=== PATIENT | male | born 1950 | race Caucasian/White ===

== ENCOUNTER → 2018-05-17 | Outpatient (CLI) | payer MEDICARE ==
[2018-05-17 09:46] LABS: Albumin 4.1 g/dL (3.5-5.0); Calcium 9.3 mg/dL (8.4-10.2); Magnesium 1.7 mg/dL (1.6-2.3); Potassium 4.4 mmol/L (3.5-5.1); Total Bilirubin 0.8 mg/dL (0.2-1.3); Total Protein 6.8 g/dL (6.3-8.2)
== END | disposition home or self-care (01) ==
LOC: LABWHC1 08:04
PROVIDERS: ATTEND Internal Medicine Clinical Cardiac Electrophysiology
DX: I48.91 Unspecified atrial fibrillation (principal); E78.5 Hyperlipidemia, unspecified; Z79.899 Other long term (current) drug therapy
CPT/HCPCS: 36415; 80053; 80061; 83735; 84443

== ENCOUNTER → 2018-08-13 | Outpatient (CLI) | payer MEDICARE, OTHER ==
--- NOTE | 2018-08-14 19:40 | ECHOF ---
Referral Reason:R01.1 Murmur MEASUREMENTS -------- HEIGHT: 190.5 cm WEIGHT: 113.4 kg BP: IVSd: 1.1 cm (0.6 - 1.1) LVIDd: 4.8 cm (3.9 - 5.3) LVPWd: 1.2 cm (0.6 - 1.1) IVSs: 1.6 cm LVIDs: 2.9 cm LVPWs: 1.7 cm RVIDd: 1.9 cm (< 3.3) LAESV Index (A-L): 24.98 ml/m Ao Diam: 3.6 cm (2.0 - 3.7) LA Diam: 4.4 cm (2.7 - 3.8) AV Cusp: 2.0 cm (1.5 - 2.6) EPSS: 0.7 cm MV E Raymon: 0.86 m/s MV DecT: 255 ms MV A Raymon: 0.23 m/s MV E/A Ratio: 3.71 RAP: 5.00 mmHg RVSP: 23.32 mmHg MV EF SLOPE: 133.47 mm/s (70 - 150) MV EXCURSION: 16.31 mm (> 18.000) FINDINGS -------- Sinus rhythm. This was a technically adequate study. The left ventricular size is normal. There is mild concentric left ventricular hypertrophy. Overa ll left ventricular systolic function is normal with, an EF between 55 - 60 %. The right ventricle is normal in size and function. Normal LA size by volume 22+/-6 ml/m2. The right atrium is normal in size. Aortic valve is trileaflet and is mildly thickened. There is no evidence of aortic regurgitation. There is no evidence of aortic stenosis. The mitral valve leaflets are mildly thickened. Mild mitral annular calcification present. There is trace to mild mitral regurgitation. Trace tricuspid regurgitation present. Right ventricular systolic pressure is normal at < 35 mmHg. There is no evidence of pulmonary hypertension. Trace/mild (physiologic) pulmonic regurgitation. The aortic root size is normal. Normal inferior vena cava with normal inspiratory collapse consistent with estimated right atrial pre ssure of 5 mmHg. There is no pericardial effusion. CONCLUSIONS -------- 1. Sinus rhythm. 2. This was a technically adequate study. 3. The left ventricular size is normal. 4. There is mild concentric left ventricular hypertrophy. 5. Overall left ventricular systolic function is normal with, an EF between 55 - 60 %. 6. Normal LA size by volume 22+/-6 ml/m2. 7. Aortic valve is trileaflet and is mildly thickened. 8. The mitral valve leaflets are mildly thickened. 9. Mild mitral annular calcification present. 10. There is trace to mild mitral regurgitation. 11. Trace tricuspid regurgitation present. 12. Right ventricular systolic pressure is normal at < 35 mmHg. 13. There is no evidence of pulmonary hypertension. 14. Trace/mild (physiologic) pulmonic regurgitation. 15. The aortic root size is normal. 16. There is no pericardial effusion. SWAGE TENDER: Mervin Argueta RDCS
== END | disposition home or self-care (01) ==
LOC: RADECHMAIN 13:58
PROVIDERS: ATTEND Family Medicine
DX: I08.0 Rheumatic disorders of both mitral and aortic valves (principal); I70.8 Atherosclerosis of other arteries
CPT/HCPCS: 93306

== ENCOUNTER → 2018-08-21 | Outpatient (CLI) | payer MEDICARE, OTHER ==
--- NOTE | 2018-08-21 19:36 | CONS ---
CONSULTATION DATE OF SERVICE: 08/21/2018 68-year-old gentleman has been evaluated in [facility] for possible obstructive sleep apnea-hypopnea syndrome. HISTORY OF PRESENT ILLNESS SLEEP-WAKE EVALUATION: SLEEP SCHEDULE: Patient usual sleep schedule from around 11:00 p.m. until 8:00 a.m. FALLING ASLEEP: Sometimes he has problem with falling asleep, but usually not more than 1 hour. He does have a TV set in bedroom. DURING SLEEP: He sleeps on the back and side position with snoring witnessed by his and multiple awakenings from sleep with nocturia. The patient wakes up from sleep 3 times. DURING THE DAY/SLEEP WAKE EVALUATION: In the morning, patient wakes up tired. [employer] Sleepiness Scale increased to 11. He takes naps at around 2 to 4 pm. He feels very refreshed after a nap, usually no remembering of dreaming during the naps. The patient takes 2 cups of coffee during the day. No history of hypnagogic hallucinations, sleep paralysis or cataplexy. PAST MEDICAL HISTORY: Positive for coronary artery disease, hypertension, diabetes mellitus, hyperlipidemia, atrial fibrillation and atrial flutter. PAST SURGICAL HISTORY: Coronary artery bypass graft 2000, cardiac ablation for atrial flutter. MEDICATIONS: 1. Isosorbide. 2. Furosemide. 3. Metformin. 4. Lisinopril. 5. Simvastatin. 6. Invokana. 7. Dofetilide. 8. Eliquis. 9. Januvia. SOCIAL HISTORY: Negative for smoking or using alcohol. FAMILY HISTORY: Heart problems, lung problems, cancer and diabetes. REVIEW OF SYSTEMS: Multiple awakenings during the sleep. Sleepiness during the day. PHYSICAL EXAM: During physical exam, gentleman without distress. BP 146/60, HR 64, RR 16, height 6 feet 0, weight 253, body mass index 34.1, temperature 97.7, oxygen saturation on room air 97%. Oropharynx: Low position of soft palate. Some restriction of nasal breathing, wide neck 18 inches in circumference. Abdomen slightly obese. Heart S1, S2 sounds regular to me during the auscultation. Extremities 1+ bilateral ankle edema. Neck: Supple, no JVD. Thyroid is not palpable. LUNGS: Clear to percussion and to auscultation. Good air exchange. No wheezing or rhonchi. HEART: S1, S2 regular. ABDOMEN: Obese. Soft and nontender. Bowel sounds are present. No organomegaly appreciated. EXTREMITIES : 1+ bilateral ankle edema. No clubbing or cyanosis. 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 Cranial nerves 2 to 7 intact. There is no fasciculation or atrophy. noted. No focal deficits observed. IMPRESSION: 1. Snoring, low position of soft palate, multiple awakenings from sleep with nocturia, excessive daytime sleepiness. [employer] Sleepiness Scale increased to 11. Wide neck, obstructive sleep apnea-hypopnea syndrome. 2. Coronary artery disease, status post heart attack and coronary artery bypass grafting in 2000. 3. Hypertension. 4. Diabetes mellitus. 5. Hyperlipidemia. 6. History of atrial flutter and atrial fibrillation status post ablation procedure in March of 2016. PLAN: 1. Polysomnography for evaluation of patient's breathing during sleep. 2. CPAP/BiPAP titration if sleep study confirms obstructive sleep apnea-hypopnea syndrome. 3. Preferable position during sleep on the side. 4. No driving if patient feels any sleepiness. 5. I will see patient for follow up visit to explain results of testing and following plan. Thank you very much for referring this patient for consultation. Sincerely, Ted Varghese MD, PhD, FAASM Diplomat of [place] [employer] [place] [employer] Developer of [facility] [place] MMODL / NEGRITO: [id number] /
== END | disposition home or self-care (01) ==
LOC: SLEEP 14:24
PROVIDERS: ATTEND Internal Medicine
DX: G47.33 Obstructive sleep apnea (adult) (pediatric) (principal); M27.8 Other specified diseases of jaws; R35.1 Nocturia; I25.10 Atherosclerotic heart disease of native coronary artery without angina pectoris; I25.2 Old myocardial infarction; I10 Essential (primary) hypertension; E11.9 Type 2 diabetes mellitus without complications; I48.91 Unspecified atrial fibrillation; I48.92 Unspecified atrial flutter; E78.5 Hyperlipidemia, unspecified; Z95.1 Presence of aortocoronary bypass graft; Z79.84 Long term (current) use of oral hypoglycemic drugs; Z79.01 Long term (current) use of anticoagulants; Z79.899 Other long term (current) drug therapy; Z98.890 Other specified postprocedural states
CPT/HCPCS: 99211

== ENCOUNTER → 2019-02-24 | Outpatient (CLI) | payer MEDICARE, OTHER ==
--- NOTE | 2019-02-26 06:57 | MR ---
EXAMINATION TYPE: MR Prostate wo/w con DATE OF EXAM: 02/24/2019 COMPARISON: None IMAGE QUALITY: Good. INDICATION: Prostate cancer staging . PSA: 4.3 ng/ml on January 23, 2019 and 5.48 on December 23, 2017 Recent Biopsy and Date: February 17, 2016 Pathology Report (If Applicable): [place] 3+3 = 6 1 core TECHNIQUE: Examination was performed using a 3T MRI without an endorectal coil. Multiparametric imaging was perf ormed with T2 mutliplanar sequences, axial diffusion weighted imaging and dynamic contrast enhanced i maging, utilizing 10 mL intravenous Gadavist gadolinium contrast. FINDINGS: There is no clinically significant cancer identified. PROSTATE VOLUME: 5.6 cm SI x 4.3 cm AP x 5.6 cm LR Vol= 70.12 cc PSA DENSITY: 8.41 ng/ml/cc Prostate gland is enlarged in size bulging on bladder base. Peripheral zone is somewhat thinned and felt within normal limits on DWI/ADC imaging. There is a bulg e suspected nodule left apex axial image 24 with increased T1 signal suggesting recent biopsy, correl ate clinically. This does not show suspicious low signal on ADC mapping. Transitional zone shows overall heterogeneity with focus of heterogeneous signal intensity that has o bscured margins in the left posterior transitional zone apex seen best coronal image 11 without suspi cious enhancement on dynamic postcontrast images. Seminal vesicles are felt within normal limits. No suspicious adjacent adenopathy is seen. Capsule is maintained. Visualized portion of the bladder show mild wall thickening and slight trabeculation sug gesting outlet obstruction. Visualized osseous structures are intact. Mild to moderate wall thickenin g in visualized portion of rectum may be product of poor distention. IMPRESSION: Enlarged prostate gland without definitive suspicious lesion. Highest Assessment Category: 3 MRI Stage: T1c N0 M0 based on review of pelvic images. False negative rates for MRI range from 5-20% depending on risk profile. Assessment Categories: 1 ? Very low (clinically significant cancer is highly unlikely to be present) 2 ? Low (clinically significant cancer is unlikely to be present) 3 ? Intermediate (the presence of clinically significant cancer is equivocal) 4 ? High (clinically significant cancer is likely to be present) 5 ? Very high (clinically significant cancer is highly likely to be present)
== END ==
LOC: RADMRIMAIN 07:20
PROVIDERS: ATTEND Urology
DX: C61 Malignant neoplasm of prostate (principal)
CPT/HCPCS: 72197; A9585

== ENCOUNTER → 2019-03-04 | Outpatient (CLI) | payer MEDICARE, OTHER ==
[2019-03-04 19:32] LABS: Anion Gap 9.4 mmol/L (4.00-12.00); Calcium 9.3 mg/dL (8.7-10.3); Carbon Dioxide 23.6 mmol/L (21.6-31.8); Potassium 4.8 mmol/L (3.5-5.5)
== END | disposition home or self-care (01) ==
LOC: LABWHC1 11:33
PROVIDERS: ATTEND Internal Medicine Clinical Cardiac Electrophysiology
DX: I48.91 Unspecified atrial fibrillation (principal); Z79.899 Other long term (current) drug therapy
CPT/HCPCS: 36415; 80048; 83735

== ENCOUNTER 2019-04-25 13:03 | Emergency (ER) | payer MEDICARE, OTHER ==
[2019-04-25] MEDS ORDERED: SODIUM CHLORIDE 0.9% 500 ML 500 ML IV STA (13:25)
[2019-04-25] MEDS ORDERED: SODIUM CHLORIDE 0.9% 1,000 ML IV STA ×2 (13:25)
--- NOTE | 2019-04-25 13:38 | ED ---
Dizziness HPI - General Chief Complaint: Shortness of Breath Stated Complaint: SOB/Dizzy Time Seen by Provider: 04/25/19 13:10 Source: patient, family, RN notes reviewed, old records reviewed Mode of arrival: ambulatory Limitations: no limitations - History of Present Illness Initial Comments: This is a 68-year-old male the ER for evaluation. Patient is a near syncopal vertigo type experience prior to arrival in the ER. 2 hours prior to arrival patient had symptoms of room spinning lightheaded dizziness and feeling up he was given a passed out he is was able to similar, sit down and symptoms resolved in about 25 minutes. Patient has history of atrial fibrillation significant heart disease with multiple stents and cardiac surgery. She denies chest pain throughout the event he does admit to diaphoresis and possible some shortness of breath but he thinks it was just some anxiety. Patient is recent travel history no sick contacts is on blood thinners with no recent trauma. Symptoms are currently resolved MD Complaint: dizziness, lightheadedness, near syncope -: hour(s) Timing: sudden onset Description: sense of movement, "room spinning", lightheadedness, nausea, near- syncope History of Same: Yes (With his history of atrial fibrillation) History of Trauma: No Severity: moderate Improves With: nothing Worsens With: nothing Associated Symptoms: denies other symptoms - Related Data Home Medications Medication Instructions Recorded Confirmed Apixaban [Eliquis] 5 mg PO BID 04/25/19 04/25/19 Aspirin EC [Ecotrin Low Dose] 81 mg PO DAILY 04/25/19 04/25/19 Atorvastatin [Lipitor] 20 mg PO HS 04/25/19 04/25/19 Cholecalciferol (Vitamin D3) 2,000 unit PO DAILY 04/25/19 04/25/19 [Vitamin D3] Cinnamon Bark [Cinnamon] 1,000 mg PO BID 04/25/19 04/25/19 Empagliflozin [Jardiance] 12.5 mg PO DAILY 04/25/19 04/25/19 Insulin Glargine [Lantus] 10 unit SQ HS 04/25/19 04/25/19 Isosorbide Mononitrate ER [Imdur] 30 mg PO DAILY 04/25/19 04/25/19 Lisinopril [Zestril] 20 mg PO DAILY 04/25/19 04/25/19 Ranitidine HCl [Zantac] 150 mg PO BID 04/25/19 04/25/19 amLODIPine [Norvasc] 10 mg PO DAILY 04/25/19 04/25/19 sitaGLIPtin PHOS/metFORMIN HCL 0.5 tab PO BID 04/25/19 04/25/19 [Janumet 50-1,000 mg Tablet] Allergies Allergy/AdvReac Type Severity Reaction Status Date / Time No Known Allergies Allergy Verified 04/25/19 14:18 Review of Systems ROS Statement: Those systems with pertinent positive or pertinent negative responses have been documented in the HPI. ROS Other: All systems not noted in ROS Statement are negative. Past Medical History Past Medical History: Atrial Fibrillation, Atrial Flutter, Diabetes Mellitus, Hyperlipidemia, Hypertension History of Any Multi-Drug Resistant Organisms: None Reported Past Surgical History: Coronary Bypass/CABG, Heart Catheterization With Stent Past Psychological History: No Psychological Hx Reported Smoking Status: Never smoker Past Alcohol Use History: None Reported Past Drug Use History: None Reported General Exam Limitations: no limitations General appearance: alert, in no apparent distress Head exam: Present: atraumatic, normocephalic, normal inspection Eye exam: Present: normal appearance, PERRL, EOMI. Absent: scleral icterus, conjunctival injection, periorbital swelling ENT exam: Present: normal exam, mucous membranes moist Neck exam: Present: normal inspection. Absent: tenderness, meningismus, lymphadenopathy Respiratory exam: Present: normal lung sounds bilaterally. Absent: respiratory distress, wheezes, rales, rhonchi, stridor Cardiovascular Exam: Present: regular rate, normal rhythm, normal heart sounds. Absent: systolic murmur, diastolic murmur, rubs, gallop, clicks GI/Abdominal exam: Present: soft, normal bowel sounds. Absent: distended, tenderness, guarding, rebound, rigid Extremities exam: Present: normal inspection, full ROM, normal capillary refill. Absent: tenderness, pedal edema, joint swelling, calf tenderness Back exam: Present: normal inspection Neurological exam: Present: alert, oriented X3, CN II-XII intact Psychiatric exam: Present: normal affect, normal mood Skin exam: Present: warm, dry, intact, normal color. Absent: rash Course Vital Signs 04/25/19 04/25/19 04/25/19 13:05 13:32 13:40 Temperature 97.8 F Pulse Rate 54 L 51 L 51 L Respiratory 18 12 16 Rate Blood Pressure 159/74 155/77 O2 Sat by Pulse 98 94 L 97 Oximetry 04/25/19 04/25/19 13:50 14:20 Temperature Pulse Rate 49 L 57 L Respiratory 17 16 Rate Blood Pressure 155/77 143/76 O2 Sat by Pulse 95 96 Oximetry - Reevaluation(s) Reevaluation #1: 04/25/19 15:01 Medical records reviewed Reevaluation #2: 04/25/19 15:01 Patient remains significantly asymptomatic throughout ER stay Reevaluation #3: 04/25/19 15:02 Spoke with patient at length regarding hospital admission for monitoring of possible arrhythmia with history of heart disease. states he would not like there, he is feeling fine with her to be discharged EKG Findings - EKG Comments: EKG Findings:: EKG shows sinus bradycardia rate of 49, VA 190, QRS 138, QTc 424 Medical Decision Making - Medical Decision Making 68 male with near syncopal versus recurrent to experience. Patient symptoms are resolving can be discharged home - Lab Data Result diagrams: 04/25/19 13:23 04/25/19 13:23 Lab Results 04/25/19 04/25/19 04/25/19 Range/Units 13:23 13:23 13:23 WBC 8.3 (3.8-10.6) k/uL RBC 4.80 (4.30-5.90) m/uL Hgb 14.0 (13.0-17.5) gm/dL Hct 41.9 (39.0-53.0) % MCV 87.2 (80.0-100.0) fL MCH 29.2 (25.0-35.0) pg MCHC 33.5 (31.0-37.0) g/dL RDW 13.3 (11.5-15.5) % Plt Count 155 (150-450) k/uL Neutrophils % 82 % Lymphocytes % 8 % Monocytes % 6 % Eosinophils % 3 % Basophils % 0 % Neutrophils # 6.7 (1.3-7.7) k/uL Lymphocytes # 0.7 L (1.0-4.8) k/uL Monocytes # 0.5 (0-1.0) k/uL Eosinophils # 0.2 (0-0.7) k/uL Basophils # 0.0 (0-0.2) k/uL PT 10.2 (9.0-12.0) sec INR 0.9 (<1.2) APTT 26.5 (22.0-30.0) sec Sodium 136 L (137-145) mmol/L Potassium 5.3 H (3.5-5.1) mmol/L Chloride 103 (98-107) mmol/L Carbon Dioxide 23 (22-30) mmol/L Anion Gap 10 mmol/L BUN 48 H (9-20) mg/dL Creatinine 1.69 H (0.66-1.25) mg/dL Est GFR (CKD-EPI)AfAm 48 (>60 ml/min/1.73 sqM) Est GFR (CKD-EPI)NonAf 41 (>60 ml/min/1.73 sqM) Glucose 255 H (74-99) mg/dL Calcium 9.3 (8.4-10.2) mg/dL Phosphorus 3.9 (2.5-4.5) mg/dL Magnesium 2.1 (1.6-2.3) mg/dL Total Bilirubin 0.6 (0.2-1.3) mg/dL AST 22 (17-59) U/L ALT 24 (21-72) U/L Alkaline Phosphatase 55 (38-126) U/L Creatine Kinase 51 L (55-170) U/L Troponin I (0.000-0.034) ng/mL NT-Pro-B Natriuret Pep pg/mL Total Protein 7.0 (6.3-8.2) g/dL Albumin 4.2 (3.5-5.0) g/dL TSH 0.956 (0.465-4.680) mIU/L Urine Color Urine Appearance (Clear) Urine pH (5.0-8.0) Ur Specific [place] (1.001-1.035) Urine Protein (Negative) Urine Glucose (UA) (Negative) Urine Ketones (Negative) Urine Blood (Negative) Urine Nitrite (Negative) Urine Bilirubin (Negative) Urine Urobilinogen (<2.0) mg/dL Ur Leukocyte Esterase (Negative) Urine WBC (0-5) /hpf 04/25/19 04/25/19 04/25/19 Range/Units 13:23 13:23 14:00 WBC (3.8-10.6) k/uL RBC (4.30-5.90) m/uL Hgb (13.0-17.5) gm/dL Hct (39.0-53.0) % MCV (80.0-100.0) fL MCH (25.0-35.0) pg MCHC (31.0-37.0) g/dL RDW (11.5-15.5) % Plt Count (150-450) k/uL Neutrophils % % Lymphocytes % % Monocytes % % Eosinophils % % Basophils % % Neutrophils # (1.3-7.7) k/uL Lymphocytes # (1.0-4.8) k/uL Monocytes # (0-1.0) k/uL Eosinophils # (0-0.7) k/uL Basophils # (0-0.2) k/uL PT (9.0-12.0) sec INR (<1.2) APTT (22.0-30.0) sec Sodium (137-145) mmol/L Potassium (3.5-5.1) mmol/L Chloride (98-107) mmol/L Carbon Dioxide (22-30) mmol/L Anion Gap mmol/L BUN (9-20) mg/dL Creatinine (0.66-1.25) mg/dL Est GFR (CKD-EPI)AfAm (>60 ml/min/1.73 sqM) Est GFR (CKD-EPI)NonAf (>60 ml/min/1.73 sqM) Glucose (74-99) mg/dL Calcium (8.4-10.2) mg/dL Phosphorus (2.5-4.5) mg/dL Magnesium (1.6-2.3) mg/dL Total Bilirubin (0.2-1.3) mg/dL AST (17-59) U/L ALT (21-72) U/L Alkaline Phosphatase (38-126) U/L Creatine Kinase (55-170) U/L Troponin I <0.012 (0.000-0.034) ng/mL NT-Pro-B Natriuret Pep 940 pg/mL Total Protein (6.3-8.2) g/dL Albumin (3.5-5.0) g/dL TSH (0.465-4.680) mIU/L Urine Color Light Yellow Urine Appearance Clear (Clear) Urine pH 5.5 (5.0-8.0) Ur Specific [place] 1.015 (1.001-1.035) Urine Protein 1+ H (Negative) Urine Glucose (UA) 4+ H (Negative) Urine Ketones Negative (Negative) Urine Blood Negative (Negative) Urine Nitrite Negative (Negative) Urine Bilirubin Negative (Negative) Urine Urobilinogen <2.0 (<2.0) mg/dL Ur Leukocyte Esterase Negative (Negative) Urine WBC <1 (0-5) /hpf - Radiology Data Radiology results: report reviewed (CT brain negative for acute disease chest x- rays negative for acute disease), image reviewed Disposition Clinical Impression: Near syncope, Dizziness, Vertigo Disposition: HOME SELF-CARE Condition: Good Instructions (If sedation given, give patient instructions): Near Syncope (ED) Is patient prescribed a controlled substance at d/c from ED?: No Referrals: Victor Manuel Cummings MD [Primary Care Provider] - 1-2 days
[2019-04-25 14:02] LABS: Basophils % (A) 0 %; Eosinophils # (A) 0.2 k/uL (0-0.7); Eosinophils % (A) 3 %; HCT 41.9 % (39.0-53.0); Lymphocytes # (A) 0.7 k/uL (1.0-4.8); Lymphocytes % (A) 8 %; MCH 29.2 pg (25.0-35.0); MCHC 33.5 g/dL (31.0-37.0); MCV 87.2 fL (80.0-100.0); Mean Platelet Volume 7.1; Monocytes # (A) 0.5 k/uL (0-1.0); Monocytes % (A) 6 %; Neutrophils # (A) 6.7 k/uL (1.3-7.7); Neutrophils % (A) 82 %; Platelet Count 155 k/uL (150-450); RDW 13.3 % (11.5-15.5); WBC 8.3 k/uL (3.8-10.6)
--- NOTE | 2019-04-25 14:07 | XR ---
EXAMINATION TYPE: XR chest 2V DATE OF EXAM: 04/25/2019 COMPARISON: NONE HISTORY: Short of breath TECHNIQUE: Frontal and lateral views of the chest are obtained. FINDINGS: Heart and mediastinum are normal. Lungs are clear. Diaphragm is normal. There are chest le ads. Bony thorax is intact. IMPRESSION: No active cardiopulmonary disease.
[2019-04-25 14:11] LABS: Albumin 4.2 g/dL (3.5-5.0); Calcium 9.3 mg/dL (8.4-10.2); Magnesium 2.1 mg/dL (1.6-2.3); Phosphorus 3.9 mg/dL (2.5-4.5); Potassium 5.3 mmol/L (3.5-5.1); Total Bilirubin 0.6 mg/dL (0.2-1.3)
[2019-04-25 14:19] LABS: Appearance,Urine Clear (Clear); Bilirubin,Urine Negative (Negative); Blood,Urine Negative (Negative); Color,Urine Light Yellow; Glucose,Urine (UA) 4+ (Negative); Ketones,Urine Negative (Negative); Leukocyte Esterase,Urine Negative (Negative); Nitrite,Urine Negative (Negative); PH, Urine 5.5 (5.0-8.0); Protein,Urine 1+ (Negative); Specific Gravity,Urine 1.015 (1.001-1.035); Urobilinogen,Urine <2.0 mg/dL (<2.0); WBC,Urine <1 /hpf (0-5)
[2019-04-25 14:20] LABS: INR 0.9 (<1.2); Partial Thromboplastin Time 26.5 sec (22.0-30.0); Prothrombin Time 10.2 sec (9.0-12.0)
--- NOTE | 2019-04-25 14:25 | CT ---
EXAMINATION TYPE: CT brain wo con DATE OF EXAM: 04/25/2019 COMPARISON: None HISTORY: Dizziness and weakness CT DLP: 1027.4 mGycm Automated exposure control for dose reduction was used. FINDINGS: There is some mild cerebral cortical atrophy. There is no mass effect nor midline shift. There is no sign of intracranial hemorrhage. Calvarium is intact. There is debris in the external auditory canals . IMPRESSION: MILD ATROPHY. NO ACUTE INTRACRANIAL ABNORMALITY.
[2019-04-25 15:14] VITALS: BP 150/78; PULSE 57; RESP 18; TEMP 98.7
== END 2019-04-25 15:13 | disposition home or self-care (01) ==
LOC: EC 13:03
DX: R42 Dizziness and giddiness (principal); R55 Syncope and collapse; I48.91 Unspecified atrial fibrillation; I48.92 Unspecified atrial flutter; E11.9 Type 2 diabetes mellitus without complications; E78.5 Hyperlipidemia, unspecified; I10 Essential (primary) hypertension; Z79.82 Long term (current) use of aspirin; Z79.01 Long term (current) use of anticoagulants; Z79.4 Long term (current) use of insulin; Z79.899 Other long term (current) drug therapy; Z95.1 Presence of aortocoronary bypass graft; Z95.2 Presence of prosthetic heart valve
CPT/HCPCS: 36415; 70450; 71046; 80053; 81001; 82550; 83735; 83880; 84100; 84443; 84484; 85025; 85610; 85730; 87086; 93005; 96360; 99285

== ENCOUNTER → 2019-05-15 | Outpatient (CLI) | payer MEDICARE, OTHER ==
--- NOTE | 2019-05-15 14:45 | US ---
EXAMINATION TYPE: US carotid duplex BILAT DATE OF EXAM: 05/15/2019 COMPARISON: NONE CLINICAL HISTORY: R55 syncope. EXAM MEASUREMENTS: RIGHT: Peak Systolic Velocity (PSV) cm/sec ----- Right CCA: 98.0 ----- Right ICA: 93.2 ----- Right ECA: 85.5 ICA/CCA ratio: 1.0 RIGHT: End Diastole cm/sec ----- Right CCA: 15.9 ----- Right ICA: 23.8 ----- Right ECA: 0.0 LEFT: Peak Systolic Velocity (PSV) cm/sec ----- Left CCA: 318.1 ----- Left ICA: 160.9 ----- Left ECA: 227.5 ICA/CCA ratio: 0.5 LEFT: End Diastole cm/sec ----- Left CCA: 34.6 ----- Left ICA: 30.8 ----- Left ECA: 18.4 VERTEBRALS (direction of flow): Right Vertebral: Antegrade Left Vertebral: Antegrade Rhythm: Normal No significant stenosis seen. Extensive plaque noted throughout all vessels. Elevated left CCA, ICA, & ECA velocities. IMPRESSION: 1. 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 Proximal stenosis is suspected given elevation of all 3 velocities. CTA neck is re commended for further evaluation. 2. Moderate amount of grayscale atheromatous plaquing within the right carotid arterial system withou t hemodynamically significant stenosis. Criteria for Assigning % of Stenosis / Diameter reduction (Estimation based on the indirect measurements of the internal carotid artery velocities (ICA PSV). 1. Normal (no stenosis)=ICA PSV < 125 cm/s: ratio < 2.0: ICA EDV<40 cm/s. 2. Less than 50% stenosis=ICA PSV < 125 cm/s: ratio < 2.0: ICA EDV<40 cm/s. 3. 50 to 69% stenosis=ICA PSV of 125 to 230 cm/s: ration 2.0 ? 4.0: ICA EDV 40-100 cm/s. 4. Greater than 70% stenosis to near occlusion= ICA PSV > 230 cm/s: ratio > 4.0: ICA EDV > 100 cm/s. 5. Near occlusion= ICA PSV velocities may be low or undetectable: variable ratio and ICA EDV. 6. Total occlusion=unable to detect flow.
== END | disposition home or self-care (01) ==
LOC: RADUSWWP 14:05
PROVIDERS: ATTEND Family Medicine
DX: I77.89 Other specified disorders of arteries and arterioles (principal); R55 Syncope and collapse
CPT/HCPCS: 93880

== ENCOUNTER → 2019-06-01 | Day surgery (SDC) | payer MEDICARE, OTHER ==
[2019-05-26 15:51] VITALS: BMI 30.2
[~2019-06-01] MED LIST: LIDOCAINE 1% INJ 10MG/ML (20 ML MDV) SQ ONE; MIDAZOLAM (PF) 2 MG/2 ML VIAL IV ONE; SODIUM CHLORIDE 0.9% 1,000 ML IV SCH
[2019-06-01 12:47] VITALS: RESP 18
[2019-06-01 12:50] LABS: Glucose,Whole Blood 111 mg/dL (75-99)
--- NOTE | 2019-06-01 15:24 | P.PCN ---
Preoperative Diagnosis: Preoperative diagnosis: Paroxysmal Atrial fibrillation, patient underwent loop monitor implant under conscious sedation/moderate sedatio n under Dr. Rivas's supervision, monitoring of the level of consciousness and physiologic parameters including but not limited to vital signs and oxygenation. Patient tolerated the procedure well without any acute complications. Start time: 1455 Stop time: 1515
--- NOTE | 2019-06-01 15:29 | P.PCN ---
Preoperative Diagnosis: Loop monitor implant Primary physicians: Dr. Cummings Caser: Dr. Rivas operators: Dr. Rivas and Vivien King PA-C Indication: Paroxysmal Atrial fibrillation, QT prolongation with dofetilide, GFR 41, and presyncopal spells with unclear etiology Patient was brought to the EP lab in a fasting state. Written informed consent was obtained prior to the procedure. The left pectoral area was prepped and draped per protocol. Intravenous antibiotic was administered preoperatively. A subcutaneous Loop monitor was implanted successfully and the wound was closed per protocol. The device was programmed to detect significant slava- arrhythmic and tachy-arrhythmic events, per protocol. Device and programming details: Programmed A. fib management and syncope evaluation
[2019-06-01 16:44] VITALS: BP 127/61; PULSE 72
== END ==
LOC: CATHEP 12:07
PROVIDERS: ATTEND Internal Medicine Clinical Cardiac Electrophysiology
DX: I48.0 Paroxysmal atrial fibrillation (principal); I45.81 Long QT syndrome; R55 Syncope and collapse; I25.10 Atherosclerotic heart disease of native coronary artery without angina pectoris; Z95.1 Presence of aortocoronary bypass graft; Z95.5 Presence of coronary angioplasty implant and graft; I10 Essential (primary) hypertension; I45.2 Bifascicular block; E78.5 Hyperlipidemia, unspecified; E78.00 Pure hypercholesterolemia, unspecified; E11.9 Type 2 diabetes mellitus without complications; G47.33 Obstructive sleep apnea (adult) (pediatric); Z99.89 Dependence on other enabling machines and devices; Z79.82 Long term (current) use of aspirin; Z79.01 Long term (current) use of anticoagulants; Z79.4 Long term (current) use of insulin; Z79.899 Other long term (current) drug therapy; Z82.49 Family history of ischemic heart disease and other diseases of the circulatory system
CPT/HCPCS: 33285; C1764; J0690; J2001; J2250

== ENCOUNTER → 2019-06-17 | Outpatient (CLI) | payer MEDICARE, OTHER ==
--- NOTE | 2019-06-17 09:23 | US ---
EXAMINATION TYPE: US kidneys/renal and bladder DATE OF EXAM: 06/17/2019 COMPARISON: NONE CLINICAL HISTORY: N18.9 CKD. CKD EXAM MEASUREMENTS: Right Kidney: 13.6 x 5.4 x 5.6 cm Left Kidney: 13.2 x 5.8 x 4.8 cm Right Kidney: No hydronephrosis or masses seen Left Kidney: Exophytic Cystic are mid to lower pole 1.2 x 1.3 x 1.2cm. Solid hypoechoic area lateral to lower pole measuring 3.2 x 2.5 x 2.4cm. Bladder: wnl Bilateral Jets seen: Yes IMPRESSION: 1. 3 cm solid mass posterior lateral left lower renal pole. Additional workup with contrast CT is rec ommended. Neoplasm is not excluded. 2. Small exophytic cyst along the lateral left kidney.
== END | disposition home or self-care (01) ==
LOC: RADUSWWP 08:00
PROVIDERS: ATTEND Internal Medicine
DX: N28.1 Cyst of kidney, acquired (principal); N28.89 Other specified disorders of kidney and ureter
CPT/HCPCS: 76770

== ENCOUNTER → 2019-07-03 | Outpatient (CLI) | payer MEDICARE, OTHER | LOC: RADCTMAIN 14:04 | PROVIDERS: ATTEND Internal Medicine Clinical Cardiac Electrophysiology | DX: I65.29 Occlusion and stenosis of unspecified carotid artery (principal) | CPT/HCPCS: 82565; 84520 ==

== ENCOUNTER 2019-08-25 05:54 | Day surgery (SDC) | payer MEDICARE, OTHER ==
[2019-08-25] MEDS ORDERED: SODIUM CHLORIDE 0.9% 1,000 ML IV SCH (05:55)
[2019-08-25] MEDS ORDERED: ceFAZolin 1,000 MG in SODIUM CHLORIDE 0.9% IRRIGATIO 250 ML IRRIGATION ONE (06:00)
[2019-08-25 06:36] LABS: Glucose,Whole Blood 109 mg/dL (75-99)
[2019-08-25 06:36] LABS: Basophils # (A) 0.1 k/uL (0-0.2); Basophils % (A) 1 %; Eosinophils # (A) 0.3 k/uL (0-0.7); Eosinophils % (A) 4 %; HCT 40.1 % (39.0-53.0); HGB 13.5 gm/dL (13.0-17.5); Lymphocytes # (A) 0.7 k/uL (1.0-4.8); Lymphocytes % (A) 10 %; MCH 29.9 pg (25.0-35.0); MCHC 33.8 g/dL (31.0-37.0); MCV 88.5 fL (80.0-100.0); Mean Platelet Volume 6.6; Monocytes # (A) 0.6 k/uL (0-1.0); Monocytes % (A) 9 %; Neutrophils # (A) 4.8 k/uL (1.3-7.7); Neutrophils % (A) 73 %; Platelet Count 148 k/uL (150-450); RBC 4.52 m/uL (4.30-5.90); RDW 13.1 % (11.5-15.5); WBC 6.6 k/uL (3.8-10.6)
[2019-08-25] MEDS: SODIUM CHLORIDE 0.9% 1,000 ML IV SCH (06:38)
[2019-08-25 06:53] LABS: Calcium 9.2 mg/dL (8.4-10.2); Potassium 4.7 mmol/L (3.5-5.1)
[2019-08-25] MEDS ORDERED: LIDOCAINE 1% INJ 10MG/ML (20 ML MDV) ONE ×2 (07:04→07:42)
[2019-08-25] MEDS ORDERED: IOPAMIDOL-370 50ML BTL INJ ONE (07:25)
[2019-08-25] MEDS ORDERED: MIDAZOLAM 2 MG/2 ML VIAL IV ONE (07:34)
[2019-08-25] MEDS: LIDOCAINE 1% INJ 10MG/ML (20 ML MDV) SQ ONE ×3 (07:37→07:48)
[2019-08-25] MEDS ORDERED: fentaNYL (PF) 50 MCG/ML 2 ML AMP ONE (07:38)
[2019-08-25] MEDS: fentaNYL (PF) 50 MCG/ML 2 ML AMP IV ONE ×2 (07:40→07:45)
--- NOTE | 2019-08-25 08:37 | P.PCN ---
Preoperative Diagnosis: Patient underwent EP procedure under conscious sedation/moderate sedation, monitoring of the level of consciousness and physiologic parameters including but not limited to vital signs and oxygenation. Patient tolerated the procedure well without any acute complications. Start time: 730 Stop time: 08
--- NOTE | 2019-08-25 08:39 | P.HPCAR ---
History of Present Illness Impression Successful dual-chamber pacemaker implantation for sick sinus syndrome/severe bradycardia with long pauses with heart rates down to the mid 20s Daytime bradycardia severe symptomatic with dizziness Severe nighttime bradycardia down to the 20s Not on any medications or chronotropic agents Coronary artery disease status post coronary artery bypass grafting History of atrial flutter, paroxysmal him a status post ablation Procedure performed Successful dual-chamber pacemaker implantation Screw-in atrial lead in the right atrial appendage stump Screw-in RV lead in the low RV septum Medtronic device Please see office note Physical Exam Vitals: Vital Signs Temp Pulse Resp BP Pulse Ox 08/25/19 06:37 97.8 F 55 L 18 141/70 96 Intake and Output 08/24/19 08/25/19 08/25/19 22:59 06:59 14:59 Intake Total 20 150 Balance 20 150 Intake: IV 20 150 Other: Weight 108.862 kg Past Medical History Past Medical History: Diabetes Mellitus, Myocardial Infarction ([place]), Sleep Apnea/CPAP/BIPAP Additional Past Medical History / Comment(s): see Dr Rivas H&P Last Myocardial Infarction Date:: 01/2001 History of Any Multi-Drug Resistant Organisms: None Reported Past Surgical History: Coronary Bypass/CABG, Heart Catheterization With Stent Additional Past Surgical History / Comment(s): cabgx3, stent x3 Past Anesthesia/Blood Transfusion Reactions: No Reported Reaction Date of Last Stent Placement:: Smoking Status: Never smoker Physical Examination Vital Signs Temp Pulse Resp BP Pulse Ox 08/25/19 06:37 97.8 F 55 L 18 141/70 96 Intake and Output 08/24/19 08/25/19 08/25/19 22:59 06:59 14:59 Intake Total 20 150 Balance 20 150 Intake: IV 20 150 Other: Weight 108.862 kg Results 08/25/19 06:20 08/25/19 06:20 CBC 08/25/19 Range/Units 06:20 WBC 6.6 (3.8-10.6) k/uL RBC 4.52 (4.30-5.90) m/uL Hgb 13.5 (13.0-17.5) gm/dL Hct 40.1 (39.0-53.0) % Plt Count 148 L (150-450) k/uL Comprehensive Metabolic Panel 08/25/19 Range/Units 06:20 Sodium 141 (137-145) mmol/L Potassium 4.7 (3.5-5.1) mmol/L Chloride 109 H (98-107) mmol/L Carbon Dioxide 23 (22-30) mmol/L BUN 53 H (9-20) mg/dL Creatinine 1.80 H (0.66-1.25) mg/dL Glucose 117 H (74-99) mg/dL Calcium 9.2 (8.4-10.2) mg/dL Current Medications Generic Name Dose Route Start Last Admin Trade Name Freq PRN Reason Stop Dose Admin Sodium Chloride 1,000 mls @ 50 mls/hr 08/25/19 05:55 08/25/19 06:38 Saline 0.9% IV 120 mls .Q20H DAREN Administration Sodium Chloride 1,000 mls @ 50 mls/hr 08/25/19 05:55 Saline 0.9% IV .Q20H DAREN Intake and Output 08/24/19 08/25/19 08/25/19 22:59 06:59 14:59 Intake Total 20 150 Balance 20 150 Intake: IV 20 150 Other: Weight 108.862 kg 08/25/19 06:20 08/25/19 06:20
[2019-08-25] MEDS ORDERED: ACETAMINOPHEN TAB 325 MG TAB PO PRN (08:42)
--- NOTE | 2019-08-25 08:45 | P.PRLE ---
RE: Salvatore Marks Dear Dr. Emiliano Chase underwent successful dual-chamber pacemaker implantation for severe Sick Sinus Syndrome that is determined loop monitoring did he had severe daytime bradycardia associated with dizziness He will continue his current medications without any changes Thank you for entrusting me with the care of the patient Warm regards Sincerely Chris Rivas
[2019-08-25] MEDS ORDERED: SITAGLIPTIN PHOS PO SCH (09:00)
[2019-08-25] MEDS ORDERED: METFORMIN HCL PO SCH (09:00)
[2019-08-25] MEDS ORDERED: [UNRECOGNIZED DRUG - OTHER] PO SCH (09:00)
[2019-08-25] MEDS ORDERED: ACETAMINOPHEN IV (For NPO) 1,000 MG in EMPTY BAG 1 BAG IVPB ONE (10:30)
[2019-08-25] MEDS: amLODIPine 10 MG TAB PO SCH (11:20)
[2019-08-25] MEDS: ISOSORBIDE MONONITRATE ER 30 MG TAB.ER.24H PO SCH (11:20)
[2019-08-25] MEDS: LISINOPRIL 20 MG TAB PO SCH (11:20)
[2019-08-25 11:56] LABS: Glucose,Whole Blood 148 mg/dL (75-99)
[2019-08-25] MEDS: HYDROcodone/APAP 5-325MG 1 EACH TAB PO PRN ×2 (12:06→17:37)
--- NOTE | 2019-08-25 14:20 | PCN ---
PROCEDURE NOTE Salvatore Marks is a 69-year-old male patient who has atrial flutter and evidence of sick sinus syndrome with significant pauses. Previously, he only at nighttime severe bradycardia down to the 20s, but now he started experiencing daytime heart rates in the 30s with pauses associated with dizziness and lightheadedness. He was awake during these episodes yesterday and in we detected a 7 loop monitor. He is not on any medications that would decrease his heart rate. He underwent a dual-chamber pacemaker today. Patient was brought to the EP lab in a fasting state. Written informed consent was obtained prior to the procedure. The left shoulder area was prepped and draped as per protocol. 1% lidocaine was used for local anesthesia. A 4 cm incision was made parallel to the deltopectoral groove, about 1.5 cm medial to it. The incision was carried down to the level of the pectoralis muscle. A subfascial pocket was made, hemostasis was assured. At two separate points under fluoroscopy and a lateral access at the level of the second rib was made. Two venous sheaths were placed,. via these right atrial and right ventricular leads were placed. The right atrial lead was a screw-in lead model #5076, 52 cm length and serial number [id number]. P waves 2.2 mV, pacing impedance 748 ohms, pacing threshold 0.9 V at 0.5 milliseconds 10 V test negative. The RV lead was positioned in the low RV septum. R-waves 17.4 pacing impedance 1-88 ohms, pacing threshold 0.6 V at 0.5 milliseconds. 10 V test negative. Both leads were secured to the underlying pectoralis fascia using 2 nonabsorbable sutures. Pocket was irrigated with antibiotic solution. Leads were connected to the generator (Medtronic dual-chamber device 0 MRI, model number [id number], serial [id number]. The leads and generator were then placed in subfascial pocket. The wound was closed in 3 layers and dressed per protocol. The device was then programmed to DDD mode at 50 bpm with MVP turned on. With atrial pacing, AV node Wenckebach block in a mildly sedated state was 120 beats per minute. MMODL / IJN: [id number] /
[2019-08-25 16:42] LABS: Glucose,Whole Blood 154 mg/dL (75-99)
[2019-08-25 20:29] LABS: Glucose,Whole Blood 178 mg/dL (75-99)
[2019-08-25] MEDS: APIXABAN 5 MG TAB PO SCH (20:38)
[2019-08-25 20:50] VITALS: RESP 18
[2019-08-25] MEDS ORDERED: ATORVASTATIN 20 MG TAB PO SCH (21:00)
[2019-08-26] MEDS: SODIUM CHLORIDE 0.9% 1,000 ML IV SCH (00:08)
[2019-08-26] MEDS: HYDROcodone/APAP 5-325MG 1 EACH TAB PO PRN ×3 (00:09→11:33)
[2019-08-26 06:47] LABS: Glucose,Whole Blood 147 mg/dL (75-99)
[2019-08-26] MEDS ORDERED: glipiZIDE 10 MG TAB PO SCH (07:30)
[2019-08-26 07:33] VITALS: BP 156/65; PULSE 54; TEMP 97.7
--- NOTE | 2019-08-26 07:57 | P.DS ---
Providers Attending physician: Chris Rivas Primary [facility]: Patient is doing well. No chest discomfort. The basic site is sore no dizziness lightheadedness or palpitations Blood pressure 150 was 72 mmHg pulse rate in the 50s afebrile 97.7F Breath sounds are clear no rhonchi no crackles Heart sounds S1 and S2 are normal no murmurs or gallops no rub Extremity is warm no edema Impression Symptomatic sick sinus syndrome with daytime pauses No incriminating drugs or triggering factors Status post dual-chamber pacemaker implantation yesterday Suggest Continue all home medications Discharge home if chest x-ray is within normal limits, antibiotic courses complete and pacemaker interrogation is within normal limits Follow-up with device clinic within one week Plan - Discharge Summary Discharge Rx Participant: No New Discharge Prescriptions: No Action amLODIPine [Norvasc] 10 mg PO DAILY Ranitidine HCl [Zantac] 150 mg PO BID Lisinopril [Zestril] 20 mg PO DAILY Isosorbide Mononitrate ER [Imdur] 30 mg PO DAILY Empagliflozin [Jardiance] 12.5 mg PO DAILY Cholecalciferol (Vitamin D3) [Vitamin D3] 2,000 unit PO DAILY Aspirin EC [Ecotrin Low Dose] 81 mg PO DAILY Apixaban [Eliquis] 5 mg PO BID sitaGLIPtin PHOS/metFORMIN HCL [Janumet 50-1,000 mg Tablet] 0.5 tab PO BID Cinnamon Bark [Cinnamon] 1,000 mg PO BID Atorvastatin [Lipitor] 20 mg PO HS glipiZIDE [Glucotrol] 10 mg PO DAILY Discharge Medication List Apixaban [Eliquis] 5 mg PO BID 04/25/19 [History] Aspirin EC [Ecotrin Low Dose] 81 mg PO DAILY 04/25/19 [History] Atorvastatin [Lipitor] 20 mg PO HS 04/25/19 [History] Cholecalciferol (Vitamin D3) [Vitamin D3] 2,000 unit PO DAILY 04/25/19 [History] Cinnamon Bark [Cinnamon] 1,000 mg PO BID 04/25/19 [History] Empagliflozin [Jardiance] 12.5 mg PO DAILY 04/25/19 [History] Isosorbide Mononitrate ER [Imdur] 30 mg PO DAILY 04/25/19 [History] Lisinopril [Zestril] 20 mg PO DAILY 04/25/19 [History] Ranitidine HCl [Zantac] 150 mg PO BID 04/25/19 [History] amLODIPine [Norvasc] 10 mg PO DAILY 04/25/19 [History] sitaGLIPtin PHOS/metFORMIN HCL [Janumet 50-1,000 mg Tablet] 0.5 tab PO BID 04/25/19 [History] glipiZIDE [Glucotrol] 10 mg PO DAILY 08/25/19 [History] Follow up Appointment(s)/Referral(s): Des Olivares MD [STAFF PHYSICIAN] - 1 Week Discharge Disposition: HOME SELF-CARE
[2019-08-26] MEDS ORDERED: ASPIRIN 81 MG PO SCH (09:00)
[2019-08-26] MEDS ORDERED: EMPAGLIFLOZIN 12.5 MG PO SCH (09:00)
[2019-08-26] MEDS ORDERED: LINAGLIPTIN 5 MG TABLET PO SCH (09:00)
--- NOTE | 2019-08-26 09:03 | XR ---
EXAMINATION TYPE: XR chest 2V DATE OF EXAM: 08/26/2019 COMPARISON: Prior chest 04/25/2019 HISTORY: Weakness, shortness of breath, syncope TECHNIQUE: Frontal and lateral views of the chest are obtained. FINDINGS: Patient is post median sternotomy. Generator is present in left pectoral region, there are leads in the right atrium and ventricle. There is a loop recorder over the ventricle region. There is no focal air space opacity, pleural effusion, or pneumothorax seen. The cardiac silhouette size is stable. The osseous structures are intact. Mesenteric vascular calcifications noted. The aorta is d ense. IMPRESSION: No acute cardiopulmonary process.
[2019-08-26] MEDS: LISINOPRIL 20 MG TAB PO SCH (09:25)
[2019-08-26] MEDS: ISOSORBIDE MONONITRATE ER 30 MG TAB.ER.24H PO SCH (09:25)
[2019-08-26] MEDS: amLODIPine 10 MG TAB PO SCH (09:26)
[2019-08-26] MEDS: APIXABAN 5 MG TAB PO SCH (09:26)
[2019-08-26] MEDS ORDERED: metFORMIN 500 MG TAB PO SCH (10:00)
[2019-08-27] MEDS ORDERED: metFORMIN 500 MG TAB PO SCH (07:30)
== END 2019-08-26 11:50 | disposition home or self-care (01) ==
LOC: CATHEP 05:54 → 1SOBS 09:57 → CATHEP 08-26 11:50
PROVIDERS: ATTEND Internal Medicine Clinical Cardiac Electrophysiology
DX: I49.5 Sick sinus syndrome (principal); I48.92 Unspecified atrial flutter; E11.9 Type 2 diabetes mellitus without complications; G47.30 Sleep apnea, unspecified; Z99.89 Dependence on other enabling machines and devices; I25.2 Old myocardial infarction; Z95.1 Presence of aortocoronary bypass graft; Z95.5 Presence of coronary angioplasty implant and graft
CPT/HCPCS: 33208; 80048; 85025; 71046; C1769 ×3; C1892; C1898; C1785; J2250; J0690 ×2; J2001; J3010; Q9967

== ENCOUNTER 2020-11-21 11:48 | Inpatient (IN) | payer MEDICARE ==
[2020-11-21] MEDS ORDERED: SODIUM CHLORIDE 0.9% 1,000 ML IV STA (12:34)
[2020-11-21 13:06] LABS: Basophils # (A) 0.1 k/uL (0-0.2); Basophils % (A) 1 %; Eosinophils # (A) 0.1 k/uL (0-0.7); Eosinophils % (A) 1 %; HCT 38.7 % (39.0-53.0); HGB 13.2 gm/dL (13.0-17.5); Lymphocytes # (A) 0.6 k/uL (1.0-4.8); Lymphocytes % (A) 8 %; MCH 31.1 pg (25.0-35.0); MCHC 34.2 g/dL (31.0-37.0); MCV 90.9 fL (80.0-100.0); Mean Platelet Volume 7.6; Monocytes # (A) 0.8 k/uL (0-1.0); Monocytes % (A) 9 %; Neutrophils # (A) 6.4 k/uL (1.3-7.7); Neutrophils % (A) 79 %; Platelet Count 128 k/uL (150-450); RBC 4.26 m/uL (4.30-5.90); RDW 13.6 % (11.5-15.5); WBC 8.1 k/uL (3.8-10.6)
[2020-11-21 13:16] LABS: Albumin 3.9 g/dL (3.5-5.0); Calcium 8.9 mg/dL (8.4-10.2); Potassium 5.1 mmol/L (3.5-5.1); Total Bilirubin 0.8 mg/dL (0.2-1.3); Total Protein 6.8 g/dL (6.3-8.2)
[2020-11-21 13:28] LABS: Appearance,Urine Cloudy (Clear); Bacteria,Urine Occasional /hpf; Bilirubin,Urine Negative (Negative); Blood,Urine Large (Negative); Color,Urine Yellow; Glucose,Urine (UA) 4+ (Negative); Ketones,Urine Negative (Negative); Leukocyte Esterase,Urine Trace (Negative); Mucus,Urine Rare /hpf; Nitrite,Urine Negative (Negative); PH, Urine 5.5 (5.0-8.0); Protein,Urine 1+ (Negative); RBC,Urine >182 /hpf (0-5); Specific Gravity,Urine 1.017 (1.001-1.035); Urobilinogen,Urine <2.0 mg/dL (<2.0); WBC,Urine 12 /hpf (0-5)
[2020-11-21] MEDS ORDERED: SODIUM CHLORIDE 0.9% 1,000 ML IV SCH (13:30)
--- NOTE | 2020-11-21 13:36 | ED ---
General Adult HPI - General Source: patient, family, RN notes reviewed Mode of arrival: ambulatory Limitations: no limitations <Edgar Christina - Last Filed: 11/21/20 14:08> <Erick Sharpe - Last Filed: 11/21/20 14:51> - General Chief complaint: Urogenital Stated complaint: Sent by PCP need IV antibotics Time Seen by Provider: 11/21/20 12:18 - History of Present Illness Initial comments: This is a 70-year-old male presents emergency Department chief complaint of chills, weakness. Patient states that he had prostate biopsy on Saturday by Dr. Garza and states that he started having chills on Saturday states that he's felt worse she did follow-up on Saturday and received IV antibiotics from [facility]. Patient states that he also received his Covid vaccine on Saturday. Patient states that he just feels miserable states he aches all over. Patient states is also a slight cough which was productive of brown sputum. Patient states his urine is very dark. Patient states that he he saw his urologist in office today who sent him in for IV antibiotics. (Edgar Christina) - Related Data Home Medications Medication Instructions Recorded Confirmed Apixaban [Eliquis] 5 mg PO BID 04/25/19 11/21/20 Aspirin EC [Ecotrin Low Dose] 81 mg PO DAILY 04/25/19 11/21/20 Cinnamon Bark [Cinnamon] 1,000 mg PO BID 04/25/19 11/21/20 Empagliflozin [Jardiance] 25 mg PO DAILY 04/25/19 11/21/20 Isosorbide Mononitrate ER [Imdur] 30 mg PO DAILY 04/25/19 11/21/20 amLODIPine [Norvasc] 10 mg PO DAILY 04/25/19 11/21/20 lisinopriL [Zestril] 20 mg PO DAILY 04/25/19 11/21/20 sitaGLIPtin PHOS/metFORMIN HCL 0.5 tab PO BID 04/25/19 11/21/20 [Janumet 50-1,000 mg Tablet] Atorvastatin Calcium [Lipitor] 80 mg PO HS 11/21/20 11/21/20 Cephalexin [Keflex] 500 mg PO Q8HR 11/21/20 11/21/20 Cholecalciferol [Vitamin D3 (25 25 mcg PO BID 11/21/20 11/21/20 Mcg = 1000 Iu)] glipiZIDE XL [Glucotrol Xl] 10 mg PO DAILY 11/21/20 11/21/20 Allergies Allergy/AdvReac Type Severity Reaction Status Date / Time No Known Allergies Allergy Verified 11/21/20 14:01 Review of Systems ROS Other: All systems not noted in ROS Statement are negative. <Edgar Christina - Last Filed: 11/21/20 14:08> ROS Other: All systems not noted in ROS Statement are negative. <Erick Sharpe - Last Filed: 11/21/20 14:51> ROS Statement: Those systems with pertinent positive or pertinent negative responses have been documented in the HPI. 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 cardiac ablation 04/06, Prostate of biopsy 10/2020, Colonoscop 09/2020 Past Anesthesia/Blood Transfusion Reactions: No Reported Reaction Date of Last Stent Placement:: Type of Cardiac Device: Biventricular Pacemaker Device Placement Date:: 08/25/19 Past Psychological History: No Psychological Hx Reported Smoking Status: Never smoker Past Alcohol Use History: None Reported Past Drug Use History: None Reported - Past Family History Father Family Medical History: Cancer, Diabetes Mellitus Additional Family Medical History / Comment(s): pancreatic cancer, pacemaker Mother Family Medical History: Cancer Additional Family Medical History / Comment(s): breast cancer with mastectomy Sister(s) Family Medical History: Diabetes Mellitus <Edgar Christina - Last Filed: 11/21/20 14:08> General Exam Limitations: no limitations General appearance: alert, in no apparent distress Head exam: Present: atraumatic, normocephalic, normal inspection Eye exam: Present: normal appearance, PERRL, EOMI. Absent: scleral icterus, conjunctival injection, periorbital swelling ENT exam: Present: normal exam, normal oropharynx, mucous membranes moist Neck exam: Present: normal inspection, full ROM. Absent: tenderness, meningismus, lymphadenopathy Respiratory exam: Present: normal lung sounds bilaterally. Absent: respiratory distress, wheezes, rales, rhonchi, stridor Cardiovascular Exam: Present: regular rate, normal rhythm, normal heart sounds. Absent: systolic murmur, diastolic murmur, rubs, gallop, clicks GI/Abdominal exam: Present: soft, tenderness (Minimal), normal bowel sounds. Absent: distended, guarding, rebound, rigid Back exam: Absent: CVA tenderness (R), CVA tenderness (L) Neurological exam: Present: alert, oriented X3 Skin exam: Present: warm, dry, intact, normal color. Absent: rash <Edgar Christina - Last Filed: 11/21/20 14:08> Course Vital Signs 11/21/20 12:10 Temperature 98.9 F Pulse Rate 82 Respiratory 20 Rate Blood Pressure 141/65 O2 Sat by Pulse 94 L Oximetry Medical Decision Making - Lab Data Result diagrams: 11/21/20 12:51 11/21/20 12:51 <Edgar Christina - Last Filed: 11/21/20 14:08> - Lab Data Result diagrams: 11/21/20 12:51 11/21/20 12:51 <Erick Sharpe - Last Filed: 11/21/20 14:51> - Medical Decision Making 70-year-old male presented for chills, possible infection. Patient's found to have acute pancreatitis CT was obtained secondary to pancreatitis, CT shows evidence of gallstones, concern for acute cholecystitis. Patient does have abdominal tenderness. Patient will be started on IV antibiotics case was discussed with surgeon, PCP and case discussed with urology. (Edgar Christina) Patient reevaluated and reexamined by myself, Dr. Sharpe. I agree with the f indings. This includes diagnostic interpretation and treatment plan. Patient and family updated on results and plan. Case discussed with Dr. Grewal, covering for Dr. Sanchez, who admits for Dr. Cummings and she will admit. Consults will place with surgery and gastroenterology. (Erick Sharpe) - Lab Data Lab Results 11/21/20 11/21/20 11/21/20 Range/Units 12:51 12:51 12:51 WBC 8.1 (3.8-10.6) k/uL RBC 4.26 L (4.30-5.90) m/uL Hgb 13.2 (13.0-17.5) gm/dL Hct 38.7 L (39.0-53.0) % MCV 90.9 (80.0-100.0) fL MCH 31.1 (25.0-35.0) pg MCHC 34.2 (31.0-37.0) g/dL RDW 13.6 (11.5-15.5) % Plt Count 128 L (150-450) k/uL MPV 7.6 Neutrophils % 79 % Lymphocytes % 8 % Monocytes % 9 % Eosinophils % 1 % Basophils % 1 % Neutrophils # 6.4 (1.3-7.7) k/uL Lymphocytes # 0.6 L (1.0-4.8) k/uL Monocytes # 0.8 (0-1.0) k/uL Eosinophils # 0.1 (0-0.7) k/uL Basophils # 0.1 (0-0.2) k/uL Sodium 137 (137-145) mmol/L Potassium 5.1 (3.5-5.1) mmol/L Chloride 103 (98-107) mmol/L Carbon Dioxide 21 L (22-30) mmol/L Anion Gap 13 mmol/L BUN 63 H (9-20) mg/dL Creatinine 2.45 H (0.66-1.25) mg/dL Est GFR (CKD-EPI)AfAm 30 (>60 ml/min/1.73 sqM) Est GFR (CKD-EPI)NonAf 26 (>60 ml/min/1.73 sqM) Glucose 169 H (74-99) mg/dL Plasma Lactic Acid Mauricio (0.7-2.0) mmol/L Calcium 8.9 (8.4-10.2) mg/dL Total Bilirubin 0.8 (0.2-1.3) mg/dL AST 40 (17-59) U/L ALT 39 (4-49) U/L Alkaline Phosphatase 64 (38-126) U/L Total Protein 6.8 (6.3-8.2) g/dL Albumin 3.9 (3.5-5.0) g/dL Amylase 205 H (30-110) U/L Lipase 1095 H (23-300) U/L Urine Color Yellow Urine Appearance Cloudy (Clear) Urine pH 5.5 (5.0-8.0) Ur Specific [place] 1.017 (1.001-1.035) Urine Protein 1+ H (Negative) Urine Glucose (UA) 4+ H (Negative) Urine Ketones Negative (Negative) Urine Blood Large H (Negative) Urine Nitrite Negative (Negative) Urine Bilirubin Negative (Negative) Urine Urobilinogen <2.0 (<2.0) mg/dL Ur Leukocyte Esterase Trace H (Negative) Urine RBC >182 H (0-5) /hpf Urine WBC 12 H (0-5) /hpf Urine Bacteria Occasional H (None) /hpf Urine Mucus Rare H (None) /hpf Coronavirus (PCR) (Not Detectd) 11/21/20 11/21/20 Range/Units 12:51 12:51 WBC (3.8-10.6) k/uL RBC (4.30-5.90) m/uL Hgb (13.0-17.5) gm/dL Hct (39.0-53.0) % MCV (80.0-100.0) fL MCH (25.0-35.0) pg MCHC (31.0-37.0) g/dL RDW (11.5-15.5) % Plt Count (150-450) k/uL MPV Neutrophils % % Lymphocytes % % Monocytes % % Eosinophils % % Basophils % % Neutrophils # (1.3-7.7) k/uL Lymphocytes # (1.0-4.8) k/uL Monocytes # (0-1.0) k/uL Eosinophils # (0-0.7) k/uL Basophils # (0-0.2) k/uL Sodium (137-145) mmol/L Potassium (3.5-5.1) mmol/L Chloride (98-107) mmol/L Carbon Dioxide (22-30) mmol/L Anion Gap mmol/L BUN (9-20) mg/dL Creatinine (0.66-1.25) mg/dL Est GFR (CKD-EPI)AfAm (>60 ml/min/1.73 sqM) Est GFR (CKD-EPI)NonAf (>60 ml/min/1.73 sqM) Glucose (74-99) mg/dL Plasma Lactic Acid Mauricio 1.6 (0.7-2.0) mmol/L Calcium (8.4-10.2) mg/dL Total Bilirubin (0.2-1.3) mg/dL AST (17-59) U/L ALT (4-49) U/L Alkaline Phosphatase (38-126) U/L Total Protein (6.3-8.2) g/dL Albumin (3.5-5.0) g/dL Amylase (30-110) U/L Lipase (23-300) U/L Urine Color Urine Appearance (Clear) Urine pH (5.0-8.0) Ur Specific [place] (1.001-1.035) Urine Protein (Negative) Urine Glucose (UA) (Negative) Urine Ketones (Negative) Urine Blood (Negative) Urine Nitrite (Negative) Urine Bilirubin (Negative) Urine Urobilinogen (<2.0) mg/dL Ur Leukocyte Esterase (Negative) Urine RBC (0-5) /hpf Urine WBC (0-5) /hpf Urine Bacteria (None) /hpf Urine Mucus (None) /hpf Coronavirus (PCR) Not Detected (Not Detectd) Disposition <Edgar Christina - Last Filed: 11/21/20 14:08> <Erick Sharpe - Last Filed: 11/21/20 14:51> Clinical Impression: Cholecystitis, acute with cholelithiasis, Acute pancreatitis, Acute kidney injury, Hematuria Disposition: ADMITTED IP TO THIS HOSP Condition: Fair Referrals: Victor Manuel Cummings MD [Primary Care Provider] - 1-2 days
--- NOTE | 2020-11-21 13:56 | XR ---
EXAMINATION TYPE: XR chest 2V DATE OF EXAM: 11/21/2020 COMPARISON: Chest x-ray 08/26/2019 HISTORY: Cough, chills TECHNIQUE: Frontal and lateral views of the chest are obtained. FINDINGS: Patient is post median sternotomy. Generator is present in left pectoral region, leads in r ight atrium and ventricle. There is a loop recorder over the left heart. No evident pneumothorax or p leural effusion. There is prominence of central vascularity and interstitium. Aorta is dense. IMPRESSION: Correlate for pulmonary venous hypertension and interstitial edema.
--- NOTE | 2020-11-21 14:05 | CT ---
EXAMINATION TYPE: CT abdomen pelvis wo con DATE OF EXAM: 11/21/2020 HISTORY: generalized weakness, abnormal labs CT DLP: 1338.9 mGycm. Automated Exposure Control for Dose Reduction was Utilized. TECHNIQUE: CT scan of the abdomen and pelvis is performed without oral or IV contrast. COMPARISON: Renal ultrasound June 17, 2019 FINDINGS: Within the limitations of a non-contrast study, the following observations are made. LUNG BASES: Tiny bilateral pleural effusions and associated compressive atelectasis. Mild bibasilar l inear scarring and/or atelectasis LIVER/GB: Elongated linear gallstone or likely adjacent small stones sagittal image 57. Gallbladder i s contracted with mild to moderate ill-defined fluid and fat stranding. No suspicious extrahepatic or intrahepatic biliary dilatation. PANCREAS: No significant abnormality is seen. SPLEEN: No significant abnormality is seen. ADRENALS: Low dense 1.9 cm right adrenal mass axial image 35. Suspect benign lipid rich adenoma KIDNEYS: Some cortical thinning in both kidneys. Exophytic 1.9 cm low dense lesion laterally left kid marquez mid to lower pole level consistent with simple thin-walled cyst axial image 71. Just inferior to this there is more hyperdense 3.3 x 2.7 cm isodense lesion corresponding to the nonsimple cyst possib le solid mass on June 17, 2019 ultrasound. Bladder has mild distention and wall thickening. Circuma ortic left renal vein which is normal variant. BOWEL: Wandering cecum into the right upper quadrant. Normal-appearing appendix seen from cecum near inferior margin of liver coronal image 47 for reference. GENITAL ORGANS: Prostate gland is enlarged consistent with BPH. LYMPH NODES: No greater than 1cm abdominal or pelvic lymph nodes are appreciated. OSSEOUS STRUCTURES: Moderate to severe disc space narrowing with vacuum disc phenomenon lumbosacral j unction. Slight grade 1 anterolisthesis L4 on L5. Multilevel spurring in the visualized thoracic spin e moderate. Moderate Axial joint space loss in both hips. Facet arthropathy lower lumbar levels. OTHER: Moderate to severe atherosclerotic change of aorta extends into branch vessels. Prominent tort uous splenic arterial calcification noted. IMPRESSION: Possible acute cholecystitis. Contracted gallbladder with small gallstones towards the ga llbladder neck and mild to moderate surrounding fluid and fat stranding. Correlate clinically. Advise surgical consultation. Case discussed with ordering ER physician team assistant via telephone at time of dictation.
[2020-11-21] MEDS ORDERED: PIPERACILLIN-TAZOBACTAM 3.375 GM in SODIUM CHLORIDE 0.9% 100 ML IVPB STA (14:08)
[2020-11-21] MEDS ORDERED: NALOXONE 0.4 MG/ML 1 ML VIAL IV PRN (14:10)
[2020-11-21] MEDS ORDERED: ONDANSETRON 4 MG/2 ML VIAL IVP PRN (14:10)
[2020-11-21] MEDS ORDERED: ACETAMINOPHEN IV (For NPO) 1,000 MG in EMPTY BAG 1 BAG IVPB STA (14:12)
--- NOTE | 2020-11-21 15:33 | XR ---
EXAMINATION TYPE: XR chest 1V portable DATE OF EXAM: 11/21/2020 CLINICAL HISTORY: Worsening shortness of breath. TECHNIQUE: Single AP portable upright view of the chest is obtained. COMPARISON: Chest x-ray from earlier today and older studies FINDINGS: Overlying sternal wires redemonstrated. Overlying loop recorder again seen. Persistent mil d cardiomegaly with dual lead pacemaker. Worsening central alveolar and interstitial opacities. No ne w pleural effusion or pneumothorax. Osseous structures remain intact. IMPRESSION: Suspect worsening CHF exacerbation as there is increasing mild to moderate central alveol ar and interstitial edema on background mild cardiomegaly.
[2020-11-21 17:16] LABS: Glucose,Whole Blood 128 mg/dL (75-99)
[2020-11-21] MEDS ORDERED: HYDROmorphone 0.5 MG/0.5 ML SYRINGE IVP PRN (17:17)
--- NOTE | 2020-11-21 17:23 | P.HPIM ---
History of Present Illness H&P Date: 11/21/20 Chief Complaint: abdominal pain Patient is a 70-year-old male with a history of diabetes mellitus type 2 non- insulin requiring, coronary artery disease status post 4 vessel bypass surgery, prior atrial fibrillation/flutter status post ablation and permanent pacemaker, and hypertension who presented to the emergency department at the direction of Dr. Garza do to concerns of UTI with sepsis. Patient had initially undergone prostate biopsy on 11/15 and had difficulty with postoperative urination, dysuria, and hematuria. In the ER he underwent extensive evaluation. On a rrival his vital signs were within normal limits, after 1 L of fluid his room air pulse ox dropped to 82%. Laboratory analysis demonstrates thrombocytopenia with a platelet of 128, lymphocytes 0.6, BUN 63, creatinine 2.54 consistent with acute kidney injury on his chronic kidney disease with baseline creatinine 1.7, lipase 1095 consistent with pancreatitis. Urinalysis shows gross hematuria without significant white blood cells. Initial chest x-ray showed pulmonary venous hypertension with some interstitial edema. Repeat chest x-ray after IV fluids shows worsening congestive heart failure. CT abdomen and pelvis demonstrated showed a long linear gallstone with fat stranding near the gallb ladder. Also noted was some bladder distention and thickening. The ER he was diagnosed with acute cholecystitis was started on Zosyn. He was admitted for further monitoring. Patient seen and examined at bedside. He is currently feeling winded and slightly short of breath, no cough. He does report that he was also short of breath this morning. He continues to have abdominal pain in his right upper and left upper quadrant. He is overall feeling tired and fatigued. Prostate biopsy last Saturday, Saturday + constipation and difficulty urinating, pain with urination and hematuria. Saturday was seen by Dr. Garza and was prescribed Keflex, also had COVID Vaccine. Saturday Pain with urinating and blood in the urine worsened. Saturday everything was worsening. Seen today at Dr. Garza at 9 am sent in for IV antibiotics initially thought UTI. ROS: + Fatigue + muscle aches and pain, + Chills, + abd pain on both sides nothing that makes it better or worsen, decrease appetite, constipation now resolved. No N/V. No chest pain Review of Systems Pertinent positives and negatives as discussed in HPI, a complete review of systems was performed and all other systems are negative. Past Medical History Past Medical History: Atrial Fibrillation, Atrial Flutter, Coronary Artery Disease (CAD), Chest Pain / Angina, Diabetes Mellitus, Hyperlipidemia, Hypertension, Myocardial Infarction ([place]), Renal Disease, Sleep Apnea/CPAP/BIPAP Additional Past Medical History / Comment(s): NIDDM type II, neuropathy bilateral feet, SSS/slava with pacer, chronic kidney disease stage III, PEDRO with Cpap, Hx low risk prostate ca 5 years ago. Last Myocardial Infarction Date:: 01/2001 History of Any Multi-Drug Resistant Organisms: None Reported Past Surgical History: Cardiac Ablation, Coronary Bypass/CABG, Heart Catheterization With Stent, Pacemaker Additional Past Surgical History / Comment(s): 11/15/20 prostate biopsy, 2000 CABG 4 vessel, PCI/stent , 2016 cardiac ablation, Cardioversion, 08/25/19 dual chamber pacer, 2019 loop recorder, colonoscopy 2019. Past Anesthesia/Blood Transfusion Reactions: No Reported Reaction Date of Last Stent Placement:: Type of Cardiac Device: Biventricular Pacemaker Device Placement Date:: 08/25/19 Past Psychological History: No Psychological Hx Reported Additional Psychological History / Comment(s): Pt resides with his spouse. He is independent. Smoking Status: Never smoker Past Alcohol Use History: None Reported Past Drug Use History: None Reported - Past Family History Father Family Medical History: Cancer, Diabetes Mellitus Additional Family Medical History / Comment(s): pancreatic cancer, pacemaker Mother Family Medical History: Cancer Additional Family Medical History / Comment(s): breast cancer with mastectomy Sister(s) Family Medical History: Diabetes Mellitus Medications and Allergies Home Medications Medication Instructions Recorded Confirmed Type Apixaban [Eliquis] 5 mg PO BID 04/25/19 11/21/20 History Aspirin EC [Ecotrin Low Dose] 81 mg PO DAILY 04/25/19 11/21/20 History Cinnamon Bark [Cinnamon] 1,000 mg PO BID 04/25/19 11/21/20 History Empagliflozin [Jardiance] 25 mg PO DAILY 04/25/19 11/21/20 History Isosorbide Mononitrate ER [Imdur] 30 mg PO DAILY 04/25/19 11/21/20 History amLODIPine [Norvasc] 10 mg PO DAILY 04/25/19 11/21/20 History lisinopriL [Zestril] 20 mg PO DAILY 04/25/19 11/21/20 History sitaGLIPtin PHOS/metFORMIN HCL 0.5 tab PO BID 04/25/19 11/21/20 History [Janumet 50-1,000 mg Tablet] Atorvastatin Calcium [Lipitor] 80 mg PO HS 11/21/20 11/21/20 History Cephalexin [Keflex] 500 mg PO Q8HR 11/21/20 11/21/20 History Cholecalciferol [Vitamin D3 (25 25 mcg PO BID 11/21/20 11/21/20 History Mcg = 1000 Iu)] glipiZIDE XL [Glucotrol Xl] 10 mg PO DAILY 11/21/20 11/21/20 History Allergies Allergy/AdvReac Type Severity Reaction Status Date / Time No Known Allergies Allergy Verified 11/21/20 14:01 Physical Exam Osteopathic Statement: *. No significant issues noted on an osteopathic structural exam other than those noted in the History and Physical/Consult. Vitals: Vital Signs Temp Pulse Resp BP Pulse Ox 11/21/20 16:06 98 F 64 22 127/73 94 L 11/21/20 15:13 68 22 95 11/21/20 15:10 67 26 H 149/68 82 L 11/21/20 12:10 98.9 F 82 20 141/65 94 L Intake and Output 11/21/20 11/21/20 11/21/20 06:59 14:59 22:59 Other: Voiding Method Toilet Weight 104.326 kg 104.326 kg General: + ill appearing, mild distress, appears at stated age Derm: warm, dry Head: atraumatic, normocephalic, symmetric Eyes: EOMI, no lid lag, anicteric sclera, pupils equal round reactive to light ENT: Nose and ears atraumatic, no thrush, no pharyngeal erythema Neck: No thyromegaly, no cervical lymphadenopathy, trachea midline, supple Mouth: no lip lesion, mucus membranes moist Cardiovascular: S1S2 reg, no murmur, positive posterior tibial pulse bilateral, trace edema, capillary refill less than 2 seconds Lungs: ronchi b/l, no wheeze, no accessory muscle use, No convesational dyspnea, was dyspnic when walking from bathroom to bed. Abdominal: soft, + tender to palpation R and L UQ, no guarding, no appreciable organomegaly, normal bowel sounds Ext: no gross muscle atrophy, muscle strength muscle strength 5 out of 5 in all 4 extremities, no contractures Neuro: CN II-XI grossly intact, light touch intact all 4 extremities, finger to nose within normal limits, Psych: Alert, oriented, appropriate affect Results CBC & Chem 7: 11/21/20 12:51 11/21/20 12:51 Labs: Abnormal Lab Results - Last 24 Hours (Table) 11/21/20 11/21/20 11/21/20 Range/Units 12:51 12:51 12:51 RBC 4.26 L (4.30-5.90) m/uL Hct 38.7 L (39.0-53.0) % Plt Count 128 L (150-450) k/uL Lymphocytes # 0.6 L (1.0-4.8) k/uL Carbon Dioxide 21 L (22-30) mmol/L BUN 63 H (9-20) mg/dL Creatinine 2.45 H (0.66-1.25) mg/dL Glucose 169 H (74-99) mg/dL Amylase 205 H (30-110) U/L Lipase 1095 H (23-300) U/L Urine Protein 1+ H (Negative) Urine Glucose (UA) 4+ H (Negative) Urine Blood Large H (Negative) Ur Leukocyte Esterase Trace H (Negative) Urine RBC >182 H (0-5) /hpf Urine WBC 12 H (0-5) /hpf Urine Bacteria Occasional H (None) /hpf Urine Mucus Rare H (None) /hpf Chest x-ray: report reviewed, image reviewed (Increased interstitial infiltrates ) Thrombosis Risk Factor Assmnt - DVT/VTE Prophylaxis DVT/VTE Prophylaxis: Pharmacologic Prophylaxis ordered - Choose All That Apply Any of the Below Risk Factors Present?: Yes Each Factor Represents 1 point: Obesity (BMI >25) Other Risk Factors: Yes Each Risk Factor Represents 2 Points: Age 61-74 years Other congenital or acquired thrombophilia - If yes, enter type in comment: No Thrombosis Risk Factor Assessment Total Risk Factor Score: 3 Thrombosis Risk Factor Assessment Level: Moderate Risk Assessment and Plan Assessment: Acute kidney injury on chronic kidney disease stage III with baseline creatinine 1.7 -Undetermined etiology may be secondary to prerenal causes from dehydration versus congestive heart failure -Hold metformin, lisinopril -Hold IV fluids secondary to worsening chest x-ray and BNP -Repeat creatinine in a.m. -Bladder scan regarding post void residual of greater than 350 in Cerner Levy catheter -If no improvement in creatinine in a.m. consult nephrology Possible acute cholecystitis -Continue with Zosyn -Surgery consultation -Repeat liver function studies in a.m. Pancreatitis -factors are pain and lipase greater than 1000, no significant ablation of the pancreas on computed tomography scan -Ice chips -Pain control -GI recommendations Hematuria -Consult urology -Likely related to recent prostate biopsy -Urinalysis inconsistent with urinary tract infection however patient is already on Zosyn Diabetes mellitus type 2 with neuropathy -Hold oral medications -Sliding-scale insulin -Check hemoglobin A1c History of atrial fibrillation/atrial flutter -Status post cardiac ablation, cardioversion, and ultimately permanent pacemaker for sick sinus syndrome -Eliquis on hold until seen by surgery Fluid overload -Concerns for congestive heart failure versus acute coronary syndrome -Check EKG, telemetry, stat troponin -Stop IV fluids -Check echocardiogram Chronic: Dyslipidemia Hypertension Obstructive sleep apnea with CPAP Use The patient is admitted with an anticipated greater than 2 midnight stay for evaluation of JADE and acute cholecystitis. Surrogate decision-maker: CODE STATUS:full DVT prophylaxis: SCDs Discussed with: Patient, nursing, ed phsyician Anticipated discharge date: 3-[address]: home A total of 70 minutes was spent on the care of this complex patient more than 50 % of the time was spent in counseling and care coordination.
[2020-11-21] MEDS ORDERED: FUROSEMIDE 10 MG/ML 4 ML VIAL IV STA (18:02)
[2020-11-21] MEDS: INSULIN ASPART (NovoLOG) 100 UNIT/ML VIAL SQ SCH ×2 (18:04→22:17)
[2020-11-21] MEDS: ATORVASTATIN 80 MG TAB PO SCH (19:42)
[2020-11-21] MEDS: ACETAMINOPHEN TAB 325 MG TAB PO PRN (19:42)
[2020-11-21 22:14] LABS: Glucose,Whole Blood 105 mg/dL (75-99)
[2020-11-21] MEDS: PIPERACILLIN-TAZOBACTAM 3.375 GM in SODIUM CHLORIDE 0.9% 100 ML IVPB SCH (22:35)
[2020-11-22] MEDS: HYDROcodone/APAP 5-325MG 1 EACH TAB PO PRN (01:31)
[2020-11-22] MEDS: PIPERACILLIN-TAZOBACTAM 3.375 GM in SODIUM CHLORIDE 0.9% 100 ML IVPB SCH ×3 (05:56→22:08)
[2020-11-22 07:09] LABS: Glucose,Whole Blood 56 mg/dL (75-99)
[2020-11-22 07:23] LABS: Glucose,Whole Blood 60 mg/dL (75-99)
[2020-11-22 07:41] LABS: Glucose,Whole Blood 86 mg/dL (75-99)
[2020-11-22] MEDS ORDERED: amLODIPine 10 MG TAB PO SCH (09:00)
[2020-11-22] MEDS ORDERED: FUROSEMIDE 10 MG/ML 4 ML VIAL IV SCH (09:15)
[2020-11-22 09:21] LABS: HCT 35.1 % (39.6-50.0); HGB 11.2 g/dL (13.0-17.0); MCH 30.1 pg (27.0-32.0); MCHC 31.9 g/dL (32.0-37.0); MCV 94.4 fL (80.0-97.0); Mean Platelet Volume 10.4 fL (9.5-12.2); Platelet Count 133 X 10*3/uL (140-440); RBC 3.72 X 10*6/uL (4.40-5.60); RDW 13.3 % (11.5-14.5); WBC 6.25 X 10*3/uL (4.50-10.00)
[2020-11-22] MEDS: ISOSORBIDE MONONITRATE ER 30 MG TAB.ER.24H PO SCH (09:29)
[2020-11-22] MEDS: INSULIN ASPART (NovoLOG) 100 UNIT/ML VIAL SQ SCH ×4 (09:32→22:19)
--- NOTE | 2020-11-22 09:43 | P.CRDCN ---
History of Present Illness Consult date: 11/22/20 History of present illness: CHIEF COMPLAINT: Congestive heart failure HISTORY OF PRESENT ILLNESS: This is a 70-year-old male with a past medical history significant for coronary artery disease with previous CABG, atrial flutt er/fibrillation with previous ablation, sick sinus syndrome with dual-chamber pacemaker insertion, hypertension, and hyperlipidemia. Patient follows in the office with Dr. Rivas. We have been asked to see the patient in consultation for CHF. Patient examined at the bedside this morning. Patient recently underwent prostate biopsy with Dr. Garza on 11/15/2020. Patient has been experiencing hematuria post procedure. Patient also reports having abdominal pain and shortness of breath. He denied any chest pain or pressure. He reports having chills and body aches at home. Patient was found to have evidence of pancreatitis, possible cholecystitis, acute kidney injury, and congestive heart failure in the ER. Patient was placed on antibiotics and admitted to the hospital. Patient was given once dose of IV lasix yesterday. He currently denies shortness of breath. He denies chest pain or pressure. DIAGNOSTICS: EKG reveals atrial fibrillation with controlled ventricular rate Chest xray correlate for pulmonary venous hypertension and interstitial edema Laboratory data: WBC 6.25. Hemoglobin 11.2. Platelet count 133. Sodium 137. Potassium 5.1. BUN 63. Creatinine 2.45. Lactic acid 1.6. Troponin negative 1. BNP 8700. Bilirubin 0.8. AST 40. ALT 39. Amylase 205. Lipase 1095. Current home cardiac medications include atorvastatin 80 mg daily, lisinopril 20 mg daily, Imdur 30 mg daily, amlodipine 10 mg daily, aspirin 81 mg daily, and Eliquis 5 mg twice a day REVIEW OF SYSTEMS: At the time of my exam: CONSTITUTIONAL: Denies fever or chills. HEENT: Denies blurred vision, vision changes, or eye pain. Denies hemoptysis CARDIOVASCULAR: Denies chest pain, orthopnea, PND or palpitations RESPIRATORY: No shortness of breath. GASTROINTESTINAL: Denies abdominal pain. Denies nausea or vomiting. HEMATOLOGIC: Denies bleeding disorders. GENITOURINARY: Denies any blood in urine. SKIN: Denies pruitis. Denies rash. PHYSICAL EXAM: VITAL SIGNS: Reviewed. GENERAL: Well-developed in no acute distress. HEENT: Head is normocephalic. Pupils are equal, round. Sclerae anicteric. Mucous membranes of the mouth are moist. Neck supple. No JVD or thyromegaly LUNGS: Respirations even and unlabored. Lungs diminished with a few fine rales to bilateral bases. HEART: Irregular rate and rhythm. S1 and S2 heard. ABDOMEN: Soft. Nondistended. Nontender. EXTREMITIES: Normal range of motion. No clubbing or cyanosis. Peripheral p ulses intact. No lower extremity edema NEUROLOGIC: Awake and alert. Oriented x 3. ASSESSMENT: Pancreatitis Possible acute cholecystitis Hematuria, status post recent prostate biopsy 11/15/2020 History of atrial fibrillation/flutter with previous ablation, on long-term anticoagulation with Eliquis History of sick sinus syndrome, status post permanent pacemaker insertion Acute diastolic congestive heart failure, BNP 8700, EF 55-60% in 2018 History of coronary artery disease with previous CABG Acute on chronic kidney disease Hypertension hyperlipidemia Obstructive sleep apnea with CPAP use Diabetes mellitus, type II PLAN: Resume home cardiac medications Continue to hold Eliquis secondary to hematuria and pending general surgery consult Discontinue Norvasc Begin hydralazine 25 mg 3 times a day Obtain 2-D echo to assess cardiac structure and function Begin IV Lasix 40 mg every 12 hours Obtain nephrology consult Daily weights Accurate I&O Monitor kidney function Interrogate pacemaker ([employer]) Further recommendations pending patient course Nurse practitioner note has been reviewed by physician. Signing provider agrees with the documented findings, assessment, and plan of care. Past Medical History Past Medical History: Atrial Fibrillation, Atrial Flutter, Coronary Artery Disease (CAD), Chest Pain / Angina, Diabetes Mellitus, Hyperlipidemia, Hypertension, Myocardial Infarction ([place]), Renal Disease, Sleep Apnea/CPAP/BIPAP Additional Past Medical History / Comment(s): NIDDM type II, neuropathy bilateral feet, SSS/slava with pacer, chronic kidney disease stage III, PEDRO with Cpap, Hx low risk prostate ca 5 years ago. Last Myocardial Infarction Date:: 01/2001 History of Any Multi-Drug Resistant Organisms: None Reported Past Surgical History: Cardiac Ablation, Coronary Bypass/CABG, Heart Catheterization With Stent, Pacemaker Additional Past Surgical History / Comment(s): 11/15/20 prostate biopsy, 2000 CABG 4 vessel, PCI/stent , 2016 cardiac ablation, Cardioversion, 08/25/19 dual chamber pacer, 2019 loop recorder, colonoscopy 2019. Past Anesthesia/Blood Transfusion Reactions: No Reported Reaction Date of Last Stent Placement:: Type of Cardiac Device: Biventricular Pacemaker Device Placement Date:: 08/25/19 Past Psychological History: No Psychological Hx Reported Additional Psychological History / Comment(s): Pt resides with his spouse. He is independent. Smoking Status: Never smoker Past Alcohol Use History: None Reported Past Drug Use History: None Reported - Past Family History Father Family Medical History: Cancer, Diabetes Mellitus Additional Family Medical History / Comment(s): pancreatic cancer, pacemaker Mother Family Medical History: Cancer Additional Family Medical History / Comment(s): breast cancer with mastectomy Sister(s) Family Medical History: Diabetes Mellitus Medications and Allergies Home Medications Medication Instructions Recorded Confirmed Type Apixaban [Eliquis] 5 mg PO BID 04/25/19 11/21/20 History Aspirin EC [Ecotrin Low Dose] 81 mg PO DAILY 04/25/19 11/21/20 History Cinnamon Bark [Cinnamon] 1,000 mg PO BID 04/25/19 11/21/20 History Empagliflozin [Jardiance] 25 mg PO DAILY 04/25/19 11/21/20 History Isosorbide Mononitrate ER [Imdur] 30 mg PO DAILY 04/25/19 11/21/20 History amLODIPine [Norvasc] 10 mg PO DAILY 04/25/19 11/21/20 History lisinopriL [Zestril] 20 mg PO DAILY 04/25/19 11/21/20 History sitaGLIPtin PHOS/metFORMIN HCL 0.5 tab PO BID 04/25/19 11/21/20 History [Janumet 50-1,000 mg Tablet] Atorvastatin Calcium [Lipitor] 80 mg PO HS 11/21/20 11/21/20 History Cephalexin [Keflex] 500 mg PO Q8HR 11/21/20 11/21/20 History Cholecalciferol [Vitamin D3 (25 25 mcg PO BID 11/21/20 11/21/20 History Mcg = 1000 Iu)] glipiZIDE XL [Glucotrol Xl] 10 mg PO DAILY 11/21/20 11/21/20 History Allergies Allergy/AdvReac Type Severity Reaction Status Date / Time No Known Allergies Allergy Verified 11/21/20 14:01 Physical Exam Vitals: Vital Signs Temp Pulse Pulse Resp BP BP Pulse Ox 02/02/21 08:10 97.9 F 62 18 140/77 95 11/22/20 06:08 94 L 11/22/20 05:13 16 98 11/22/20 04:20 98.4 F 57 L 18 119/66 92 L 11/21/20 22:43 98.2 F 72 18 145/76 95 11/21/20 20:00 18 11/21/20 18:40 97.9 F 100 24 123/64 94 L 11/21/20 17:09 97.8 F 69 18 130/78 96 11/21/20 16:57 93 L 11/21/20 16:06 98 F 64 22 127/73 94 L 11/21/20 15:13 68 22 95 11/21/20 15:10 67 26 H 149/68 82 L 11/21/20 12:10 98.9 F 82 20 141/65 94 L Intake and Output 11/21/20 11/22/20 11/22/20 22:59 06:59 14:59 Intake Total 100 Output Total 70 800 Balance -70 -700 Intake: Intake, IV Titration 100 Amount Piperacillin-Tazobactam 3 100 .375 gm In Sodium Chloride 0.9% 100 ml @ 25 mls/hr IVPB Q8H [facility] Rx#: [id number] Output: Urine 800 Post Void Residual 70 Other: Voiding Method Toilet Toilet Urinal Urinal # Voids 1 Weight 104.326 kg Results 11/22/20 05:01 11/21/20 12:51 Cardiac Enzymes 11/21/20 11/21/20 Range/Units 12:51 17:15 AST 40 (17-59) U/L Troponin I 0.020 (0.000-0.034) ng/mL CBC 11/21/20 11/22/20 Range/Units 12:51 05:01 WBC 8.1 6.25 (3.8-10.6) k/uL RBC 4.26 L 3.72 L (4.30-5.90) m/uL Hgb 13.2 11.2 L (13.0-17.5) gm/dL Hct 38.7 L 35.1 L (39.0-53.0) % Plt Count 128 L 133 L (150-450) k/uL Comprehensive Metabolic Panel 11/21/20 Range/Units 12:51 Sodium 137 (137-145) mmol/L Potassium 5.1 (3.5-5.1) mmol/L Chloride 103 (98-107) mmol/L Carbon Dioxide 21 L (22-30) mmol/L BUN 63 H (9-20) mg/dL Creatinine 2.45 H (0.66-1.25) mg/dL Glucose 169 H (74-99) mg/dL Calcium 8.9 (8.4-10.2) mg/dL AST 40 (17-59) U/L ALT 39 (4-49) U/L Alkaline Phosphatase 64 (38-126) U/L Total Protein 6.8 (6.3-8.2) g/dL Albumin 3.9 (3.5-5.0) g/dL Current Medications Generic Name Dose Route Start Last Admin Trade Name Freq PRN Reason Stop Dose Admin Acetaminophen 650 mg 11/21/20 17:17 11/21/20 19:42 Acetaminophen Tab 325 Mg Tab PO 650 mg Q6HR PRN Administration Mild Pain or Fever > 100.5 Hydrocodone Bitart/Acetaminophen 1 each 11/21/20 17:17 11/22/20 01:31 Hydrocodone/Apap 5-325mg 1 Each Tab PO 1 each Q4HR PRN Administration Moderate Pain Atorvastatin Calcium 80 mg 11/21/20 21:00 11/21/20 19:42 Atorvastatin 80 Mg Tab PO 80 mg HS DAREN Administration Furosemide 40 mg 11/22/20 09:15 Furosemide 10 Mg/Ml 4 Ml Vial IV Q12HR DAREN Hydralazine HCl 25 mg 11/22/20 16:00 Hydralazine Hcl 25 Mg Tab PO TID DAREN Hydromorphone HCl 0.5 mg 11/21/20 17:17 Hydromorphone 0.5 Mg/0.5 Ml Syringe IVP Q3HR PRN Severe Pain Piperacillin Sod/Tazobactam 100 mls @ 25 mls/hr 11/21/20 22:00 11/22/20 05:56 Sod 3.375 gm/ Sodium Chloride IVPB 25 mls/hr Q8H DAREN Administration Insulin Aspart 0 unit 11/21/20 17:30 11/21/20 22:17 Insulin Aspart (Novolog) 100 Unit/Ml Vial SQ Not Given ACHS [facility] Protocol Isosorbide Mononitrate 30 mg 11/22/20 09:00 Isosorbide Mononitrate Er 30 Mg Tab.Er.24h PO DAILY [facility] Naloxone HCl 0.2 mg 11/21/20 14:10 Naloxone 0.4 Mg/Ml 1 Ml Vial IV Q2M PRN Opioid Reversal Ondansetron HCl 4 mg 11/21/20 14:10 Ondansetron 4 Mg/2 Ml Vial IVP Q8HR PRN Nausea And Vomiting Intake and Output 11/21/20 11/22/20 11/22/20 22:59 06:59 14:59 Intake Total 100 Output Total 70 800 Balance -70 -700 Intake: Intake, IV Titration 100 Amount Piperacillin-Tazobactam 3 100 .375 gm In Sodium Chloride 0.9% 100 ml @ 25 mls/hr IVPB Q8H [facility] Rx#: [id number] Output: Urine 800 Post Void Residual 70 Other: Voiding Method Toilet Toilet Urinal Urinal # Voids 1 Weight 104.326 kg 11/22/20 05:01 11/21/20 12:51
[2020-11-22 09:48] LABS: African American GFR (CKD) 32.4 (60.0-200.0); Albumin 3.8 g/dL (3.80-4.90); Albumin/Globulin Ratio 2.24 (1.60-3.17); Anion Gap 12.1 mmol/L (4.00-12.00); BUN/Creat Ratio 26.09 Ratio (12.00-20.00); Calcium 8.2 mg/dL (8.7-10.3); Carbon Dioxide 18.9 mmol/L (21.6-31.8); Globulin 1.7 g/dL (1.6-3.3); Magnesium 1.8 mg/dL (1.5-2.4); Non-African American GFR(CKD) 27.9 (60.0-200.0); Potassium 4.5 mmol/L (3.5-5.5); Total Bilirubin 0.9 mg/dL (0.2-1.2); Total Protein 5.5 g/dL (6.2-8.2)
[2020-11-22 10:11] LABS: Hemoglobin A1C 7.8 % (4.0-6.0)
[2020-11-22 10:42] LABS: Amylase 76 U/L (23-121); Lipase 41 U/L (14-60)
--- NOTE | 2020-11-22 11:00 | ECHOF ---
Referral Reason:chf MEASUREMENTS -------- HEIGHT: 188.0 cm WEIGHT: 104.3 kg BP: 119/66 RVIDd: 2.9 cm (< 3.3) IVSd: 1.2 cm (0.6 - 1.1) LVIDd: 4.9 cm (3.9 - 5.3) LVPWd: 1.3 cm (0.6 - 1.1) IVSs: 1.3 cm LVIDs: 4.0 cm LVPWs: 1.6 cm LA Diam: 4.6 cm (2.7 - 3.8) LAESV Index (A-L): 35.11 ml/m Ao Diam: 3.5 cm (2.0 - 3.7) AV Cusp: 2.2 cm (1.5 - 2.6) MV EXCURSION: 20.468 mm (> 18.000) MV EF SLOPE: 118 mm/s (70 - 150) EPSS: 0.3 cm RAP: 15.00 mmHg RVSP: 49.48 mmHg FINDINGS -------- Atrial fibrillation. This was a technically difficult study with suboptimal apical views. The left ventricular size is normal. There is mild concentric left ventricular hypertrophy. Overa ll left ventricular systolic function is normal with, an EF between 55 - 60 %. Septal wall motion i s delayed, and consistent with ventricular pacing. Apical inferior LV wall motion is hypokinetic. Apical septum LV wall motion is hypokinetic. The right ventricle is normal in size. LA is moderately dilated 34-39 ml/m2 The right atrium is normal in size. 5.0mg of Lumason was utilized for enhancement of images Interatrial and interventricular septum intact. Aortic valve is trileaflet and is mildly thickened. The mitral valve leaflets are mildly thickened. Mild mitral regurgitation is present. Mild tricuspid regurgitation present. There is moderate pulmonary hypertension. The right ventric ular systolic pressure, as measured by Doppler, is 49.48mmHg. The pulmonic valve was not well visualized. The aortic root size is normal. The inferior vena cava is dilated with poor inspiratory collapse which is consistent with estimated r ight atrial pressure of 15 mmHg. There is no pericardial effusion. CONCLUSIONS -------- 1. The left ventricular size is normal. 2. There is mild concentric left ventricular hypertrophy. 3. Overall left ventricular systolic function is normal with, an EF between 55 - 60 %. 4. Septal wall motion is delayed, and consistent with ventricular pacing. 5. Apical inferior LV wall motion is hypokinetic. 6. Apical septum LV wall motion is hypokinetic. 7. LA is moderately dilated 34-39 ml/m2 8. 5.0mg of Lumason was utilized for enhancement of images 9. Aortic valve is trileaflet and is mildly thickened. 10. The mitral valve leaflets are mildly thickened. 11. Mild mitral regurgitation is present. 12. Mild tricuspid regurgitation present. 13. There is moderate pulmonary hypertension. 14. The right ventricular systolic pressure, as measured by Doppler, is 49.48mmHg. 15. The inferior vena cava is dilated with poor inspiratory collapse which is consistent with estimat ed right atrial pressure of 15 mmHg. 16. There is no pericardial effusion. WIRE SAW OPERATOR: RAMIRO Moreno
--- NOTE | 2020-11-22 11:40 | P.NPCON ---
History of Present Illness - Reason for Consult acute renal failure, chronic renal failure - History of Present Illness Reason for consultation: Acute kidney injury on chronic kidney disease History of present illness: Patient is a 70-year-old male seated in consultation for acute kidney injury and chronic kidney disease. Patient has chronic kidney disease stage IIIB with baseline creatinine near 1.8 as of August 2019. 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 Patient was also seen in the office around that time but no follow-up since. Creatinine this admission was 2.45 and is 2.3 today. Patient states he had a prostate biopsy done last week and subsequently developed chills. There was concern for infection and he did start Keflex on Saturday and took it over the weekend. However due to no improvement in his symptoms he was advised to come to the hospital. He does not have a Levy catheter. Chest x-ray was suggestive of pulmonary venous hypertension as well as interstitial edema. He underwent CAT scan of the abdomen and pelvis which revealed possibly acute cholecystitis. Gallstones were noted. He also underwent echocardiogram which revealed preserved ejection fraction with moderate pulmonary hypertension. He has been receiving IV diuretics. Good urine output. No edema in his lower extremity is. Denies use of nonsteroidals. He has long-standing history of diabetes. Denies family history of renal disease. Abdomen is soft but is tender to touch. He is currently nothing by mouth. Hemodynamically stable. Vital signs are stable. General: The patient appeared well nourished and normally developed. HEENT: Head exam is unremarkable. Neck is without jugular venous distension. LUNGS: Breath sounds decreased. HEART: Rate and Rhythm are regular. ABDOMEN: Soft, nontender. EXTREMITITES: No edema. Past Medical History Past Medical History: Atrial Fibrillation, Atrial Flutter, Coronary Artery Disease (CAD), Chest Pain / Angina, Diabetes Mellitus, Hyperlipidemia, Hypertension, Myocardial Infarction ([place]), Renal Disease, Sleep Apnea/CPAP/BIPAP Additional Past Medical History / Comment(s): NIDDM type II, neuropathy bilateral feet, SSS/slava with pacer, chronic kidney disease stage III, PEDRO with Cpap, Hx low risk prostate ca 5 years ago. Last Myocardial Infarction Date:: 01/2001 History of Any Multi-Drug Resistant Organisms: None Reported Past Surgical History: Cardiac Ablation, Coronary Bypass/CABG, Heart Catheterization With Stent, Pacemaker Additional Past Surgical History / Comment(s): 11/15/20 prostate biopsy, 2000 CABG 4 vessel, PCI/stent , 2016 cardiac ablation, Cardioversion, dual chamber pacer, 2019 loop recorder, colonoscopy 2019. Past Anesthesia/Blood Transfusion Reactions: No Reported Reaction Date of Last Stent Placement:: Type of Cardiac Device: Biventricular Pacemaker Device Placement Date:: 08/25/19 Past Psychological History: No Psychological Hx Reported Additional Psychological History / Comment(s): Pt resides with his spouse. He is independent. Smoking Status: Never smoker Past Alcohol Use History: None Reported Past Drug Use History: None Reported - Past Family History Father Family Medical History: Cancer, Diabetes Mellitus Additional Family Medical History / Comment(s): pancreatic cancer, pacemaker Mother Family Medical History: Cancer Additional Family Medical History / Comment(s): breast cancer with mastectomy Sister(s) Family Medical History: Diabetes Mellitus Medications and Allergies Home Medications Medication Instructions Recorded Confirmed Type Apixaban [Eliquis] 5 mg PO BID 04/25/19 11/21/20 History Aspirin EC [Ecotrin Low Dose] 81 mg PO DAILY 04/25/19 11/21/20 History Cinnamon Bark [Cinnamon] 1,000 mg PO BID 04/25/19 11/21/20 History Empagliflozin [Jardiance] 25 mg PO DAILY 04/25/19 11/21/20 History Isosorbide Mononitrate ER [Imdur] 30 mg PO DAILY 04/25/19 11/21/20 History amLODIPine [Norvasc] 10 mg PO DAILY 04/25/19 11/21/20 History lisinopriL [Zestril] 20 mg PO DAILY 04/25/19 11/21/20 History sitaGLIPtin PHOS/metFORMIN HCL 0.5 tab PO BID 04/25/19 11/21/20 History [Janumet 50-1,000 mg Tablet] Atorvastatin Calcium [Lipitor] 80 mg PO HS 11/21/20 11/21/20 History Cephalexin [Keflex] 500 mg PO Q8HR 11/21/20 11/21/20 History Cholecalciferol [Vitamin D3 (25 25 mcg PO BID 11/21/20 11/21/20 History Mcg = 1000 Iu)] glipiZIDE XL [Glucotrol Xl] 10 mg PO DAILY 11/21/20 11/21/20 History Allergies Allergy/AdvReac Type Severity Reaction Status Date / Time No Known Allergies Allergy Verified 11/21/20 14:01 Physical Exam Vitals: Vital Signs Temp Pulse Pulse Resp BP BP Pulse Ox 11/22/20 08:10 97.9 F 62 18 140/77 95 11/22/20 06:08 94 L 11/22/20 05:13 16 98 11/22/20 04:20 98.4 F 57 L 18 119/66 92 L 11/21/20 22:43 98.2 F 72 18 145/76 95 11/21/20 20:00 18 11/21/20 18:40 97.9 F 100 24 123/64 94 L 11/21/20 17:09 97.8 F 69 18 130/78 96 11/21/20 16:57 93 L 11/21/20 16:06 98 F 64 22 127/73 94 L 11/21/20 15:13 68 22 95 11/21/20 15:10 67 26 H 149/68 82 L 11/21/20 12:10 98.9 F 82 20 141/65 94 L Intake and Output 11/21/20 11/22/20 11/22/20 22:59 06:59 14:59 Intake Total 100 Output Total 70 800 Balance -70 -700 Intake: Intake, IV Titration 100 Amount Piperacillin-Tazobactam 3 100 .375 gm In Sodium Chloride 0.9% 100 ml @ 25 mls/hr IVPB Q8H [facility] Rx#: [id number] Output: Urine 800 Post Void Residual 70 Other: Voiding Method Toilet Toilet Urinal Urinal # Voids 1 Weight 104.326 kg Results - Lab Results Most recent lab results Calcium 8.2 mg/dL (8.7-10.3) L 11/22/20 05:01 Magnesium 1.8 mg/dL (1.5-2.4) 11/22/20 05:01 11/22/20 05:01 11/22/20 05:01 Assessment and Plan Plan: Assessment: 1. Acute kidney injury mostly prerenal secondary to cardiorenal syndrome. C reatinine was 2.45 on admission is 2.3 today. 2. Acute on chronic diastolic CHF with moderate pulmonary hypertension. 3. Volume overload. 4. Metabolic acidosis secondary to acute kidney injury. 5. Diabetes mellitus. 6. Chronic kidney disease stage IIIB secondary to diabetic kidney disease with baseline creatinine near 1.8. 7. Hypertension with chronic kidney disease. Stable. 8. Gallstones. Potential cholecystectomy this admission. 9. Status post prostate biopsy last week. Plan: Maintain Lasix 40 mg IV daily. Follow-up chest x-ray. Add oral sodium bicarbonate. Follow-up cultures. Avoid nephrotoxins. Continue to monitor renal function and urine output. If GFR remains less than 30, avoid metformin as well as SGLT2 inhibitors. Thank you for the consultation. I will continue to follow the patient during his hospital stay.
[2020-11-22 11:44] LABS: Glucose,Whole Blood 75 mg/dL (75-99)
[2020-11-22] MEDS: FUROSEMIDE 10 MG/ML 4 ML VIAL IV SCH (11:45)
[2020-11-22] MEDS: SODIUM BICARBONATE TAB 650 MG TAB PO SCH ×3 (11:48→22:11)
--- NOTE | 2020-11-22 13:25 | P.PN ---
Subjective Progress Note Date: 11/22/20 (delayed charting seen at 1045) Principal diagnosis: abdominal pain Patient is a 70-year-old male with a history of diabetes mellitus type 2 non- insulin requiring, coronary artery disease status post 4 vessel bypass surgery, prior atrial fibrillation/flutter status post ablation and permanent pacemaker, and hypertension who presented to the emergency department at the direction of Dr. Greg nicole to concerns of UTI with sepsis. Patient had initially undergone prostate biopsy on 11/15 and had difficulty with postoperative urination, dysuria, and hematuria. In the ER he underwent extensive evaluation. On arrival his vital signs were within normal limits, after 1 L of fluid his room air pulse ox dropped to 82%. Laboratory analysis demonstrates thrombocytopenia with a platelet of 128, lymphocytes 0.6, BUN 63, creatinine 2.54 consistent with acute kidney injury on his chronic kidney disease with baseline creatinine 1.7, lipase 1095 consistent with pancreatitis. Urinalysis shows gross hematuria without significant white blood cells. Initial chest x-ray showed pulmonary venous hypertension with some interstitial edema. Repeat chest x-ray after IV fluids shows worsening congestive heart failure. CT abdomen and pelvis demonstrated showed a long linear gallstone with fat stranding near the gallbladder. Also noted was some bladder distention and thickening. The ER he was diagnosed with acute cholecystitis was started on Zosyn. He was admitted for further work up. He became more hypoxic and he was given 1 dose of IV Lasix. He was seen by gastroenterology who did not feel there is an indication for ERCP at this point in time. Echocardiogram was ordered which showed an ejection fraction of 55-60% with some diastolic dysfunction. He was seen by cardiology and his Lasix was continued. Currently awaiting surgery evaluation. Despite his oral medications being held. Episode of hypoglycemia morning of 11/22 which resolved with intake of juice. Patient seen and examined at bedside. He continues to have upper abdominal pain, no nausea, no vomiting, no diarrhea. No chest pain. Shortness of breath is greatly improved from yesterday. General: non toxic, no distress, appears at stated age Derm: warm, dry Head: atraumatic, normocephalic, symmetric Eyes: EOMI, no lid lag, anicteric sclera Mouth: no lip lesion, mucus membranes moist Cardiovascular: S1S2 regular, no murmur, positive posterior tibial pulse bilateral, + JVD Lungs: Coarse breath sounds bilateral , no accessory muscle use Abdominal: soft, nontender to palpation, no guarding, no appreciable organomegaly Ext: no gross muscle atrophy, trace edema, no contractures Neuro: CN II-XI grossly intact, no focal neuro deficits Psych: Alert, oriented, appropriate affect Acute kidney injury on chronic kidney disease stage III with baseline creatinine 1.7 -Hold metformin, lisinopril -Lasix - nephro recs -Repeat creatinine in a.m. -Strict I amd P Possible acute cholecystitis -Continue with Zosyn -Await Surgery recs -Repeat liver function studies in a.m. -Pain control Pancreatitis -factors are pain and lipase greater than 1000, no significant ablation of the pancreas on computed tomography scan -Ice chips -Pain control -GI recommendations appreciated -No IV fluids secondary to fluid overload Hematuria -Await urology recs -Likely related to recent prostate biopsy -Urinalysis inconsistent with urinary tract infection however patient is already on Zosyn Diabetes mellitus type 2 with neuropathy, episode of hyoglycemia in AM -Hold oral medications -Sliding-scale insulin -hemoglobin A1c 7.8 History of atrial fibrillation/atrial flutter -Status post cardiac ablation, cardioversion, and ultimately permanent pacemaker for sick sinus syndrome -Eliquis on hold until seen by surgery Acute exacerbation of diastolic congestive heart failure with ejection fraction 50-55% -EKG unchanged initial troponin negative -Continue with Lasix -Cardiology recommendations appreciated -Strict I's and O's -Daily weights -LEWIS inhibitor on hold secondary to a cat, not chronically on beta nick -Norvasc transitioned to hydralazine Chronic: Dyslipidemia Hypertension Obstructive sleep apnea with CPAP Use CODE STATUS:full DVT prophylaxis: SCDs Discussed with: Patient, nursing, GI [employer] Anticipated discharge date: 3-[address]: home A total of 35 minutes was spent on the care of this complex patient more than 50% of the time was spent in counseling and care coordination. Objective - Vital Signs Vital signs: Vital Signs Temp 97.4 F L 11/22/20 12:45 Pulse 71 11/22/20 12:45 Resp 18 11/22/20 12:45 BP 128/46 11/22/20 12:45 Pulse Ox 95 11/22/20 12:45 Intake & Output 11/21/20 11/22/20 11/22/20 18:59 06:59 18:59 Intake Total 100 Output Total 870 Balance -770 Weight 104.326 kg 109.4 kg Intake: Intake, IV Titration 100 Amount Piperacillin-Tazobactam 3 100 .375 gm In Sodium Chloride 0.9% 100 ml @ 25 mls/hr IVPB Q8H [facility] Rx#: [id number] Output: Urine 800 Post Void Residual 70 Other: Voiding Method Toilet Toilet Toilet Urinal Urinal # Voids 1 - Labs CBC & Chem 7: 11/22/20 05:01 11/22/20 05:01 Labs: Abnormal Lab Results - Last 24 Hours (Table) 11/21/20 11/21/20 11/21/20 Range/Units 12:51 17:13 21:54 RBC (4.40-5.60) X 10*6/uL Hgb (13.0-17.0) g/dL Hct (39.6-50.0) % MCHC (32.0-37.0) g/dL Plt Count (140-440) X 10*3/uL Carbon Dioxide (21.6-31.8) mmol/L Anion Gap (4.00-12.00) mmol/L BUN (9.0-27.0) mg/dL Creatinine (0.6-1.5) mg/dL Est GFR (CKD-EPI)AfAm (60.0-200.0) Est GFR (CKD-EPI)NonAf (60.0-200.0) BUN/Creatinine Ratio (12.00-20.00) Ratio Glucose (70-110) mg/dL POC Glucose (mg/dL) 128 H 105 H (75-99) mg/dL Hemoglobin A1c (4.0-6.0) % Calcium (8.7-10.3) mg/dL Total Protein (6.2-8.2) g/dL Urine Protein 1+ H (Negative) Urine Glucose (UA) 4+ H (Negative) Urine Blood Large H (Negative) Ur Leukocyte Esterase Trace H (Negative) Urine RBC >182 H (0-5) /hpf Urine WBC 12 H (0-5) /hpf Urine Bacteria Occasional H (None) /hpf Urine Mucus Rare H (None) /hpf 11/22/20 11/22/20 11/22/20 Range/Units 05:01 05:01 05:01 RBC 3.72 L (4.40-5.60) X 10*6/uL Hgb 11.2 L (13.0-17.0) g/dL Hct 35.1 L (39.6-50.0) % MCHC 31.9 L (32.0-37.0) g/dL Plt Count 133 L (140-440) X 10*3/uL Carbon Dioxide 18.9 L (21.6-31.8) mmol/L Anion Gap 12.10 H (4.00-12.00) mmol/L BUN 60.0 H (9.0-27.0) mg/dL Creatinine 2.3 H (0.6-1.5) mg/dL Est GFR (CKD-EPI)AfAm 32.4 L (60.0-200.0) Est GFR (CKD-EPI)NonAf 27.9 L (60.0-200.0) BUN/Creatinine Ratio 26.09 H (12.00-20.00) Ratio Glucose 60 L (70-110) mg/dL POC Glucose (mg/dL) (75-99) mg/dL Hemoglobin A1c 7.8 H (4.0-6.0) % Calcium 8.2 L (8.7-10.3) mg/dL Total Protein 5.5 L (6.2-8.2) g/dL Urine Protein (Negative) Urine Glucose (UA) (Negative) Urine Blood (Negative) Ur Leukocyte Esterase (Negative) Urine RBC (0-5) /hpf Urine WBC (0-5) /hpf Urine Bacteria (None) /hpf Urine Mucus (None) /hpf 11/22/20 11/22/20 Range/Units 07:04 07:21 RBC (4.40-5.60) X 10*6/uL Hgb (13.0-17.0) g/dL Hct (39.6-50.0) % MCHC (32.0-37.0) g/dL Plt Count (140-440) X 10*3/uL Carbon Dioxide (21.6-31.8) mmol/L Anion Gap (4.00-12.00) mmol/L BUN (9.0-27.0) mg/dL Creatinine (0.6-1.5) mg/dL Est GFR (CKD-EPI)AfAm (60.0-200.0) Est GFR (CKD-EPI)NonAf (60.0-200.0) BUN/Creatinine Ratio (12.00-20.00) Ratio Glucose (70-110) mg/dL POC Glucose (mg/dL) 56 L 60 L (75-99) mg/dL Hemoglobin A1c (4.0-6.0) % Calcium (8.7-10.3) mg/dL Total Protein (6.2-8.2) g/dL Urine Protein (Negative) Urine Glucose (UA) (Negative) Urine Blood (Negative) Ur Leukocyte Esterase (Negative) Urine RBC (0-5) /hpf Urine WBC (0-5) /hpf Urine Bacteria (None) /hpf Urine Mucus (None) /hpf Microbiology - Last 24 Hours (Table) 11/21/20 12:51 Urine Culture - Preliminary Urine,Voided
--- NOTE | 2020-11-22 14:16 | XR ---
EXAMINATION TYPE: XR chest 1V portable DATE OF EXAM: 11/22/2020 COMPARISON: Chest x-ray 11/21/2020 HISTORY: Congestive heart failure TECHNIQUE: Single frontal view of the chest is obtained. FINDINGS: There is improved aeration, improvement in interstitium and airspace disease as compared t o prior exam. No other significant interval change IMPRESSION: Improvement in patient's volume status, aeration
--- NOTE | 2020-11-22 14:45 | P.GSCN ---
History of Present Illness Consult date: 11/22/20 History of present illness: CHIEF COMPLAINT: Abdominal pain HISTORY OF PRESENT ILLNESS: This is a 70-year-old male with a history of diabetes mellitus, coronary artery disease with four-vessel coronary bypass graft, atrial fibrillation/atrial flutter status post ablation, history of permanent pacemaker and hypertension. Patient presented to the emergency room as distracted by his urologist for concerns for UTI with sepsis. Patient had undergone a prostate biopsy on 126 and had been having urinary symptoms with dysuria and hematuria. Patient also had chest x-ray with evidence of congestive heart failure. He has been started on IV Lasix. Cardiology is following. Patient had computed tomography scan of the abdomen and pelvis showing possible acute cholecystitis. Contracted gallbladder with small gallstones towards the gallbladder neck and mild to moderate surrounding fluid and fat stranding. Patient was found to have gallstone pancreatitis elevated lipase at 1095. LFTs were normal. Patient is complaining of right upper quadrant abdominal pain and epigastric pain that has been present for about 5 days. He also has been having chills and sweats. He denies any nausea vomiting or change in bowel movements. PAST MEDICAL HISTORY: See list. PAST SURGICAL HISTORY: See list. MEDICATIONS: See list. ALLERGIES: See list. SOCIAL HISTORY: No illicit drug use. REVIEW OF SYSTEMS: CONSTITUTIONAL: Denies fever or chills. HEENT: Denies blurred vision, vision changes, or eye pain. Denies hemoptysis CARDIOVASCULAR: Denies chest pain or pressure. RESPIRATORY: No shortness of breath. GASTROINTESTINAL: See HPI for pertinent findings HEMATOLOGIC: Denies bleeding disorders. GENITOURINARY: Denies any blood in urine or increased urinary frequency. SKIN: Denies pruitis. Denies rash. PHYSICAL EXAM: VITAL SIGNS: Reviewed GENERAL: Well-developed in no acute distress. HEENT: No sclera icterus. Extraocular movements grossly intact. Moist buccal mucosa. Head is atraumatic, normocephalic. No nasal drainage. ABDOMEN: Soft. Nondistended patient has right upper quadrant tenderness and epigastric tenderness with palpation NEUROLOGIC: Alert and oriented. Cranial nerves II through XII grossly intact. LABORATORY DATA: WBC 6.5 hemoglobin 11.2 creatinine 2.3 LFTs normal A1c 7.8 lipase 1095 down to 41 IMAGING: computed tomography scan of the abdomen and pelvis showing possible acute cholecystitis. Contracted gallbladder with small gallstones towards the gallbladder neck and mild to moderate surrounding fluid and fat stranding. ASSESSMENT: 1. Acute gallstone pancreatitis 2. Acute cholecystitis 3. Acute diastolic CHF exacerbation followed by cardiology 4. Acute kidney injury PLAN: -Patient is scheduled for laparoscopic cholecystectomy with Dr. Jovel tomorrow 11/23/20 pending cardiac and medical clearance -Keep patient nothing by mouth after midnight -Continue antibiotics -Continue pain medication as needed -Keep Eliquis on hold Thank you for this consultation Physician Top Icer note has been reviewed by physician. Signing provider agrees with the documented findings, assessment, and plan of care. Past Medical History Past Medical History: Atrial Fibrillation, Atrial Flutter, Coronary Artery Disease (CAD), Chest Pain / Angina, Diabetes Mellitus, Hyperlipidemia, Hyp ertension, Myocardial Infarction ([place]), Renal Disease, Sleep Apnea/CPAP/BIPAP Additional Past Medical History / Comment(s): NIDDM type II, neuropathy bilateral feet, SSS/slava with pacer, chronic kidney disease stage III, PEDRO with Cpap, Hx low risk prostate ca 5 years ago. Last Myocardial Infarction Date:: 01/2001 History of Any Multi-Drug Resistant Organisms: None Reported Past Surgical History: Cardiac Ablation, Coronary Bypass/CABG, Heart Catheterization With Stent, Pacemaker Additional Past Surgical History / Comment(s): 11/15/20 prostate biopsy, 2000 CABG 4 vessel, PCI/stent , 2016 cardiac ablation, Cardioversion, 08/25/19 dual chamber pacer, 2019 loop recorder, colonoscopy 2019. Past Anesthesia/Blood Transfusion Reactions: No Reported Reaction Date of Last Stent Placement:: Type of Cardiac Device: Biventricular Pacemaker Device Placement Date:: 08/25/19 Past Psychological History: No Psychological Hx Reported Additional Psychological History / Comment(s): Pt resides with his spouse. He is independent. Smoking Status: Never smoker Past Alcohol Use History: None Reported Past Drug Use History: None Reported - Past Family History Father Family Medical History: Cancer, Diabetes Mellitus Additional Family Medical History / Comment(s): pancreatic cancer, pacemaker Mother Family Medical History: Cancer Additional Family Medical History / Comment(s): breast cancer with mastectomy Sister(s) Family Medical History: Diabetes Mellitus Medications and Allergies Home Medications Medication Instructions Recorded Confirmed Type Apixaban [Eliquis] 5 mg PO BID 04/25/19 11/21/20 History Aspirin EC [Ecotrin Low Dose] 81 mg PO DAILY 04/25/19 11/21/20 History Cinnamon Bark [Cinnamon] 1,000 mg PO BID 04/25/19 11/21/20 History Empagliflozin [Jardiance] 25 mg PO DAILY 04/25/19 11/21/20 History Isosorbide Mononitrate ER [Imdur] 30 mg PO DAILY 04/25/19 11/21/20 History amLODIPine [Norvasc] 10 mg PO DAILY 04/25/19 11/21/20 History lisinopriL [Zestril] 20 mg PO DAILY 04/25/19 11/21/20 History sitaGLIPtin PHOS/metFORMIN HCL 0.5 tab PO BID 04/25/19 11/21/20 History [Janumet 50-1,000 mg Tablet] Atorvastatin Calcium [Lipitor] 80 mg PO HS 11/21/20 11/21/20 History Cephalexin [Keflex] 500 mg PO Q8HR 11/21/20 11/21/20 History Cholecalciferol [Vitamin D3 (25 25 mcg PO BID 11/21/20 11/21/20 History Mcg = 1000 Iu)] glipiZIDE XL [Glucotrol Xl] 10 mg PO DAILY 11/21/20 11/21/20 History Allergies Allergy/AdvReac Type Severity Reaction Status Date / Time No Known Allergies Allergy Verified 11/21/20 14:01 Surgical - Exam Vital Signs Temp Pulse Resp BP Pulse Ox 98.9 F 82 20 141/65 94 L 11/21/20 12:10 11/21/20 12:10 11/21/20 12:10 11/21/20 12:10 11/21/20 12:10 Results - Labs 11/22/20 05:01 11/22/20 05:01 Abnormal Lab Results - Last 24 Hours (Table) 11/21/20 11/21/20 11/22/20 Range/Units 17:13 21:54 05:01 RBC (4.40-5.60) X 10*6/uL Hgb (13.0-17.0) g/dL Hct (39.6-50.0) % MCHC (32.0-37.0) g/dL Plt Count (140-440) X 10*3/uL Carbon Dioxide (21.6-31.8) mmol/L Anion Gap (4.00-12.00) mmol/L BUN (9.0-27.0) mg/dL Creatinine (0.6-1.5) mg/dL Est GFR (CKD-EPI)AfAm (60.0-200.0) Est GFR (CKD-EPI)NonAf (60.0-200.0) BUN/Creatinine Ratio (12.00-20.00) Ratio Glucose (70-110) mg/dL POC Glucose (mg/dL) 128 H 105 H (75-99) mg/dL Hemoglobin A1c 7.8 H (4.0-6.0) % Calcium (8.7-10.3) mg/dL Total Protein (6.2-8.2) g/dL 11/22/20 11/22/20 11/22/20 Range/Units 05:01 05:01 07:04 RBC 3.72 L (4.40-5.60) X 10*6/uL Hgb 11.2 L (13.0-17.0) g/dL Hct 35.1 L (39.6-50.0) % MCHC 31.9 L (32.0-37.0) g/dL Plt Count 133 L (140-440) X 10*3/uL Carbon Dioxide 18.9 L (21.6-31.8) mmol/L Anion Gap 12.10 H (4.00-12.00) mmol/L BUN 60.0 H (9.0-27.0) mg/dL Creatinine 2.3 H (0.6-1.5) mg/dL Est GFR (CKD-EPI)AfAm 32.4 L (60.0-200.0) Est GFR (CKD-EPI)NonAf 27.9 L (60.0-200.0) BUN/Creatinine Ratio 26.09 H (12.00-20.00) Ratio Glucose 60 L (70-110) mg/dL POC Glucose (mg/dL) 56 L (75-99) mg/dL Hemoglobin A1c (4.0-6.0) % Calcium 8.2 L (8.7-10.3) mg/dL Total Protein 5.5 L (6.2-8.2) g/dL 11/22/20 Range/Units 07:21 RBC (4.40-5.60) X 10*6/uL Hgb (13.0-17.0) g/dL Hct (39.6-50.0) % MCHC (32.0-37.0) g/dL Plt Count (140-440) X 10*3/uL Carbon Dioxide (21.6-31.8) mmol/L Anion Gap (4.00-12.00) mmol/L BUN (9.0-27.0) mg/dL Creatinine (0.6-1.5) mg/dL Est GFR (CKD-EPI)AfAm (60.0-200.0) Est GFR (CKD-EPI)NonAf (60.0-200.0) BUN/Creatinine Ratio (12.00-20.00) Ratio Glucose (70-110) mg/dL POC Glucose (mg/dL) 60 L (75-99) mg/dL Hemoglobin A1c (4.0-6.0) % Calcium (8.7-10.3) mg/dL Total Protein (6.2-8.2) g/dL Microbiology - Last 24 Hours (Table) 11/21/20 12:51 Urine Culture - Preliminary Urine,Voided Diabetes panel 11/22/20 11/22/20 Range/Units 05:01 05:01 Sodium 137 (135-145) mmol/L Potassium 4.5 (3.5-5.5) mmol/L Chloride 106 (96-109) mmol/L Carbon Dioxide 18.9 L (21.6-31.8) mmol/L BUN 60.0 H (9.0-27.0) mg/dL Creatinine 2.3 H (0.6-1.5) mg/dL Glucose 60 L (70-110) mg/dL Hemoglobin A1c 7.8 H (4.0-6.0) % Calcium 8.2 L (8.7-10.3) mg/dL AST 30 (14-35) U/L ALT 30 (10-49) U/L Alkaline Phosphatase 50 (41-126) U/L Total Protein 5.5 L (6.2-8.2) g/dL Albumin 3.80 (3.80-4.90) g/dL Calcium panel 11/22/20 Range/Units 05:01 Calcium 8.2 L (8.7-10.3) mg/dL Albumin 3.80 (3.80-4.90) g/dL Pituitary panel 11/22/20 Range/Units 05:01 Sodium 137 (135-145) mmol/L Potassium 4.5 (3.5-5.5) mmol/L Chloride 106 (96-109) mmol/L Carbon Dioxide 18.9 L (21.6-31.8) mmol/L BUN 60.0 H (9.0-27.0) mg/dL Creatinine 2.3 H (0.6-1.5) mg/dL Glucose 60 L (70-110) mg/dL Calcium 8.2 L (8.7-10.3) mg/dL Adrenal panel 11/22/20 Range/Units 05:01 Sodium 137 (135-145) mmol/L Potassium 4.5 (3.5-5.5) mmol/L Chloride 106 (96-109) mmol/L Carbon Dioxide 18.9 L (21.6-31.8) mmol/L BUN 60.0 H (9.0-27.0) mg/dL Creatinine 2.3 H (0.6-1.5) mg/dL Glucose 60 L (70-110) mg/dL Calcium 8.2 L (8.7-10.3) mg/dL Total Bilirubin 0.9 (0.2-1.2) mg/dL AST 30 (14-35) U/L ALT 30 (10-49) U/L Alkaline Phosphatase 50 (41-126) U/L Total Protein 5.5 L (6.2-8.2) g/dL Albumin 3.80 (3.80-4.90) g/dL
[2020-11-22] MEDS: hydrALAZINE HCL 25 MG TAB PO SCH ×2 (16:36→22:12)
[2020-11-22 17:16] LABS: Glucose,Whole Blood 62 mg/dL (75-99)
[2020-11-22] MEDS ORDERED: LIDOCAINE 1% (10MG/ML) FOR IV START INTRADERMA PRN (17:33)
[2020-11-22 17:41] LABS: Glucose,Whole Blood 99 mg/dL (75-99)
[2020-11-22] MEDS: LACTATED RINGERS 1,000 ML IV SCH (17:54)
--- NOTE | 2020-11-22 18:10 | P.GSCN ---
History of Present Illness Consult date: 11/22/20 Reason for Consult: Gross Hematuria/UTI post TRUS biopsy History of present illness: Mr Marks is a 70 yo male with hx of todd 6 (3+3) prostate Cancer, he underwent a prostate biopsy on 11/15. post biopsy he is been complaining of dysuria, difficulty voiding, chills and fatigue. He was started on Keflex, indicated that he noticed improvement of his chills and dysuria but no improvement for fatigue. He was subsequently sent to the ED, He underwent a CT abd/pelvis which was concerning for acute cholecystitis. UA negative for UTI. He indicated his gross hematuria has resolved, indicates that his dysuria has improved. Denies any fever/chills or any issues with urination. Review of Systems - Constitutional Reports fatigue, Denies fever - EENT Ears, nose, mouth and throat: Denies dysphagia - Cardiovascular Denies chest pain, Denies shortness of breath - Respiratory Denies cough, Denies 7 - Gastrointestinal Denies abdominal pain - Genitourinary Reports dysuria, Denies flank pain, Denies urinary retention - Integumentary Denies rash, Denies unusual bruising - Neurological Denies headaches, Denies syncope Past Medical History Past Medical History: Atrial Fibrillation, Atrial Flutter, Coronary Artery Disease (CAD), Chest Pain / Angina, Diabetes Mellitus, Hyperlipidemia, Hypertension, Myocardial Infarction (OK), Renal Disease, Sleep Apnea/CPAP/BIPAP Additional Past Medical History / Comment(s): NIDDM type II, neuropathy bilateral feet, SSS/slava with pacer, chronic kidney disease stage III, PEDRO with Cpap, Hx low risk prostate ca 5 years ago. Last Myocardial Infarction Date:: 01/2001 History of Any Multi-Drug Resistant Organisms: None Reported Past Surgical History: Cardiac Ablation, Coronary Bypass/CABG, Heart Catheterization With Stent, Pacemaker Additional Past Surgical History / Comment(s): 11/15/20 prostate biopsy, 2000 CABG 4 vessel, PCI/stent , 2016 cardiac ablation, Cardioversion, 08/25 dual chamber pacer, 2019 loop recorder, colonoscopy 2019. Past Anesthesia/Blood Transfusion Reactions: No Reported Reaction Date of Last Stent Placement:: Type of Cardiac Device: Biventricular Pacemaker Device Placement Date:: 08/25/19 Past Psychological History: No Psychological Hx Reported Additional Psychological History / Comment(s): Pt resides with his spouse. He is independent. Smoking Status: Never smoker Past Alcohol Use History: None Reported Past Drug Use History: None Reported - Past Family History Father Family Medical History: Cancer, Diabetes Mellitus Additional Family Medical History / Comment(s): pancreatic cancer, pacemaker Mother Family Medical History: Cancer Additional Family Medical History / Comment(s): breast cancer with mastectomy Sister(s) Family Medical History: Diabetes Mellitus Medications and Allergies Home Medications Medication Instructions Recorded Confirmed Type Apixaban [Eliquis] 5 mg PO BID 04/25/19 11/21/20 History Aspirin EC [Ecotrin Low Dose] 81 mg PO DAILY 04/25/19 11/21/20 History Cinnamon Bark [Cinnamon] 1,000 mg PO BID 04/25/19 11/21/20 History Empagliflozin [Jardiance] 25 mg PO DAILY 04/25/19 11/21/20 History Isosorbide Mononitrate ER [Imdur] 30 mg PO DAILY 04/25/19 11/21/20 History amLODIPine [Norvasc] 10 mg PO DAILY 04/25/19 11/21/20 History lisinopriL [Zestril] 20 mg PO DAILY 04/25/19 11/21/20 History sitaGLIPtin PHOS/metFORMIN HCL 0.5 tab PO BID 04/25/19 11/21/20 History [Janumet 50-1,000 mg Tablet] Atorvastatin Calcium [Lipitor] 80 mg PO HS 11/21/20 11/21/20 History Cephalexin [Keflex] 500 mg PO Q8HR 11/21/20 11/21/20 History Cholecalciferol [Vitamin D3 (25 25 mcg PO BID 11/21/20 11/21/20 History Mcg = 1000 Iu)] glipiZIDE XL [Glucotrol Xl] 10 mg PO DAILY 11/21/20 11/21/20 History Allergies Allergy/AdvReac Type Severity Reaction Status Date / Time No Known Allergies Allergy Verified 11/21/20 14:01 Surgical - Exam Vital Signs Temp Pulse Resp BP Pulse Ox 98.9 F 82 20 141/65 94 L 11/21/20 12:10 11/21/20 12:10 11/21/20 12:10 11/21/20 12:10 11/21/20 12:10 - General well developed, well nourished, no distress, no pain - Eyes PERRL, normal ocular movement - ENT normal nares, normal mucosa - Respiratory normal expansion, normal respiratory effort - Neurologic normal coordination, normal sensation - Musculoskeletal normal gait, normal posture - Psychiatric oriented to time, oriented to person, oriented to place, speech is normal Results - Labs 11/22/20 05:01 11/22/20 05:01 Abnormal Lab Results - Last 24 Hours (Table) 11/21/20 11/22/20 11/22/20 Range/Units 21:54 05:01 05:01 RBC (4.40-5.60) X 10*6/uL Hgb (13.0-17.0) g/dL Hct (39.6-50.0) % MCHC (32.0-37.0) g/dL Plt Count (140-440) X 10*3/uL Carbon Dioxide 18.9 L (21.6-31.8) mmol/L Anion Gap 12.10 H (4.00-12.00) mmol/L BUN 60.0 H (9.0-27.0) mg/dL Creatinine 2.3 H (0.6-1.5) mg/dL Est GFR (CKD-EPI)AfAm 32.4 L (60.0-200.0) Est GFR (CKD-EPI)NonAf 27.9 L (60.0-200.0) BUN/Creatinine Ratio 26.09 H (12.00-20.00) Ratio Glucose 60 L (70-110) mg/dL POC Glucose (mg/dL) 105 H (75-99) mg/dL Hemoglobin A1c 7.8 H (4.0-6.0) % Calcium 8.2 L (8.7-10.3) mg/dL Total Protein 5.5 L (6.2-8.2) g/dL 11/22/20 11/22/20 11/22/20 Range/Units 05:01 07:04 07:21 RBC 3.72 L (4.40-5.60) X 10*6/uL Hgb 11.2 L (13.0-17.0) g/dL Hct 35.1 L (39.6-50.0) % MCHC 31.9 L (32.0-37.0) g/dL Plt Count 133 L (140-440) X 10*3/uL Carbon Dioxide (21.6-31.8) mmol/L Anion Gap (4.00-12.00) mmol/L BUN (9.0-27.0) mg/dL Creatinine (0.6-1.5) mg/dL Est GFR (CKD-EPI)AfAm (60.0-200.0) Est GFR (CKD-EPI)NonAf (60.0-200.0) BUN/Creatinine Ratio (12.00-20.00) Ratio Glucose (70-110) mg/dL POC Glucose (mg/dL) 56 L 60 L (75-99) mg/dL Hemoglobin A1c (4.0-6.0) % Calcium (8.7-10.3) mg/dL Total Protein (6.2-8.2) g/dL 11/22/20 Range/Units 17:08 RBC (4.40-5.60) X 10*6/uL Hgb (13.0-17.0) g/dL Hct (39.6-50.0) % MCHC (32.0-37.0) g/dL Plt Count (140-440) X 10*3/uL Carbon Dioxide (21.6-31.8) mmol/L Anion Gap (4.00-12.00) mmol/L BUN (9.0-27.0) mg/dL Creatinine (0.6-1.5) mg/dL Est GFR (CKD-EPI)AfAm (60.0-200.0) Est GFR (CKD-EPI)NonAf (60.0-200.0) BUN/Creatinine Ratio (12.00-20.00) Ratio Glucose (70-110) mg/dL POC Glucose (mg/dL) 62 L (75-99) mg/dL Hemoglobin A1c (4.0-6.0) % Calcium (8.7-10.3) mg/dL Total Protein (6.2-8.2) g/dL Microbiology - Last 24 Hours (Table) 11/21/20 12:51 Blood Culture - Preliminary Blood No Growth after 24 hours 11/21/20 12:51 Urine Culture - Preliminary Urine,Voided Diabetes panel 11/22/20 11/22/20 Range/Units 05:01 05:01 Sodium 137 (135-145) mmol/L Potassium 4.5 (3.5-5.5) mmol/L Chloride 106 (96-109) mmol/L Carbon Dioxide 18.9 L (21.6-31.8) mmol/L BUN 60.0 H (9.0-27.0) mg/dL Creatinine 2.3 H (0.6-1.5) mg/dL Glucose 60 L (70-110) mg/dL Hemoglobin A1c 7.8 H (4.0-6.0) % Calcium 8.2 L (8.7-10.3) mg/dL AST 30 (14-35) U/L ALT 30 (10-49) U/L Alkaline Phosphatase 50 (41-126) U/L Total Protein 5.5 L (6.2-8.2) g/dL Albumin 3.80 (3.80-4.90) g/dL Calcium panel 11/22/20 Range/Units 05:01 Calcium 8.2 L (8.7-10.3) mg/dL Albumin 3.80 (3.80-4.90) g/dL Pituitary panel 11/22/20 Range/Units 05:01 Sodium 137 (135-145) mmol/L Potassium 4.5 (3.5-5.5) mmol/L Chloride 106 (96-109) mmol/L Carbon Dioxide 18.9 L (21.6-31.8) mmol/L BUN 60.0 H (9.0-27.0) mg/dL Creatinine 2.3 H (0.6-1.5) mg/dL Glucose 60 L (70-110) mg/dL Calcium 8.2 L (8.7-10.3) mg/dL Adrenal panel 11/22/20 Range/Units 05:01 Sodium 137 (135-145) mmol/L Potassium 4.5 (3.5-5.5) mmol/L Chloride 106 (96-109) mmol/L Carbon Dioxide 18.9 L (21.6-31.8) mmol/L BUN 60.0 H (9.0-27.0) mg/dL Creatinine 2.3 H (0.6-1.5) mg/dL Glucose 60 L (70-110) mg/dL Calcium 8.2 L (8.7-10.3) mg/dL Total Bilirubin 0.9 (0.2-1.2) mg/dL AST 30 (14-35) U/L ALT 30 (10-49) U/L Alkaline Phosphatase 50 (41-126) U/L Total Protein 5.5 L (6.2-8.2) g/dL Albumin 3.80 (3.80-4.90) g/dL Assessment and Plan Assessment: 70 yo male S/P prostate biopsy, patient developed fatigue, dysuria and weakness post biopsy. UA negative for UTI, but he is on abx since 11/18. CT on presentation showed evidence of cholecystitis. WBC WNL, has been afebrile since admission. His PVR was WNL on 11/21 in urology clinic Plan: -Given his dysuria, bladder symptoms and recent prostate biopsy continue antibi otics. He was on PO antibotics at time the UA was obtained. Can continue on IV abx as an inpatient and can be transitioned to back to Keflex at time of discharge. Patient was already started on keflex and he can complete his remaining antibiotics at time of discharge.
[2020-11-22 20:21] LABS: Glucose,Whole Blood 77 mg/dL (75-99)
[2020-11-22] MEDS: ATORVASTATIN 80 MG TAB PO SCH (22:13)
--- NOTE | 2020-11-22 22:56 | CONS ---
CONSULTATION DATE OF DICTATION: 11/22/2020 REASON FOR CONSULTATION: Acute pancreatitis. HISTORY OF PRESENT ILLNESS: The patient is a 70-year-old pleasant white male with a history of diabetes mellitus, hypertension and coronary artery disease who was admitted to the hospital because of lower abdominal pain associated with dysuria and hematuria. The patient apparently underwent a prostate biopsy a week ago and since then he has been having some discomfort in the lower abdominal area. He was advised by his PCP to go to the emergency room, and in the ER he was noted to have elevated lipase consistent with acute pancreatitis. He subsequently did have a CT of the abdomen and pelvis done that showed gallstones as well as fat stranding near the gallbladder consistent with acute cholecystitis. The patient was started on broad-spectrum antibiotics. The patient is doing somewhat better. He still has some epigastric pain, but most of this pain is in the lower abdominal area. He denies any nausea, vomiting. No fever, chills or night sweats. PAST MEDICAL HISTORY: Atrial fibrillation, coronary artery disease, congestive heart failure, diabetes mellitus, hypertension, hyperlipidemia, sleep apnea, peripheral neuropathy. PAST SURGICAL HISTORY: CABG, cardiac ablation, pacemaker implantation, prostate biopsy one week ago, colonoscopy in 2019. MEDICATIONS: Medications at home include Eliquis, aspirin, Jardiance, Norvasc, Imdur, Zestril, metformin, Lipitor, Keflex, vitamin D3 and Glucotrol. ALLERGIES: NONE. SOCIAL HISTORY: No smoking. No alcohol use. FAMILY HISTORY: Father has diabetes mellitus and pancreatic cancer. Mother had breast cancer. Sister has diabetes mellitus. REVIEW OF SYSTEMS: CARDIOPULMONARY: He denies any chest pain or shortness of breath. GENITOURINARY: No dysuria but has some hematuria. NEUROLOGIC: Unremarkable. PSYCHIATRY: Unremarkable. ENT/VISION: Unremarkable. CONSTITUTIONAL: No recent weight loss. No fever, chills, night sweats. GI: As mentioned above. ENDOCRINE: History of hypothyroidism. PHYSICAL EXAMINATION: He appears comfortable. No apparent distress. VITAL SIGNS: Stable. HEENT examination unremarkable. Conjunctivae pink. Sclerae anicteric. Oral cavity no lesions. NECK: No JVD or lymph node enlargement. CHEST: Clear to auscultation. HEART: Regular rate and rhythm. ABDOMEN: Tender in the epigastric area, right upper quadrant area as well as in the suprapubic area. EXTREMITIES: No pedal edema. SKIN: No rashes. NEUROLOGIC: Alert and oriented x3. No focal deficits. LABS/IMAGING: WBC 8.1, hemoglobin 13.2, platelets are 128, BUN 63, creatinine 2.5. AST, ALT, T- bilirubin and alkaline phosphatase are normal. Lipase was 1093 and today it is 41. Amylase was 205 yesterday and 76 today. Urinalysis: Leukocyte esterase was trace. Coronavirus PCR negative. CT of the abdomen and pelvis done yesterday did show evidence of gallstones, normal- appearing pancreas, no biliary ductal dilation. There was an elongated linear gallstone and adjacent small stones but no evidence of intra- or extrahepatic biliary ductal dilation. Possible acute cholecystitis. IMPRESSION: 1. Epigastric pain, acute pancreatitis, probably gallstone-related. CT abdomen showed evidence of acute cholecystitis. Patient on broad-spectrum antibiotics, gradually improving. Lipase has normalized. Most likely we are dealing with acute gallstone pancreatitis. 2. Acute kidney injury superimposed on chronic kidney disease. 3. Status post prostate biopsy a week ago but clinically no evidence of UTI. 4. History of diabetes mellitus and hypertension. 5. History of congestive heart failure and moderate pulmonary hypertension. RECOMMENDATIONS: 1. Agree with gallbladder surgery tomorrow. 2. Since his serum transaminases are within normal limits, no indication for ERCP at the present time. 3. Continue with broad-spectrum antibiotics. 4. Monitor labs closely. 5. Will follow with you. Thank you for this consultation. MMODL / IJN: [id number] /
[2020-11-23] MEDS ORDERED: DEXTROSE 50% SYRINGE 50 ML IVP STA (02:54)
[2020-11-23 03:11] LABS: Glucose,Whole Blood 58 mg/dL (75-99)
[2020-11-23 03:17] LABS: Glucose,Whole Blood 101 mg/dL (75-99)
[2020-11-23] MEDS ORDERED: DEXTROSE 5% IN WATER 1,000 ML IV SCH (03:30)
[2020-11-23] MEDS: PIPERACILLIN-TAZOBACTAM 3.375 GM in SODIUM CHLORIDE 0.9% 100 ML IVPB SCH ×3 (05:53→21:22)
[2020-11-23 06:39] LABS: ALT 37 U/L (4-49); AST 39 U/L (17-59); African American GFR (CKD) 30 (>60 ml/min/1.73 sqM); Albumin 3.1 g/dL (3.5-5.0); Albumin/Globulin Ratio 1.2; Alkaline Phosphatase 45 U/L (38-126); Anion Gap 10 mmol/L; Blood Urea Nitrogen 52 mg/dL (9-20); Calcium 8.4 mg/dL (8.4-10.2); Carbon Dioxide 21 mmol/L (22-30); Chloride 105 mmol/L (98-107); Globulin 2.6 g/dL; Glucose 82 mg/dL (74-99); Non-African American GFR(CKD) 26 (>60 ml/min/1.73 sqM); Potassium 4.4 mmol/L (3.5-5.1); Sodium 136 mmol/L (137-145); Total Bilirubin 1.3 mg/dL (0.2-1.3); Total Protein 5.7 g/dL (6.3-8.2)
[2020-11-23 06:40] LABS: Basophils % (A) 1 %; Eosinophils # (A) 0.2 k/uL (0-0.7); Eosinophils % (A) 3 %; HGB 11.3 gm/dL (13.0-17.5); Lymphocytes # (A) 0.7 k/uL (1.0-4.8); Lymphocytes % (A) 11 %; MCH 30.3 pg (25.0-35.0); MCHC 33.4 g/dL (31.0-37.0); MCV 90.8 fL (80.0-100.0); Mean Platelet Volume 7.5; Monocytes # (A) 0.5 k/uL (0-1.0); Monocytes % (A) 8 %; Neutrophils # (A) 4.9 k/uL (1.3-7.7); Neutrophils % (A) 75 %; Platelet Count 151 k/uL (150-450); RBC 3.74 m/uL (4.30-5.90); WBC 6.4 k/uL (3.8-10.6)
[2020-11-23 07:04] LABS: Glucose,Whole Blood 92 mg/dL (75-99)
[2020-11-23] MEDS: ISOSORBIDE MONONITRATE ER 30 MG TAB.ER.24H PO SCH (08:21)
[2020-11-23] MEDS: hydrALAZINE HCL 25 MG TAB PO SCH ×3 (08:21→21:22)
[2020-11-23] MEDS: FUROSEMIDE 10 MG/ML 4 ML VIAL IV SCH (09:21)
[2020-11-23] MEDS: INSULIN ASPART (NovoLOG) 100 UNIT/ML VIAL SQ SCH ×4 (09:21→21:52)
--- NOTE | 2020-11-23 09:30 | P.PN ---
Subjective Patient is seen in follow-up for acute kidney injury on chronic kidney disease. Patient has chronic kidney disease stage IIIB with baseline creatinine near 1.8 as of August 2019 secondary to diabetic kidney disease. Renal function fairly stable. Scheduled for cholecystectomy today. Blood pressure stable. Good urine output. Vital signs are stable. General: The patient appeared well nourished and normally developed. HEENT: Head exam is unremarkable. Neck is without jugular venous distension. LUNGS: Breath sounds decreased. HEART: Rate and Rhythm are regular. ABDOMEN: Soft. Generalized tenderness. EXTREMITITES: No clubbing, cyanosis, or edema. Objective - Vital Signs Vital signs: Vital Signs Temp 97.9 F 11/23/20 07:45 Pulse 68 11/23/20 07:45 Resp 18 11/23/20 07:45 BP 135/72 11/23/20 07:45 Pulse Ox 93 L 11/23/20 07:45 Intake & Output 11/22/20 11/23/20 11/23/20 18:59 06:59 18:59 Output Total 400 390 Balance -400 -390 Weight 109.4 kg Output: Urine 400 390 Other: Voiding Method Toilet Toilet Urinal Urinal # Voids 3 1 - Labs CBC & Chem 7: 11/23/20 05:37 11/23/20 05:37 Labs: Abnormal Lab Results - Last 24 Hours (Table) 11/22/20 11/22/20 11/22/20 Range/Units 05:01 05:01 17:08 RBC (4.30-5.90) m/uL Hgb (13.0-17.5) gm/dL Hct (39.0-53.0) % Lymphocytes # (1.0-4.8) k/uL Sodium (137-145) mmol/L Carbon Dioxide 18.9 L (21.6-31.8) mmol/L Anion Gap 12.10 H (4.00-12.00) mmol/L BUN 60.0 H (9.0-27.0) mg/dL Creatinine 2.3 H (0.6-1.5) mg/dL Est GFR (CKD-EPI)AfAm 32.4 L (60.0-200.0) Est GFR (CKD-EPI)NonAf 27.9 L (60.0-200.0) BUN/Creatinine Ratio 26.09 H (12.00-20.00) Ratio Glucose 60 L (70-110) mg/dL POC Glucose (mg/dL) 62 L (75-99) mg/dL Hemoglobin A1c 7.8 H (4.0-6.0) % Calcium 8.2 L (8.7-10.3) mg/dL Total Protein 5.5 L (6.2-8.2) g/dL Albumin (3.5-5.0) g/dL 11/23/20 11/23/20 11/23/20 Range/Units 02:51 03:14 05:37 RBC 3.74 L (4.30-5.90) m/uL Hgb 11.3 L (13.0-17.5) gm/dL Hct 34.0 L (39.0-53.0) % Lymphocytes # 0.7 L (1.0-4.8) k/uL Sodium (137-145) mmol/L Carbon Dioxide (21.6-31.8) mmol/L Anion Gap (4.00-12.00) mmol/L BUN (9.0-27.0) mg/dL Creatinine (0.6-1.5) mg/dL Est GFR (CKD-EPI)AfAm (60.0-200.0) Est GFR (CKD-EPI)NonAf (60.0-200.0) BUN/Creatinine Ratio (12.00-20.00) Ratio Glucose (70-110) mg/dL POC Glucose (mg/dL) 58 L 101 H (75-99) mg/dL Hemoglobin A1c (4.0-6.0) % Calcium (8.7-10.3) mg/dL Total Protein (6.2-8.2) g/dL Albumin (3.5-5.0) g/dL 11/23/20 Range/Units 05:37 RBC (4.30-5.90) m/uL Hgb (13.0-17.5) gm/dL Hct (39.0-53.0) % Lymphocytes # (1.0-4.8) k/uL Sodium 136 L (137-145) mmol/L Carbon Dioxide 21 L (21.6-31.8) mmol/L Anion Gap (4.00-12.00) mmol/L BUN 52 H (9.0-27.0) mg/dL Creatinine 2.43 H (0.6-1.5) mg/dL Est GFR (CKD-EPI)AfAm (60.0-200.0) Est GFR (CKD-EPI)NonAf (60.0-200.0) BUN/Creatinine Ratio (12.00-20.00) Ratio Glucose (70-110) mg/dL POC Glucose (mg/dL) (75-99) mg/dL Hemoglobin A1c (4.0-6.0) % Calcium (8.7-10.3) mg/dL Total Protein 5.7 L (6.2-8.2) g/dL Albumin 3.1 L (3.5-5.0) g/dL Microbiology - Last 24 Hours (Table) 11/21/20 12:51 Urine Culture - Final Urine,Voided 11/21/20 12:51 Blood Culture - Preliminary Blood No Growth after 24 hours Assessment and Plan Plan: Assessment: 1. Acute kidney injury mostly prerenal secondary to cardiorenal syndrome. Renal function stable. Creatinine 2.43 today. 2. Acute on chronic diastolic CHF with moderate pulmonary hypertension. 3. Volume overload. Improved with diuresis. 4. Metabolic acidosis secondary to acute kidney injury. Maintained on oral bicarb. Better. 5. Diabetes mellitus. Maintained on D5 due to low blood sugars overnight. 6. Chronic kidney disease stage IIIB secondary to diabetic kidney disease with baseline creatinine near 1.8. 7. Hypertension with chronic kidney disease. Stable. 8. Gallstones. Scheduled for cholecystectomy today. 9. Status post prostate biopsy last week. Plan: I will change Lasix to 40 mg orally once daily. Avoid nephrotoxins. Continue to monitor renal function and urine output. If GFR remains less than 30, avoid metformin as well as SGLT2 inhibitors. Further workup of proteinuria outpatient. Will also need ACEi resumed in near future.
[2020-11-23 11:17] LABS: Glucose,Whole Blood 100 mg/dL (75-99)
[2020-11-23] MEDS: FUROSEMIDE 40 MG TAB PO SCH (12:04)
[2020-11-23] MEDS: SODIUM BICARBONATE TAB 650 MG TAB PO SCH ×3 (12:04→21:22)
--- NOTE | 2020-11-23 12:19 | P.PN ---
Subjective Progress Note Date: 11/23/20 CHIEF COMPLAINT: Congestive heart failure HISTORY OF PRESENT ILLNESS: 11/22/2020 This is a 70-year-old male with a past medical history significant for coronary artery disease with previous CABG, atrial flutter/fibrillation with previous ablation, sick sinus syndrome with dual-chamber pacemaker insertion, hypertension, and hyperlipidemia. Patient follows in the office with Dr. Rivas. We have been asked to see the patient in consultation for CHF. Patient examined at the bedside this morning. Patient recently underwent prostate biopsy with Dr. Garza on 11/15/2020. Patient has been experiencing hematuria post procedure. Patient also reports having abdominal pain and shortness of breath. He denied any chest pain or pressure. He reports having chills and body aches at home. Patient was found to have evidence of pancreatitis, possible cholecystitis, acute kidney injury, and congestive heart failure in the ER. Patient was placed on antibiotics and admitted to the hospital. Patient was given once dose of IV lasix yesterday. He currently denies shortness of breath. He denies chest pain or pressure. 11/23/2020 Patient examined this morning. He is sitting up in the chair. He denies chest pain or pressure. Reports shortness of breath has improved. Creatinine today 2.43. He has been transitioned to oral lasix per nephrology. Echocardiogram revealed ejection fraction 55-60%, mild mitral regurgitation, mild tricuspid regurgitation, and moderate pulmonary hypertension PHYSICAL EXAM: VITAL SIGNS: Reviewed. GENERAL: Well-developed in no acute distress. HEENT: Head is normocephalic. Pupils are equal, round. Sclerae anicteric. Mucous membranes of the mouth are moist. Neck supple. No JVD or thyromegaly LUNGS: Respirations even and unlabored. Lungs diminished. HEART: Irregular rate and rhythm. S1 and S2 heard. EXTREMITIES: Normal range of motion. No clubbing or cyanosis. Peripheral pulses intact. No lower extremity edema ASSESSMENT: Pancreatitis Possible acute cholecystitis Hematuria, status post recent prostate biopsy 11/15/2020 History of atrial fibrillation/flutter with previous ablation, on long-term anticoagulation with Eliquis History of sick sinus syndrome, status post permanent pacemaker insertion Acute diastolic congestive heart failure, BNP 8700, EF 55-60% History of coronary artery disease with previous CABG Acute on chronic kidney disease Hypertension hyperlipidemia Obstructive sleep apnea with CPAP use Diabetes mellitus, type II PLAN: Pacemaker interrogation reviewed Nephrology following. Lasix transitioned to oral today Daily weights Accurate I&O Monitor kidney function Hold Eliquis for surgery today. Resume postoperatively when okay with general surgery Patient scheduled for lap jason today with Dr. Jovel Patient has no absolute contraindications to undergo surgery from a cardiac perspective Further recommendations pending patient course Nurse practitioner note has been reviewed by physician. Signing provider agrees with the documented findings, assessment, and plan of care. Objective - Vital Signs Vital signs: Vital Signs Temp 97.9 F 11/23/20 07:45 Pulse 68 11/23/20 09:33 Resp 18 11/23/20 09:33 BP 135/72 11/23/20 07:45 Pulse Ox 93 L 11/23/20 07:45 Intake & Output 11/22/20 11/23/20 11/23/20 18:59 06:59 18:59 Output Total 400 390 Balance -400 -390 Weight 109.4 kg Output: Urine 400 390 Other: Voiding Method Toilet Toilet Toilet Urinal Urinal Urinal # Voids 3 1 - Labs CBC & Chem 7: 11/23/20 05:37 11/23/20 05:37 Labs: Abnormal Lab Results - Last 24 Hours (Table) 11/22/20 11/23/20 11/23/20 Range/Units 17:08 02:51 03:14 RBC (4.30-5.90) m/uL Hgb (13.0-17.5) gm/dL Hct (39.0-53.0) % Lymphocytes # (1.0-4.8) k/uL Sodium (137-145) mmol/L Carbon Dioxide (22-30) mmol/L BUN (9-20) mg/dL Creatinine (0.66-1.25) mg/dL POC Glucose (mg/dL) 62 L 58 L 101 H (75-99) mg/dL Total Protein (6.3-8.2) g/dL Albumin (3.5-5.0) g/dL 11/23/20 11/23/20 11/23/20 Range/Units 05:37 05:37 11:15 RBC 3.74 L (4.30-5.90) m/uL Hgb 11.3 L (13.0-17.5) gm/dL Hct 34.0 L (39.0-53.0) % Lymphocytes # 0.7 L (1.0-4.8) k/uL Sodium 136 L (137-145) mmol/L Carbon Dioxide 21 L (22-30) mmol/L BUN 52 H (9-20) mg/dL Creatinine 2.43 H (0.66-1.25) mg/dL POC Glucose (mg/dL) 100 H (75-99) mg/dL Total Protein 5.7 L (6.3-8.2) g/dL Albumin 3.1 L (3.5-5.0) g/dL Microbiology - Last 24 Hours (Table) 11/21/20 12:51 Urine Culture - Final Urine,Voided 11/21/20 12:51 Blood Culture - Preliminary Blood No Growth after 24 hours
[2020-11-23] MEDS: LACTATED RINGERS 1,000 ML IV SCH ×3 (13:34→13:47)
[2020-11-23] MEDS ORDERED: fentaNYL (PF) 50 MCG/ML 2 ML AMP ONE (13:42)
[2020-11-23] MEDS ORDERED: GLYCOPYRROLATE 0.2 MG/ML 2 ML VIAL ONE (13:42)
[2020-11-23] MEDS ORDERED: MIDAZOLAM 2 MG/2 ML VIAL ONE (13:42)
[2020-11-23] MEDS ORDERED: SUCCINYLCHOLINE CHLORIDE VIAL 200 MG/10 ML VIAL IV ONE (13:42)
[2020-11-23] MEDS ORDERED: PROPOFOL 10 MG/ML 20 ML VIAL IV ONE (13:42)
[2020-11-23] MEDS ORDERED: NEOSTIGMINE 1 MG/ML 10 ML VIAL ONE (13:42)
[2020-11-23] MEDS ORDERED: ROCURONIUM 10 MG/ML (10 ML VIAL) IV ONE (13:42)
[2020-11-23] MEDS ORDERED: LIDOCAINE 1% INJ 10MG/ML (20 ML MDV) ONE (13:42)
[2020-11-23] MEDS ORDERED: HEPARIN SODIUM,PORCINE 5,000 UNIT/ML 1 ML VIAL ONE (13:43)
[2020-11-23] MEDS ORDERED: BUPIVACAINE (PF) 0.25% 30 ML VIAL SQ ONE (14:12)
--- NOTE | 2020-11-23 14:46 | P.OP ---
Date of Procedure: 11/23/20 Preoperative Diagnosis: Acute cholecystitis Postoperative Diagnosis: Acute cholecystitis Procedure(s) Performed: Laparoscopic cholecystectomy Anesthesia: ANILA Surgeon: Fabio Jovel Estimated Blood Loss (ml): 50 Pathology: other (r gallbladder) Condition: stable Disposition: PACU Description of Procedure: The patient was placed on the operating table. The patient received a general endotracheal tube anesthesia. The patients abdomen was prepped and draped in the usual sterile fashion. Through an infraumbilical stab incision, the fascia of the anterior abdominal wall was grasped with a pair of Kochers and then the Veress needle was placed in the peritoneal cavity. Position of the Veress needle was confirmed with positive drop test. The abdomen was then insufflated. After adequate insufflation, the 10 mm trocar was placed in the peritoneal cavity. Following this the laparoscope was placed in the peritoneal cavity. The patient was placed in the head-up, right side up position and then a 5 mm trocar was placed in the right lateral and right subcostal position under direct visualization. A 8 mm trocar was placed in the epigastric position. The gallbladder was grasped in the fundus and infundibulum. Traction on the gallbladder was placed in the lateral and the cephalad positions. The triangle of Calot was visualized.. The cystic duct was bluntly dissected until the union of the cystic duct and common bile duct was seen. A critical view of safety was achieved. The cystic duct was then divided and sealed with the Harmonic scissors. A PDS Endoloop was then placed throughout the cystic duct stump. The cystic artery divided and sealed with the Harmonic scissors. The gallbladder was then removed from the liver bed using Harmonic scissors. The gallbladder was then extracted through the epigastric port site. Operative field was checked for any bleeding spots and Harmonic scissors was used to coagulate the liver bed. The abdomen was irrigated. The trocars were removed. The skin was closed using interrupted 3-0 Vicryl suture. Dermabond dressing were applied. The patient tolerated the procedure well.
[2020-11-23] MEDS ORDERED: LACTATED RINGERS 1,000 ML IV ONE (14:49)
[2020-11-23] MEDS ORDERED: HYDROmorphone 0.5 MG/0.5 ML SYRINGE IVP ONE ×3 (15:05→15:45)
--- NOTE | 2020-11-23 15:21 | P.PN ---
Subjective Progress Note Date: 11/23/20 Principal diagnosis: Acute pancreatitis, cholelithiasis This patient is a pleasant 70-year-old white male with a 2 diabetes hypertension and significant coronary artery disease that was admitted to the hospital because of lower abdominal pain associated with dysuria and hematuria for which she was advised to come to the emergency department for further evaluation. He subsequently had a CT of the abdomen and pelvis that showed gallstones as well as a fat stranding near the gallbladder consistent with acute cholecystitis. The patient was started on broad-spectrum antibiotics. He is scheduled today for a cholecystectomy. He is seen and examined up in his room. He denies any nausea or vomiting, states his abdominal pain has improved some. He has had no fevers or chills through the night. Objective - Vital Signs Vital signs: Vital Signs Temp 97.9 F 11/23/20 07:45 Pulse 68 11/23/20 09:33 Resp 18 11/23/20 09:33 BP 135/72 11/23/20 07:45 Pulse Ox 93 L 11/23/20 07:45 Intake & Output 11/22/20 11/23/20 11/23/20 18:59 06:59 18:59 Output Total 400 390 Balance -400 -390 Weight 109.4 kg Output: Urine 400 390 Other: Voiding Method Toilet Toilet Toilet Urinal Urinal Urinal # Voids 3 1 - Exam General appearance: The patient is alert, oriented, in no acute distress. HET: Head is normocephalic and atraumatic. Conjunctiva pink. Sclera anicteric. Neck: Supple without lymphadenopathy. Abdomen: Soft, right upper quadrant tenderness, nondistended with bowel sounds. No guarding or rigidity. Extremities: Normal skin color and turgor. No pedal edema Neurological: No focal deficits. Alert and oriented 3. - Labs CBC & Chem 7: 11/23/20 05:37 11/23/20 05:37 Labs: Abnormal Lab Results - Last 24 Hours (Table) 11/22/20 11/23/20 11/23/20 Range/Units 17:08 02:51 03:14 RBC (4.30-5.90) m/uL Hgb (13.0-17.5) gm/dL Hct (39.0-53.0) % Lymphocytes # (1.0-4.8) k/uL Sodium (137-145) mmol/L Carbon Dioxide (22-30) mmol/L BUN (9-20) mg/dL Creatinine (0.66-1.25) mg/dL POC Glucose (mg/dL) 62 L 58 L 101 H (75-99) mg/dL Total Protein (6.3-8.2) g/dL Albumin (3.5-5.0) g/dL 11/23/20 11/23/20 Range/Units 05:37 05:37 RBC 3.74 L (4.30-5.90) m/uL Hgb 11.3 L (13.0-17.5) gm/dL Hct 34.0 L (39.0-53.0) % Lymphocytes # 0.7 L (1.0-4.8) k/uL Sodium 136 L (137-145) mmol/L Carbon Dioxide 21 L (22-30) mmol/L BUN 52 H (9-20) mg/dL Creatinine 2.43 H (0.66-1.25) mg/dL POC Glucose (mg/dL) (75-99) mg/dL Total Protein 5.7 L (6.3-8.2) g/dL Albumin 3.1 L (3.5-5.0) g/dL Microbiology - Last 24 Hours (Table) 11/21/20 12:51 Urine Culture - Final Urine,Voided 11/21/20 12:51 Blood Culture - Preliminary Blood No Growth after 24 hours Assessment and Plan (1) Acute pancreatitis Narrative/Plan: This is a 70-year-old male who came in with epigastric pain, acute pancreatitis, probably gallstone related. CT abdomen showed evidence of acute cholecystitis. Patient on broad-spectrum antibiotics, gradually improving. Lipase has normalized. Most likely dealing with acute gallstone pancreatitis. Liver enzymes are normal. Current Visit: Yes Status: Acute Code(s): K85.90 - ACUTE PANCREATITIS WIT HOUT NECROSIS OR INFECTION, UNSP SNOMED Code(s): 726312035 (2) Cholecystitis, acute with cholelithiasis Current Visit: Yes Status: Acute Code(s): K80.00 - CALCULUS OF GALLBLADDER W ACUTE CHOLECYST W/O OBSTRUCTION SNOMED Code(s): 46339377 (3) Hematuria Narrative/Plan: Status post prostate biopsy, follows with urology Current Visit: Yes Status: Acute Code(s): R31.9 - HEMATURIA, UNSPECIFIED SNOMED Code(s): 85742916 Plan: 1. Supportive care 2. Agree with gallbladder surgery scheduled today 3. Continue broad spectrum antibiotics 4. Repeat LFTs in the morning 5. We will continue to follow Dr. Ita Balderas I agree with the dictator's note, documented as a scribe by Vijaya Jones.
[2020-11-23] MEDS ORDERED: ONDANSETRON 4 MG/2 ML VIAL IVP ONE (15:45)
[2020-11-23 15:58] LABS: Glucose,Whole Blood 175 mg/dL (75-99)
[2020-11-23 17:12] LABS: Glucose,Whole Blood 180 mg/dL (75-99)
[2020-11-23 20:00] LABS: Glucose,Whole Blood 152 mg/dL (75-99)
[2020-11-23] MEDS: ATORVASTATIN 80 MG TAB PO SCH (21:22)
--- NOTE | 2020-11-23 22:54 | P.PN ---
Progress Note - Text Progress Note Date: 11/23/20 Presenting complaint: Abdominal pain Hospital course: Patient is a 70-year-old male with a history of diabetes mellitus type 2 non- insulin requiring, coronary artery disease status post 4 vessel bypass surgery, prior atrial fibrillation/flutter status post ablation and permanent pacemaker, and hypertension who presented to the emergency department at the direction of Dr. Garza due to concerns of UTI with sepsis. Patient had initially undergone prostate biopsy on 11/15 and had difficulty with postoperative urination, dysuria, and hematuria. In the ER he underwent extensive evaluation. On arrival his vital signs were within normal limits, pulse ox dropped to 82%. Laboratory analysis demonstrates thrombocytopenia with a platelet of 128, lymphocytes 0.6, BUN 63, creatinine 2.54 consistent with acute kidney injury on his chronic kidney disease with baseline creatinine 1.7, lipase 1095 consistent with pancreatitis. Urinalysis shows gross hematuria without significant white blood cells. Initial chest x-ray showed pulmonary venous hypertension with some interstitial edema. Repeat chest x-ray after IV fluids shows worsening congestive heart failure. CT abdomen and pelvis demonstrated showed a long linear gallstone with fat stranding near the gallbladder. Also noted was some bladder distention and thickening. The ER he was diagnosed with acute cholecystitis was started on Zosyn. He was admitted for further work up. He became more hypoxic and he was given 1 dose of IV Lasix. He was seen by gastroenterology who did not feel there is an indication for ERCP at this point in time. Echocardiogram was ordered which showed an ejection fraction of 55-60% with some diastolic dysfunction. He was seen by cardiology and his Lasix was continued. Currently awaiting surgery evaluation. Despite his oral medications being held. Today-so the patient this morning. Some upper quadrant pain. no nausea vomiting. Late in the day patient underwent laparoscopic cholecystectomy. Review of systems: Was done for constitutional, cardiovascular, GI, pulmonary. relevant finding as above Active Medications Acetaminophen (Acetaminophen Tab 325 Mg Tab) 650 mg PO Q6HR PRN PRN Reason: Mild Pain or Fever > 100.5 Last Admin: 11/21/20 19:42 Dose: 650 mg Documented by: Hydrocodone Bitart/Acetaminophen (Hydrocodone/Apap 5-325mg 1 Each Tab) 1 each PO Q4HR PRN PRN Reason: Moderate Pain Last Admin: 11/22/20 01:31 Dose: 1 each Documented by: Atorvastatin Calcium (Atorvastatin 80 Mg Tab) 80 mg PO HS [facility] Last Admin: 11/23/20 21:22 Dose: 80 mg Documented by: Enoxaparin Sodium (Enoxaparin 40 Mg/0.4 Ml Syringe) 40 mg SQ DAILY [facility] Furosemide (Furosemide 40 Mg Tab) 40 mg PO DAILY [facility] Last Admin: 11/23/20 12:04 Dose: Not Given Documented by: Hydralazine HCl (Hydralazine Hcl 25 Mg Tab) 25 mg PO TID [facility] Last Admin: 11/23/20 21:22 Dose: 25 mg Documented by: Hydromorphone HCl (Hydromorphone 0.5 Mg/0.5 Ml Syringe) 0.5 mg IVP Q3HR PRN PRN Reason: Severe Pain Piperacillin Sod/Tazobactam (Sod 3.375 gm/ Sodium Chloride) 100 mls @ 25 mls/hr IVPB Q8H [facility] Last Admin: 11/23/20 21:22 Dose: 25 mls/hr Documented by: Insulin Aspart (Insulin Aspart (Novolog) 100 Unit/Ml Vial) 0 unit SQ ACHS [facility]; Protocol Last Admin: 11/23/20 21:52 Dose: Not Given Documented by: Isosorbide Mononitrate (Isosorbide Mononitrate Er 30 Mg Tab.Er.24h) 30 mg PO DAILY [facility] Last Admin: 11/23/20 08:21 Dose: 30 mg Documented by: Lidocaine HCl (Lidocaine 1% (10mg/Ml) For Iv Start) 0.1 ml INTRADERMA PER PROTOCOL PRN PRN Reason: IV Start Naloxone HCl (Naloxone 0.4 Mg/Ml 1 Ml Vial) 0.2 mg IV Q2M PRN PRN Reason: Opioid Reversal Ondansetron HCl (Ondansetron 4 Mg/2 Ml Vial) 4 mg IVP Q8HR PRN PRN Reason: Nausea And Vomiting Sodium Bicarbonate (Sodium Bicarbonate Tab 650 Mg Tab) 650 mg PO TID [facility] Last Admin: 11/23/20 21:22 Dose: 650 mg Documented by: On examination: VITAL SIGNS: 98.4, 66, 20, 153 was 74, 94% on 2 L GENERAL APPEARANCE: Laying in bed, not in distress. HEENT: Normal external appearance of nose and ear. Oral cavity normal EYES: Pupils equal. Conjunctiva normal. NECK: JVD not raised. Mass not palpable. RESPIRATORY: Respiratory effort normal. Lungs clear to auscultation. CARDIOVASCULAR: First and second sounds normal. No edema. ABDOMEN: Soft. Liver and spleen not palpable. Mild right upper quadrant tenderness. No mass palpable. PSYCHIATRY: Alert and oriented x3. Mood and affect normal. Investigations: White count 6.4 hemoglobin 11.3 potassium 4.4 bun 52 creatinine 2.53 Coronavirus [PCR]-not detected 2-D echocardiogram-EF 55-60%. Atrial fibrillation. Akinetic raymundo. Moderate pulmonary hypertension Computed tomography scan of the abdomen-contracted gallbladder with small gallstones was a gallbladder neck. With some surrounding fluid and fat stranding. Assessment: -Acute cholecystitis followed by laparoscopic cholecystectomy today -Persistent atrial flutter fibrillation -Coronary artery disease with previous bypass and stents -Diabetes mellitus type 2 uncontrolled with hypoglycemia -Essential hypertension -Hyperlipidemia -Obstructive sleep apnea -Peripheral neuropathy -Sick sinus syndrome bradycardia with a pacemaker -Chronic kidney disease stage III -Obstructive sleep apnea uses CPAP -Normocytic anemia secondary to chronic kidney disease Plan: Patient is on IV Zosyn. Oral hypoglycemics have been held. Patient sliding scale insulin. Hypoglycemia protocol to be followed. Follow with cardiology.
[2020-11-24] MEDS: HYDROcodone/APAP 5-325MG 1 EACH TAB PO PRN (00:14)
[2020-11-24 02:20] LABS: Glucose,Whole Blood 266 mg/dL (75-99)
[2020-11-24] MEDS: PIPERACILLIN-TAZOBACTAM 3.375 GM in SODIUM CHLORIDE 0.9% 100 ML IVPB SCH ×3 (05:18→22:00)
[2020-11-24] MEDS: ACETAMINOPHEN TAB 325 MG TAB PO PRN ×2 (05:57→20:10)
[2020-11-24 07:02] LABS: Glucose,Whole Blood 258 mg/dL (75-99)
[2020-11-24] MEDS: INSULIN ASPART (NovoLOG) 100 UNIT/ML VIAL SQ SCH ×4 (08:32→21:18)
[2020-11-24] MEDS: SODIUM BICARBONATE TAB 650 MG TAB PO SCH ×3 (08:35→21:17)
[2020-11-24] MEDS: FUROSEMIDE 40 MG TAB PO SCH (08:36)
[2020-11-24] MEDS: ISOSORBIDE MONONITRATE ER 30 MG TAB.ER.24H PO SCH (08:39)
[2020-11-24] MEDS: hydrALAZINE HCL 25 MG TAB PO SCH ×3 (08:39→21:16)
[2020-11-24] MEDS ORDERED: ENOXAPARIN 40 MG/0.4 ML SYRINGE SQ SCH (09:00)
--- NOTE | 2020-11-24 09:55 | P.PN ---
Subjective Patient is seen in follow-up for acute kidney injury on chronic kidney disease. Patient has chronic kidney disease stage IIIB with baseline creatinine near 1.8 as of August 2019 secondary to diabetic kidney disease. Renal function fairly stable. underwent cholecystectomy yesterday. Complains of mild soreness in the abdomen. Vital signs are stable. General: The patient appeared well nourished and normally developed. HEENT: Head exam is unremarkable. Neck is without jugular venous distension. LUNGS: Breath sounds decreased. HEART: Rate and Rhythm are regular. ABDOMEN: Soft. Generalized tenderness. EXTREMITITES: No edema. Objective - Vital Signs Vital signs: Vital Signs Temp 97.2 F L 11/24/20 05:00 Pulse 68 11/24/20 09:38 Resp 16 11/24/20 09:38 BP 137/72 11/24/20 05:00 Pulse Ox 92 L 11/24/20 07:38 Intake & Output 11/23/20 11/24/20 11/24/20 18:59 06:59 18:59 Intake Total 950 Output Total 790 300 Balance 160 -300 Weight 115.5 kg Intake: IV 950 Output: Urine 690 300 Estimated Blood Loss 100 Other: Voiding Method Toilet Toilet Urinal Urinal # Voids 1 - Labs CBC & Chem 7: 11/23/20 05:37 11/23/20 05:37 Labs: Abnormal Lab Results - Last 24 Hours (Table) 11/23/20 11/23/20 11/23/20 Range/Units 11:15 15:55 17:10 POC Glucose (mg/dL) 100 H 175 H 180 H (75-99) mg/dL 11/23/20 11/24/20 11/24/20 Range/Units 19:59 02:19 06:59 POC Glucose (mg/dL) 152 H 266 H 258 H (75-99) mg/dL Microbiology - Last 24 Hours (Table) 11/21/20 12:51 Blood Culture - Preliminary Blood No Growth after 48 hours Assessment and Plan Plan: Assessment: 1. Acute kidney injury mostly prerenal secondary to cardiorenal syndrome. Renal function stable. Creatinine 2.43 as of yesterday. 2. Acute on chronic diastolic CHF with moderate pulmonary hypertension. 3. Volume overload. Improved with diuresis. 4. Metabolic acidosis secondary to acute kidney injury. Maintained on oral bicarb. Better. 5. Diabetes mellitus. Maintained on D5 due to low blood sugars overnight. 6. Chronic kidney disease stage IIIB secondary to diabetic kidney disease with baseline creatinine near 1.8. 7. Hypertension with chronic kidney disease. Stable. 8. Gallstones status post cholecystectomy on November 23. 9. Status post prostate biopsy last week. Plan: maintain oral Lasix. Avoid nephrotoxins. Continue to monitor renal function and urine output. If GFR remains less than 30, avoid metformin as well as SGLT2 inhibitors. Further workup of proteinuria outpatient. Will also need ACEi resumed in near future. morning labs pending.
[2020-11-24 11:03] LABS: Glucose,Whole Blood 266 mg/dL (75-99)
--- NOTE | 2020-11-24 11:28 | P.PN ---
Subjective Progress Note Date: 11/24/20 Principal diagnosis: Acute pancreatitis, cholelithiasis This patient is a pleasant 70-year-old white male with a 2 diabetes hypertension and significant coronary artery disease that was admitted to the hospital because of lower abdominal pain associated with dysuria and hematuria for which she was advised to come to the emergency department for further evaluation. He subsequently had a CT of the abdomen and pelvis that showed gallstones as well as a fat stranding near the gallbladder consistent with acute cholecystitis. The patient was started on broad-spectrum antibiotics. He is postop day 1 status post cholecystectomy. He is seen and examined up in his room. He denies any nausea or vomiting, states his abdominal pain has improved some. He has had no fevers or chills through the night. Labs are pending. Objective - Vital Signs Vital signs: Vital Signs Temp 97.2 F L 11/24/20 05:00 Pulse 68 11/24/20 09:38 Resp 16 11/24/20 09:38 BP 137/72 11/24/20 05:00 Pulse Ox 92 L 11/24/20 07:38 Intake & Output 11/23/20 11/24/20 11/24/20 18:59 06:59 18:59 Intake Total 950 Output Total 790 300 Balance 160 -300 Weight 115.5 kg Intake: IV 950 Output: Urine 690 300 Estimated Blood Loss 100 Other: Voiding Method Toilet Toilet Urinal Urinal # Voids 1 - Exam General appearance: The patient is alert, oriented, in no acute distress. HET: Head is normocephalic and atraumatic. Conjunctiva pink. Sclera anicteric. Neck: Supple without lymphadenopathy. Abdomen: Soft, surgical tenderness, surgical incisions clean dry and intact, nondistended with bowel sounds. No guarding or rigidity. Extremities: Normal skin color and turgor. No pedal edema Neurological: No focal deficits. Alert and oriented 3. - Labs CBC & Chem 7: 11/23/20 05:37 11/23/20 05:37 Labs: Abnormal Lab Results - Last 24 Hours (Table) 11/23/20 11/23/20 11/23/20 Range/Units 15:55 17:10 19:59 POC Glucose (mg/dL) 175 H 180 H 152 H (75-99) mg/dL 11/24/20 11/24/20 11/24/20 Range/Units 02:19 06:59 11:01 POC Glucose (mg/dL) 266 H 258 H 266 H (75-99) mg/dL Microbiology - Last 24 Hours (Table) 11/21/20 12:51 Blood Culture - Preliminary Blood No Growth after 48 hours Assessment and Plan (1) Acute pancreatitis Narrative/Plan: This is a 70-year-old male who came in with epigastric pain, acute pancreatitis, probably gallstone related. CT abdomen showed evidence of acute cholecystitis. Patient on broad-spectrum antibiotics, gradually improving. Lipase has normalized. Most likely dealing with acute gallstone pancreatitis. Liver enzymes are normal. Current Visit: Yes Status: Acute Code(s): K85.90 - ACUTE PANCREATITIS WITHOUT NECROSIS OR INFECTION, UNSP SNOMED Code(s): 581473782 (2) Cholecystitis, acute with cholelithiasis Narrative/Plan: Patient is status postop day 1 for cholecystitis, doing well. Current Visit: Yes Status: Acute Code(s): K80.00 - CALCULUS OF GALLBLADDER W ACUTE CHOLECYST W/O OBSTRUCTION SNOMED Code(s): 47085300 (3) Hematuria Narrative/Plan: Status post prostate biopsy, follows with urology Current Visit: Yes Status: Acute Code(s): R31.9 - HEMATURIA, UNSPECIFIED SNOMED Code(s): 77468598 Plan: 1. Supportive care 2. Patient is status postop day 1 for cholecystectomy 3. Diet per surgical services recommendations 4. Await LFTs, and if no elevation may be discharged home from a gastroenterology standpoint Dr. Ita Balderas I agree with the dictator's note, documented as a scribe by Vijaya Jones.
[2020-11-24 12:03] LABS: African American GFR (CKD) 30.7 (60.0-200.0); BUN/Creat Ratio 21.67 Ratio (12.00-20.00); Calcium 8.6 mg/dL (8.7-10.3); Carbon Dioxide 23.1 mmol/L (21.6-31.8); Chloride 102 mmol/L (96-109); Glucose 261 mg/dL (70-110); Magnesium 1.8 mg/dL (1.5-2.4); Non-African American GFR(CKD) 26.5 (60.0-200.0); Potassium 4.6 mmol/L (3.5-5.5); Sodium 135 mmol/L (135-145)
--- NOTE | 2020-11-24 12:49 | P.PN ---
Subjective Progress Note Date: 11/24/20 CHIEF COMPLAINT: Acute cholecystitis HISTORY OF PRESENT ILLNESS: Patient is status post laparoscopic cholecystectomy. He reports that his pain is controlled. He is tolerating regular diet. Denies any nausea or vomiting. He is up and ambulating. Afebrile. Creatinine 2.4 PHYSICAL EXAM: VITAL SIGNS: Reviewed. GENERAL: Well-developed in no acute distress. HEENT: No sclera icterus. Extraocular movements grossly intact. Moist buccal mucosa. Head is atraumatic, normocephalic. ABDOMEN: Soft. Nondistended. Incision sites clean dry and intact NEUROLOGIC: Alert and oriented. Cranial nerves II through XII grossly intact. ASSESSMENT: 1. Acute cholecystitis status post laparoscopic cholecystectomy 2. Acute gallstone pancreatitis PLAN: -Patient is stable from surgical standpoint for discharge -Continue regular diet -Patient can be restarted on Eliquis Physician Government Minister note has been reviewed by physician. Signing provider agrees with the documented findings, assessment, and plan of care. Objective - Vital Signs Vital signs: Vital Signs Temp 97.2 F L 11/24/20 05:00 Pulse 68 11/24/20 09:38 Resp 16 11/24/20 09:38 BP 137/72 11/24/20 05:00 Pulse Ox 92 L 11/24/20 07:38 Intake & Output 11/23/20 11/24/20 11/24/20 18:59 06:59 18:59 Intake Total 950 Output Total 790 300 Balance 160 -300 Weight 115.5 kg Intake: IV 950 Output: Urine 690 300 Estimated Blood Loss 100 Other: Voiding Method Toilet Toilet Urinal Urinal Urinal # Voids 1 - Labs CBC & Chem 7: 11/23/20 05:37 11/24/20 07:30 Labs: Abnormal Lab Results - Last 24 Hours (Table) 11/23/20 11/23/20 11/23/20 Range/Units 15:55 17:10 19:59 BUN (9.0-27.0) mg/dL Creatinine (0.6-1.5) mg/dL Est GFR (CKD-EPI)AfAm (60.0-200.0) Est GFR (CKD-EPI)NonAf (60.0-200.0) BUN/Creatinine Ratio (12.00-20.00) Ratio Glucose (70-110) mg/dL POC Glucose (mg/dL) 175 H 180 H 152 H (75-99) mg/dL Calcium (8.7-10.3) mg/dL 11/24/20 11/24/20 11/24/20 Range/Units 02:19 06:59 07:30 BUN 52.0 H (9.0-27.0) mg/dL Creatinine 2.4 H (0.6-1.5) mg/dL Est GFR (CKD-EPI)AfAm 30.7 L (60.0-200.0) Est GFR (CKD-EPI)NonAf 26.5 L (60.0-200.0) BUN/Creatinine Ratio 21.67 H (12.00-20.00) Ratio Glucose 261 H (70-110) mg/dL POC Glucose (mg/dL) 266 H 258 H (75-99) mg/dL Calcium 8.6 L (8.7-10.3) mg/dL 11/24/20 Range/Units 11:01 BUN (9.0-27.0) mg/dL Creatinine (0.6-1.5) mg/dL Est GFR (CKD-EPI)AfAm (60.0-200.0) Est GFR (CKD-EPI)NonAf (60.0-200.0) BUN/Creatinine Ratio (12.00-20.00) Ratio Glucose (70-110) mg/dL POC Glucose (mg/dL) 266 H (75-99) mg/dL Calcium (8.7-10.3) mg/dL Microbiology - Last 24 Hours (Table) 11/21/20 12:51 Blood Culture - Preliminary Blood No Growth after 48 hours
--- NOTE | 2020-11-24 13:07 | P.PN ---
Subjective Progress Note Date: 11/24/20 CHIEF COMPLAINT: Congestive heart failure HISTORY OF PRESENT ILLNESS: 11/22/2020 This is a 70-year-old male with a past medical history significant for coronary artery disease with previous CABG, atrial flutter/fibrillation with previous ablation, sick sinus syndrome with dual-chamber pacemaker insertion, hypertension, and hyperlipidemia. Patient follows in the office with Dr. Rivas. We have been asked to see the patient in consultation for CHF. Patient examined at the bedside this morning. Patient recently underwent prostate biopsy with Dr. Garza on 11/15/2020. Patient has been experiencing hematuria post procedure. Patient also reports having abdominal pain and shortness of breath. He denied any chest pain or pressure. He reports having chills and body aches at home. Patient was found to have evidence of pancreatitis, possible cholecystitis, acute kidney injury, and congestive heart failure in the ER. Patient was placed on antibiotics and admitted to the hospital. Patient was given once dose of IV lasix yesterday. He currently denies shortness of breath. He denies chest pain or pressure. 11/23/2020 Patient examined this morning. He is sitting up in the chair. He denies chest pain or pressure. Reports shortness of breath has improved. Creatinine today 2.43. He has been transitioned to oral lasix per nephrology. Echocardiogram revealed ejection fraction 55-60%, mild mitral regurgitation, mild tricuspid regurgitation, and moderate pulmonary hypertension 11/24/2020 Patient is status post laparoscopic cholecystectomy. Postop day #1. Patient denies chest pain or pressure. Denies shortness of breath. Reports mild surgical abdominal discomfort. Creatinine 2.4 today. Patient remains on oral Lasix. Vital signs stable. PHYSICAL EXAM: VITAL SIGNS: Reviewed. GENERAL: Well-developed in no acute distress. HEENT: Head is normocephalic. Pupils are equal, round. Sclerae anicteric. Mucous membranes of the mouth are moist. Neck supple. No JVD or thyromegaly LUNGS: Respirations even and unlabored. Lungs diminished. HEART: Irregular rate and rhythm. S1 and S2 heard. EXTREMITIES: Normal range of motion. No clubbing or cyanosis. Peripheral pulses intact. No lower extremity edema ASSESSMENT: Pancreatitis Acute cholecystitis, status post laparoscopic cholecystectomy Hematuria, status post recent prostate biopsy 11/15/2020 History of atrial fibrillation/flutter with previous ablation, on long-term anticoagulation with Edilberto History of sick sinus syndrome, status post permanent pacemaker insertion Acute diastolic congestive heart failure, BNP 8700, EF 55-60% History of coronary artery disease with previous CABG Acute on chronic kidney disease Hypertension hyperlipidemia Obstructive sleep apnea with CPAP use Diabetes mellitus, type II PLAN: Continue current cardiac medications Resume Ana Mqucharlotte Patient is stable for discharge home today from a cardiac perspective Nurse practitioner note has been reviewed by physician. Signing provider agrees with the documented findings, assessment, and plan of care. Objective - Vital Signs Vital signs: Vital Signs Temp 97.2 F L 11/24/20 05:00 Pulse 68 11/24/20 09:38 Resp 16 11/24/20 09:38 BP 137/72 11/24/20 05:00 Pulse Ox 89 L 11/24/20 12:50 Intake & Output 11/23/20 11/24/20 11/24/20 18:59 06:59 18:59 Intake Total 950 Output Total 790 300 Balance 160 -300 Weight 115.5 kg Intake: IV 950 Output: Urine 690 300 Estimated Blood Loss 100 Other: Voiding Method Toilet Toilet Urinal Urinal Urinal # Voids 1 - Labs CBC & Chem 7: 11/23/20 05:37 11/24/20 07:30 Labs: Abnormal Lab Results - Last 24 Hours (Table) 11/23/20 11/23/20 11/23/20 Range/Units 15:55 17:10 19:59 BUN (9.0-27.0) mg/dL Creatinine (0.6-1.5) mg/dL Est GFR (CKD-EPI)AfAm (60.0-200.0) Est GFR (CKD-EPI)NonAf (60.0-200.0) BUN/Creatinine Ratio (12.00-20.00) Ratio Glucose (70-110) mg/dL POC Glucose (mg/dL) 175 H 180 H 152 H (75-99) mg/dL Calcium (8.7-10.3) mg/dL 11/24/20 11/24/20 11/24/20 Range/Units 02:19 06:59 07:30 BUN 52.0 H (9.0-27.0) mg/dL Creatinine 2.4 H (0.6-1.5) mg/dL Est GFR (CKD-EPI)AfAm 30.7 L (60.0-200.0) Est GFR (CKD-EPI)NonAf 26.5 L (60.0-200.0) BUN/Creatinine Ratio 21.67 H (12.00-20.00) Ratio Glucose 261 H (70-110) mg/dL POC Glucose (mg/dL) 266 H 258 H (75-99) mg/dL Calcium 8.6 L (8.7-10.3) mg/dL 11/24/20 Range/Units 11:01 BUN (9.0-27.0) mg/dL Creatinine (0.6-1.5) mg/dL Est GFR (CKD-EPI)AfAm (60.0-200.0) Est GFR (CKD-EPI)NonAf (60.0-200.0) BUN/Creatinine Ratio (12.00-20.00) Ratio Glucose (70-110) mg/dL POC Glucose (mg/dL) 266 H (75-99) mg/dL Calcium (8.7-10.3) mg/dL Microbiology - Last 24 Hours (Table) 11/21/20 12:51 Blood Culture - Preliminary Blood No Growth after 48 hours
[2020-11-24] MEDS: APIXABAN 5 MG TAB PO SCH ×2 (13:20→21:23)
--- NOTE | 2020-11-24 15:57 | P.PN ---
Subjective Progress Note Date: 12/01/20 Principal diagnosis: Dysuria Indicates that his dysuria has resolved this morning, had no issues with voiding. Denies any gross hematuria Objective - Vital Signs Vital signs: Vital Signs Temp 97.5 F L 11/24/20 13:53 Pulse 79 11/24/20 13:53 Resp 16 11/24/20 13:53 BP 167/71 11/24/20 13:53 Pulse Ox 95 11/24/20 13:53 Intake & Output 11/23/20 11/24/20 11/24/20 18:59 06:59 18:59 Intake Total 950 600 Output Total 790 300 Balance 160 -300 600 Weight 115.5 kg Intake: IV 950 Oral 600 Output: Urine 690 300 Estimated Blood Loss 100 Other: Voiding Method Toilet Toilet Urinal Urinal Urinal # Voids 1 - Labs CBC & Chem 7: 11/23/20 05:37 11/24/20 07:30 Labs: Abnormal Lab Results - Last 24 Hours (Table) 11/23/20 11/23/20 11/23/20 Range/Units 15:55 17:10 19:59 BUN (9.0-27.0) mg/dL Creatinine (0.6-1.5) mg/dL Est GFR (CKD-EPI)AfAm (60.0-200.0) Est GFR (CKD-EPI)NonAf (60.0-200.0) BUN/Creatinine Ratio (12.00-20.00) Ratio Glucose (70-110) mg/dL POC Glucose (mg/dL) 175 H 180 H 152 H (75-99) mg/dL Calcium (8.7-10.3) mg/dL 11/24/20 11/24/20 11/24/20 Range/Units 02:19 06:59 07:30 BUN 52.0 H (9.0-27.0) mg/dL Creatinine 2.4 H (0.6-1.5) mg/dL Est GFR (CKD-EPI)AfAm 30.7 L (60.0-200.0) Est GFR (CKD-EPI)NonAf 26.5 L (60.0-200.0) BUN/Creatinine Ratio 21.67 H (12.00-20.00) Ratio Glucose 261 H (70-110) mg/dL POC Glucose (mg/dL) 266 H 258 H (75-99) mg/dL Calcium 8.6 L (8.7-10.3) mg/dL 11/24/20 Range/Units 11:01 BUN (9.0-27.0) mg/dL Creatinine (0.6-1.5) mg/dL Est GFR (CKD-EPI)AfAm (60.0-200.0) Est GFR (CKD-EPI)NonAf (60.0-200.0) BUN/Creatinine Ratio (12.00-20.00) Ratio Glucose (70-110) mg/dL POC Glucose (mg/dL) 266 H (75-99) mg/dL Calcium (8.7-10.3) mg/dL Microbiology - Last 24 Hours (Table) 11/21/20 12:51 Blood Culture - Preliminary Blood No Growth after 72 hours Assessment and Plan Assessment: 70 yo male S/P prostate biopsy, patient developed fatigue, dysuria and weakness post biopsy. UA negative for UTI, but he is on abx since 11/18. CT on presentation showed evidence of cholecystitis. WBC WNL, has been afebrile since admission. His PVR was WNL on 11/21 in urology clinic Plan: -Okay for discharge from urology standpoint, advised to continue his prescribed keflex s as an outpatient
[2020-11-24 17:16] LABS: Glucose,Whole Blood 277 mg/dL (75-99)
[2020-11-24 19:12] LABS: Albumin 3.6 g/dL (3.80-4.90); Albumin/Globulin Ratio 2.12 (1.60-3.17); Bilirubin, Conjugated 0.4 mg/dL (0.20-0.40); Bilirubin,Unconjugated 0.4 mg/dL; Globulin 1.7 g/dL (1.6-3.3); Total Bilirubin 0.8 mg/dL (0.2-1.2); Total Protein 5.3 g/dL (6.2-8.2)
[2020-11-24 20:41] LABS: Glucose,Whole Blood 268 mg/dL (75-99)
[2020-11-24] MEDS ORDERED: SODIUM CHLORIDE 0.65% NASAL SPRAY 44 ML BTL NASAL PRN (20:44)
--- NOTE | 2020-11-24 21:04 | P.PN ---
Progress Note - Text Progress Note Date: 11/24/20 Presenting complaint: Abdominal pain Hospital course: Patient is a 70-year-old male with a history of diabetes mellitus type 2 non- insulin requiring, coronary artery disease status post 4 vessel bypass surgery, prior atrial fibrillation/flutter status post ablation and permanent pacemaker, and hypertension who presented to the emergency department at the direction of Dr. Garza due to concerns of UTI with sepsis. Patient had initially undergone prostate biopsy on 11/15 and had difficulty with postoperative urination, dysuria, and hematuria. In the ER he underwent extensive evaluation. On arrival his vital signs were within normal limits, pulse ox dropped to 82%. Laboratory analysis demonstrates thrombocytopenia with a platelet of 128, lymphocytes 0.6, BUN 63, creatinine 2.54 consistent with acute kidney injury on his chronic kidney disease with baseline creatinine 1.7, lipase 1095 consistent with pancreatitis. Urinalysis shows gross hematuria without significant white blood cells. Initial chest x-ray showed pulmonary venous hypertension with some interstitial edema. Repeat chest x-ray after IV fluids shows worsening congestive heart failure. CT abdomen and pelvis demonstrated showed a long linear gallstone with fat stranding near the gallbladder. Also noted was some bladder distention and thickening. The ER he was diagnosed with acute cholecystitis was started on Zosyn. He was admitted for further work up. He became more hypoxic and he was given 1 dose of IV Lasix. He was seen by gastroenterology who did not feel there is an indication for ERCP at this point in time. Echocardiogram was ordered which showed an ejection fraction of 55-60% with some diastolic dysfunction. He was seen by cardiology and his Lasix was continued. November 23: Patient underwent laparoscopic cholecystectomy. Today-some abdominal pain. Did tolerate her breakfast. No nausea vomiting. Has been out of bed. Positive flatus Review of systems: Was done for constitutional, cardiovascular, GI, pulmonary. relevant finding as above Active Medications Acetaminophen (Acetaminophen Tab 325 Mg Tab) 650 mg PO Q6HR PRN PRN Reason: Mild Pain or Fever > 100.5 Last Admin: 11/24/20 20:10 Dose: 650 mg Documented by: Hydrocodone Bitart/Acetaminophen (Hydrocodone/Apap 5-325mg 1 Each Tab) 1 each PO Q4HR PRN PRN Reason: Moderate Pain Last Admin: 11/24/20 00:14 Dose: 1 each Documented by: Apixaban (Apixaban 5 Mg Tab) 5 mg PO BID [facility] Last Admin: 11/24/20 13:20 Dose: 5 mg Documented by: Atorvastatin Calcium (Atorvastatin 80 Mg Tab) 80 mg PO HS [facility] Last Admin: 11/23/20 21:22 Dose: 80 mg Documented by: Furosemide (Furosemide 40 Mg Tab) 40 mg PO DAILY [facility] Last Admin: 11/24/20 08:36 Dose: 40 mg Documented by: Hydralazine HCl (Hydralazine Hcl 25 Mg Tab) 25 mg PO TID [facility] Last Admin: 11/24/20 16:49 Dose: 25 mg Documented by: Hydromorphone HCl (Hydromorphone 0.5 Mg/0.5 Ml Syringe) 0.5 mg IVP Q3HR PRN PRN Reason: Severe Pain Piperacillin Sod/Tazobactam (Sod 3.375 gm/ Sodium Chloride) 100 mls @ 25 mls/hr IVPB Q8H [facility] Last Admin: 11/24/20 15:31 Dose: Not Given Documented by: Insulin Aspart (Insulin Aspart (Novolog) 100 Unit/Ml Vial) 0 unit SQ ACHS [facility]; Protocol Last Admin: 11/24/20 17:44 Dose: 4 unit Documented by: Isosorbide Mononitrate (Isosorbide Mononitrate Er 30 Mg Tab.Er.24h) 30 mg PO DAILY [facility] Last Admin: 11/24/20 08:39 Dose: 30 mg Documented by: Lidocaine HCl (Lidocaine 1% (10mg/Ml) For Iv Start) 0.1 ml INTRADERMA PER PROTOCOL PRN PRN Reason: IV Start Naloxone HCl (Naloxone 0.4 Mg/Ml 1 Ml Vial) 0.2 mg IV Q2M PRN PRN Reason: Opioid Reversal Ondansetron HCl (Ondansetron 4 Mg/2 Ml Vial) 4 mg IVP Q8HR PRN PRN Reason: Nausea And Vomiting Sodium Bicarbonate (Sodium Bicarbonate Tab 650 Mg Tab) 650 mg PO TID [facility] Last Admin: 11/24/20 16:49 Dose: 650 mg Documented by: Sodium Chloride (Sodium Chloride 0.65% Nasal [place] 44 Ml Btl) 2 spray NASAL QID PRN PRN Reason: Dry Nasal Passages On examination: VITAL SIGNS: 37.6, 67, 16, 130/67, 95% on 2 L GENERAL APPEARANCE: Reclining in bed, awake, comfortable HEENT: Normal external appearance of nose and ear. Oral cavity normal EYES: Pupils equal. Conjunctiva normal. NECK: JVD not raised. Mass not palpable. RESPIRATORY: Respiratory effort normal. Lungs clear to auscultation. CARDIOVASCULAR: First and second sounds normal. No edema. ABDOMEN: Soft. Liver and spleen not palpable. Mild right upper quadrant tenderness. No mass palpable. PSYCHIATRY: Alert and oriented x3. Mood and affect normal. Investigations: November 24: Potassium 4.6 creatinine 2.4 AST 79 ALT 71 White count 6.4 hemoglobin 11.3 potassium 4.4 bun 52 creatinine 2.53 Coronavirus [PCR]-not detected 2-D echocardiogram-EF 55-60%. Atrial fibrillation. Akinetic raymundo. Moderate pulmonary hypertension Computed tomography scan of the abdomen-contracted gallbladder with small gallstones was a gallbladder neck. With some surrounding fluid and fat stranding. Assessment: -Acute cholecystitis followed by laparoscopic cholecystectomy-November 23 -Persistent atrial flutter fibrillation -Coronary artery disease with previous bypass and stents -Diabetes mellitus type 2 uncontrolled with hypoglycemia -Essential hypertension -Hyperlipidemia -Obstructive sleep apnea -Peripheral neuropathy -Sick sinus syndrome bradycardia with a pacemaker -Chronic kidney disease stage III -Obstructive sleep apnea uses CPAP -Normocytic anemia secondary to chronic kidney disease Plan: Continue IV Zosyn. Resume oral hypoglycemics. Patient pulse ox is running low with activity. We will recheck after incentive spirometry. Tomorrow.
[2020-11-24] MEDS: ATORVASTATIN 80 MG TAB PO SCH (21:17)
[2020-11-25] MEDS: DOCUSATE 100 MG CAP PO SCH ×2 (00:18→08:44)
[2020-11-25 01:46] LABS: Glucose,Whole Blood 160 mg/dL (75-99)
[2020-11-25] MEDS: PIPERACILLIN-TAZOBACTAM 3.375 GM in SODIUM CHLORIDE 0.9% 100 ML IVPB SCH (06:17)
[2020-11-25 07:44] LABS: Glucose,Whole Blood 165 mg/dL (75-99)
[2020-11-25] MEDS: hydrALAZINE HCL 25 MG TAB PO SCH (08:43)
[2020-11-25] MEDS: SODIUM BICARBONATE TAB 650 MG TAB PO SCH (08:43)
[2020-11-25] MEDS: ISOSORBIDE MONONITRATE ER 30 MG TAB.ER.24H PO SCH (08:44)
[2020-11-25] MEDS: INSULIN ASPART (NovoLOG) 100 UNIT/ML VIAL SQ SCH ×2 (08:45→12:27)
[2020-11-25] MEDS: APIXABAN 5 MG TAB PO SCH (08:45)
[2020-11-25] MEDS: FUROSEMIDE 40 MG TAB PO SCH (08:45)
[2020-11-25] MEDS ORDERED: LINAGLIPTIN 5 MG TABLET PO SCH (09:00)
[2020-11-25] MEDS ORDERED: NON FORMULARY DRUG (Empagliflozin [Jardiance] 25 MG Tablet) PO SCH (09:00)
[2020-11-25] MEDS ORDERED: metFORMIN 500 MG TAB PO SCH (09:00)
[2020-11-25] MEDS ORDERED: LACTULOSE 20 GM/30 ML CUP PO PRN (09:35)
--- NOTE | 2020-11-25 10:36 | P.PN ---
Subjective Progress Note Date: 11/25/20 CHIEF COMPLAINT: Acute cholecystitis HISTORY OF PRESENT ILLNESS: Patient is status post laparoscopic cholecystectomy. He reports that his pain is controlled. He is tolerating regular diet. Denies any nausea or vomiting. He is passing gas. He is up and ambulating. Afebrile. Labs pending PHYSICAL EXAM: VITAL SIGNS: Reviewed. GENERAL: Well-developed in no acute distress. HEENT: No sclera icterus. Extraocular movements grossly intact. Moist buccal mucosa. Head is atraumatic, normocephalic. ABDOMEN: Soft. Nondistended. Incision sites clean dry and intact NEUROLOGIC: Alert and oriented. Cranial nerves II through XII grossly intact. ASSESSMENT: 1. Acute cholecystitis status post laparoscopic cholecystectomy 2. Acute gallstone pancreatitis PLAN: -Patient is stable from surgical standpoint for discharge -Continue regular diet Physician Paint Technician note has been reviewed by physician. Signing provider agrees with the documented findings, assessment, and plan of care. Objective - Vital Signs Vital signs: Vital Signs Temp 98.6 F 11/25/20 04:49 Pulse 80 11/25/20 09:53 Resp 20 11/25/20 04:49 BP 160/78 11/25/20 04:49 Pulse Ox 92 L 11/25/20 09:53 Intake & Output 11/24/20 11/25/20 11/25/20 18:59 06:59 18:59 Intake Total 600 Output Total 550 Balance 600 -550 Weight 114 kg Intake: Oral 600 Output: Urine 550 Other: Voiding Method Urinal Urinal Toilet # Voids 0 1 # Bowel Movements 1 - Labs CBC & Chem 7: 11/23/20 05:37 11/24/20 07:30 Labs: Abnormal Lab Results - Last 24 Hours (Table) 11/24/20 11/24/20 11/24/20 Range/Units 07:30 07:30 11:01 BUN 52.0 H (9.0-27.0) mg/dL Creatinine 2.4 H (0.6-1.5) mg/dL Est GFR (CKD-EPI)AfAm 30.7 L (60.0-200.0) Est GFR (CKD-EPI)NonAf 26.5 L (60.0-200.0) BUN/Creatinine Ratio 21.67 H (12.00-20.00) Ratio Glucose 261 H (70-110) mg/dL POC Glucose (mg/dL) 266 H (75-99) mg/dL Calcium 8.6 L (8.7-10.3) mg/dL AST 79 H (14-35) U/L ALT 71 H (10-49) U/L Total Protein 5.3 L (6.2-8.2) g/dL Albumin 3.60 L (3.80-4.90) g/dL 11/24/20 11/24/20 11/25/20 Range/Units 17:15 20:39 01:44 BUN (9.0-27.0) mg/dL Creatinine (0.6-1.5) mg/dL Est GFR (CKD-EPI)AfAm (60.0-200.0) Est GFR (CKD-EPI)NonAf (60.0-200.0) BUN/Creatinine Ratio (12.00-20.00) Ratio Glucose (70-110) mg/dL POC Glucose (mg/dL) 277 H 268 H 160 H (75-99) mg/dL Calcium (8.7-10.3) mg/dL AST (14-35) U/L ALT (10-49) U/L Total Protein (6.2-8.2) g/dL Albumin (3.80-4.90) g/dL 11/25/20 Range/Units 07:32 BUN (9.0-27.0) mg/dL Creatinine (0.6-1.5) mg/dL Est GFR (CKD-EPI)AfAm (60.0-200.0) Est GFR (CKD-EPI)NonAf (60.0-200.0) BUN/Creatinine Ratio (12.00-20.00) Ratio Glucose (70-110) mg/dL POC Glucose (mg/dL) 165 H (75-99) mg/dL Calcium (8.7-10.3) mg/dL AST (14-35) U/L ALT (10-49) U/L Total Protein (6.2-8.2) g/dL Albumin (3.80-4.90) g/dL Microbiology - Last 24 Hours (Table) 11/21/20 12:51 Blood Culture - Preliminary Blood No Growth after 72 hours
[2020-11-25 10:46] LABS: African American GFR (CKD) 29.3 (60.0-200.0); Anion Gap 14.4 mmol/L (4.00-12.00); Calcium 8.8 mg/dL (8.7-10.3); Carbon Dioxide 21.6 mmol/L (21.6-31.8); Magnesium 1.9 mg/dL (1.5-2.4); Non-African American GFR(CKD) 25.3 (60.0-200.0); Potassium 4.6 mmol/L (3.5-5.5)
--- NOTE | 2020-11-25 11:46 | P.PN ---
Subjective Patient is seen in follow-up for acute kidney injury on chronic kidney disease. Patient has chronic kidney disease stage IIIB with baseline creatinine near 1.8 as of August 2019 secondary to diabetic kidney disease. Renal function stable. Underwent cholecystectomy on November 23. Tolerating oral intake. Good urine output. Vital signs are stable. General: The patient appeared well nourished and normally developed. HEENT: Head exam is unremarkable. Neck is without jugular venous distension. LUNGS: Breath sounds decreased. HEART: Rate and Rhythm are regular. ABDOMEN: Soft. Mild generalized tenderness. EXTREMITITES: No edema. Objective - Vital Signs Vital signs: Vital Signs Temp 98.6 F 11/25/20 04:49 Pulse 80 11/25/20 09:53 Resp 20 11/25/20 04:49 BP 160/78 11/25/20 04:49 Pulse Ox 92 L 11/25/20 09:53 Intake & Output 11/24/20 11/25/20 11/25/20 18:59 06:59 18:59 Intake Total 600 Output Total 550 Balance 600 -550 Weight 114 kg Intake: Oral 600 Output: Urine 550 Other: Voiding Method Urinal Urinal Toilet # Voids 0 1 # Bowel Movements 1 - Labs CBC & Chem 7: 11/23/20 05:37 11/25/20 07:42 Labs: Abnormal Lab Results - Last 24 Hours (Table) 11/24/20 11/24/20 11/24/20 Range/Units 07:30 07:30 17:15 Anion Gap (4.00-12.00) mmol/L BUN 52.0 H (9.0-27.0) mg/dL Creatinine 2.4 H (0.6-1.5) mg/dL Est GFR (CKD-EPI)AfAm 30.7 L (60.0-200.0) Est GFR (CKD-EPI)NonAf 26.5 L (60.0-200.0) BUN/Creatinine Ratio 21.67 H (12.00-20.00) Ratio Glucose 261 H (70-110) mg/dL POC Glucose (mg/dL) 277 H (75-99) mg/dL Calcium 8.6 L (8.7-10.3) mg/dL AST 79 H (14-35) U/L ALT 71 H (10-49) U/L Total Protein 5.3 L (6.2-8.2) g/dL Albumin 3.60 L (3.80-4.90) g/dL 11/24/20 11/25/20 11/25/20 Range/Units 20:39 01:44 07:32 Anion Gap (4.00-12.00) mmol/L BUN (9.0-27.0) mg/dL Creatinine (0.6-1.5) mg/dL Est GFR (CKD-EPI)AfAm (60.0-200.0) Est GFR (CKD-EPI)NonAf (60.0-200.0) BUN/Creatinine Ratio (12.00-20.00) Ratio Glucose (70-110) mg/dL POC Glucose (mg/dL) 268 H 160 H 165 H (75-99) mg/dL Calcium (8.7-10.3) mg/dL AST (14-35) U/L ALT (10-49) U/L Total Protein (6.2-8.2) g/dL Albumin (3.80-4.90) g/dL 11/25/20 Range/Units 07:42 Anion Gap 14.40 H (4.00-12.00) mmol/L BUN 50.0 H (9.0-27.0) mg/dL Creatinine 2.5 H (0.6-1.5) mg/dL Est GFR (CKD-EPI)AfAm 29.3 L (60.0-200.0) Est GFR (CKD-EPI)NonAf 25.3 L (60.0-200.0) BUN/Creatinine Ratio (12.00-20.00) Ratio Glucose 166 H (70-110) mg/dL POC Glucose (mg/dL) (75-99) mg/dL Calcium (8.7-10.3) mg/dL AST (14-35) U/L ALT (10-49) U/L Total Protein (6.2-8.2) g/dL Albumin (3.80-4.90) g/dL Microbiology - Last 24 Hours (Table) 11/21/20 12:51 Blood Culture - Preliminary Blood No Growth after 72 hours Assessment and Plan Plan: Assessment: 1. Acute kidney injury mostly prerenal secondary to cardiorenal syndrome. Renal function stable. Creatinine 2.5. 2. Acute on chronic diastolic CHF with moderate pulmonary hypertension. 3. Volume overload. Improved with diuresis. 4. Metabolic acidosis secondary to acute kidney injury. Maintained on oral bicarb. 5. Diabetes mellitus. Maintained on D5 due to low blood sugars overnight. 6. Chronic kidney disease stage IIIB secondary to diabetic kidney disease with baseline creatinine near 1.8. 7. Hypertension with chronic kidney disease. Stable. 8. Gallstones status post cholecystectomy on November 23. 9. Status post prostate biopsy last week. Plan: Maintain oral Lasix. Avoid nephrotoxins. Continue to monitor renal function and urine output. With GFR remains less than 30, avoid metformin as well as SGLT2 inhibitors. Further workup of proteinuria outpatient. Will also need ACEi resumed in near future. Follow up outpatient in 7-10 days.
--- NOTE | 2020-11-25 11:52 | P.PN ---
Subjective Progress Note Date: 11/25/20 CHIEF COMPLAINT: Congestive heart failure HISTORY OF PRESENT ILLNESS: 11/22/2020 This is a 70-year-old male with a past medical history significant for coronary artery disease with previous CABG, atrial flutter/fibrillation with previous ablation, sick sinus syndrome with dual-chamber pacemaker insertion, hypertension, and hyperlipidemia. Patient follows in the office with Dr. Rivas. We have been asked to see the patient in consultation for CHF. Patient examined at the bedside this morning. Patient recently underwent prostate biopsy with Dr. Garza on 11/15/2020. Patient has been experiencing hematuria post procedure. Patient also reports having abdominal pain and shortness of breath. He denied any chest pain or pressure. He reports having chills and body aches at home. Patient was found to have evidence of pancreatitis, possible cholecystitis, acute kidney injury, and congestive heart failure in the ER. Patient was placed on antibiotics and admitted to the hospital. Patient was given once dose of IV lasix yesterday. He currently denies shortness of breath. He denies chest pain or pressure. 11/23/2020 Patient examined this morning. He is sitting up in the chair. He denies chest pain or pressure. Reports shortness of breath has improved. Creatinine today 2.43. He has been transitioned to oral lasix per nephrology. Echocardiogram revealed ejection fraction 55-60%, mild mitral regurgitation, mild tricuspid regurgitation, and moderate pulmonary hypertension 11/24/2020 Patient is status post laparoscopic cholecystectomy. Postop day #1. Patient denies chest pain or pressure. Denies shortness of breath. Reports mild surgical abdominal discomfort. Creatinine 2.4 today. Patient remains on oral Lasix. Vital signs stable. 11/25/2020 Patient is status post laparoscopic cholecystectomy. Postop day #2. Patient was cleared for discharge yesterday from a cardiac standpoint. Apparently his discharge was held secondary to hypoxia while patient was ambulating. She currently denies any shortness of breath. He denies chest pain or pressure. Vital signs are stable. PHYSICAL EXAM: VITAL SIGNS: Reviewed. GENERAL: Well-developed in no acute distress. HEENT: Head is normocephalic. Pupils are equal, round. Sclerae anicteric. Mucous membranes of the mouth are moist. Neck supple. No JVD or thyromegaly LUNGS: Respirations even and unlabored. Lungs diminished. HEART: Irregular rate and rhythm. S1 and S2 heard. EXTREMITIES: Normal range of motion. No clubbing or cyanosis. Peripheral pulses intact. No lower extremity edema ASSESSMENT: Pancreatitis Acute cholecystitis, status post laparoscopic cholecystectomy Hematuria, status post recent prostate biopsy 11/15/2020 History of atrial fibrillation/flutter with previous ablation, on long-term anticoagulation with Eliquis History of sick sinus syndrome, status post permanent pacemaker insertion Acute diastolic congestive heart failure, BNP 8700, EF 55-60% History of coronary artery disease with previous CABG Acute on chronic kidney disease Hypertension hyperlipidemia Obstructive sleep apnea with CPAP use Diabetes mellitus, type II PLAN: Continue current cardiac medications Patient is stable for discharge home today from a cardiac perspective We will sign off. Please reconsult if needed. Nurse practitioner note has been reviewed by physician. Signing provider agrees with the documented findings, assessment, and plan of care. Objective - Vital Signs Vital signs: Vital Signs Temp 98.6 F 11/25/20 04:49 Pulse 80 11/25/20 09:53 Resp 20 11/25/20 04:49 BP 160/78 11/25/20 04:49 Pulse Ox 92 L 11/25/20 09:53 Intake & Output 11/24/20 11/25/20 11/25/20 18:59 06:59 18:59 Intake Total 600 Output Total 550 Balance 600 -550 Weight 114 kg Intake: Oral 600 Output: Urine 550 Other: Voiding Method Urinal Urinal Toilet # Voids 0 1 # Bowel Movements 1 - Labs CBC & Chem 7: 11/23/20 05:37 11/25/20 07:42 Labs: Abnormal Lab Results - Last 24 Hours (Table) 11/24/20 11/24/20 11/24/20 Range/Units 07:30 07:30 17:15 Anion Gap (4.00-12.00) mmol/L BUN 52.0 H (9.0-27.0) mg/dL Creatinine 2.4 H (0.6-1.5) mg/dL Est GFR (CKD-EPI)AfAm 30.7 L (60.0-200.0) Est GFR (CKD-EPI)NonAf 26.5 L (60.0-200.0) BUN/Creatinine Ratio 21.67 H (12.00-20.00) Ratio Glucose 261 H (70-110) mg/dL POC Glucose (mg/dL) 277 H (75-99) mg/dL Calcium 8.6 L (8.7-10.3) mg/dL AST 79 H (14-35) U/L ALT 71 H (10-49) U/L Total Protein 5.3 L (6.2-8.2) g/dL Albumin 3.60 L (3.80-4.90) g/dL 11/24/20 11/25/20 11/25/20 Range/Units 20:39 01:44 07:32 Anion Gap (4.00-12.00) mmol/L BUN (9.0-27.0) mg/dL Creatinine (0.6-1.5) mg/dL Est GFR (CKD-EPI)AfAm (60.0-200.0) Est GFR (CKD-EPI)NonAf (60.0-200.0) BUN/Creatinine Ratio (12.00-20.00) Ratio Glucose (70-110) mg/dL POC Glucose (mg/dL) 268 H 160 H 165 H (75-99) mg/dL Calcium (8.7-10.3) mg/dL AST (14-35) U/L ALT (10-49) U/L Total Protein (6.2-8.2) g/dL Albumin (3.80-4.90) g/dL 11/25/20 Range/Units 07:42 Anion Gap 14.40 H (4.00-12.00) mmol/L BUN 50.0 H (9.0-27.0) mg/dL Creatinine 2.5 H (0.6-1.5) mg/dL Est GFR (CKD-EPI)AfAm 29.3 L (60.0-200.0) Est GFR (CKD-EPI)NonAf 25.3 L (60.0-200.0) BUN/Creatinine Ratio (12.00-20.00) Ratio Glucose 166 H (70-110) mg/dL POC Glucose (mg/dL) (75-99) mg/dL Calcium (8.7-10.3) mg/dL AST (14-35) U/L ALT (10-49) U/L Total Protein (6.2-8.2) g/dL Albumin (3.80-4.90) g/dL Microbiology - Last 24 Hours (Table) 11/21/20 12:51 Blood Culture - Preliminary Blood No Growth after 72 hours
[2020-11-25 12:12] LABS: Glucose,Whole Blood 247 mg/dL (75-99)
[2020-11-25 13:14] VITALS: BP 131/69; PULSE 84; RESP 14; TEMP 98.2
--- NOTE | 2020-11-25 13:23 | P.PN ---
Subjective Principal diagnosis: Dysuria Indicates that his dysuria has resolved this morning, having urinary frequency, but voiding to completion. Denies any gross hematuria Objective - Vital Signs Vital signs: Vital Signs Temp 98.2 F 11/25/20 13:13 Pulse 84 11/25/20 13:13 Resp 14 11/25/20 13:13 BP 131/69 11/25/20 13:13 Pulse Ox 96 11/25/20 13:13 Intake & Output 11/24/20 11/25/20 11/25/20 18:59 06:59 18:59 Intake Total 600 Output Total 550 Balance 600 -550 Weight 114 kg Intake: Oral 600 Output: Urine 550 Other: Voiding Method Urinal Urinal Toilet # Voids 0 1 # Bowel Movements 1 - Constitutional General appearance: Present: no acute distress - EENT Eyes: Present: EOMI. Absent: ptosis - Psychiatric Psychiatric: Present: A&O x's 3, appropriate affect - Labs CBC & Chem 7: 11/23/20 05:37 11/25/20 07:42 Labs: Abnormal Lab Results - Last 24 Hours (Table) 11/24/20 11/24/20 11/24/20 Range/Units 07:30 17:15 20:39 Anion Gap (4.00-12.00) mmol/L BUN (9.0-27.0) mg/dL Creatinine (0.6-1.5) mg/dL Est GFR (CKD-EPI)AfAm (60.0-200.0) Est GFR (CKD-EPI)NonAf (60.0-200.0) Glucose (70-110) mg/dL POC Glucose (mg/dL) 277 H 268 H (75-99) mg/dL AST 79 H (14-35) U/L ALT 71 H (10-49) U/L Total Protein 5.3 L (6.2-8.2) g/dL Albumin 3.60 L (3.80-4.90) g/dL 11/25/20 11/25/20 11/25/20 Range/Units 01:44 07:32 07:42 Anion Gap 14.40 H (4.00-12.00) mmol/L BUN 50.0 H (9.0-27.0) mg/dL Creatinine 2.5 H (0.6-1.5) mg/dL Est GFR (CKD-EPI)AfAm 29.3 L (60.0-200.0) Est GFR (CKD-EPI)NonAf 25.3 L (60.0-200.0) Glucose 166 H (70-110) mg/dL POC Glucose (mg/dL) 160 H 165 H (75-99) mg/dL AST (14-35) U/L ALT (10-49) U/L Total Protein (6.2-8.2) g/dL Albumin (3.80-4.90) g/dL 11/25/20 Range/Units 12:01 Anion Gap (4.00-12.00) mmol/L BUN (9.0-27.0) mg/dL Creatinine (0.6-1.5) mg/dL Est GFR (CKD-EPI)AfAm (60.0-200.0) Est GFR (CKD-EPI)NonAf (60.0-200.0) Glucose (70-110) mg/dL POC Glucose (mg/dL) 247 H (75-99) mg/dL AST (14-35) U/L ALT (10-49) U/L Total Protein (6.2-8.2) g/dL Albumin (3.80-4.90) g/dL Microbiology - Last 24 Hours (Table) 11/21/20 12:51 Blood Culture - Preliminary Blood No Growth after 72 hours Assessment and Plan Assessment: 70 yo male S/P prostate biopsy, patient developed fatigue, dysuria and weakness post biopsy. UA negative for UTI, but he is on abx since 11/18. CT on presentation showed evidence of cholecystitis. WBC WNL, has been afebrile since admission. His PVR was WNL on 11/21 in urology clinic Plan: -Okay for discharge from urology standpoint, advised to continue his prescribed keflex as an outpatient -We'll continue Flomax as an outpatient given his urinary symptoms -Follow up in 1 month in urology clinic
--- NOTE | 2020-11-25 23:28 | P.DS ---
Providers Date of admission: 11/21/20 14:52 Expected date of discharge: 11/25/20 Attending physician: Mike Sanchez Consults: 11/21/20 14:11 Consult Physician Urgent Consulting Provider: Fabio Jovel Consult Reason/Comments: Cholecystitis, cholelithiasis Do you want consulting provider notified?: Yes Consult Physician Urgent Consulting Provider: Uri Garza Consult Reason/Comments: Hematuria, status post prostate biopsy Do you want consulting provider notified?: Yes 11/22/20 09:05 Consult Physician Routine Consulting Provider: Ivett Quintana Consult Reason/Comments: acute on chronic kidney disease Do you want consulting provider notified?: Yes Primary care physician: Victor Manuel Vergaracaesar [facility] Course: Presenting complaint: Abdominal pain Hospital course: Patient is a 70-year-old male with a history of diabetes mellitus type 2 non- insulin requiring, coronary artery disease status post 4 vessel bypass surgery, prior atrial fibrillation/flutter status post ablation and permanent pacemaker, and hypertension who presented to the emergency department at the direction of Dr. Garza due to concerns of UTI with sepsis. Patient had initially undergone prostate biopsy on 11/15 and had difficulty with postoperative urination, dysuria, and hematuria. In the ER he underwent extensive evaluation. On arrival his vital signs were within normal limits, pulse ox dropped to 82%. Laboratory analysis demonstrates thrombocytopenia with a platelet of 128, lymphocytes 0.6, BUN 63, creatinine 2.54 consistent with acute kidney injury on his chronic kidney disease with baseline creatinine 1.7, lipase 1095 consistent with pancreatitis. Urinalysis shows gross hematuria without significant white blood cells. Initial chest x-ray showed pulmonary venous hypertension with some interstitial edema. Repeat chest x-ray after IV fluids shows worsening congestive heart failure. CT abdomen and pelvis demonstrated showed a long linear gallstone with fat stranding near the gallbladder. Also noted was some bladder distention and thickening. The ER he was diagnosed with acute cholecystitis was started on Zosyn. He was admitted for further work up. He became more hypoxic and he was given 1 dose of IV Lasix. He was seen by gastroenterology who did not feel there is an indication for ERCP at this point in time. Echocardiogram was ordered which showed an ejection fraction of 55-60% with some diastolic dysfunction. He was seen by cardiology and his Lasix was continued. November 23: Patient underwent laparoscopic cholecystectomy. Today-doing well. Passing flatus. Tolerating a diet. Up and about. Postop orders per general surgery. Consultation: Dr. garza from urology Dr. Jovel general surgery [facility] Dr. Ita Balderas-GI On examination: VITAL SIGNS: 98.2, 84, 14, 131/69, 96% room air GENERAL APPEARANCE: Sitting up, comfortable HEENT: Normal external appearance of nose and ear. Oral cavity normal EYES: Pupils equal. Conjunctiva normal. NECK: JVD not raised. Mass not palpable. RESPIRATORY: Respiratory effort normal. Lungs clear to auscultation. CARDIOVASCULAR: First and second sounds normal. No edema. ABDOMEN: Soft. Liver and spleen not palpable. Mild right upper quadrant tenderness. No mass palpable. PSYCHIATRY: Alert and oriented x3. Mood and affect normal. Investigations: November 25: Potassium 4.6 creatinine 2.5 November 24: Potassium 4.6 creatinine 2.4 AST 79 ALT 71 White count 6.4 hemoglobin 11.3 potassium 4.4 bun 52 creatinine 2.53 Coronavirus [PCR]-not detected 2-D echocardiogram-EF 55-60%. Atrial fibrillation. Akinetic raymundo. Moderate pulmonary hypertension Computed tomography scan of the abdomen-contracted gallbladder with small gallstones was a gallbladder neck. With some surrounding fluid and fat st randing. Assessment: -Acute cholecystitis followed by laparoscopic cholecystectomy-November 23 -Persistent atrial flutter fibrillation -Coronary artery disease with previous bypass and stents -Diabetes mellitus type 2 uncontrolled with hypoglycemia -Essential hypertension -Hyperlipidemia -Obstructive sleep apnea -Peripheral neuropathy -Sick sinus syndrome bradycardia with a pacemaker -Chronic kidney disease stage III -Obstructive sleep apnea uses CPAP -Normocytic anemia secondary to chronic kidney disease Disposition: Home Plan - Discharge Summary Discharge Rx Participant: No New Discharge Prescriptions: New hydrALAZINE HCL [Apresoline] 25 mg PO TID #90 tab Furosemide [Lasix] 40 mg PO DAILY #30 tab Sodium Bicarbonate Tab 650 mg PO DAILY #30 tab Tamsulosin [Flomax] 0.4 mg PO DAILY #30 cap Continue Isosorbide Mononitrate ER [Imdur] 30 mg PO DAILY Empagliflozin [Jardiance] 25 mg PO DAILY Aspirin EC [Ecotrin Low Dose] 81 mg PO DAILY Apixaban [Eliquis] 5 mg PO BID sitaGLIPtin PHOS/metFORMIN HCL [Janumet 50-1,000 mg Tablet] 0.5 tab PO BID Atorvastatin Calcium [Lipitor] 80 mg PO HS Cholecalciferol [Vitamin D3 (25 Mcg = 1000 Iu)] 25 mcg PO BID glipiZIDE XL [Glucotrol XL] 10 mg PO DAILY Discontinued amLODIPine [Norvasc] 10 mg PO DAILY lisinopriL [Zestril] 20 mg PO DAILY Cephalexin [Keflex] 500 mg PO Q8HR No Action Cinnamon Bark [Cinnamon] 1,000 mg PO BID Discharge Medication List Apixaban [Eliquis] 5 mg PO BID 04/25/19 [History] Aspirin EC [Ecotrin Low Dose] 81 mg PO DAILY 04/25/19 [History] Cinnamon Bark [Cinnamon] 1,000 mg PO BID 04/25/19 [History] Empagliflozin [Jardiance] 25 mg PO DAILY 04/25/19 [History] Isosorbide Mononitrate ER [Imdur] 30 mg PO DAILY 04/25/19 [History] sitaGLIPtin PHOS/metFORMIN HCL [Janumet 50-1,000 mg Tablet] 0.5 tab PO BID 04/25/19 [History] Atorvastatin Calcium [Lipitor] 80 mg PO HS 11/21/20 [History] Cholecalciferol [Vitamin D3 (25 Mcg = 1000 Iu)] 25 mcg PO BID 11/21/20 [History] glipiZIDE XL [Glucotrol XL] 10 mg PO DAILY 11/21/20 [History] Furosemide [Lasix] 40 mg PO DAILY #30 tab 11/24/20 [Rx] Sodium Bicarbonate Tab 650 mg PO DAILY #30 tab 11/24/20 [Rx] hydrALAZINE HCL [Apresoline] 25 mg PO TID #90 tab 11/24/20 [Rx] Tamsulosin [Flomax] 0.4 mg PO DAILY #30 cap 11/25/20 [Rx] Follow up Appointment(s)/Referral(s): Cardiology, [Other] - 1 Week Uri Garza MD [STAFF PHYSICIAN] - 12/21/20 9:40 am Victor Manuel Cummings MD [Primary Care Provider] - 11/29/20 11:00 am Cesar Drew DO [STAFF PHYSICIAN] - 12/14/20 10:40 am (this will be a phone appt with the doctor.no need for patient to come in.) Fabio Jovel MD [STAFF PHYSICIAN] - 12/06/20 1:45 pm Patient Instructions/Handouts: *Surgery [facility] - ([facility]) Laparoscopic Cholecystectomy, Furosemide (By mouth), Hydralazine (By mouth), Tamsulosin (By mouth), Sodium Bicarbonate (By mouth), Pancreatitis (DC), Hematuria (GEN) Activity/Diet/Wound Care/Special Instructions: Soft bland diet CBC, CMP-5 days Discharge Disposition: HOME SELF-CARE
== END 2020-11-25 14:25 | disposition home or self-care (01) | DRG 417 ==
LOC: EC 11:48 → 5NMEDONC 14:52
PROVIDERS: ADMIT Hospitalist; ATTEND Hospitalist
PROC: 0FT44ZZ Resection of Gallbladder, Percutaneous Endoscopic Approach (ICD-10-PCS; principal; 2020-11-23 13:35)
DX: K80.00 Calculus of gallbladder with acute cholecystitis without obstruction (principal); K85.10 Biliary acute pancreatitis without necrosis or infection; I50.33 Acute on chronic diastolic (congestive) heart failure; N17.9 Acute kidney failure, unspecified; I13.0 Hypertensive heart and chronic kidney disease with heart failure and stage 1 through stage 4 chronic kidney disease, or unspecified chronic kidney disease; E87.2 Acidosis; I48.92 Unspecified atrial flutter; I48.19 Other persistent atrial fibrillation; Z20.822 Contact with and (suspected) exposure to COVID-19; D69.6 Thrombocytopenia, unspecified; I49.5 Sick sinus syndrome; I27.22 Pulmonary hypertension due to left heart disease; E11.649 Type 2 diabetes mellitus with hypoglycemia without coma; D63.1 Anemia in chronic kidney disease; E11.42 Type 2 diabetes mellitus with diabetic polyneuropathy; E11.22 Type 2 diabetes mellitus with diabetic chronic kidney disease; N18.32 Chronic kidney disease, stage 3b; E78.5 Hyperlipidemia, unspecified; I25.10 Atherosclerotic heart disease of native coronary artery without angina pectoris; R31.0 Gross hematuria; K59.00 Constipation, unspecified; G47.33 Obstructive sleep apnea (adult) (pediatric); E86.0 Dehydration; R09.02 Hypoxemia; R30.0 Dysuria; R30.9 Painful micturition, unspecified; I25.2 Old myocardial infarction; Z68.32 Body mass index [BMI] 32.0-32.9, adult; Z79.01 Long term (current) use of anticoagulants; Z79.82 Long term (current) use of aspirin; Z79.84 Long term (current) use of oral hypoglycemic drugs; Z79.899 Other long term (current) drug therapy; Z95.1 Presence of aortocoronary bypass graft; Z95.5 Presence of coronary angioplasty implant and graft; Z85.46 Personal history of malignant neoplasm of prostate; Z98.890 Other specified postprocedural states; Z95.0 Presence of cardiac pacemaker; Z83.3 Family history of diabetes mellitus; Z80.0 Family history of malignant neoplasm of digestive organs; Z80.3 Family history of malignant neoplasm of breast
CPT/HCPCS: 36415; 71045; 71046; 74176; 80048; 80053; 80076; 81001; 82150; 83036; 83605; 83690; 83735; 83880; 84484; 85025; 85027; 87040; 87086; 87635; 88304; 93005; 93306; 94760; 96361; 96365; 96368; 99285

== ENCOUNTER 2021-03-06 09:51 | Day surgery (SDC) | payer MEDICARE ==
[2021-03-01 15:30] VITALS: BMI 30.2
[~2021-03-06 09:51] MED LIST changes: +LACTATED RINGERS 1,000 ML IV SCH; -LIDOCAINE 1% INJ 10MG/ML (20 ML MDV) SQ ONE; -MIDAZOLAM (PF) 2 MG/2 ML VIAL IV ONE
[2021-03-06] MEDS ORDERED: SODIUM CHLORIDE 0.9% 1,000 ML IV ONE ×2 (10:00→19:13)
[2021-03-06 10:32] LABS: Glucose,Whole Blood 131 mg/dL (75-99)
[2021-03-06 10:47] LABS: Basophils % (A) 1 %; Eosinophils # (A) 0.3 k/uL (0-0.7); Eosinophils % (A) 5 %; HCT 41.9 % (39.0-53.0); HGB 13.8 gm/dL (13.0-17.5); Lymphocytes # (A) 0.6 k/uL (1.0-4.8); Lymphocytes % (A) 9 %; MCH 29.3 pg (25.0-35.0); MCV 88.9 fL (80.0-100.0); Mean Platelet Volume 7.4; Monocytes # (A) 0.4 k/uL (0-1.0); Monocytes % (A) 7 %; Neutrophils # (A) 4.8 k/uL (1.3-7.7); Neutrophils % (A) 78 %; Platelet Count 145 k/uL (150-450); RBC 4.71 m/uL (4.30-5.90); RDW 14.7 % (11.5-15.5); WBC 6.1 k/uL (3.8-10.6)
[2021-03-06 11:07] LABS: Calcium 9.7 mg/dL (8.4-10.2); Potassium 4.3 mmol/L (3.5-5.1)
[2021-03-06] MEDS: APIXABAN 5 MG TAB PO SCH ×2 (11:59→20:18)
[2021-03-06] MEDS ORDERED: HEPARIN SOD,PORK IN 0.45% NACL 25,000 UNIT in 0.45% NACL 1 250ML.BAG IV SCH (12:15)
[2021-03-06] MEDS ORDERED: HEPARIN SOD,PORK IN 0.45% NACL 25,000 UNIT in 0.45% NACL 1 250ML.BAG IV ONE (12:36)
[2021-03-06] MEDS ORDERED: LIDOCAINE 1% INJ 10MG/ML (20 ML MDV) ONE ×2 (13:09→14:21)
[2021-03-06] MEDS ORDERED: ROCURONIUM 10 MG/ML (5 ML VIAL) IV ONE (13:09)
[2021-03-06] MEDS ORDERED: PROPOFOL 10 MG/ML 20 ML VIAL IV ONE (13:09)
[2021-03-06] MEDS ORDERED: fentaNYL (PF) 50 MCG/ML 2 ML AMP ONE (13:09)
[2021-03-06] MEDS ORDERED: ISOPROTERENOL 250 MCG/1.25 ML SYR IV ONE (13:09)
[2021-03-06] MEDS ORDERED: FUROSEMIDE 10 MG/ML 2 ML VIAL ONE (13:09)
[2021-03-06] MEDS ORDERED: MIDAZOLAM 2 MG/2 ML VIAL ONE (13:09)
[2021-03-06] MEDS ORDERED: NEOSTIGMINE 1 MG/ML 10 ML VIAL ONE (13:09)
[2021-03-06] MEDS ORDERED: SUCCINYLCHOLINE CHLORIDE 100 MG/5 ML SYR IV ONE (13:09)
[2021-03-06] MEDS ORDERED: HEPARIN SODIUM,PORCINE 10,000 UNIT/ML 1 ML VIAL ONE (13:09)
[2021-03-06] MEDS ORDERED: PHENYLEPHRINE-0.9% NACL SYG 1,000 MCG/10 ML SYRINGE ONE (13:09)
[2021-03-06] MEDS ORDERED: GLYCOPYRROLATE 0.2 MG/ML 2 ML VIAL ONE (13:09)
[2021-03-06] MEDS ORDERED: PROTAMINE SULFATE 10 MG/ML 5 ML VIAL IV ONE (13:09)
[2021-03-06] MEDS ORDERED: LIDOCAINE 1% INJ 10MG/ML (20 ML MDV) SQ ONE ×2 (14:01→14:27)
[2021-03-06] MEDS ORDERED: HEPARIN SODIUM (1,000 UNIT/ML) 1,000 UNIT in SODIUM CHLORIDE 0.9% 1,000 ML IRRIGATION ONE (14:25)
[2021-03-06] MEDS ORDERED: IOPAMIDOL-250 50ML BTL INTRAARTER ONE ×2 (16:43)
[2021-03-06] MEDS ORDERED: HYDROcodone/APAP 5-325MG 1 EACH TAB PO PRN (17:49)
[2021-03-06] MEDS ORDERED: ACETAMINOPHEN TAB 325 MG TAB PO PRN (17:49)
--- NOTE | 2021-03-06 18:09 | P.EPPROC ---
- EP Procedure Note Electrophysiology Procedure Note: PROCEDURE A. fib ablation DIAGNOSIS Atrial fibrillation, symptomatic, refractory to therapy Mild ischemic cardio myopathy ejection fraction 40-45% Chronic kidney disease, BUN 46, creatinine 1.87, creatinine clearance 43 CAD status post coronary stenting RESULT No left atrial appendage mass seen on intracardiac echo Successful A. fib ablation/pulmonary vein isolation of all veins using cryo- ablation Linear ablation left atrial septum, a long complex fractionated electrograms Complete entrance block in all 4 veins confirmed No evidence for phrenic nerve injury 10 mL IV dye used Esophageal deflection YES Electrical cardioversion with a synchronized shock across the chest YES PROCEDURE DETAILS Patient was brought to the EP lab in a fasting state. Written informed consent was obtained prior to the procedure. Procedure performed under general anesthesia Dual-chamber pacemaker was interrogated. Lead impedances documented the beginning the case Rate responsiveness turned off At the end of the case lead impedances were interrogated and are found to be stable Pacemaker was reprogrammed with rate responsiveness turned on After initial muscle relaxant use, muscle relaxants were not given thereafter in order to assess phrenic nerve during procedure. Patient prepped and draped as per protocol Full cryo-set up with standard preparation of the cryoablation tools done. Femoral Venous access obtained on the right and left groins Venous and arterial Sheaths placed. Diagnostic catheters for the high right atrium, phrenic nerve stimulation and pacing, His bundle, RV and coronary sinus placed Intracardiac echo catheter placed. Long sheath placed in the right atrium Left and right transseptal catheterization performed under intracardiac echo guidance. Intravenous heparin with aCT above 300 Later, catheter positioning and balloon positioning in the left atrium, under intracardiac echo guidance Diagnostic EP study with Drug infusion with Isuprel Coronary sinus pacing and recording Baseline measurements Sinus cycle length 1113 ms, KS interval 243, QRS 140 right bundle-branch block, QT 478 Atrial pacing performed from the high right atrium and the coronary sinus Burst stimulation from the RA sinus and burst stimulation from the left atrial roof area and floor of the left atrium Cycle length 500 down to 300 ms on and off Isuprel Transseptal catheterization performed RA pressure 13/1/7 LA pressure 29/12/21 Transseptal catheterization performed with standard sheath. The cryoablation sheath was then placed with an over the wire exchange without any acute complications. All 4 pulmonary veins were isolated in the following sequence: Left superior followed by left inferior followed by right superior followed by right inferior The cryo-ablation balloon was placed at the os of each vein A total of 10 mL IV dye V. tach case Goal during cryoablation was to achieve complete occlusion of the pulmonary vein, achieve -30 degrees C at 30 seconds and achieve -40 degrees C at 60 seconds and a time to effect of less than 60-90 seconds, . If not the balloon was repositioned to obtain this result After completion of Cryoblation with durations from 180-240 seconds, entrance block was confirmed with the Attain circular catheter in a roving fashion around the antrum of the pulmonary veins Phrenic nerve pacing was performed from the SVC, right innominate vein area and diaphragm voltage was monitored. Diaphragmatic contractions were also monitored manually for strength of contraction. Parameter goals for each cryo freeze Complete occlusion of the appropriate vein -30 degrees C by 30 seconds -40 degrees C by 60 seconds Minimum between minus 40-55 degrees C Thaw time greater than 10 seconds Balloon visualized by intracardiac echo The esophagus was intubated. Esophageal Temperature monitoring with a CIRCA catheter formed. Esophageal deflection for hypothermia of the esophagus below 30 degrees C Left superior pulmonary vein Complete isolation, entrance block Left inferior pulmonary vein Complete isolation, entrance block Right superior pulmonary vein, during phrenic nerve pacing Complete isolation, entrance block Right inferior pulmonary vein, during phrenic nerve pacing Complete isolation, entrance block At the end of the procedure the Achieve catheter was once again used to check for entrance block Phrenic nerve stimulation was performed to confirm diaphragmatic stimulation the end of the procedure Cine fluoroscopy was performed at the very end of the procedure to confirm movement of both diaphragms with inspiration and expiration. RF ablation cath was placed in the left atrium 3-D electro-anatomic mapping was performed Complete isolation of the pulmonary veins was confirmed Exit block was confirmed with have for pacing Mapping of the left atrial roof and the left atrial septum was performed Fractionated electrograms were noted along the left atrial septum behind the transseptal puncture site Linear RF ablation was performed in the septal This Line was then connected to the superior and inferior pulmonary veins The septum was then confirmed as completely isolated with both entrance and exit block At the end of the procedure the patient was extubated Heparin was reversed Venous sheaths were removed and hemostasis assured PROCEDURES PERFORMED Diagnostic EP study CS pacing and recording Left and right transseptal catheterization 3D mapping Intracardiac echocardiography Pulmonary vein isolation with transseptal and comprehensive EPS, [id number] Linear ablation, left atrium, +[id number] Drug Infusion +[id number]
--- NOTE | 2021-03-06 18:13 | P.EPPROC ---
- EP Procedure Note Electrophysiology Procedure Note: Left upper extremity venogram was performed 1 mL IV dye injected in the left arm Patent left axillary vein Occluded left subclavian vein, short segmental occlusion just beyond the subclavian axillary junction Cinefluoroscopy of the leads was performed and atrial lead was in the right atrial appendage RV lead was in the RV apex Loss of healed was noted in the RV lead
--- NOTE | 2021-03-06 18:21 | P.PRLE ---
RE: Salvatore Marks Dear Victor Manuel Chase underwent an A. fib ablation with pulmonary vein isolation and linear ablation in the septum of the left atrium Following that first pacing was performed from multiple sites in the left atrium and the coronary sinus both on and off Isuprel No atrial fibrillation was inducible Hopefully this results in a significant reduction in his A. fib burden He had recently started him on losartan 50 mrem by mouth daily in addition to his current medications and his creatinine has improved to 1.87 with a creatinine clearance of 43 He will continue anticoagulation and all other prior medications Intracardiac echocardiography revealed mild reduction in LV systolic function with septal hypokinesis consistent with his history of CAD and stenting the LAD I would recommend carvedilol instead of amlodipine Thank you for entrusting me with the care of the patient Warm regards Sincerely Chris Rivas
[2021-03-06] MEDS ORDERED: ACETAMINOPHEN IV (For NPO) 1,000 MG in EMPTY BAG 1 BAG IVPB ONE (18:30)
--- NOTE | 2021-03-06 18:33 | P.HPCAR ---
History of Present Illness This is Dr. Rivas dictating an H/P on this patient The patient was interviewed and examined IMPRESSION / ASSESSMENT: Paroxysmal atrial fibrillation, recurrent, symptomatic coronary artery disease status post coronary stenting Recent increase in A. fib burden with frequent recurrences Ischemic cardio myopathy ejection fraction 45% with septal and inferior hypokinesis Atherosclerosis of the aorta Chronic kidney disease creatinine 1.87, creatinine clearance 43 normal sodium Type 2 diabetes Mild congestive heart failure PLAN: A. fib ablation Minimize IV dye on account of chronic kidney disease Angiotensin receptor blockers to continue. Patient was recently started on losartan 50 mrem by mouth daily Start carvedilol 3.125 mg twice daily and maximize Blood pressure control Continue statins, LDL goal less than 50 mg/dL Continue ELIQUIS Albumin ELIQUIS dose today prior to starting and started on IV heparin prior to the procedure HPI Patient has been complaining of tiredness and fatigue and shortness of breath intermittently His ejection fraction was about 45% with inferior and septal hypokinesis intermittently also complains of chest discomfort His pacemaker shows paroxysmal atrial fibrillation There has been a recent increase in his A. fib burden with more than 137 episodes of atrial fibrillation lasting up to 4 days since 12/25/2020 ROS: No fever chills or rigors, no cough, phlegm or expectoration, no nausea, vomiting or diarrhea, no hematuria, dysuria, no musculoskeletal complaints, no strokes or seizures, no skin lesions. EXAMINATION: Afebrile 97.5F, pulse rate in the 70s normal respirations Blood pressure 148/70 mmHg Pulse ox 95% Mild hepatojugular reflux Mild lower extremity edema Breath sounds are clear no rhonchi no crackles Normal heart sounds normal S1 normal S2 Pacemaker site is healed well REVIEW OF LABS, ECG & MEDICAL DATA White count 6.1, hemoglobin 13.8, platelet count 145,000 Sodium 142, potassium 4.3, BUN 46, creatinine 1.87 Creatinine clearance 43 Coronavirus not detected Physical Exam Vitals: Vital Signs Temp Pulse Resp BP Pulse Ox 03/06/21 10:49 97.5 F L 78 16 148/78 95 Intake and Output 03/06/21 03/06/21 03/06/21 06:59 14:59 22:59 Intake Total 1006 Output Total 200 Balance 1006 -200 Intake: IV 1006 Output: Urine 200 Other: Weight 101.1 kg Past Medical History Past Medical History: Diabetes Mellitus, Hyperlipidemia, Myocardial Infarction (SC), Renal Disease, Sleep Apnea/CPAP/BIPAP Additional Past Medical History / Comment(s): see Dr Rivas H&P, neuropathy bilateral feet, chronic kidney disease stage III, hx "minor prostate ca"- dr moon , recent UTI, Last Myocardial Infarction Date:: 01/2001 History of Any Multi-Drug Resistant Organisms: None Reported Past Surgical History: Cardiac Ablation, Coronary Bypass/CABG, Heart Catheterization With Stent, Pacemaker Additional Past Surgical History / Comment(s): 11/15/20 prostate biopsy, 2000 CABG 4 vessel, 3 cardiac stents, Cardioversion, loop recorder, colonoscopy . Past Anesthesia/Blood Transfusion Reactions: No Reported Reaction Date of Last Stent Placement:: 2006 Type of Cardiac Device: Biventricular Pacemaker Device Placement Date:: 08/25/19 Smoking Status: Never smoker - Past Family History Father Family Medical History: Cancer Additional Family Medical History / Comment(s): pancreatic cancer Mother Family Medical History: Cancer Additional Family Medical History / Comment(s): breast cancer Sister(s) Family Medical History: Diabetes Mellitus Physical Examination Vital Signs Temp Pulse Resp BP Pulse Ox 03/06/21 10:49 97.5 F L 78 16 148/78 95 Intake and Output 03/06/21 03/06/21 03/06/21 06:59 14:59 22:59 Intake Total 1006 Output Total 200 Balance 1006 -200 Intake: IV 1006 Output: Urine 200 Other: Weight 101.1 kg Results 03/06/21 10:25 03/06/21 10:25 CBC 03/06/21 Range/Units 10:25 WBC 6.1 (3.8-10.6) k/uL RBC 4.71 (4.30-5.90) m/uL Hgb 13.8 (13.0-17.5) gm/dL Hct 41.9 (39.0-53.0) % Plt Count 145 L (150-450) k/uL Comprehensive Metabolic Panel 03/06/21 Range/Units 10:25 Sodium 142 (137-145) mmol/L Potassium 4.3 (3.5-5.1) mmol/L Chloride 107 (98-107) mmol/L Carbon Dioxide 23 (22-30) mmol/L BUN 46 H (9-20) mg/dL Creatinine 1.87 H (0.66-1.25) mg/dL Glucose 138 H (74-99) mg/dL Calcium 9.7 (8.4-10.2) mg/dL Current Medications Generic Name Dose Route Start Last Admin Trade Name Freq PRN Reason Stop Dose Admin Acetaminophen 650 mg 03/06/21 17:49 Acetaminophen Tab 325 Mg Tab PO 04/05/21 17:50 Q6HR PRN Mild Pain Hydrocodone Bitart/Acetaminophen 1 each 03/06/21 17:49 Hydrocodone/Apap 5-325mg 1 Each Tab PO 04/05/21 17:50 Q4HR PRN Moderate Pain Apixaban 5 mg 03/06/21 12:00 03/06/21 11:59 Apixaban 5 Mg Tab PO 04/05/21 12:01 5 mg BID DAREN Administration Aspirin 81 mg 03/07/21 09:00 Aspirin 81 Mg PO 04/06/21 09:01 DAILY COUNTS INCLUDE 234 BEDS AT THE [facility] Atorvastatin Calcium 80 mg 03/06/21 21:00 Atorvastatin 80 Mg Tab PO 04/05/21 21:01 [facility] Carvedilol 3.125 mg 03/06/21 18:30 Carvedilol 3.125 Mg Tab PO BID-W/MEALS COUNTS INCLUDE 234 BEDS AT THE [facility] Furosemide 20 mg 03/07/21 09:00 Furosemide 20 Mg Tab PO 04/06/21 09:01 DAILY COUNTS INCLUDE 234 BEDS AT THE [facility] Glipizide 5 mg 03/07/21 07:30 Glipizide 5 Mg Tab PO AC-BID COUNTS INCLUDE 234 BEDS AT THE [facility] Acetaminophen 1,000 mg/ IV 100 mls @ 400 mls/hr 03/06/21 18:30 Solution IVPB 03/06/21 18:44 ONCE ONE Isosorbide Mononitrate 30 mg 03/07/21 09:00 Isosorbide Mononitrate Er 30 Mg Tab.Er.24h PO 04/06/21 09:01 DAILY COUNTS INCLUDE 234 BEDS AT THE [facility] Linagliptin 5 mg 03/07/21 09:00 Linagliptin 5 Mg Tablet PO DAILY COUNTS INCLUDE 234 BEDS AT THE [facility] Losartan Potassium 50 mg 03/07/21 09:00 Losartan 50 Mg Tab PO 04/06/21 09:01 DAILY COUNTS INCLUDE 234 BEDS AT THE [facility] Metformin HCl 500 mg 03/08/21 17:30 Metformin 500 Mg Tab PO AC-BID COUNTS INCLUDE 234 BEDS AT THE [facility] Empagliflozin [ 12.5 mg 03/07/21 09:00 Jardiance] 25 Mg PO 04/06/21 09:01 Tablet DAILY COUNTS INCLUDE 234 BEDS AT THE [facility] Pioglitazone HCl 15 mg 03/07/21 09:00 Pioglitazone 15 Mg Tab PO 04/06/21 09:01 DAILY DAREN Sodium Chloride 12 ml 03/06/21 21:00 Sodium Chloride 0.9% Flush 10 Ml Syringe IV 04/05/21 21:01 Q12HR DAREN Intake and Output 03/06/21 03/06/21 03/06/21 06:59 14:59 22:59 Intake Total 1006 Output Total 200 Balance 1006 -200 Intake: IV 1006 Output: Urine 200 Other: Weight 101.1 kg Patient Weight 03/07/21 06:59 Weight 101.1 kg 03/06/21 10:25 03/06/21 10:25
[2021-03-06] MEDS ORDERED: HYDROmorphone 0.5 MG/0.5 ML SYRINGE IVP ONE (18:34)
[2021-03-06 20:17] LABS: Glucose,Whole Blood 151 mg/dL (75-99)
[2021-03-06] MEDS: carvediloL 3.125 MG TAB PO SCH (20:18)
[2021-03-06] MEDS ORDERED: APIXABAN 5 MG TAB PO SCH (21:00)
[2021-03-06] MEDS ORDERED: ATORVASTATIN 80 MG TAB PO SCH (21:00)
[2021-03-07 07:17] LABS: Glucose,Whole Blood 201 mg/dL (75-99)
[2021-03-07] MEDS ORDERED: glipiZIDE 5 MG TAB PO SCH (07:30)
[2021-03-07 08:24] VITALS: RESP 18
[2021-03-07] MEDS: APIXABAN 5 MG TAB PO SCH (08:46)
[2021-03-07] MEDS: carvediloL 3.125 MG TAB PO SCH (08:46)
[2021-03-07] MEDS ORDERED: ASPIRIN 81 MG PO SCH (09:00)
[2021-03-07] MEDS ORDERED: PIOGLITAZONE 15 MG TAB PO SCH (09:00)
[2021-03-07] MEDS ORDERED: FUROSEMIDE 20 MG TAB PO SCH (09:00)
[2021-03-07] MEDS ORDERED: LOSARTAN 50 MG TAB PO SCH (09:00)
[2021-03-07] MEDS ORDERED: LINAGLIPTIN 5 MG TABLET PO SCH (09:00)
[2021-03-07] MEDS ORDERED: ISOSORBIDE MONONITRATE ER 30 MG TAB.ER.24H PO SCH (09:00)
[2021-03-07 11:23] LABS: Glucose,Whole Blood 208 mg/dL (75-99)
[2021-03-07 13:38] LABS: African American GFR (CKD) 38.3 (60.0-200.0); Anion Gap 14.2 mmol/L (4.00-12.00); BUN/Creat Ratio 25.5 Ratio (12.00-20.00); Calcium 8.9 mg/dL (8.7-10.3); Carbon Dioxide 20.8 mmol/L (21.6-31.8); Non-African American GFR(CKD) 33.1 (60.0-200.0); Potassium 4.1 mmol/L (3.5-5.5)
[2021-03-07 15:29] VITALS: BP 117/65; PULSE 68; TEMP 97.9
--- NOTE | 2021-03-07 15:47 | CONS ---
CONSULTATION REASON FOR CONSULT: Renal failure. HISTORY OF PRESENT ILLNESS: The patient is a 70-year-old male with history of chronic kidney disease NKF stage 3, who follows with us as outpatient, etiology nephrosclerosis. Baseline creatinine about 1.8-2 mg/dL. The patient was admitted to the hospital with atrial fibrillation with RVR and is status post cardiac ablation by Dr. Rivas. He is doing fairly well. PAST MEDICAL HISTORY: Significant for CKD, atrial fibrillation, coronary artery disease, type 2 diabetes, hyperlipidemia, hypertension, history of MA, obstructive sleep apnea, neuropathy, history of prostate cancer. PAST SURGICAL HISTORY: Previous cardiac ablation, coronary artery bypass surgery, coronary stent placement, prostate biopsy, colonoscopy, cardioversion previously, pacemaker placement. SOCIAL HISTORY: Negative for smoking, drug abuse or alcohol abuse. MEDICATIONS: Medications at home prior to admission included Eliquis, aspirin, Lipitor, Jardiance, cinnamon, Glucotrol, Actos, Lasix, Cozaar, Coreg, Janumet. REVIEW OF SYSTEMS: As per HPI. Other systems negative. PHYSICAL EXAMINATION: The patient is comfortable, awake, not in any acute distress. Alert and oriented x3. Blood pressure 130/74, heart rate 74 per minute. He is afebrile. EXAMINATION OF THE HEART: S1, S2. EXAMINATION OF THE LUNGS: Bilateral breath sounds are heard. ABDOMEN: Soft, nontender, obese. Examination of lower extremities shows no significant edema. M48 M60 [employer] exam grossly intact. LABS: Labs show sodium 142, potassium 4.3, chloride 107, BUN 46, creatinine 1.8, hemoglobin 13.8 g/dL. ASSESSMENT: 1. Chronic kidney disease NKF stage 3. Renal function at baseline. In fact, slightly better than previous creatinine of around 2. Expect improvement in renal function with correction of atrial fibrillation as well. 2. Atrial fibrillation, status post cardiac ablation. 3. Dyslipidemia. 4. Impaired left ventricular function, maintained on low-dose loop diuretics. 5. Type 2 diabetes. PLAN: Continue with the angiotensin receptor blockers. Continue with Glucophage. Follow up as outpatient in about 1-2 months. We will check labs in 1-2 weeks post discharge and patient is advised to call for an earlier appointment if he is not feeling well or his labs are worsened. Thank you for this consultation. MMODL / IJN: [id number] /
--- NOTE | 2021-03-07 17:15 | P.DS ---
Providers Attending physician: Chris Rivas Primary care physician: Victor Manuel [facility] Course: Patient is doing well. He had an episode of vague discomfort in the chest in the left pectoral area this is brief without any recurrence and is very comfortable today No dizziness lightheadedness no palpitations His groins of healed well Minimal tenderness but no hematoma no swelling Afebrile 97.9F, pulse rate in the 60s and 70s Blood pressure 117/65 mmHg Breath sounds are clear no rhonchi no crackles Heart sounds S1 and S2 are normal Extremities warm no edema No swelling in the groins no hematoma Impression A. 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 Continue losartan Continue anticoagulation Continue statins I'll see him again in about 2 weeks Plan - Discharge Summary Discharge Rx Participant: Yes New Discharge Prescriptions: New Carvedilol [Coreg] 3.125 mg PO BID #180 tablet Continue Isosorbide Mononitrate ER [Imdur] 30 mg PO DAILY Empagliflozin [Jardiance] 12.5 mg PO DAILY Aspirin EC [Ecotrin Low Dose] 81 mg PO DAILY Apixaban [Eliquis] 5 mg PO BID sitaGLIPtin PHOS/metFORMIN HCL [Janumet 50-1,000 mg Tablet] 0.5 tab PO BID Cinnamon Bark [Cinnamon] 1,000 mg PO BID Atorvastatin Calcium [Lipitor] 80 mg PO HS Cholecalciferol [Vitamin D3 (25 Mcg = 1000 Iu)] 25 mcg PO BID glipiZIDE XL [Glucotrol XL] 10 mg PO DAILY Pioglitazone [Actos] 15 mg PO DAILY Losartan [Cozaar] 50 mg PO DAILY Furosemide [Lasix] 20 mg PO DAILY Discharge Medication List Apixaban [Eliquis] 5 mg PO BID 04/25/19 [History] Aspirin EC [Ecotrin Low Dose] 81 mg PO DAILY 04/25/19 [History] Cinnamon Bark [Cinnamon] 1,000 mg PO BID 04/25/19 [History] Empagliflozin [Jardiance] 12.5 mg PO DAILY 04/25/19 [History] Isosorbide Mononitrate ER [Imdur] 30 mg PO DAILY 04/25/19 [History] sitaGLIPtin PHOS/metFORMIN HCL [Janumet 50-1,000 mg Tablet] 0.5 tab PO BID 04/25/19 [History] Atorvastatin Calcium [Lipitor] 80 mg PO HS 11/21/20 [History] Cholecalciferol [Vitamin D3 (25 Mcg = 1000 Iu)] 25 mcg PO BID 11/21/20 [History] glipiZIDE XL [Glucotrol XL] 10 mg PO DAILY 11/21/20 [History] Furosemide [Lasix] 20 mg PO DAILY 03/01/21 [History] Pioglitazone [Actos] 15 mg PO DAILY 03/01/21 [History] Carvedilol [Coreg] 3.125 mg PO BID #180 tablet 03/06/21 [Rx] Losartan [Cozaar] 50 mg PO DAILY 03/06/21 [History] Follow up Appointment(s)/Referral(s): Chris Rivas MD [STAFF PHYSICIAN] - 2 Weeks ([facility] from [facility] will call you to schedule your appointment.) Patient Instructions/Handouts: Cardiac Ablation (DC) Activity/Diet/Wound Care/Special Instructions: Post EP study - Ablation instructions 1. Keep access sites dry for 2 days. 2. No heavy lifting or straining for 2 days. 3. Avoid bending the hips repeatedly for 2 days. 4. You may go up and down stairs slowly Call if the following is noted 1. Bleeding, increasing swelling or pain at the access sites. 2. Increasing chest discomfort, especially upon taking a deep breath. 3. Increasing shortness of breath, at rest or with exertion. 4. Undue cough / phlegm 5. Difficulty or pain while swallowing. 6. Pain or change in color in the extremities. 7. Fever, chills, rigors. 8. Increasing headache or neurologic symptoms. 9. Dizziness, fainting, palpitations Discharge Disposition: HOME SELF-CARE
[2021-03-08] MEDS ORDERED: metFORMIN 500 MG TAB PO SCH (17:30)
== END 2021-03-07 16:30 | disposition home or self-care (01) ==
LOC: CATHEP 09:51 → 6NMEDSUR 17:54 → CATHEP 03-07 16:30
PROVIDERS: ATTEND Internal Medicine Clinical Cardiac Electrophysiology
DX: I48.0 Paroxysmal atrial fibrillation (principal); Z95.5 Presence of coronary angioplasty implant and graft; I25.5 Ischemic cardiomyopathy; I25.10 Atherosclerotic heart disease of native coronary artery without angina pectoris; I70.0 Atherosclerosis of aorta; I13.0 Hypertensive heart and chronic kidney disease with heart failure and stage 1 through stage 4 chronic kidney disease, or unspecified chronic kidney disease; E11.22 Type 2 diabetes mellitus with diabetic chronic kidney disease; N18.30 Chronic kidney disease, stage 3 unspecified; I50.9 Heart failure, unspecified; Z20.822 Contact with and (suspected) exposure to COVID-19; E11.40 Type 2 diabetes mellitus with diabetic neuropathy, unspecified; I49.5 Sick sinus syndrome; E78.5 Hyperlipidemia, unspecified; I25.2 Old myocardial infarction; G47.33 Obstructive sleep apnea (adult) (pediatric); Z85.46 Personal history of malignant neoplasm of prostate; Z95.0 Presence of cardiac pacemaker; Z98.890 Other specified postprocedural states; Z83.3 Family history of diabetes mellitus; Z80.3 Family history of malignant neoplasm of breast; Z95.1 Presence of aortocoronary bypass graft; Z82.49 Family history of ischemic heart disease and other diseases of the circulatory system; Z79.84 Long term (current) use of oral hypoglycemic drugs; Z79.01 Long term (current) use of anticoagulants; Z79.82 Long term (current) use of aspirin; Z79.899 Other long term (current) drug therapy
CPT/HCPCS: 93623; 93662; 93613; 93656; 93657; 80048 ×2; 85025; 87635; C1759; C1769 ×4; C1894 ×2; C1730 ×2; C1893; C1733; C1766; C1732; J2250; J2720; J1644 ×3; J1940; J2710; J0690; J2001; J3010; J2370; J0330; J2704; J1170; Q9966

== ENCOUNTER → 2021-03-15 | Day surgery (SDC) | payer MEDICARE ==
--- NOTE | 2021-03-15 11:24 | US ---
EXAMINATION TYPE: US lower ext pseudo artery RT DATE OF EXAM: 03/15/2021 COMPARISON: NONE CLINICAL HISTORY: Hematoma. Rt groin pain had heart cath done 03/10/21 EXAM PERFORMED: Grayscale and color Doppler duplex imaging performed of the groin, post cardiac jamie ter to assess for pseudoaneurysm. SIDE PERFORMED: Color and Waveform Doppler performed to assess for the presence of pseudoaneurysm; Is there ultrasound evidence of a pseudoaneurysm: No Is there evidence of AV shunting: No Is there a fluid collection present: No No hematoma visualized IMPRESSION: No evidence of pseudoaneurysm in the right groin. No evidence of hematoma in the right groin.
== END ==
LOC: RADUSWWP 10:06
PROVIDERS: ATTEND Internal Medicine Clinical Cardiac Electrophysiology
DX: I97.630 Postprocedural hematoma of a circulatory system organ or structure following a cardiac catheterization (principal)
CPT/HCPCS: 93975

== ENCOUNTER 2021-03-18 01:52 | Emergency (ER) | payer MEDICARE ==
[2021-03-18 02:03] VITALS: TEMP 98.1
[2021-03-18] MEDS ORDERED: MORPHINE SULFATE 4 MG/ML SYRINGE IV STA (02:15)
--- NOTE | 2021-03-18 02:20 | ED ---
General Adult HPI - General Chief complaint: Extremity Injury, Lower Stated complaint: Abdominal pain Time Seen by Provider: 03/18/21 02:05 Source: patient, EMS, RN notes reviewed Mode of arrival: EMS Limitations: physical limitation - History of Present Illness Initial comments: Patient is a 70-year-old male that presents to emergency problem with right groin and hip pain. He notes that he recently had a cardiac ablation done is been having some minor issues with his postprocedure healing. He notes that he is followed up with his doctor and was informed that if the pain increases or comes back to come emergency room evaluated. When he saw his doctor last on Saturday they did ultrasound and noted that was just soft tissue swelling with no leaking or any issues. Patient states that he has significant amount of bruising in his right upper inner thigh with pain that radiates up to his groin. He notes that he isn't sure why he is much pain. He was in moderate discomfort and pain while laying in bed during the exam interview. Patient denied any weakness numbness tingling in his right lower extremity. He denied any chest pain shortness of breath headache nausea vomiting diarrhea constipation fever fatigue chills. - Related Data Home Medications Medication Instructions Recorded Confirmed Apixaban [Eliquis] 5 mg PO BID 04/25/19 03/06/21 Aspirin EC [Ecotrin Low Dose] 81 mg PO DAILY 04/25/19 03/06/21 Cinnamon Bark [Cinnamon] 1,000 mg PO BID 04/25/19 03/06/21 Empagliflozin [Jardiance] 12.5 mg PO DAILY 04/25/19 03/06/21 Isosorbide Mononitrate ER [Imdur] 30 mg PO DAILY 04/25/19 03/06/21 sitaGLIPtin PHOS/metFORMIN HCL 0.5 tab PO BID 04/25/19 03/06/21 [Janumet 50-1,000 mg Tablet] Atorvastatin Calcium [Lipitor] 80 mg PO HS 11/21/20 03/06/21 Cholecalciferol [Vitamin D3 (25 25 mcg PO BID 11/21/20 03/06/21 Mcg = 1000 Iu)] glipiZIDE XL [Glucotrol XL] 10 mg PO DAILY 11/21/20 03/06/21 Furosemide [Lasix] 20 mg PO DAILY 03/01/21 03/06/21 Pioglitazone [Actos] 15 mg PO DAILY 03/01/21 03/06/21 Losartan [Cozaar] 50 mg PO DAILY 03/06/21 03/06/21 Previous Rx's Medication Instructions Recorded Carvedilol [Coreg] 3.125 mg PO BID #180 tablet 03/06/21 Allergies Allergy/AdvReac Type Severity Reaction Status Date / Time No Known Allergies Allergy Verified 03/18/21 02:04 Review of Systems ROS Statement: Those systems with pertinent positive or pertinent negative responses have been documented in the HPI. ROS Other: All systems not noted in ROS Statement are negative. Past Medical History Past Medical History: Diabetes Mellitus, Hyperlipidemia, Myocardial Infarction ([place]), Renal Disease, Sleep Apnea/CPAP/BIPAP Additional Past Medical History / Comment(s): see Dr Rivas H&P, neuropathy bilateral feet, chronic kidney disease stage III, hx "minor prostate ca"- dr bryce marcelo , recent UTI, Last Myocardial Infarction Date:: 01/2001 History of Any Multi-Drug Resistant Organisms: None Reported Past Surgical History: Cardiac Ablation, Coronary Bypass/CABG, Heart Catheterization With Stent, Pacemaker Additional Past Surgical History / Comment(s): 11/15/20 prostate biopsy, 2000 CABG 4 vessel, 3 cardiac stents, Cardioversion, loop recorder, colonoscopy . Past Anesthesia/Blood Transfusion Reactions: No Reported Reaction Date of Last Stent Placement:: 2006 Type of Cardiac Device: Biventricular Pacemaker Device Placement Date:: 08/25/19 Past Psychological History: No Psychological Hx Reported Smoking Status: Never smoker Past Alcohol Use History: None Reported Past Drug Use History: None Reported - Past Family History Father Family Medical History: Cancer Additional Family Medical History / Comment(s): pancreatic cancer Mother Family Medical History: Cancer Additional Family Medical History / Comment(s): breast cancer Sister(s) Family Medical History: Diabetes Mellitus General Exam Limitations: physical limitation General appearance: alert, in no apparent distress Head exam: Present: atraumatic, normocephalic, normal inspection Eye exam: Present: normal appearance, PERRL, EOMI. Absent: scleral icterus, conjunctival injection, periorbital swelling Neck exam: Present: normal inspection Respiratory exam: Present: normal lung sounds bilaterally. Absent: respiratory distress, wheezes, rales, rhonchi, stridor Cardiovascular Exam: Present: regular rate, normal rhythm, normal heart sounds. Absent: systolic murmur, diastolic murmur, rubs, gallop, clicks GI/Abdominal exam: Present: soft, normal bowel sounds. Absent: distended, tenderness, guarding, rebound, rigid Extremities exam: Present: normal inspection, full ROM, normal capillary refill. Absent: tenderness, pedal edema, joint swelling, calf tenderness Right Upper Leg exam: Present: full ROM, tenderness (Medial aspect.), ecchymosis (Along the upper medial aspect with some in the groin fold.). Absent: swelling, abrasion, laceration, deformity, crepitus, dislocation Neurological exam: Present: alert, oriented X3, CN II-XII intact Psychiatric exam: Present: normal affect, normal mood Skin exam: Present: warm, dry, intact, normal color. Absent: rash Course Vital Signs 03/18/21 01:54 Temperature 98.1 F Pulse Rate 51 L Respiratory 18 Rate Blood Pressure 175/87 O2 Sat by Pulse 97 Oximetry Medical Decision Making - Medical Decision Making 70-year-old male complaining of right hip and upper thigh pain following a cardiac ablation procedure. Significant amount of ecchymosis noted on the right upper thigh and minimally in the groin fold. Labs, right hip x-ray, 4 mg of morphine ordered. Labs unremarkable from previous studies. X-ray negative for any acute process. Case discussed with Dr. Parker, patient discharge home follow up primary care and surgeon. - Lab Data Result diagrams: 03/18/21 02:25 03/18/21 02:25 Lab Results 03/18/21 03/18/21 03/18/21 Range/Units 02:25 02:25 02:25 WBC 12.6 H (3.8-10.6) k/uL RBC 3.64 L (4.30-5.90) m/uL Hgb 10.7 L D (13.0-17.5) gm/dL Hct 32.2 L (39.0-53.0) % MCV 88.4 (80.0-100.0) fL MCH 29.5 (25.0-35.0) pg MCHC 33.4 (31.0-37.0) g/dL RDW 14.7 (11.5-15.5) % Plt Count 190 (150-450) k/uL MPV 7.6 Neutrophils % 89 % Lymphocytes % 4 % Monocytes % 4 % Eosinophils % 2 % Basophils % 0 % Neutrophils # 11.1 H (1.3-7.7) k/uL Lymphocytes # 0.5 L (1.0-4.8) k/uL Monocytes # 0.6 (0-1.0) k/uL Eosinophils # 0.2 (0-0.7) k/uL Basophils # 0.0 (0-0.2) k/uL PT 10.9 (9.0-12.0) sec INR 1.0 (<1.2) APTT 26.0 (22.0-30.0) sec Sodium 135 L (137-145) mmol/L Potassium 5.5 H (3.5-5.1) mmol/L Chloride 101 (98-107) mmol/L Carbon Dioxide 22 (22-30) mmol/L Anion Gap 12 mmol/L BUN 35 H (9-20) mg/dL Creatinine 1.85 H (0.66-1.25) mg/dL Est GFR (CKD-EPI)AfAm 42 (>60 ml/min/1.73 sqM) Est GFR (CKD-EPI)NonAf 36 (>60 ml/min/1.73 sqM) Glucose 222 H (74-99) mg/dL Calcium 9.3 (8.4-10.2) mg/dL Total Bilirubin 0.9 (0.2-1.3) mg/dL AST 28 (17-59) U/L ALT 13 (4-49) U/L Alkaline Phosphatase 73 (38-126) U/L Total Protein 6.4 (6.3-8.2) g/dL Albumin 3.9 (3.5-5.0) g/dL Disposition Clinical Impression: Postoperative pain, Right hip pain Disposition: HOME SELF-CARE Condition: Stable Instructions (If sedation given, give patient instructions): Arthralgia (ED), Hip Pain (ED) Additional Instructions: Please return to the Emergency Department if symptoms worsen or any other concerns. Follow-up with primary care in the next 3-5 days area Take Tylenol as prescribed to Rest ice compress elevate. Is patient prescribed a controlled substance at d/c from ED?: No Referrals: None,Stated [Primary Care Provider] - 1-2 days Time of Disposition: 03:20
[2021-03-18 02:38] LABS: Basophils % (A) 0 %; Eosinophils # (A) 0.2 k/uL (0-0.7); Eosinophils % (A) 2 %; HCT 32.2 % (39.0-53.0); Lymphocytes # (A) 0.5 k/uL (1.0-4.8); Lymphocytes % (A) 4 %; MCH 29.5 pg (25.0-35.0); MCHC 33.4 g/dL (31.0-37.0); MCV 88.4 fL (80.0-100.0); Mean Platelet Volume 7.6; Monocytes # (A) 0.6 k/uL (0-1.0); Monocytes % (A) 4 %; Neutrophils # (A) 11.1 k/uL (1.3-7.7); Neutrophils % (A) 89 %; Platelet Count 190 k/uL (150-450); RBC 3.64 m/uL (4.30-5.90); RDW 14.7 % (11.5-15.5); WBC 12.6 k/uL (3.8-10.6)
[2021-03-18 02:41] LABS: HGB 10.7 gm/dL (13.0-17.5)
[2021-03-18 02:50] LABS: Albumin 3.9 g/dL (3.5-5.0); Calcium 9.3 mg/dL (8.4-10.2); Prothrombin Time 10.9 sec (9.0-12.0); Total Bilirubin 0.9 mg/dL (0.2-1.3); Total Protein 6.4 g/dL (6.3-8.2)
[2021-03-18 02:59] LABS: Potassium 5.5 mmol/L (3.5-5.1)
[2021-03-18] MEDS ORDERED: ACET/COD 300 MG/30 MG STARTER PACK 6 TAB BTL PO STA (03:19)
[2021-03-18 03:39] VITALS: BP 145/72; PULSE 78; RESP 16
--- NOTE | 2021-03-18 03:42 | XR ---
EXAM: XR Right Hip With Pelvis When Performed, 2 or 3 Views CLINICAL HISTORY: ITS.REASON XR Reason: Hip pain TECHNIQUE: Two or three views of the right hip with pelvis when performed. COMPARISON: No relevant prior studies available. FINDINGS: Bones/joints: No acute fracture. No dislocation. Mild osteoarthrosis. Soft tissues: Unremarkable. IMPRESSION: No acute osseous abnormalities.
== END 2021-03-18 03:39 | disposition home or self-care (01) ==
LOC: EC 01:52
DX: G89.18 Other acute postprocedural pain (principal); M25.551 Pain in right hip; S70.11XA Contusion of right thigh, initial encounter; R10.31 Right lower quadrant pain; X58.XXXA Exposure to other specified factors, initial encounter
CPT/HCPCS: 36415; 80053; 85025; 85610; 85730; 73502; 99284; 96374; J2270

== ENCOUNTER → 2021-05-19 | Outpatient (CLI) | payer MEDICARE ==
[2021-05-19 23:05] LABS: Basophils # (A) 0.04 X 10*3/uL (0.00-0.10); Basophils % (A) 0.5 %; Eosinophils # (A) 0.14 X 10*3/uL (0.04-0.35); Eosinophils % (A) 1.9 %; HCT 40.7 % (39.6-50.0); HGB 12.5 g/dL (13.0-17.0); Lymphocytes # (A) 0.69 X 10*3/uL (0.90-5.00); Lymphocytes % (A) 9.5 %; MCH 29.6 pg (27.0-32.0); MCHC 30.7 g/dL (32.0-37.0); MCV 96.4 fL (80.0-97.0); Mean Platelet Volume 10.5 fL (9.5-12.2); Monocytes # (A) 0.66 X 10*3/uL (0.20-1.00); Neutrophils # (A) 5.75 X 10*3/uL (1.80-7.70); Neutrophils % (A) 78.8 %; Platelet Count 152 X 10*3/uL (140-440); RBC 4.22 X 10*6/uL (4.40-5.60); RDW 17.2 % (11.5-14.5)
[2021-05-20 00:52] LABS: INR 1.15 (0.90-1.11); Partial Thromboplastin Time 30.3 sec (23.5-31.0); Prothrombin Time 12.4 sec (9.9-11.9)
[2021-05-20 04:34] LABS: African American GFR (CKD) 38.3 (60.0-200.0); Anion Gap 13.7 mmol/L (4.00-12.00); Carbon Dioxide 25.3 mmol/L (21.6-31.8); Non-African American GFR(CKD) 33.1 (60.0-200.0); Potassium 4.5 mmol/L (3.5-5.5)
== END | disposition home or self-care (01) ==
LOC: LABWHC1 15:21
PROVIDERS: ATTEND Internal Medicine
DX: R80.9 Proteinuria, unspecified (principal)
CPT/HCPCS: 36415; 80051; 82565; 84520; 85025; 85610; 85730; 86769

== ENCOUNTER 2021-05-22 08:04 | Day surgery (SDC) | payer MEDICARE ==
[2021-05-22] MEDS ORDERED: DESMOPRESSIN ACETATE 4 MCG/ML VIAL (MDV) IV ONE (08:30)
[2021-05-22 08:41] VITALS: TEMP 97.5
[2021-05-22] MEDS ORDERED: ALPRAZolam 0.25 MG TAB PO PRN (08:44)
[2021-05-22] MEDS ORDERED: HYDROmorphone 0.5 MG/0.5 ML SYRINGE IVP STA (10:17)
--- NOTE | 2021-05-22 11:05 | CT ---
EXAMINATION TYPE: CT biopsy renal RT DATE OF EXAM: 05/22/2021 COMPARISON: NONE HISTORY: Proteinuria CT DLP: 1678 mGycm The procedure was explained to the patient. The risks, complications, benefits, and alternatives wer e discussed and any questions were answered. Informed consent was obtained. Patient was placed pron e on the CT table and prepped and draped in the usual sterile fashion. Utilizing CT guidance, an 18 gauge core biopsy needle access into the right renal cortex was achieved and three 18 gauge core samples were obtained. The patient was stable throughout the procedure and remained stable upon discharge. IMPRESSION: 1. Successful 18 gauge core biopsy of the kidney function. 2. Note is made of a solid-appearing mass within the left kidney correlate clinically for malignancy.
[2021-05-22 15:55] VITALS: RESP 16
[2021-05-22 16:13] VITALS: BP 130/68; PULSE 58
== END 2021-05-22 15:05 | disposition home or self-care (01) ==
LOC: RADPROMAIN 08:04
PROVIDERS: ATTEND Internal Medicine
DX: R80.9 Proteinuria, unspecified (principal); N28.9 Disorder of kidney and ureter, unspecified
CPT/HCPCS: 86900; 86901; 82947; 86850; 36415; 50200; 77012; J2597; J1170

== ENCOUNTER 2021-06-06 11:23 | Inpatient (IN) | payer MEDICARE ==
--- NOTE | 2021-06-06 13:14 | ED ---
General Adult HPI - General Chief complaint: Shortness of Breath Stated complaint: sent for poss PE Time Seen by Provider: 06/06/21 12:55 Source: patient Mode of arrival: wheelchair Limitations: no limitations - History of Present Illness Initial comments: Dictation was produced using [employer] dictation software. please excuse any grammatical, word or spelling errors. Chief Complaint: 70-year-old male sent in from primary care physician's office for abnormal blood work History of Present Illness: Is a 70-year-old male. He had blood work performed approximately one week ago. Patient was told to come to the emergency department for elevated d-dimer. Patient has A. fib and takes anticoagulation medications. He's been feeling short of breath since an ablation that was performed by senior project manager since February. Patient had blood work that was drawn one week ago. He just found out today that his labs were concerning was told to c ome to the ER. Patient supposedly had an elevated d-dimer of 1.9. Brain Natruretic peptide of 777. Denies any cough. No chest pain. No history of DVT or PE. Patient denies any history of congestive heart failure. The ROS documented in this emergency department record has been reviewed and con firmed by me. Those systems with pertinent positive or negative responses have been documented in the HPI. All other systems are other negative and/or noncontributory. PHYSICAL EXAM: General Impression: Alert and oriented x3, not in acute distress HEENT: Normocephalic atraumatic, extra-ocular movements intact, pupils equal and reactive to light bilaterally, mucous membranes moist. Cardiovascular: Heart regular rate and rhythm Chest: Able to complete full sentences, no retractions, no tachypnea, lungs clear to auscultation bilaterally Abdomen: abdomen soft, non-tender, non-distended, no organomegaly Musculoskeletal: Pulses present and equal in all extremities, no peripheral edema Motor: no focal deficits noted Neurological: CN II-XII grossly intact, no focal motor or sensory deficits noted Skin: Intact with no visualized rashes Psych: Normal affect and mood ED course: 70-year-old male presents to the emergency department after suction from primary care physician come to the evaluated the emergency department for shortness of breath. He supposedly had one week old labs that had a d-dimer of 1.9 and a BNP of 777. Patient is well-appearing at bedside. Vital signs upon arrival are within acceptable limits. Chart review was performed. There is no access patient's blood work that was drawn within the last 2 weeks. EKG interpretation: Ventricular rate 86, a flutter, QRS 170, QTc 507. No [place] prolongation, no ST or T-wave changes noted. EKG compared to 11/21/2020 showing no changes. Overall, this EKG is unremarkable Laboratory evaluation is reobtained here in our facility. CBC within acceptable limits. D-dimer is 1.98. Metabolic panel shows creatinine of 2.3 with a BUN of 61. Patient has history of kidney disease. Troponin negative. Brain natruret ic peptide is 14,600. 4 panel viral PCR is negative for influenza, RSV and coronavirus. Pending nuclear medicine scan and chest x-ray. Patient reevaluated at bedside just before nuclear medicine scan. He wasn't showing any severe signs of respiratory distress. Nuclear medicine scan shows low pr obability for pulmonary embolus. Given patient's clinical presentation is concern of new-onset heart failure. Patient will be admitted. With cardiology on consultation. Case discussed with Rogers from [facility] group is willing to accept patient's care. Patient be admitted with consultation to cardiology. - Related Data Home Medications Medication Instructions Recorded Confirmed Apixaban [Eliquis] 5 mg PO BID 04/25/19 06/06/21 Cinnamon Bark [Cinnamon] 1,000 mg PO BID 04/25/19 06/06/21 Atorvastatin Calcium [Lipitor] 80 mg PO HS 11/21/20 06/06/21 Cholecalciferol [Vitamin D3 (25 50 mcg PO DAILY 11/21/20 06/06/21 Mcg = 1000 Iu)] glipiZIDE XL [Glucotrol XL] 10 mg PO DAILY 11/21/20 06/06/21 Pioglitazone [Actos] 15 mg PO DAILY 03/01/21 06/06/21 Amiodarone HCl [Pacerone] 400 mg PO DAILY 05/15/21 06/06/21 Omeprazole [PriLOSEC] 40 mg PO DAILY 05/15/21 06/06/21 calcitrioL [Calcitriol] 0.25 mcg PO LOONEY 05/15/21 06/06/21 Cetirizine HCl [Zyrtec] 10 mg PO DAILY 06/06/21 06/06/21 Montelukast Sodium [Singulair] 10 mg PO HS 06/06/21 06/06/21 Tamsulosin [Flomax] 0.4 mg PO DAILY 06/06/21 06/06/21 metFORMIN HCL [Glucophage] 1,000 mg PO BID 06/06/21 06/06/21 sitaGLIPtin [Januvia] 50 mg PO DAILY 06/06/21 06/06/21 Previous Rx's Medication Instructions Recorded Furosemide [Lasix] 80 mg PO BID@0900,1600 30 Days #60 06/09/21 tab Losartan [Cozaar] 25 mg PO DAILY 30 Days #30 tab 06/09/21 Allergies Allergy/AdvReac Type Severity Reaction Status Date / Time No Known Allergies Allergy Verified 06/06/21 16:38 Review of Systems ROS Statement: Those systems with pertinent positive or pertinent negative responses have been documented in the HPI. ROS Other: All systems not noted in ROS Statement are negative. Past Medical History Past Medical History: Atrial Fibrillation, Diabetes Mellitus, Hyperlipidemia, Hypertension, Myocardial Infarction (PR), Renal Disease, Sleep Apnea/CPAP/BIPAP Additional Past Medical History / Comment(s): neuropathy bilateral feet, chronic kidney disease stage III, hx "minor prostate ca"- dr monitoring , recent UTI , home CPAP , tachycardia Last Myocardial Infarction Date:: 01/2001 History of Any Multi-Drug Resistant Organisms: None Reported Past Surgical History: Ablation, Cardiac Ablation, Coronary Bypass/CABG, Heart Catheterization With Stent, Pacemaker Additional Past Surgical History / Comment(s): 11/15/20 prostate biopsy, 2000 CABG 4 vessel, 3 cardiac stents, Cardioversion, loop recorder, colonoscopy . Past Anesthesia/Blood Transfusion Reactions: No Reported Reaction Date of Last Stent Placement:: 2006 Type of Cardiac Device: Biventricular Pacemaker Device Placement Date:: 08/25/19 Past Psychological History: No Psychological Hx Reported Smoking Status: Never smoker Past Alcohol Use History: None Reported Past Drug Use History: None Reported - Past Family History Father Family Medical History: Cancer Additional Family Medical History / Comment(s): pancreatic cancer Mother Family Medical History: Cancer Additional Family Medical History / Comment(s): breast cancer Sister(s) Family Medical History: Diabetes Mellitus General Exam Limitations: no limitations Course Vital Signs 06/06/21 06/06/21 06/07/21 11:35 18:55 06:54 Temperature 98.6 F Pulse Rate 66 58 L Pulse Rate [ Right] Respiratory 24 18 18 Rate Blood Pressure 129/79 138/71 Blood Pressure [Right Arm] O2 Sat by Pulse 97 98 96 Oximetry 06/07/21 07:00 Temperature 97.4 F L Pulse Rate Pulse Rate [ 56 L Right] Respiratory 18 Rate Blood Pressure Blood Pressure 119/72 [Right Arm] O2 Sat by Pulse 96 Oximetry Medical Decision Making - Lab Data Result diagrams: 06/07/21 03:34 06/09/21 06:21 Lab Results 06/06/21 06/06/21 06/06/21 Range/Units 13:15 13:15 13:15 WBC 5.5 (3.8-10.6) k/uL RBC 3.86 L (4.30-5.90) m/uL Hgb 12.0 L (13.0-17.5) gm/dL Hct 36.4 L (39.0-53.0) % MCV 94.3 (80.0-100.0) fL MCH 31.2 (25.0-35.0) pg MCHC 33.1 (31.0-37.0) g/dL RDW 16.6 H (11.5-15.5) % Plt Count 130 L (150-450) k/uL MPV 8.3 Immature Gran % (Auto) % Absolute Nucleated RBC (0.00-0.00) X 10*3/uL Neutrophils % 83 % Lymphocytes % 7 % Monocytes % 6 % Eosinophils % 1 % Basophils % 1 % Immature Gran # (0.00-0.04) X 10*3/uL Neutrophils # 4.5 (1.3-7.7) k/uL Lymphocytes # 0.4 L (1.0-4.8) k/uL Monocytes # 0.3 (0-1.0) k/uL Eosinophils # 0.1 (0-0.7) k/uL Basophils # 0.0 (0-0.2) k/uL NRBC/100 WBC Diff (0.0-0.0) /100 WBCS Anisocytosis Slight D-Dimer 1.98 H (<0.60) mg/L FEU Sodium 136 L (137-145) mmol/L Potassium 4.5 (3.5-5.1) mmol/L Chloride 103 (98-107) mmol/L Carbon Dioxide 21 L (22-30) mmol/L Anion Gap 12 mmol/L BUN 61 H (9-20) mg/dL Creatinine 2.30 H (0.66-1.25) mg/dL Est GFR (CKD-EPI)AfAm 32 (>60 ml/min/1.73 sqM) Est GFR (CKD-EPI)NonAf 28 (>60 ml/min/1.73 sqM) BUN/Creatinine Ratio (12.00-20.00) Ratio Glucose 248 H (74-99) mg/dL POC Glucose (mg/dL) (75-99) mg/dL POC Glu Medical Records Coder ID Estimated Ave Glu mg/dL Hemoglobin A1c (4.0-6.0) % Calcium 9.1 (8.4-10.2) mg/dL Magnesium (1.5-2.4) mg/dL Total Bilirubin (0.2-1.2) mg/dL AST (14-35) U/L ALT (10-49) U/L Alkaline Phosphatase (41-126) U/L Troponin I (0.000-0.034) ng/mL NT-Pro-B Natriuret Pep pg/mL Total Protein (6.2-8.2) g/dL Albumin (3.80-4.90) g/dL Globulin (1.6-3.3) g/dL Albumin/Globulin Ratio (1.60-3.17) g/dL Triglycerides (0.0-149.0) mg/dL Cholesterol (0-200) mg/dL LDL Cholesterol, Calc (0.0-131.0) mg/dL VLDL Cholesterol, Calc (5.00-40.00) mg/dL HDL Cholesterol (40.0-60.0) mg/dL Cholesterol/HDL Ratio TSH (0.350-5.500) uIU/mL Urine Color Urine Appearance (Clear) Urine pH (5.0-8.0) Ur Specific Dil[place] (1.001-1.035) Urine Protein (Negative) Urine Glucose (UA) (Negative) Urine Ketones (Negative) Urine Blood (Negative) Urine Nitrite (Negative) Urine Bilirubin (Negative) Urine Urobilinogen (<2.0) mg/dL Ur Leukocyte Esterase (Negative) Influenza Type A (PCR) (Not Detectd) Influenza Type B (PCR) (Not Detectd) RSV (PCR) (Not Detectd) SARS-CoV-2 (PCR) (Not Detectd) Blood Type Blood Type Recheck Bld Type Recheck Status Antibody Screen Spec Expiration Date 06/06/21 06/06/21 06/06/21 Range/Units 13:15 13:15 13:15 WBC (3.8-10.6) k/uL RBC (4.30-5.90) m/uL Hgb (13.0-17.5) gm/dL Hct (39.0-53.0) % MCV (80.0-100.0) fL MCH (25.0-35.0) pg MCHC (31.0-37.0) g/dL RDW (11.5-15.5) % Plt Count (150-450) k/uL MPV Immature Gran % (Auto) % Absolute Nucleated RBC (0.00-0.00) X 10*3/uL Neutrophils % % Lymphocytes % % Monocytes % % Eosinophils % % Basophils % % Immature Gran # (0.00-0.04) X 10*3/uL Neutrophils # (1.3-7.7) k/uL Lymphocytes # (1.0-4.8) k/uL Monocytes # (0-1.0) k/uL Eosinophils # (0-0.7) k/uL Basophils # (0-0.2) k/uL NRBC/100 WBC Diff (0.0-0.0) /100 WBCS Anisocytosis D-Dimer (<0.60) mg/L FEU Sodium (137-145) mmol/L Potassium (3.5-5.1) mmol/L Chloride (98-107) mmol/L Carbon Dioxide (22-30) mmol/L Anion Gap mmol/L BUN (9-20) mg/dL Creatinine (0.66-1.25) mg/dL Est GFR (CKD-EPI)AfAm (>60 ml/min/1.73 sqM) Est GFR (CKD-EPI)NonAf (>60 ml/min/1.73 sqM) BUN/Creatinine Ratio (12.00-20.00) Ratio Glucose (74-99) mg/dL POC Glucose (mg/dL) (75-99) mg/dL POC Glu Medical Records Coder ID Estimated Ave Glu mg/dL Hemoglobin A1c (4.0-6.0) % Calcium (8.4-10.2) mg/dL Magnesium (1.5-2.4) mg/dL Total Bilirubin (0.2-1.2) mg/dL AST (14-35) U/L ALT (10-49) U/L Alkaline Phosphatase (41-126) U/L Troponin I (0.000-0.034) ng/mL NT-Pro-B Natriuret Pep 65522 pg/mL Total Protein (6.2-8.2) g/dL Albumin (3.80-4.90) g/dL Globulin (1.6-3.3) g/dL Albumin/Globulin Ratio (1.60-3.17) g/dL Triglycerides (0.0-149.0) mg/dL Cholesterol (0-200) mg/dL LDL Cholesterol, Calc (0.0-131.0) mg/dL VLDL Cholesterol, Calc (5.00-40.00) mg/dL HDL Cholesterol (40.0-60.0) mg/dL Cholesterol/HDL Ratio TSH (0.350-5.500) uIU/mL Urine Color Urine Appearance (Clear) Urine pH (5.0-8.0) Ur Specific Dil[place] (1.001-1.035) Urine Protein (Negative) Urine Glucose (UA) (Negative) Urine Ketones (Negative) Urine Blood (Negative) Urine Nitrite (Negative) Urine Bilirubin (Negative) Urine Urobilinogen (<2.0) mg/dL Ur Leukocyte Esterase (Negative) Influenza Type A (PCR) Not Detected (Not Detectd) Influenza Type B (PCR) Not Detected (Not Detectd) RSV (PCR) Not Detected (Not Detectd) SARS-CoV-2 (PCR) Not Detected (Not Detectd) Blood Type A Negative Blood Type Recheck A Neg Bld Type Recheck Status No Antibody Screen NEGATIVE Spec Expiration Date 06/09/2021231406/06/21 06/06/21 06/06/21 Range/Units 13:15 18:18 18:18 WBC (3.8-10.6) k/uL RBC (4.30-5.90) m/uL Hgb (13.0-17.5) gm/dL Hct (39.0-53.0) % MCV (80.0-100.0) fL MCH (25.0-35.0) pg MCHC (31.0-37.0) g/dL RDW (11.5-15.5) % Plt Count (150-450) k/uL MPV Immature Gran % (Auto) % Absolute Nucleated RBC (0.00-0.00) X 10*3/uL Neutrophils % % Lymphocytes % % Monocytes % % Eosinophils % % Basophils % % Immature Gran # (0.00-0.04) X 10*3/uL Neutrophils # (1.3-7.7) k/uL Lymphocytes # (1.0-4.8) k/uL Monocytes # (0-1.0) k/uL Eosinophils # (0-0.7) k/uL Basophils # (0-0.2) k/uL NRBC/100 WBC Diff (0.0-0.0) /100 WBCS Anisocytosis D-Dimer (<0.60) mg/L FEU Sodium (137-145) mmol/L Potassium (3.5-5.1) mmol/L Chloride (98-107) mmol/L Carbon Dioxide (22-30) mmol/L Anion Gap mmol/L BUN (9-20) mg/dL Creatinine (0.66-1.25) mg/dL Est GFR (CKD-EPI)AfAm (>60 ml/min/1.73 sqM) Est GFR (CKD-EPI)NonAf (>60 ml/min/1.73 sqM) BUN/Creatinine Ratio (12.00-20.00) Ratio Glucose (74-99) mg/dL POC Glucose (mg/dL) (75-99) mg/dL POC Glu Medical Records Coder ID Estimated Ave Glu mg/dL 192 Hemoglobin A1c 8.3 H (4.0-6.0) % Calcium (8.4-10.2) mg/dL Magnesium (1.5-2.4) mg/dL Total Bilirubin (0.2-1.2) mg/dL AST (14-35) U/L ALT (10-49) U/L Alkaline Phosphatase (41-126) U/L Troponin I <0.012 <0.012 (0.000-0.034) ng/mL NT-Pro-B Natriuret Pep pg/mL Total Protein (6.2-8.2) g/dL Albumin (3.80-4.90) g/dL Globulin (1.6-3.3) g/dL Albumin/Globulin Ratio (1.60-3.17) g/dL Triglycerides (0.0-149.0) mg/dL Cholesterol (0-200) mg/dL LDL Cholesterol, Calc (0.0-131.0) mg/dL VLDL Cholesterol, Calc (5.00-40.00) mg/dL HDL Cholesterol (40.0-60.0) mg/dL Cholesterol/HDL Ratio TSH (0.350-5.500) uIU/mL Urine Color Urine Appearance (Clear) Urine pH (5.0-8.0) Ur Specific Dil[place] (1.001-1.035) Urine Protein (Negative) Urine Glucose (UA) (Negative) Urine Ketones (Negative) Urine Blood (Negative) Urine Nitrite (Negative) Urine Bilirubin (Negative) Urine Urobilinogen (<2.0) mg/dL Ur Leukocyte Esterase (Negative) Influenza Type A (PCR) (Not Detectd) Influenza Type B (PCR) (Not Detectd) RSV (PCR) (Not Detectd) SARS-CoV-2 (PCR) (Not Detectd) Blood Type Blood Type Recheck Bld Type Recheck Status Antibody Screen Spec Expiration Date 06/06/21 06/06/21 06/06/21 Range/Units 18:25 18:55 20:54 WBC (3.8-10.6) k/uL RBC (4.30-5.90) m/uL Hgb (13.0-17.5) gm/dL Hct (39.0-53.0) % MCV (80.0-100.0) fL MCH (25.0-35.0) pg MCHC (31.0-37.0) g/dL RDW (11.5-15.5) % Plt Count (150-450) k/uL MPV Immature Gran % (Auto) % Absolute Nucleated RBC (0.00-0.00) X 10*3/uL Neutrophils % % Lymphocytes % % Monocytes % % Eosinophils % % Basophils % % Immature Gran # (0.00-0.04) X 10*3/uL Neutrophils # (1.3-7.7) k/uL Lymphocytes # (1.0-4.8) k/uL Monocytes # (0-1.0) k/uL Eosinophils # (0-0.7) k/uL Basophils # (0-0.2) k/uL NRBC/100 WBC Diff (0.0-0.0) /100 WBCS Anisocytosis D-Dimer (<0.60) mg/L FEU Sodium (137-145) mmol/L Potassium (3.5-5.1) mmol/L Chloride (98-107) mmol/L Carbon Dioxide (22-30) mmol/L Anion Gap mmol/L BUN (9-20) mg/dL Creatinine (0.66-1.25) mg/dL Est GFR (CKD-EPI)AfAm (>60 ml/min/1.73 sqM) Est GFR (CKD-EPI)NonAf (>60 ml/min/1.73 sqM) BUN/Creatinine Ratio (12.00-20.00) Ratio Glucose (74-99) mg/dL POC Glucose (mg/dL) 212 H (75-99) mg/dL POC Glu Medical Records Coder ID Lorenzo Hart Estimated Ave Glu mg/dL Hemoglobin A1c (4.0-6.0) % Calcium (8.4-10.2) mg/dL Magnesium (1.5-2.4) mg/dL Total Bilirubin (0.2-1.2) mg/dL AST (14-35) U/L ALT (10-49) U/L Alkaline Phosphatase (41-126) U/L Troponin I <0.012 (0.000-0.034) ng/mL NT-Pro-B Natriuret Pep pg/mL Total Protein (6.2-8.2) g/dL Albumin (3.80-4.90) g/dL Globulin (1.6-3.3) g/dL Albumin/Globulin Ratio (1.60-3.17) g/dL Triglycerides (0.0-149.0) mg/dL Cholesterol (0-200) mg/dL LDL Cholesterol, Calc (0.0-131.0) mg/dL VLDL Cholesterol, Calc (5.00-40.00) mg/dL HDL Cholesterol (40.0-60.0) mg/dL Cholesterol/HDL Ratio TSH (0.350-5.500) uIU/mL Urine Color Light Yellow Urine Appearance Clear (Clear) Urine pH 5.0 (5.0-8.0) Ur Specific Dil[place] 1.006 (1.001-1.035) Urine Protein Trace H (Negative) Urine Glucose (UA) 3+ H (Negative) Urine Ketones Negative (Negative) Urine Blood Negative (Negative) Urine Nitrite Negative (Negative) Urine Bilirubin Negative (Negative) Urine Urobilinogen <2.0 (<2.0) mg/dL Ur Leukocyte Esterase Negative (Negative) Influenza Type A (PCR) (Not Detectd) Influenza Type B (PCR) (Not Detectd) RSV (PCR) (Not Detectd) SARS-CoV-2 (PCR) (Not Detectd) Blood Type Blood Type Recheck Bld Type Recheck Status Antibody Screen Spec Expiration Date 06/06/21 06/07/21 06/07/21 Range/Units 22:20 03:34 03:34 WBC 4.76 (3.8-10.6) k/uL RBC 3.38 L (4.30-5.90) m/uL Hgb 10.2 L (13.0-17.5) gm/dL Hct 32.7 L (39.0-53.0) % MCV 96.7 (80.0-100.0) fL MCH 30.2 (25.0-35.0) pg MCHC 31.2 L (31.0-37.0) g/dL RDW 16.2 H (11.5-15.5) % Plt Count 120 L (150-450) k/uL MPV 11.0 Immature Gran % (Auto) 0.2 % Absolute Nucleated RBC 0 (0.00-0.00) X 10*3/uL Neutrophils % 72.3 % Lymphocytes % 12.0 % Monocytes % 12.8 % Eosinophils % 2.1 % Basophils % 0.6 % Immature Gran # 0.01 (0.00-0.04) X 10*3/uL Neutrophils # 3.44 (1.3-7.7) k/uL Lymphocytes # 0.57 L (1.0-4.8) k/uL Monocytes # 0.61 (0-1.0) k/uL Eosinophils # 0.10 (0-0.7) k/uL Basophils # 0.03 (0-0.2) k/uL NRBC/100 WBC Diff 0 (0.0-0.0) /100 WBCS Anisocytosis D-Dimer (<0.60) mg/L FEU Sodium 137 (137-145) mmol/L Potassium 4.1 (3.5-5.1) mmol/L Chloride 103 (98-107) mmol/L Carbon Dioxide 26.7 (22-30) mmol/L Anion Gap 7.30 mmol/L BUN 62.0 H (9-20) mg/dL Creatinine 2.4 H (0.66-1.25) mg/dL Est GFR (CKD-EPI)AfAm 30.7 L (>60 ml/min/1.73 sqM) Est GFR (CKD-EPI)NonAf 26.5 L (>60 ml/min/1.73 sqM) BUN/Creatinine Ratio 25.83 H (12.00-20.00) Ratio Glucose 159 H (74-99) mg/dL POC Glucose (mg/dL) 255 H (75-99) mg/dL POC Glu Medical Records Coder ID Leann Valadez Estimated Ave Glu mg/dL Hemoglobin A1c (4.0-6.0) % Calcium 8.4 L (8.4-10.2) mg/dL Magnesium 1.8 (1.5-2.4) mg/dL Total Bilirubin 0.7 (0.2-1.2) mg/dL AST 16 (14-35) U/L ALT 22 (10-49) U/L Alkaline Phosphatase 100 (41-126) U/L Troponin I (0.000-0.034) ng/mL NT-Pro-B Natriuret Pep pg/mL Total Protein 5.7 L (6.2-8.2) g/dL Albumin 3.70 L (3.80-4.90) g/dL Globulin 2.0 (1.6-3.3) g/dL Albumin/Globulin Ratio 1.85 (1.60-3.17) g/dL Triglycerides 71.0 (0.0-149.0) mg/dL Cholesterol 87 (0-200) mg/dL LDL Cholesterol, Calc 38.8 (0.0-131.0) mg/dL VLDL Cholesterol, Calc 14.20 (5.00-40.00) mg/dL HDL Cholesterol 34.0 L (40.0-60.0) mg/dL Cholesterol/HDL Ratio 2.56 TSH (0.350-5.500) uIU/mL Urine Color Urine Appearance (Clear) Urine pH (5.0-8.0) Ur Specific Dil[place] (1.001-1.035) Urine Protein (Negative) Urine Glucose (UA) (Negative) Urine Ketones (Negative) Urine Blood (Negative) Urine Nitrite (Negative) Urine Bilirubin (Negative) Urine Urobilinogen (<2.0) mg/dL Ur Leukocyte Esterase (Negative) Influenza Type A (PCR) (Not Detectd) Influenza Type B (PCR) (Not Detectd) RSV (PCR) (Not Detectd) SARS-CoV-2 (PCR) (Not Detectd) Blood Type Blood Type Recheck Bld Type Recheck Status Antibody Screen Spec Expiration Date 06/07/21 06/07/21 06/07/21 Range/Units 03:34 07:31 11:29 WBC (3.8-10.6) k/uL RBC (4.30-5.90) m/uL Hgb (13.0-17.5) gm/dL Hct (39.0-53.0) % MCV (80.0-100.0) fL MCH (25.0-35.0) pg MCHC (31.0-37.0) g/dL RDW (11.5-15.5) % Plt Count (150-450) k/uL MPV Immature Gran % (Auto) % Absolute Nucleated RBC (0.00-0.00) X 10*3/uL Neutrophils % % Lymphocytes % % Monocytes % % Eosinophils % % Basophils % % Immature Gran # (0.00-0.04) X 10*3/uL Neutrophils # (1.3-7.7) k/uL Lymphocytes # (1.0-4.8) k/uL Monocytes # (0-1.0) k/uL Eosinophils # (0-0.7) k/uL Basophils # (0-0.2) k/uL NRBC/100 WBC Diff (0.0-0.0) /100 WBCS Anisocytosis D-Dimer (<0.60) mg/L FEU Sodium (137-145) mmol/L Potassium (3.5-5.1) mmol/L Chloride (98-107) mmol/L Carbon Dioxide (22-30) mmol/L Anion Gap mmol/L BUN (9-20) mg/dL Creatinine (0.66-1.25) mg/dL Est GFR (CKD-EPI)AfAm (>60 ml/min/1.73 sqM) Est GFR (CKD-EPI)NonAf (>60 ml/min/1.73 sqM) BUN/Creatinine Ratio (12.00-20.00) Ratio Glucose (74-99) mg/dL POC Glucose (mg/dL) 240 H 317 H (75-99) mg/dL POC Glu Medical Records Coder ID Licona, Charlene Licona, Charlene Estimated Ave Glu mg/dL Hemoglobin A1c (4.0-6.0) % Calcium (8.4-10.2) mg/dL Magnesium (1.5-2.4) mg/dL Total Bilirubin (0.2-1.2) mg/dL AST (14-35) U/L ALT (10-49) U/L Alkaline Phosphatase (41-126) U/L Troponin I (0.000-0.034) ng/mL NT-Pro-B Natriuret Pep pg/mL Total Protein (6.2-8.2) g/dL Albumin (3.80-4.90) g/dL Globulin (1.6-3.3) g/dL Albumin/Globulin Ratio (1.60-3.17) g/dL Triglycerides (0.0-149.0) mg/dL Cholesterol (0-200) mg/dL LDL Cholesterol, Calc (0.0-131.0) mg/dL VLDL Cholesterol, Calc (5.00-40.00) mg/dL HDL Cholesterol (40.0-60.0) mg/dL Cholesterol/HDL Ratio TSH 1.880 (0.350-5.500) uIU/mL Urine Color Urine Appearance (Clear) Urine pH (5.0-8.0) Ur Specific [place] (1.001-1.035) Urine Protein (Negative) Urine Glucose (UA) (Negative) Urine Ketones (Negative) Urine Blood (Negative) Urine Nitrite (Negative) Urine Bilirubin (Negative) Urine Urobilinogen (<2.0) mg/dL Ur Leukocyte Esterase (Negative) Influenza Type A (PCR) (Not Detectd) Influenza Type B (PCR) (Not Detectd) RSV (PCR) (Not Detectd) SARS-CoV-2 (PCR) (Not Detectd) Blood Type Blood Type Recheck Bld Type Recheck Status Antibody Screen Spec Expiration Date Disposition Clinical Impression: Heart failure Disposition: ADMITTED IP TO THIS HOSP Condition: Fair
[2021-06-06 13:47] LABS: Calcium 9.1 mg/dL (8.4-10.2); Potassium 4.5 mmol/L (3.5-5.1)
[2021-06-06 13:48] LABS: Anisocytosis Slight; Basophils % (A) 1 %; Eosinophils # (A) 0.1 k/uL (0-0.7); Eosinophils % (A) 1 %; HCT 36.4 % (39.0-53.0); Lymphocytes # (A) 0.4 k/uL (1.0-4.8); Lymphocytes % (A) 7 %; MCH 31.2 pg (25.0-35.0); MCHC 33.1 g/dL (31.0-37.0); MCV 94.3 fL (80.0-100.0); Mean Platelet Volume 8.3; Monocytes # (A) 0.3 k/uL (0-1.0); Monocytes % (A) 6 %; Neutrophils # (A) 4.5 k/uL (1.3-7.7); Neutrophils % (A) 83 %; Platelet Count 130 k/uL (150-450); RBC 3.86 m/uL (4.30-5.90); RDW 16.6 % (11.5-15.5); WBC 5.5 k/uL (3.8-10.6)
[2021-06-06] MEDS: FUROSEMIDE 10 MG/ML 4 ML VIAL IV SCH ×2 (16:31→16:32)
[2021-06-06] MEDS: SODIUM CHLORIDE 0.9% 1,000 ML IV SCH (16:36)
--- NOTE | 2021-06-06 16:55 | NM ---
EXAMINATION TYPE: NM pul vent and perfuse DATE OF EXAM: 06/06/2021 COMPARISON: Radiograph same day HISTORY: 70-year-old male elevated d-dimer, shortness of breath TECHNIQUE: Utilizing inhalation of 39.8 mCi Tc 99m DTPA aerosol and intravenous injection of 5.2 mCi of Tc 99m MAA, ventilation and perfusion images are acquired post injection in multiple projections. FINDINGS: Normal radiotracer distribution is noted in the lungs. There is no evidence of mismatched defects. IMPRESSION: Very low probability for pulmonary embolus.
--- NOTE | 2021-06-06 16:56 | XR ---
EXAMINATION TYPE: XR chest 2V DATE OF EXAM: 06/06/2021 COMPARISON: November 22, 2020 HISTORY: Short of breath TECHNIQUE: FINDINGS: Heart is borderline enlarged. There is minimal pulmonary congestion. There is mild blunting of the costophrenic angles. There is left axillary pacemaker. There are sternal wires. IMPRESSION: Mild heart failure with pleural effusions. Failure increased compared to old exam.
[2021-06-06] MEDS ORDERED: NALOXONE 0.4 MG/ML 1 ML VIAL IV PRN (17:03)
[2021-06-06] MEDS ORDERED: HYDROcodone/APAP 5-325MG 1 EACH TAB PO PRN (17:03)
[2021-06-06] MEDS ORDERED: PROCHLORPERAZINE 5 MG TAB PO PRN (17:03)
--- NOTE | 2021-06-06 17:21 | P.HPIM ---
<Lance Stock - Last Filed: 06/06/21 16:26> History of Present Illness H&P Date: 06/06/21 History of Presenting Illness: Patient is a pleasant 70-year-old male with a past medical history of CAD with previous MS and stent placement, CABG (quadruple bypass in 2000), hypertension, hyperlipidemia, atrial fibrillation on anticoagulation with Eliquis and status post biventricular pacemaker placement in 2019 as well as recent ablation on 03/05/21, congestive heart failure unknown type, [id number] diabetes mellitus type 2, stage IV CKD, prostate cancer currently watching, and obstructive sleep apnea CPAP dependent nightly. Patient presented to the emergency department as directed by his PCP for reports of having an elevated d- dimer. Patient reports that 2-1/2 weeks ago he was taken off of his Eliquis for 3 days for a kidney biopsy in which he had completed on 05/22/21. Patient states since this time he has been having decreased exercise tolerance, significant f atigue, shortness of breath, and productive cough. Patient states that he was seen by his primary care doctor, Dr. Salgado for these complaints and had some blood work drawn last week. Patient states that he received a phone call today informing him that his d-dimer was elevated and he needed to go to the emergency department to rule out a pulmonary embolism. 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 Riavs) and notified them of the abnormal results as well. 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 Patient states he has also been having a productive cough which is sometimes clear and sometimes a yellowish brown in color. He denies having any recent fevers, headaches, dizziness, lightheadedness, chest pain or palpitations, abdominal pain, nausea, changes in appetite, vomiting, or ex periencing any numbness/swelling/weakness/tingling in his extremities. In the emergency department patient had additional blood work drawn in d-dimer resulted at 1.98 and patient was sent for VQ scan. CBC revealed mild normocytic normochromic anemia with hemoglobin of 12.0 and thrombocytopenia with platelet count of 130,000. BMP consistent with stage IV CKD with BUN of 61, creatinine 2.30, and GFR of 28. Hyperglycemia was present with glucose of 248. Troponin was normal findings at less than 0.012. ProBNP was elevated to 14,600. Respiratory panel consisting of Influenza A/B PCR, RSV, and Covid PCR negative. EKG revealing atrial flutter with a 4-1 AV conduction and T-wave inversion in aVL which has changed from previous EKG completed on 03/07/21 in which patient was in sinus rhythm with a first-degree AV block with NE interval of 238 and a right bundle branch block. Chest x-ray showing mild heart failure with pleural effusions and borderline cardiac enlargement. VQ scan reporting very low possibility for pulmonary emboli. Patient admitted under our services for CHF exacerbation with consultation to cardiology. Review of systems: Pertinent positives and negatives as discussed in HPI, a complete review of systems was performed and all other systems are negative. Physical exam: Vital signs reviewed and stable. General: Nontoxic, no distress and appears stated age. Derm: Skin warm and dry, normal coloration for ethnicity. Head: Atraumatic, normocephalic and symmetric. Eyes: EOMs intact, no lid lag, and anicteric sclera Mouth: no lip lesions, mucus membranes moist Cardiovascular: Distant heart sounds with regular rate and rhythm. No murmur, gallop, or rub noted. Positive posterior tibial pulses bilaterally, and cap refill < 2 seconds. 1+ pitting bilateral lower extremity edema. Lungs: Respirations even, regular, and unlabored on room air. Lungs CTA bilaterally, no rhonchi, no rales, no wheezing, and no accessory muscle usage. Abdominal: soft, nontender to palpation, no guarding, no appreciable organomegaly Ext: ROM intact. No gross muscle atrophy, no contractures Neuro: Speech clear, face symmetrical and CN II-XII grossly intact with no noted focal neuro deficits Psych: Alert and oriented to person, place, time, and situation. Appropriate and pleasant affect. Assessment and Plan of Care: Acute exacerbation of chronic heart failure of unknown type -Chest x-ray showing mild heart failure with pleural effusions and borderline cardiac enlargement. -Cardiology consult -Echocardiogram -Telemetry monitoring -Trend troponins -ProBNP 14,600 -Daily weights -Close monitoring of I's and O's -Cardiac diet -Lasix 40 mg IVP every 12 hours -Continue daily Eliquis, Aspirin, atorvastatin, amiodarone, losartan and metoprolol -Lipid profile and Hgb A1c with a.m. labs. -Continued close monitoring of electrolytes while diuresing. Shortness of breath and fatigue -Likely secondary to acute exacerbation of chronic heart failure with proBNP of 14,600 and x-ray conclusive for mild CHF. -We will obtain echocardiogram. -Respiratory panel consisting of Influenza A/B PCR, RSV, and Covid PCR negative. -Chest x-ray showing mild heart failure with pleural effusions and borderline cardiac enlargement. -VQ scan reporting very low possibility for pulmonary emboli. -Treatment with Lasix IVP every 12 hours, please see treatment plan for acute exacerbation of chronic heart failure of unknown type CKD stage IV -BMP consistent with stage IV CKD with BUN 61, creatinine 2.30, and GFR of 28. -We will monitor renal function closely through diuresis with repeat a.m. labs. Nyc-oloanuv-bsxaprbjo diabetes mellitus type 2 -Hold oral glycemic medication in place patient on glycemic protocol with NovoLog sliding scale. Obstructive sleep apnea CPAP dependent nightly -Continue use of CPAP nightly. -Continue Singulair nightly. -Provide oxygen supplementation as needed to maintain SpO2 equal to or greater than 90%. -Encourage use of incentive spirometry 10-15 times hourly while awake. Hypertension Monitor vital signs and Continue daily medication regimen with losartan and metoprolol. Hyperlipidemia -Continue daily medication regimen with atorvastatin 80 mg nightly. -Lipid profile to be drawn with a.m. labs. Atrial fibrillation on anticoagulation with Eliquis and status post biventricular pacemaker placement in 2019 as well as recent ablation on 03/05/21 -Continue anticoagulation with Eliquis. History of CAD with previous MS and stent placement, CABG (quadruple bypass in 2000), pacemaker in 2019 -Continue daily Eliquis, Aspirin, atorvastatin, amiodarone, losartan and metoprolol. -Cardiology following for acute exacerbation of CHF. The patient is admitted with an anticipated greater than 2 midnight stay for evaluation of acute exacerbation of chronic heart failure of unknown type. CODE STATUS: Full code DVT prophylaxis: Eliquis Discussed with: Patient, patient's , and RN Anticipated discharge date: clinical course to determine Anticipated discharge place: home A total of 45 minutes was spent on the care of this complex patient more than 50% of the time was spent in counseling and care coordination. Past Medical History Past Medical History: Atrial Fibrillation, Diabetes Mellitus, Hyperlipidemia, Hypertension, Myocardial Infarction (MS), Renal Disease, Sleep Apnea/CPAP/BIPAP Additional Past Medical History / Comment(s): neuropathy bilateral feet, chronic kidney disease stage III, hx "minor prostate ca"- dr monitoring , recent UTI , home CPAP , tachycardia Last Myocardial Infarction Date:: 01/2001 History of Any Multi-Drug Resistant Organisms: None Reported Past Surgical History: Ablation, Cardiac Ablation, Coronary Bypass/CABG, Heart Catheterization With Stent, Pacemaker Additional Past Surgical History / Comment(s): 11/15/20 prostate biopsy, 2000 CABG 4 vessel, 3 cardiac stents, Cardioversion, loop recorder, colonoscopy . Past Anesthesia/Blood Transfusion Reactions: No Reported Reaction Date of Last Stent Placement:: 2006 Type of Cardiac Device: Biventricular Pacemaker Device Placement Date:: 08/25/19 Past Psychological History: No Psychological Hx Reported Smoking Status: Never smoker Past Alcohol Use History: None Reported Past Drug Use History: None Reported - Past Family History Father Family Medical History: Cancer Additional Family Medical History / Comment(s): pancreatic cancer Mother Family Medical History: Cancer Additional Family Medical History / Comment(s): breast cancer Sister(s) Family Medical History: Diabetes Mellitus Medications and Allergies Home Medications Medication Instructions Recorded Confirmed Type Apixaban [Eliquis] 5 mg PO BID 04/25/19 06/06/21 History Aspirin EC [Ecotrin Low Dose] 81 mg PO DAILY 04/25/19 06/06/21 History Cinnamon Bark [Cinnamon] 1,000 mg PO BID 04/25/19 06/06/21 History Atorvastatin Calcium [Lipitor] 80 mg PO HS 11/21/20 06/06/21 History Cholecalciferol [Vitamin D3 (25 50 mcg PO DAILY 11/21/20 06/06/21 History Mcg = 1000 Iu)] glipiZIDE XL [Glucotrol XL] 10 mg PO DAILY 11/21/20 06/06/21 History Furosemide [Lasix] 20 mg PO DAILY 03/01/21 06/06/21 History Pioglitazone [Actos] 15 mg PO DAILY 03/01/21 06/06/21 History Losartan [Cozaar] 50 mg PO DAILY 03/06/21 06/06/21 History Amiodarone HCl [Pacerone] 400 mg PO DAILY 05/15/21 06/06/21 History Metoprolol Succinate [Toprol XL] 50 mg PO DAILY 05/15/21 06/06/21 History Omeprazole [PriLOSEC] 40 mg PO DAILY 05/15/21 06/06/21 History calcitrioL [Calcitriol] 0.25 mcg PO LOONEY 05/15/21 06/06/21 History Cetirizine HCl [Zyrtec] 10 mg PO DAILY 06/06/21 06/06/21 History Montelukast Sodium [Singulair] 10 mg PO HS 06/06/21 06/06/21 History Tamsulosin [Flomax] 0.4 mg PO DAILY 06/06/21 06/06/21 History metFORMIN HCL [Glucophage] 1,000 mg PO BID 06/06/21 06/06/21 History sitaGLIPtin [Januvia] 50 mg PO DAILY 06/06/21 06/06/21 History Allergies Allergy/AdvReac Type Severity Reaction Status Date / Time No Known Allergies Allergy Verified 06/06/21 16:38 Physical Exam Vitals: Vital Signs Temp Pulse Resp BP Pulse Ox 06/06/21 11:35 98.6 F 66 24 129/79 97 Intake and Output 06/06/21 06/06/21 06/06/21 06:59 14:59 22:59 Other: Weight 99.79 kg Results CBC & Chem 7: 06/06/21 13:15 06/06/21 13:15 Labs: Abnormal Lab Results - Last 24 Hours (Table) 06/06/21 06/06/21 06/06/21 Range/Units 13:15 13:15 13:15 RBC 3.86 L (4.30-5.90) m/uL Hgb 12.0 L (13.0-17.5) gm/dL Hct 36.4 L (39.0-53.0) % RDW 16.6 H (11.5-15.5) % Plt Count 130 L (150-450) k/uL Lymphocytes # 0.4 L (1.0-4.8) k/uL D-Dimer 1.98 H (<0.60) mg/L FEU Sodium 136 L (137-145) mmol/L Carbon Dioxide 21 L (22-30) mmol/L BUN 61 H (9-20) mg/dL Creatinine 2.30 H (0.66-1.25) mg/dL Glucose 248 H (74-99) mg/dL <UriCelia Jeaneth - Last Filed: 06/06/21 19:48> History of Present Illness Patient seen and examined independently. Patient was also seen by Lance Stock NP and case was discussed. I am in agreement with subjective, physical exam, assessment and plan as written above and amended below. Still having some congestion and cough. The anxious about his workup in the hospital here we took his VQ scan was negative and additional troponins were negative. Continue with diuresis, await cardiology consultation and echocardiogram. General: non toxic, no distress, appears at stated age Derm: warm, dry Head: atraumatic, normocephalic, symmetric Eyes: EOMI, no lid lag, anicteric sclera Mouth: no lip lesion, mucus membranes moist Cardiovascular: S1S2 reg, no murmur, positive posterior tibial pulse bilateral, Lungs: Coarse breath sounds bilateral, no rhonchi, no rales , no accessory muscle use Abdominal: soft, nontender to palpation, no guarding, no appreciable organome john Ext: no gross muscle atrophy, trace edema, no contractures Neuro: CN II-XI grossly intact, no focal neuro deficits Psych: Alert, oriented, appropriate affect Physical Exam Osteopathic Statement: *. No significant issues noted on an osteopathic structural exam other than those noted in the History and Physical/Consult. Vitals: Vital Signs Temp Pulse Resp BP Pulse Ox 06/06/21 18:55 58 L 18 138/71 98 06/06/21 11:35 98.6 F 66 24 129/79 97 Intake and Output 06/06/21 06/06/21 06/06/21 06:59 14:59 22:59 Other: Weight 99.79 kg Results CBC & Chem 7: 06/06/21 13:15 06/06/21 13:15 Labs: Abnormal Lab Results - Last 24 Hours (Table) 06/06/21 06/06/21 06/06/21 Range/Units 13:15 13:15 13:15 RBC 3.86 L (4.30-5.90) m/uL Hgb 12.0 L (13.0-17.5) gm/dL Hct 36.4 L (39.0-53.0) % RDW 16.6 H (11.5-15.5) % Plt Count 130 L (150-450) k/uL Lymphocytes # 0.4 L (1.0-4.8) k/uL D-Dimer 1.98 H (<0.60) mg/L FEU Sodium 136 L (137-145) mmol/L Carbon Dioxide 21 L (22-30) mmol/L BUN 61 H (9-20) mg/dL Creatinine 2.30 H (0.66-1.25) mg/dL Glucose 248 H (74-99) mg/dL POC Glucose (mg/dL) (75-99) mg/dL Urine Protein (Negative) Urine Glucose (UA) (Negative) 06/06/21 06/06/21 Range/Units 18:25 18:55 RBC (4.30-5.90) m/uL Hgb (13.0-17.5) gm/dL Hct (39.0-53.0) % RDW (11.5-15.5) % Plt Count (150-450) k/uL Lymphocytes # (1.0-4.8) k/uL D-Dimer (<0.60) mg/L FEU Sodium (137-145) mmol/L Carbon Dioxide (22-30) mmol/L BUN (9-20) mg/dL Creatinine (0.66-1.25) mg/dL Glucose (74-99) mg/dL POC Glucose (mg/dL) 212 H (75-99) mg/dL Urine Protein Trace H (Negative) Urine Glucose (UA) 3+ H (Negative)
[2021-06-06 18:26] LABS: Glucose,Whole Blood 212 mg/dL (75-99)
[2021-06-06] MEDS: ACETAMINOPHEN TAB 325 MG TAB PO PRN (19:01)
[2021-06-06 19:24] LABS: Appearance,Urine Clear (Clear); Bilirubin,Urine Negative (Negative); Blood,Urine Negative (Negative); Color,Urine Light Yellow; Glucose,Urine (UA) 3+ (Negative); Ketones,Urine Negative (Negative); Leukocyte Esterase,Urine Negative (Negative); Nitrite,Urine Negative (Negative); Protein,Urine Trace (Negative); Specific Gravity,Urine 1.006 (1.001-1.035); Urobilinogen,Urine <2.0 mg/dL (<2.0)
[2021-06-06] MEDS: APIXABAN 5 MG TAB PO SCH (20:06)
[2021-06-06] MEDS: ATORVASTATIN 80 MG TAB PO SCH (20:06)
[2021-06-06] MEDS: MONTELUKAST 10 MG TAB PO SCH (20:06)
[2021-06-06] MEDS: INSULIN ASPART (NovoLOG) 100 UNIT/ML VIAL SQ SCH ×2 (20:07→22:23)
[2021-06-06 22:21] LABS: Glucose,Whole Blood 255 mg/dL (75-99)
[2021-06-07] MEDS: MELATONIN 3 MG TABLET PO PRN (02:34)
[2021-06-07] MEDS ORDERED: FUROSEMIDE 10 MG/ML 4 ML VIAL IV STA ×2 (02:39→09:34)
[2021-06-07 06:11] LABS: Hemoglobin A1C 8.3 % (4.0-6.0)
[2021-06-07 07:39] LABS: Glucose,Whole Blood 240 mg/dL (75-99)
[2021-06-07] MEDS: INSULIN ASPART (NovoLOG) 100 UNIT/ML VIAL SQ SCH ×6 (07:54→21:34)
[2021-06-07] MEDS: APIXABAN 5 MG TAB PO SCH ×2 (07:55→21:33)
[2021-06-07] MEDS: PANTOPRAZOLE 40 MG TABLET PO SCH (07:55)
[2021-06-07] MEDS: CHOLECALCIFEROL 25 MCG (1000 IU) TABLET PO SCH (07:55)
[2021-06-07] MEDS: METOPROLOL SUCCINATE (ER) 50 MG TAB.ER.24H PO SCH (07:56)
[2021-06-07] MEDS: ASPIRIN 81 MG PO SCH (07:56)
[2021-06-07] MEDS: LORATADINE 10 MG TAB PO SCH (07:56)
[2021-06-07] MEDS: TAMSULOSIN 0.4 MG CAP.ER.24H PO SCH (07:56)
[2021-06-07 08:49] LABS: Basophils # (A) 0.03 X 10*3/uL (0.00-0.10); Basophils % (A) 0.6 %; Eosinophils % (A) 2.1 %; HCT 32.7 % (39.6-50.0); HGB 10.2 g/dL (13.0-17.0); Lymphocytes # (A) 0.57 X 10*3/uL (0.90-5.00); MCH 30.2 pg (27.0-32.0); MCHC 31.2 g/dL (32.0-37.0); MCV 96.7 fL (80.0-97.0); Monocytes # (A) 0.61 X 10*3/uL (0.20-1.00); Monocytes % (A) 12.8 %; Neutrophils # (A) 3.44 X 10*3/uL (1.80-7.70); Neutrophils % (A) 72.3 %; Platelet Count 120 X 10*3/uL (140-440); RBC 3.38 X 10*6/uL (4.40-5.60); RDW 16.2 % (11.5-14.5); WBC 4.76 X 10*3/uL (4.50-10.00)
[2021-06-07] MEDS ORDERED: LOSARTAN 50 MG TAB PO SCH (09:00)
[2021-06-07 09:57] LABS: African American GFR (CKD) 30.7 (60.0-200.0); Albumin 3.7 g/dL (3.80-4.90); Albumin/Globulin Ratio 1.85 (1.60-3.17); Anion Gap 7.3 mmol/L (4.00-12.00); BUN/Creat Ratio 25.83 Ratio (12.00-20.00); Calcium 8.4 mg/dL (8.7-10.3); Carbon Dioxide 26.7 mmol/L (21.6-31.8); Chol/HDL Ratio 2.56; LDL Cholesterol,Calculated 38.8 mg/dL (0.0-131.0); Magnesium 1.8 mg/dL (1.5-2.4); Non-African American GFR(CKD) 26.5 (60.0-200.0); Potassium 4.1 mmol/L (3.5-5.5); Total Bilirubin 0.7 mg/dL (0.2-1.2); Total Protein 5.7 g/dL (6.2-8.2); VLDL Calculation 14.2 mg/dL (5.00-40.00)
--- NOTE | 2021-06-07 10:29 | P.CRDCN ---
History of Present Illness History of present illness: This is a 70-year-old male with a past medical history significant for coronary artery disease with previous CABG x 3 in 2000, previous stent placement, persistent atrial fibrillation, atrial flutter (on Eliquis), with previous ablation, most recent ablation on 03/06/21, sick sinus syndrome with dual-chamber pacemaker insertion 2018, hypertension, and hyperlipidemia, diabetes mellitus type 2, chronic kidney disease, obstructive sleep apnea with CPAP use. Patient follows in the office with Dr. Rivas. We have been asked to see the patient in consultation for CHF. Patient presented to the emergency department as directed by his PCP for reports of having an elevated d-dimer, and to rule out a pulmonary embolism. Patient states since April he has been having decreased exercise tolerance, significant fatigue, shortness of breath, and productive cough. Patient underwent a cardiac ablation in February 2021, unfortunately had a lot of bruising and bleeding with hematoma in the right groin with increased pain, states he had difficulty walking. He recovered from this. In April 2021 he felt short of breath and fatigued followed up with Dr. Rivas, an EKG was performed and his device was interrogated which revealed rapid atrial tachycardia. Patient was started on amiodarone 400mg daily. He states that since the medication adjustment he was feeling much better. However, patient reports that 2 weeks aqo he was taken off of his Eliquis for 3 days for a kidney biopsy in which he had completed on 05/22/21. 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 He also endorses increased abdominal bloating. DIAGNOSTICS: EKG reveals underlying atrial flutter, V-paced rhythm Chest xray mild heart failure with pleural effusions. Heart enlargement increased from old exam VQ scan low probability for PE Most recent echocardiogram in the office 12/12/20- EF 40-45%, moderately dilated left atrium, mild to moderate mitral regurgitation Most recent stress testLexiscan Cardiolite 02/2021 revealed left ventricular with moderate to severe LV dysfunction with an EF of 34%. There is a typical septal motion secondary to prior bypass surgery. Large size severe intensity fixed perfusion defect involving the inferior wall secondary to prior myocardial infarction. No reversible perfusion defects noted. Laboratory data: WBC 4.7, hemoglobin 10.2, platelets 120, sodium 137, potassium 4.1, BUN 62, sodium 2.4, proBNP 14,600, d-dimer 1.9, magnesium 1.8, troponin negative 3 Telemetry reviewed patient with underlying atrial fib/flutter, V paced rhythm heart rate in the 50s Current home cardiac medications include losartan 50 mg daily, Toprol succinate 50 mg daily, amiodarone 400 mg daily, Eliquis 5 mg twice a day, aspirin 81 mg daily, atorvastatin 80 mg nightly, Lasix 20 mg daily, REVIEW OF SYSTEMS: At the time of my exam: CONSTITUTIONAL: Denies fever or chills. HEENT: Denies blurred vision, vision changes, or eye pain. Denies hemoptysis CARDIOVASCULAR: Denies chest pain, orthopnea, PND or palpitations RESPIRATORY: No shortness of breath. GASTROINTESTINAL: Denies abdominal pain. Denies nausea or vomiting. HEMATOLOGIC: Denies bleeding disorders. GENITOURINARY: Denies any blood in urine. SKIN: Denies pruitis. Denies rash. PHYSICAL EXAM: VITAL SIGNS: Blood pressure 143/76, heart rate 56, afebrile, maintaining oxygen saturation 96% on room air. GENERAL: Well-developed in no acute distress. HEENT: Head is normocephalic. Pupils are equal, round. Sclerae anicteric. Mucous membranes of the mouth are moist. Neck supple. +JVD LUNGS: Respirations even and unlabored. Lungs diminished with a few fine rales to bilateral bases. HEART: Irregular rate and rhythm. S1 and S2 heard. Systolic murmur noted at apex ABDOMEN: Soft. Nondistended. Nontender. EXTREMITIES: Normal range of motion. No clubbing or cyanosis. Peripheral pulses intact. 1+ bilateral ankle edema NEUROLOGIC: Awake and alert. Oriented x 3. ASSESSMENT: Elevated D-dimer Shortness of breath, Fatigue History of persistant atrial fibrillation/flutter with ablation on 03/05/21, on long-term anticoagulation with Eliquis History of sick sinus syndrome, status post dual chamber permanent pacemaker insertion ([employer]-Margot) in 2019 Acute on chronic systolic heart failure elevated BNP 39008, EF 40-45% History of coronary artery disease with previous CABG in 2000. Acute on chronic kidney disease Hypertension Hyperlipidemia Obstructive sleep apnea with CPAP use Diabetes mellitus, type II PLAN: 2D echocardiogram ordered Check TSH Increase IV Lasix to 80mg BID Daily weights Accurate I&O Monitor kidney function Continue home cardiac medications Further recommendations pending patient course Nurse practitioner note has been reviewed by physician. Signing provider agrees with the documented findings, assessment, and plan of care. Past Medical History Past Medical History: Atrial Fibrillation, Diabetes Mellitus, Hyperlipidemia, Hypertension, Myocardial Infarction (DE), Renal Disease, Sleep Apnea/CPAP/BIPAP Additional Past Medical History / Comment(s): neuropathy bilateral feet, chronic kidney disease stage III, hx "minor prostate ca"- dr monitoring , recent UTI , home CPAP , tachycardia Last Myocardial Infarction Date:: 01/2001 History of Any Multi-Drug Resistant Organisms: None Reported Past Surgical History: Ablation, Cardiac Ablation, Coronary Bypass/CABG, Heart Catheterization With Stent, Pacemaker Additional Past Surgical History / Comment(s): 11/15/20 prostate biopsy, 2000 CABG 4 vessel, 3 cardiac stents, Cardioversion, loop recorder, colonoscopy . Past Anesthesia/Blood Transfusion Reactions: No Reported Reaction Date of Last Stent Placement:: 2006 Type of Cardiac Device: Biventricular Pacemaker Device Placement Date:: 08/25/19 Past Psychological History: No Psychological Hx Reported Smoking Status: Never smoker Past Alcohol Use History: None Reported Past Drug Use History: None Reported - Past Family History Father Family Medical History: Cancer Additional Family Medical History / Comment(s): pancreatic cancer Mother Family Medical History: Cancer Additional Family Medical History / Comment(s): breast cancer Sister(s) Family Medical History: Diabetes Mellitus Medications and Allergies Home Medications Medication Instructions Recorded Confirmed Type Apixaban [Eliquis] 5 mg PO BID 04/25/19 06/06/21 History Aspirin EC [Ecotrin Low Dose] 81 mg PO DAILY 04/25/19 06/06/21 History Cinnamon Bark [Cinnamon] 1,000 mg PO BID 04/25/19 06/06/21 History Atorvastatin Calcium [Lipitor] 80 mg PO HS 11/21/20 06/06/21 History Cholecalciferol [Vitamin D3 (25 50 mcg PO DAILY 11/21/20 06/06/21 History Mcg = 1000 Iu)] glipiZIDE XL [Glucotrol XL] 10 mg PO DAILY 11/21/20 06/06/21 History Furosemide [Lasix] 20 mg PO DAILY 03/01/21 06/06/21 History Pioglitazone [Actos] 15 mg PO DAILY 03/01/21 06/06/21 History Losartan [Cozaar] 50 mg PO DAILY 03/06/21 06/06/21 History Amiodarone HCl [Pacerone] 400 mg PO DAILY 05/15/21 06/06/21 History Metoprolol Succinate [Toprol XL] 50 mg PO DAILY 05/15/21 06/06/21 History Omeprazole [PriLOSEC] 40 mg PO DAILY 05/15/21 06/06/21 History calcitrioL [Calcitriol] 0.25 mcg PO LOONEY 05/15/21 06/06/21 History Cetirizine HCl [Zyrtec] 10 mg PO DAILY 06/06/21 06/06/21 History Montelukast Sodium [Singulair] 10 mg PO HS 06/06/21 06/06/21 History Tamsulosin [Flomax] 0.4 mg PO DAILY 06/06/21 06/06/21 History metFORMIN HCL [Glucophage] 1,000 mg PO BID 06/06/21 06/06/21 History sitaGLIPtin [Januvia] 50 mg PO DAILY 06/06/21 06/06/21 History Allergies Allergy/AdvReac Type Severity Reaction Status Date / Time No Known Allergies Allergy Verified 06/06/21 16:38 Physical Exam Vitals: Vital Signs Temp Pulse Resp BP Pulse Ox 06/07/21 06:54 18 96 06/06/21 18:55 58 L 18 138/71 98 06/06/21 11:35 98.6 F 66 24 129/79 97 Intake and Output 06/06/21 06/06/21 06/07/21 14:59 22:59 06:59 Other: Weight 99.79 kg Results 06/07/21 03:34 06/07/21 03:34 Cardiac Enzymes 06/06/21 06/06/21 06/06/21 Range/Units 13:15 18:18 20:54 Troponin I <0.012 <0.012 <0.012 (0.000-0.034) ng/mL CBC 06/06/21 Range/Units 13:15 WBC 5.5 (3.8-10.6) k/uL RBC 3.86 L (4.30-5.90) m/uL Hgb 12.0 L (13.0-17.5) gm/dL Hct 36.4 L (39.0-53.0) % Plt Count 130 L (150-450) k/uL Comprehensive Metabolic Panel 06/06/21 Range/Units 13:15 Sodium 136 L (137-145) mmol/L Potassium 4.5 (3.5-5.1) mmol/L Chloride 103 (98-107) mmol/L Carbon Dioxide 21 L (22-30) mmol/L BUN 61 H (9-20) mg/dL Creatinine 2.30 H (0.66-1.25) mg/dL Glucose 248 H (74-99) mg/dL Calcium 9.1 (8.4-10.2) mg/dL Current Medications Generic Name Dose Route Start Last Admin Trade Name Freq PRN Reason Stop Dose Admin Acetaminophen 650 mg 06/06/21 17:03 06/06/21 19:01 Acetaminophen Tab 325 Mg Tab PO 650 mg Q6HR PRN Administration Mild Pain or Fever > 100.5 Hydrocodone Bitart/Acetaminophen 1 each 06/06/21 17:03 Hydrocodone/Apap 5-325mg 1 Each Tab PO Q4HR PRN Moderate Pain Amiodarone HCl 400 mg 06/07/21 09:00 Amiodarone 200 Mg Tab PO DAILY DAREN Apixaban 5 mg 06/06/21 21:00 06/06/21 20:06 Apixaban 5 Mg Tab PO 5 mg BID DAREN Administration Protocol Aspirin 81 mg 06/07/21 09:00 Aspirin 81 Mg PO DAILY DAREN Atorvastatin Calcium 80 mg 06/06/21 21:00 06/06/21 20:06 Atorvastatin 80 Mg Tab PO 80 mg HS DAREN Administration Calcitriol 0.25 mcg 06/11/21 09:00 Calcitriol 0.25 Mcg Cap PO LOONEY DAREN Cholecalciferol 50 mcg 06/07/21 09:00 Cholecalciferol 25 Mcg (1000 Iu) Tablet PO DAILY DAREN Furosemide 40 mg 06/06/21 15:00 06/06/21 16:32 Furosemide 10 Mg/Ml 4 Ml Vial IV 40 mg Q12H DAREN Administration Sodium Chloride 1,000 mls @ 20 mls/hr 06/06/21 14:45 06/06/21 16:36 Saline 0.9% IV 20 mls/hr .Q24H DAREN Administration Insulin Aspart 0 unit 06/06/21 17:30 06/06/21 22:23 Insulin Aspart (Novolog) 100 Unit/Ml Vial SQ 4 unit ACHS DAREN Administration Protocol Loratadine 10 mg 06/07/21 09:00 Loratadine 10 Mg Tab PO DAILY DAREN Losartan Potassium 50 mg 06/07/21 09:00 Losartan 50 Mg Tab PO DAILY DAREN Melatonin 3 mg 06/06/21 17:03 06/07/21 02:34 Melatonin 3 Mg Tablet PO 3 mg HS PRN Administration Insomnia Metoprolol Succinate 50 mg 06/07/21 09:00 Metoprolol Succinate (Er) 50 Mg Tab.Er.24h PO DAILY DAREN Montelukast Sodium 10 mg 06/06/21 21:00 06/06/21 20:06 Montelukast 10 Mg Tab PO 10 mg HS DAREN Administration Naloxone HCl 0.2 mg 06/06/21 17:03 Naloxone 0.4 Mg/Ml 1 Ml Vial IV Q2M PRN Opioid Reversal Pantoprazole Sodium 40 mg 06/07/21 07:30 Pantoprazole 40 Mg Tablet PO AC-BRKFST [facility] Prochlorperazine Maleate 5 mg 06/06/21 17:03 Prochlorperazine 5 Mg Tab PO Q8HR PRN Nausea And Vomiting Tamsulosin HCl 0.4 mg 06/07/21 09:00 Tamsulosin 0.4 Mg Cap.Er.24h PO DAILY DAREN Intake and Output 06/06/21 06/06/21 06/07/21 14:59 22:59 06:59 Other: Weight 99.79 kg Patient Weight 06/07/21 06:59 Weight 99.79 kg 06/06/21 13:15 06/06/21 13:15
[2021-06-07] MEDS: AMIODARONE 200 MG TAB PO SCH (10:33)
[2021-06-07 11:38] LABS: Glucose,Whole Blood 317 mg/dL (75-99)
[2021-06-07 13:07] VITALS: BMI 28.2
--- NOTE | 2021-06-07 15:59 | P.PN ---
<Lance Stock - Last Filed: 06/07/21 15:39> Subjective Progress Note Date: 06/07/21 Hospital course: Patient is a pleasant 70-year-old male with a past medical history of CAD with previous CA and stent placement, CABG (triple bypass in 2000), hypertension, hyperlipidemia, atrial fibrillation on anticoagulation with Eliquis and status post biventricular pacemaker placement in 2019 as well as recent ablation on 03/05/21, congestive heart failure unknown type, wli-gvgpbwa-rguygcdmu diabetes mellitus type 2, stage IV CKD, prostate cancer currently watching, and obstructive sleep apnea CPAP dependent nightly. Patient presented to the emergency department as directed by his PCP for reports of having an elevated d- dimer. Patient reports that 2-1/2 weeks ago he was taken off of his Eliquis for 3 days for a kidney biopsy in which he had completed on 05/22/21. Patient states since this time he has been having decreased exercise tolerance, significant fatigue, shortness of breath, and productive cough. Patient states that he was seen by his primary care doctor, Dr. Salgado for these complaints and had some blood work drawn last week. Patient states that he received a phone call today informing him that his d-dimer was elevated and he needed to go to the emergency department to rule out a pulmonary embolism. Patient states that his also called his staker surveying's office (Dr. Rivas) and notified them of the abnormal results as well. 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 Patient states he has also been having a productive cough which is sometimes clear and sometimes a yellowish brown in color. He denies having any recent fevers, headaches, dizziness, lightheadedness, chest pain or palpitations, abdominal pain, nausea, changes in appetite, vomiting, or experiencing any numbness/swelling/weakness/tingling in his extremities. In the emergency department patient had additional blood work drawn in d-dimer resulted at 1.98 and patient was sent for VQ scan. CBC revealed mild normocytic normochromic anemia with hemoglobin of 12.0 and thrombocytopenia with platelet count of 130,000. BMP consistent with stage IV CKD with BUN of 61, creatinine 2.30, and GFR of 28. Hyperglycemia was present with glucose of 248. Troponin was normal findings at less than 0.012. ProBNP was elevated to 14,600. Respiratory panel consisting of Influenza A/B PCR, RSV, and Covid PCR negative. EKG revealing atrial flutter with a 4-1 AV conduction and T-wave inversion in aVL which has changed from previous EKG completed on 03/07/21 in which patient was in sinus rhythm with a first-degree AV block with OK interval of 238 and a right bundle branch block. Chest x-ray showing mild heart failure with pleural effusions and borderline cardiac enlargement. VQ scan reporting very low possibility for pulmonary emboli. Patient admitted under our services for CHF exacerbation with consultation to cardiology. 06/07/21: Patient was seen and fully evaluated at the bedside this morning. He reports continued fatigue and feeling slightly short of breath. Patient states he has had very little output over the past 24 hours despite IV Lasix being administered, no output documented. Web Services Architect at bedside increasing Lasix to 80 mg every 12 hours. Patient placed on strict I's and O's and RN updated on orders and need for close monitoring of output. Echocardiogram being completed. Patient denies having any chest pain, lightheadedness, dizziness, abdominal pain, nausea, vomiting, or experiencing any pain/weakness/numbness/increased swelling in extremities. Patient acute exacerbation of chronic systolic heart failure, updated admission to full admission as patient requires continued diuresis at this time. We will continue to monitor closely. Repeat BMP and magnesium with a.m. labs to continue to monitor electrolyte values and renal function. Physical exam: Vital signs reviewed and stable. General: Nontoxic, no distress and appears stated age. Derm: Skin warm and dry, normal coloration for ethnicity. Head: Atraumatic, normocephalic and symmetric. Eyes: EOMs intact, no lid lag, and anicteric sclera Mouth: no lip lesions, mucus membranes moist Cardiovascular: Regular rate and rhythm. Murmur present but no gallop or rub noted. Positive posterior tibial pulses bilaterally, and cap refill < 2 seconds. 1+ pitting bilateral lower extremity edema. Pacemaker left anterior chest. Lungs: Respirations even, regular, and unlabored on room air. Lungs CTA bilaterally, no rhonchi, no rales, no wheezing, and no accessory muscle usage. Abdominal: soft, nontender to palpation, no guarding, no appreciable o rganomegaly Ext: ROM intact. No gross muscle atrophy, no contractures Neuro: Speech clear, face symmetrical and CN II-XII grossly intact with no noted focal neuro deficits Psych: Alert and oriented to person, place, time, and situation. Appropriate and pleasant affect. Assessment and Plan of Care: Acute exacerbation of chronic systolic heart failure -Chest x-ray showing mild heart failure with pleural effusions and borderline cardiac enlargement. -Cardiology consulted and reported last known EF obtained from left computed tomography scan stress test which revealed a moderate to severely impaired EF of 34% -Echocardiogram completed, results pending -Telemetry monitoring -Troponins < 0.012 x 3 -ProBNP 14,600 -Daily weights -Close monitoring of I's and O's -Cardiac diet -Lasix increased to 80 mg IVP every 12 hours -Continue daily Eliquis, Aspirin, atorvastatin, amiodarone, losartan and metoprolol -Lipid profile showing no significant abnormalities with the exception of low HDL of 34.0. -Hgb A1c 8.3% -Continued close monitoring of electrolytes and renal function while diuresing. Shortness of breath and fatigue -Likely secondary to acute exacerbation of chronic heart failure with proBNP of 14,600 and x-ray conclusive for mild CHF. -We will obtain echocardiogram. -Respiratory panel consisting of Influenza A/B PCR, RSV, and Covid PCR negative. -Chest x-ray showing mild heart failure with pleural effusions and borderline cardiac enlargement. -VQ scan reporting very low possibility for pulmonary emboli. -Treatment with Lasix IVP every 12 hours, please see treatment plan for acute exacerbation of chronic heart failure of unknown type CKD stage IV -BMP consistent with stage IV CKD with BUN 62.0, creatinine 2.4, and GFR 26.5. -We will monitor renal function closely through diuresis with repeat a.m. labs. Jgt-qvpoawu-fbugwnmwg diabetes mellitus type 2with hyperglycemia -Hold oral glycemic medication and placed patient on glycemic protocol with NovoLog sliding scale. -Persistent hyperglycemia with blood glucose levels 300. Patient placed on scheduled NovoLog 5 units before meals and at bedtime along with sliding scale. -Hemoglobin A1c 8.3%. Obstructive sleep apnea CPAP dependent nightly -Continue use of CPAP nightly. -Continue Singulair nightly. -Provide oxygen supplementation as needed to maintain SpO2 equal to or greater than 90%. -Encourage use of incentive spirometry 10-15 times hourly while awake. Hypertension Monitor vital signs and Continue daily medication regimen with losartan and metoprolol. Hyperlipidemia -Continue daily medication regimen with atorvastatin 80 mg nightly. -Lipid profile to be drawn with a.m. labs. Atrial fibrillation on anticoagulation with Eliquis and status post biventricular pacemaker placement in 2019 as well as recent ablation on 03/05/21 -Continue anticoagulation with Eliquis. History of CAD with previous CA and stent placement, CABG (quadruple bypass in 2000), pacemaker in 2019 -Continue daily Eliquis, Aspirin, atorvastatin, amiodarone, losartan and metoprolol. -Cardiology following for acute exacerbation of CHF. The patient is admitted with an anticipated greater than 2 midnight stay for evaluation of acute exacerbation of chronic heart failure of unknown type. CODE STATUS: Full code DVT prophylaxis: Eliquis Discussed with: Patient, patient's , and RN Anticipated discharge date: clinical course to determine Anticipated discharge place: home A total of 45 minutes was spent on the care of this complex patient more than 50% of the time was spent in counseling and care coordination. Objective - Vital Signs Vital signs: Vital Signs Temp 98.3 F 06/07/21 13:57 Pulse 62 06/07/21 13:57 Resp 18 06/07/21 13:57 BP 126/77 06/07/21 13:57 Pulse Ox 97 06/07/21 13:57 Intake & Output 06/06/21 06/07/21 06/07/21 18:59 06:59 18:59 Weight 99.79 kg 99.79 kg Other: # Voids 1 - Labs CBC & Chem 7: 06/07/21 03:34 06/07/21 03:34 Labs: Abnormal Lab Results - Last 24 Hours (Table) 06/06/21 06/06/21 06/06/21 Range/Units 18:18 18:25 18:55 RBC (4.40-5.60) X 10*6/uL Hgb (13.0-17.0) g/dL Hct (39.6-50.0) % MCHC (32.0-37.0) g/dL RDW (11.5-14.5) % Plt Count (140-440) X 10*3/uL Lymphocytes # (0.90-5.00) X 10*3/uL BUN (9.0-27.0) mg/dL Creatinine (0.6-1.5) mg/dL Est GFR (CKD-EPI)AfAm (60.0-200.0) Est GFR (CKD-EPI)NonAf (60.0-200.0) BUN/Creatinine Ratio (12.00-20.00) Ratio Glucose (70-110) mg/dL POC Glucose (mg/dL) 212 H (75-99) mg/dL Hemoglobin A1c 8.3 H (4.0-6.0) % Calcium (8.7-10.3) mg/dL Total Protein (6.2-8.2) g/dL Albumin (3.80-4.90) g/dL HDL Cholesterol (40.0-60.0) mg/dL Urine Protein Trace H (Negative) Urine Glucose (UA) 3+ H (Negative) 06/06/21 06/07/21 06/07/21 Range/Units 22:20 03:34 03:34 RBC 3.38 L (4.40-5.60) X 10*6/uL Hgb 10.2 L (13.0-17.0) g/dL Hct 32.7 L (39.6-50.0) % MCHC 31.2 L (32.0-37.0) g/dL RDW 16.2 H (11.5-14.5) % Plt Count 120 L (140-440) X 10*3/uL Lymphocytes # 0.57 L (0.90-5.00) X 10*3/uL BUN 62.0 H (9.0-27.0) mg/dL Creatinine 2.4 H (0.6-1.5) mg/dL Est GFR (CKD-EPI)AfAm 30.7 L (60.0-200.0) Est GFR (CKD-EPI)NonAf 26.5 L (60.0-200.0) BUN/Creatinine Ratio 25.83 H (12.00-20.00) Ratio Glucose 159 H (70-110) mg/dL POC Glucose (mg/dL) 255 H (75-99) mg/dL Hemoglobin A1c (4.0-6.0) % Calcium 8.4 L (8.7-10.3) mg/dL Total Protein 5.7 L (6.2-8.2) g/dL Albumin 3.70 L (3.80-4.90) g/dL HDL Cholesterol 34.0 L (40.0-60.0) mg/dL Urine Protein (Negative) Urine Glucose (UA) (Negative) 06/07/21 06/07/21 Range/Units 07:31 11:29 RBC (4.40-5.60) X 10*6/uL Hgb (13.0-17.0) g/dL Hct (39.6-50.0) % MCHC (32.0-37.0) g/dL RDW (11.5-14.5) % Plt Count (140-440) X 10*3/uL Lymphocytes # (0.90-5.00) X 10*3/uL BUN (9.0-27.0) mg/dL Creatinine (0.6-1.5) mg/dL Est GFR (CKD-EPI)AfAm (60.0-200.0) Est GFR (CKD-EPI)NonAf (60.0-200.0) BUN/Creatinine Ratio (12.00-20.00) Ratio Glucose (70-110) mg/dL POC Glucose (mg/dL) 240 H 317 H (75-99) mg/dL Hemoglobin A1c (4.0-6.0) % Calcium (8.7-10.3) mg/dL Total Protein (6.2-8.2) g/dL Albumin (3.80-4.90) g/dL HDL Cholesterol (40.0-60.0) mg/dL Urine Protein (Negative) Urine Glucose (UA) (Negative) <Celia Grewal - Last Filed: 06/07/21 20:14> Subjective Lance Stock NP rendered care for this patient independently, reviewed the findings and plan as documented in the note above. I did not physically speak with or examine the patient on this date. Objective - Vital Signs Vital signs: Vital Signs Temp 98.3 F 06/07/21 13:57 Pulse 62 06/07/21 14:00 Resp 18 06/07/21 14:00 BP 126/77 06/07/21 13:57 Pulse Ox 97 06/07/21 13:57 Intake & Output 06/07/21 06/07/21 06/08/21 06:59 18:59 06:59 Intake Total 480 Output Total 350 500 Balance -350 -20 Weight 99.79 kg Intake: Oral 480 Output: Urine 350 500 Other: Voiding Method Urinal Urinal # Voids 4 2 - Labs CBC & Chem 7: 06/07/21 03:34 06/07/21 03:34 Labs: Abnormal Lab Results - Last 24 Hours (Table) 06/06/21 06/06/21 06/07/21 Range/Units 18:18 22:20 03:34 RBC 3.38 L (4.40-5.60) X 10*6/uL Hgb 10.2 L (13.0-17.0) g/dL Hct 32.7 L (39.6-50.0) % MCHC 31.2 L (32.0-37.0) g/dL RDW 16.2 H (11.5-14.5) % Plt Count 120 L (140-440) X 10*3/uL Lymphocytes # 0.57 L (0.90-5.00) X 10*3/uL BUN (9.0-27.0) mg/dL Creatinine (0.6-1.5) mg/dL Est GFR (CKD-EPI)AfAm (60.0-200.0) Est GFR (CKD-EPI)NonAf (60.0-200.0) BUN/Creatinine Ratio (12.00-20.00) Ratio Glucose (70-110) mg/dL POC Glucose (mg/dL) 255 H (75-99) mg/dL Hemoglobin A1c 8.3 H (4.0-6.0) % Calcium (8.7-10.3) mg/dL Total Protein (6.2-8.2) g/dL Albumin (3.80-4.90) g/dL HDL Cholesterol (40.0-60.0) mg/dL 06/07/21 06/07/21 06/07/21 Range/Units 03:34 07:31 11:29 RBC (4.40-5.60) X 10*6/uL Hgb (13.0-17.0) g/dL Hct (39.6-50.0) % MCHC (32.0-37.0) g/dL RDW (11.5-14.5) % Plt Count (140-440) X 10*3/uL Lymphocytes # (0.90-5.00) X 10*3/uL BUN 62.0 H (9.0-27.0) mg/dL Creatinine 2.4 H (0.6-1.5) mg/dL Est GFR (CKD-EPI)AfAm 30.7 L (60.0-200.0) Est GFR (CKD-EPI)NonAf 26.5 L (60.0-200.0) BUN/Creatinine Ratio 25.83 H (12.00-20.00) Ratio Glucose 159 H (70-110) mg/dL POC Glucose (mg/dL) 240 H 317 H (75-99) mg/dL Hemoglobin A1c (4.0-6.0) % Calcium 8.4 L (8.7-10.3) mg/dL Total Protein 5.7 L (6.2-8.2) g/dL Albumin 3.70 L (3.80-4.90) g/dL HDL Cholesterol 34.0 L (40.0-60.0) mg/dL 06/07/21 Range/Units 17:37 RBC (4.40-5.60) X 10*6/uL Hgb (13.0-17.0) g/dL Hct (39.6-50.0) % MCHC (32.0-37.0) g/dL RDW (11.5-14.5) % Plt Count (140-440) X 10*3/uL Lymphocytes # (0.90-5.00) X 10*3/uL BUN (9.0-27.0) mg/dL Creatinine (0.6-1.5) mg/dL Est GFR (CKD-EPI)AfAm (60.0-200.0) Est GFR (CKD-EPI)NonAf (60.0-200.0) BUN/Creatinine Ratio (12.00-20.00) Ratio Glucose (70-110) mg/dL POC Glucose (mg/dL) 207 H (75-99) mg/dL Hemoglobin A1c (4.0-6.0) % Calcium (8.7-10.3) mg/dL Total Protein (6.2-8.2) g/dL Albumin (3.80-4.90) g/dL HDL Cholesterol (40.0-60.0) mg/dL
[2021-06-07 17:39] LABS: Glucose,Whole Blood 207 mg/dL (75-99)
[2021-06-07] MEDS: SODIUM CHLORIDE 0.9% 1,000 ML IV SCH (18:07)
--- NOTE | 2021-06-07 20:14 | CONS ---
CONSULTATION REASON FOR CONSULTATION: Renal failure. HISTORY OF PRESENT ILLNESS: The patient is a 70-year-old male with history of coronary artery disease, CKD stage 3B with previous creatinine around 2 mg/dL. Patient also has history of hyperlipidemia, chronic atrial fibrillation, maintained on Eliquis, and cardiomyopathy. He is being followed as outpatient for CKD and recently had a kidney biopsy which showed changes of diabetic kidney disease. Patient was admitted to the hospital with complaints of shortness of breath. There was concern for possible fluid overload. He is currently being diuresed. PAST MEDICAL HISTORY: Chronic atrial fibrillation, type 2 diabetes, hyperlipidemia, hypertension, ME, diabetic kidney disease, neuropathy, prostate cancer, UTI. PAST SURGICAL HISTORY: Cardiac ablation, coronary artery bypass surgery, cardiac catheterization, coronary stent placement, pacemaker placement, prostate biopsy, kidney biopsy, cardioversion, colonoscopy, biventricular pacemaker placement. SOCIAL HISTORY: Negative for smoking, drug abuse or alcohol abuse. MEDICATIONS: Medications prior to admission included Eliquis, aspirin, cinnamon, Lipitor, vitamin D3, Glucotrol, Lasix, Actos, Cozaar, amiodarone, Toprol, Prilosec, Calcitriol, Zyrtec, Singulair, Flomax, Glucophage, Januvia. ALLERGIES: NONE. REVIEW OF SYSTEMS: As per HPI. Other systems negative. No complaints of fever, chills, nausea, vomiting, abdominal pain or diarrhea. PHYSICAL EXAMINATION: Patient is currently comfortable. He is not on any oxygen. His oxygen saturations are 97% on room air. Blood pressure 126/77, heart rate 62 per minute. He is afebrile. EXAMINATION OF THE HEART: S1 and S2. EXAMINATION OF LUNGS: Bilateral breath sounds are heard. Decreased breath sounds at the bases. ABDOMEN: Soft, nontender. LOWER EXTREMITIES: Examination of lower extremities shows edema 1+ bilaterally. TRASH COLLECTOR SUPERVISOR EXAM: Grossly intact. LABS: Labs show sodium of 137, potassium 4.1, chloride 103. CO2 is .7, BUN 62, creatinine 2.4, hemoglobin 10.2 g/dL. ASSESSMENT: 1. Chronic kidney disease, NKF 3B to 4, with previous creatinine around 2 mg/dL secondary to diabetic kidney disease, status post kidney biopsy. Previous creatinine 2.0 on 05/09/2020. 2. Congestive heart failure/volume overload, currently being diuresed. Lasix has been increased to 80 mg q.12 hours. Patient is also maintained on Cozaar. Blood pressure is slightly on the lower side, although not significantly hypotensive. We can continue with the Cozaar for now. 3. Chronic atrial fibrillation, being followed by Cardiology, maintained on anticoagulation. 4. Coronary artery disease with history of coronary artery bypass surgery. 5. Chronic systolic congestive heart failure, ejection fraction 40% to 45% previously. 6. History of sick sinus syndrome, status post dual-chamber permanent pacemaker placement. PLAN: Agree with increasing Lasix. Will continue with the Cozaar, but hold if systolic blood pressure is less than 115 mmHg. I will decrease the dose to 25 mg daily. Continue off of IV fluids. Thank you for this consultation. Will continue to follow the patient with you during his hospitalization. QING / BRENNAN: [id number] /
[2021-06-07 20:21] LABS: Glucose,Whole Blood 147 mg/dL (75-99)
[2021-06-07] MEDS: ATORVASTATIN 80 MG TAB PO SCH (21:33)
[2021-06-07] MEDS: FUROSEMIDE 10 MG/ML 10 ML VIAL IV SCH (21:33)
[2021-06-07] MEDS: MONTELUKAST 10 MG TAB PO SCH (21:35)
[2021-06-08] MEDS: MELATONIN 3 MG TABLET PO PRN ×2 (00:42→21:56)
[2021-06-08 06:52] LABS: African American GFR (CKD) 31 (>60 ml/min/1.73 sqM); Anion Gap 8 mmol/L; Blood Urea Nitrogen 67 mg/dL (9-20); Calcium 8.9 mg/dL (8.4-10.2); Carbon Dioxide 23 mmol/L (22-30); Chloride 100 mmol/L (98-107); Glucose 173 mg/dL (74-99); Magnesium 1.8 mg/dL (1.6-2.3); Non-African American GFR(CKD) 27 (>60 ml/min/1.73 sqM); Potassium 4.1 mmol/L (3.5-5.1); Sodium 131 mmol/L (137-145)
[2021-06-08] MEDS: ACETAMINOPHEN TAB 325 MG TAB PO PRN (07:14)
[2021-06-08 07:45] LABS: Glucose,Whole Blood 169 mg/dL (75-99)
[2021-06-08] MEDS: INSULIN ASPART (NovoLOG) 100 UNIT/ML VIAL SQ SCH ×8 (08:01→21:57)
[2021-06-08] MEDS: AMIODARONE 200 MG TAB PO SCH (08:02)
[2021-06-08] MEDS: PANTOPRAZOLE 40 MG TABLET PO SCH (08:02)
[2021-06-08] MEDS: APIXABAN 5 MG TAB PO SCH ×2 (08:03→21:56)
[2021-06-08] MEDS: TAMSULOSIN 0.4 MG CAP.ER.24H PO SCH (08:03)
[2021-06-08] MEDS: METOPROLOL SUCCINATE (ER) 50 MG TAB.ER.24H PO SCH (08:03)
[2021-06-08] MEDS: ASPIRIN 81 MG PO SCH (08:03)
[2021-06-08] MEDS: CHOLECALCIFEROL 25 MCG (1000 IU) TABLET PO SCH (08:04)
[2021-06-08] MEDS: LORATADINE 10 MG TAB PO SCH (08:04)
[2021-06-08] MEDS: LOSARTAN 25 MG TAB PO SCH (08:06)
[2021-06-08] MEDS: FUROSEMIDE 10 MG/ML 10 ML VIAL IV SCH ×2 (09:31→21:56)
--- NOTE | 2021-06-08 10:22 | ECHOF ---
Referral Reason:CHF MEASUREMENTS -------- HEIGHT: 182.9 cm WEIGHT: 99.8 kg BP: IVSd: 0.9 cm (0.6 - 1.1) LVIDd: 5.0 cm (3.9 - 5.3) LVPWd: 1.4 cm (0.6 - 1.1) IVSs: 1.3 cm LVIDs: 4.3 cm LVPWs: 1.8 cm LAESV Index (A-L): 38.85 ml/m Ao Diam: 3.0 cm (2.0 - 3.7) AV Cusp: 1.5 cm (1.5 - 2.6) LA Diam: 3.7 cm (2.7 - 3.8) MV EXCURSION: 18.742 mm (> 18.000) MV EF SLOPE: 124 mm/s (70 - 150) EPSS: 1.1 cm MV E Raymon: 1.29 m/s MV DecT: 176 ms MV A Raymon: 0.42 m/s MV E/A Ratio: 3.06 RAP: 5.00 mmHg RVSP: 56.33 mmHg FINDINGS -------- Pacerwire seen in RV and RA. This was a technically good study. The left ventricular size is normal. Left ventricular wall thickness is normal. Overall left vent ricular systolic function is moderately impaired with, an EF between 35 - 40 %. Basal inferior LV w all motion is hypokinetic. Basal inferoseptal LV wall motion is hypokinetic. Mid inferior LV wa ll motion is hypokinetic. Mid inferoseptal LV wall motion is hypokinetic. Basal inferolateral h ypokinesis. The right ventricle is normal in size. The left atrial size is normal. LA is moderately dilated 34-39 ml/m2 The right atrial size is normal. The aortic valve is trileaflet and appears structurally normal. The mitral valve is normal. Wksv-zq-qrimqccg mitral regurgitation is present. The tricuspid valve appears structurally normal. Mild tricuspid regurgitation present. There is m oderate pulmonary hypertension. The right ventricular systolic pressure, as measured by Doppler, is 56.33mmHg. There is no pulmonic regurgitation present. The aortic root size is normal. Normal inferior vena cava with normal inspiratory collapse consistent with estimated right atrial pre ssure of 5 mmHg. There is no pericardial effusion. CONCLUSIONS -------- 1. Pacerwire seen in RV and RA. 2. The left ventricular size is normal. 3. Left ventricular wall thickness is normal. 4. Overall left ventricular systolic function is moderately impaired with, an EF between 35 - 40 %. 5. Basal inferior LV wall motion is hypokinetic. 6. Basal inferoseptal LV wall motion is hypokinetic. 7. Mid inferior LV wall motion is hypokinetic. 8. Mid inferoseptal LV wall motion is hypokinetic. 9. Basal inferolateral hypokinesis. 10. Gnju-lw-hkwstsec mitral regurgitation is present. 11. Mild tricuspid regurgitation present. 12. There is moderate pulmonary hypertension. 13. The right ventricular systolic pressure, as measured by Doppler, is 56.33mmHg. 14. There is no pericardial effusion. BANKING MANAGER: Colette Krishnamurthy RDCS
--- NOTE | 2021-06-08 10:29 | CDI ---
Typical atrial flutter Documentation Clarification Form Date: 06/08/2021 10:20:29 AM From: Karla CheneyWallaceMAGGY, CCDS Admit Date: 06/07/2021 03:42:00 PM Patient Name: Salvatore Marks Visit Number: [id number] Discharge Date: ATTENTION: The Clinical Documentation Specialists (CDI) and [facility] Coding Staff appreciate your assistance in clarifying documentation. Please respond to the clarification below the line at the bottom and electronically sign. The CDI & [facility] Coding staff will review the response and follow-up if needed. Please note: Queries are made part of the Legal Health Record. If you have any questions, please contact the author of this message via ITS. Dr. Shane Hughes: Atrial Flutter is documented in the 06/06 History & Physical per the EKG revealing Atrial Flutter with a 4:1 AV conduction and also in the 06/07 Cardiology Consult: Atrial Flutter (on Eliquis) without further specificity. Additional clarification regarding the type of Atrial Flutter is requested. History/Risk factors per the 06/06 ED Note: Atrial Fibrillation, DM, Hyperlipidemia, Hypertension, DC status post coronary stents, CABG, Cardiac Ablation & Pacemaker; Sick Sinus Syndrome, CKD III (stage IV per attending progress note 06/07), Bilateral lower extremity neuropathy and Prostate Cancer: being monitored. Clinical Indicators: Presented to the ED on 06/06 per advice from PCP regarding previous blood work done showing elevated D Dimer with concern for PE. Admitted for Heart Failure with Pulmonary VQ Scan showing low probability of PE. 06/06 EKG: R 56, Atrial flutter w/4:1 conduction, Left axis deviation, Nonspecific intraventricular block, Inferior infarct, age undetermined, Possible Anterolateral infarct, age undetermined, Abnormal ECG. Treatment: IV Lasix 40 mg q12H (Increase to 80 mg BID (per Cardiology Consult Plan), Home dose po Eliquis 5 mg BID (patient had been off Eliquis for recent kidney biopsy), ECHO, Daily weight, I&O, Telemetry. Please clarify the type of Atrial Flutter, if known: [ ] Typical/Type I [ ] Atypical/Type II [ ] Other, please specify [ ] Unable to determine (Template Last Revised: December 2020) MTDD
--- NOTE | 2021-06-08 10:37 | CDI ---
Documentation Clarification Form Date: 06/08/2021 10:30:00 AM From: Karla Wallace CCS, CCDS Admit Date: 06/07/2021 03:42:00 PM Patient Name: Salvatore Marks Visit Number: [id number] Discharge Date: ATTENTION: The Clinical Documentation Specialists (CDI) and [facility] Coding Staff appreciate your assistance in clarifying documentation. Please respond to the clarification below the line at the bottom and electronically sign. The CDI & [facility] Coding staff will review the response and follow-up if needed. Please note: Queries are made part of the Legal Health Record. If you have any questions, please contact the author of this message via ITS. Dr. Celia Grewal: Anemia is documented as Mild Normocytic Normochromic Anemia in the 06/06 H/P and the 06/07 Attending Progress Note without further specificity. Additional specificity regarding the specific type of anemia is requested. History/Risk factors per the 06/06 ED Note: Atrial Fibrillation, DM, Hyperlipidemia, Hypertension, [place] status post coronary stents, CABG, Cardiac Ablation & Pacemaker; Sick Sinus Syndrome, CKD III (stage IV per attending progress note 06/07), Bilateral lower extremity neuropathy and Prostate Cancer: being monitored. Clinical Indicators: Presented to the ED on 06/06 per advice from PCP regarding previous blood work done showing elevated D Dimer with concern for PE. Admitted for Heart Failure with Pulmonary VQ Scan showing low probability of PE. 06/06 Hemoglobin: 12.0. 06/07: 10.2 06/06 Hematocrit: 26.4. 06/07: 32.7 Treatment: IV Lasix 40 mg q12H (Increase to 80 mg BID (per Cardiology Consult Plan), Home dose po Eliquis 5 mg BID (patient had been off Eliquis for recent kidney biopsy), ECHO, Daily weight, I&O, Telemetry, Insulin sq Home meds include: Flomax, Singulair, Zyrtec, Januvia, Glucophage, Vit D3, Lasix, Lipitor, Ecotrin low dose, Eliquis, Pacerone, Glucotrol XL, Actos, Prilosec, Toprol XL, Cozaar, Calcitriol. Please clarify the type and acuity of anemia: [ ] Chronic blood loss anemia [ ] Hemolytic anemia [ ] Drug induced anemia [ ] Anemia of chronic kidney disease [ X ] Unable to determine [ ] Other, please specify (Template Last Revised: November 2020) [ X ] Unable to determine, not acute blood loss MTDD
--- NOTE | 2021-06-08 11:23 | P.PN ---
Subjective This is a 70-year-old male with a past medical history significant for coronary artery disease with previous CABG x 3 in 2000, previous stent placement, persistent atrial fibrillation (on Eliquis), with previous ablation, most recent ablation on 03/06/21, sick sinus syndrome with dual-chamber pacemaker insertion 2018, hypertension, and hyperlipidemia, diabetes mellitus type 2, chronic kidney disease, obstructive sleep apnea with CPAP use. Patient follows in the office with Dr. Rivas. We have been asked to see the patient in consultation for CHF. Patient presented to the emergency department as directed by his PCP for reports of having an elevated d-dimer, and to rule out a pulmonary embolism. Patient states since April he has been having decreased exercise tolerance, significant fatigue, shortness of breath, and productive cough. Patient underwent a cardiac ablation in February 2021, unfortunately had a lot of bruising and bleeding with hematoma in the right groin with increased pain, states he had difficulty walking. He recovered from this. In April 2021 he felt short of breath and fatigued followed up with Dr. Rivas, an EKG was performed and his device was interrogated which revealed rapid atrial tachycardia. Patient was started on amiodarone 400mg daily. He states that since the medication adjustment he was feeling much better. However, patient reports that 2 weeks aqo he was taken off of his Eliquis for 3 days for a kidney biopsy in which he had completed on 05/22/21. Patient reports that he has had continued fatigue and was significant decreased exercise tolerance stating it is difficult for him to do normal activities as walking to the bathroom, to his car, cook dessert, without needing to take a break secondary to feeling extremely short of breath and states he just feels "worn out". He also endorses increased abdominal bloating. DIAGNOSTICS Chest xray mild heart failure with pleural effusions. Heart enlargement increased from old exam VQ scan low probability for PE Echocardiogram in the office 12/12/20- EF 40-45%, moderately dilated left atrium, mild to moderate mitral regurgitation Most recent stress testLexiscan Cardiolite 02/2021 revealed left ventricular with moderate to severe LV dysfunction with an EF of 34%. There is a typical septal motion secondary to prior bypass surgery. Large size severe intensity fixed perfusion defect involving the inferior wall secondary to prior myocardial infarction. No reversible perfusion defects noted. Echocardiogram 06/07 revealed an EF of 35-40%, basal inferior LV wall is hypokinetic, basal inferior septal LV wall is hypokinetic, mid inferior LV wall is hypokinetic, mid inferior septal LV wall is hypokinetic, mild to moderate mitral regurgitation, mild tricuspid regurgitation, moderate pulmonary hypertension with an RVSP of 56 06/08/2021: Patient's seen and examined at bedside, no acute distress. Patient denies any chest pain, shortness of breath, lightheadedness, dizziness. Patient does endorse some abdominal swelling that is new from yesterday. Patient with 1.3 L urine output over the past 24 hours. Laboratory data reviewed, sodium 131, potassium 4.1, BUN 67, serum creatinine 2.36 (2.4 yesterday), magnesium 1.8. Patient currently maintained on amiodarone 400 mg daily, Eliquis 5 mg twice day, aspirin 81 mg daily, atorvastatin 80 mg nightly, IV Lasix 80 mg twice a day, losartan 25 mg daily, Toprol succinate 50 mg daily. PHYSICAL EXAM: VITAL SIGNS: Blood pressure 143/76, heart rate 56, afebrile, maintaining oxygen saturation 96% on room air. GENERAL: Well-developed in no acute distress. HEENT: Head is normocephalic. Neck supple. no JVD LUNGS: Respirations even and unlabored. Lungs diminished with a few fine rales to bilateral bases. HEART: Irregular rate and rhythm. S1 and S2 heard. Systolic murmur noted at apex ABDOMEN: Soft. Nondistended. Nontender. EXTREMITIES: Normal range of motion. No clubbing or cyanosis. Peripheral pulses intact. 1+ bilateral ankle edema NEUROLOGIC: Awake and alert. Oriented x 3. ASSESSMENT: Elevated D-dimer Shortness of breath, Fatigue Acute on chronic systolic heart failure elevated BNP 32658, EF 30-35% History of persistant atrial fibrillation with ablation on 03/05/21, on long-term anticoagulation with Eliquis History of sick sinus syndrome, status post dual chamber permanent pacemaker insertion ([employer]-Margot) in 2019 History of coronary artery disease with previous CABG in 2000. Acute on chronic kidney disease Hypertension Hyperlipidemia Obstructive sleep apnea with CPAP use Diabetes mellitus, type II PLAN: Obtain ultrasound of abdomen Continue IV Lasix to 80mg BID Continue Eliquis 5 mg twice daily, amiodarone, statin, metoprolol succinate, losartan decreased to 25mg daily Daily weights Accurate I&O Monitor kidney function Continue home cardiac medications Nephrology following, appreciate recommendations Further recommendations pending patient course Nurse practitioner note has been reviewed by physician. Signing provider agrees with the documented findings, assessment, and plan of care. Objective - Vital Signs Vital signs: Vital Signs Temp 97.5 F L 06/08/21 08:31 Pulse 50 L 06/08/21 08:31 Resp 19 06/08/21 08:31 BP 121/71 06/08/21 08:31 Pulse Ox 97 06/08/21 08:31 Intake & Output 06/07/21 06/08/21 06/08/21 18:59 06:59 18:59 Intake Total 480 480 Output Total 350 950 350 Balance -350 -470 130 Weight 99.79 kg 104.6 kg Intake: Oral 480 480 Output: Urine 350 950 350 Other: Voiding Method Urinal Urinal # Voids 4 2 - Labs CBC & Chem 7: 06/07/21 03:34 06/08/21 06:07 Labs: Abnormal Lab Results - Last 24 Hours (Table) 06/07/21 06/07/21 06/07/21 Range/Units 11:29 17:37 20:19 Sodium (137-145) mmol/L BUN (9-20) mg/dL Creatinine (0.66-1.25) mg/dL Glucose (74-99) mg/dL POC Glucose (mg/dL) 317 H 207 H 147 H (75-99) mg/dL 06/08/21 06/08/21 Range/Units 06:07 07:39 Sodium 131 L (137-145) mmol/L BUN 67 H (9-20) mg/dL Creatinine 2.36 H (0.66-1.25) mg/dL Glucose 173 H (74-99) mg/dL POC Glucose (mg/dL) 169 H (75-99) mg/dL
[2021-06-08 11:41] LABS: Glucose,Whole Blood 231 mg/dL (75-99)
--- NOTE | 2021-06-08 15:52 | US ---
EXAMINATION TYPE: US abdomen complete DATE OF EXAM: 06/08/2021 COMPARISON: CT 05/22/21, 11/21/20; US 06/17/19 CLINICAL HISTORY: abdominal distention. EXAM MEASUREMENTS: Liver Length: 17.8 cm Gallbladder Wall: Surgically absent cm CBD: 0.7 cm Spleen: 12.9 cm Right Kidney: 13.6 x 7.0 x 6.3 cm Left Kidney: 14.5 x 6.9 x 6.1 cm Pancreas: Partially Obscured by bowel gas Liver: No masses seen. Gallbladder: Surgically absent Evidence for sonographic Pizano's sign: No CBD: wnl Spleen: wnl Right Kidney: No hydronephrosis or masses seen Left Kidney: Lateral cyst = 2.3 x 2.5 x 2.1 cm Upper IVC: wnl Abd Aorta: wnl Bilat Pleural effusion noted. No ascites seen. . IMPRESSION: 1. Bilateral pleural effusions. 2. Postcholecystectomy changes. 3. Left renal cyst.
--- NOTE | 2021-06-08 16:28 | P.PN ---
<Lance Stock - Last Filed: 06/08/21 16:23> Subjective Progress Note Date: 06/08/21 Hospital course: Patient is a pleasant 70-year-old male with a past medical history of CAD with previous VT and stent placement, CABG (triple bypass in 2000), hypertension, hyperlipidemia, atrial fibrillation on anticoagulation with Eliquis and status post biventricular pacemaker placement in 2019 as well as recent ablation on 03/05/21, congestive heart failure unknown type, [id number] diabetes mellitus type 2, stage IV CKD, prostate cancer currently watching, and obstructive sleep apnea CPAP dependent nightly. Patient presented to the emergency department as directed by his PCP for reports of having an elevated d- dimer. Patient reports that 2-1/2 weeks ago he was taken off of his Eliquis for 3 days for a kidney biopsy in which he had completed on 05/22/21. Patient states since this time he has been having decreased exercise tolerance, significant fatigue, shortness of breath, and productive cough. Patient states that he was seen by his primary care doctor, Dr. Salgado for these complaints and had some blood work drawn last week. Patient states that he received a phone call today informing him that his d-dimer was elevated and he needed to go to the emergency department to rule out a pulmonary embolism. Patient states that his also called his learning and development administrator's office (Dr. Rivas) and notified them of the abnormal results as well. Patient reports that he has had continued fatigue and was significant decreased exercise tolerance stating it is difficult for him to do the things he typically does like cooker chip or walk to the bathroom without needing to take a break secondary to feeling extremely short of breath and "just plain worn out". Patient states he has also been having a productive cough which is sometimes clear and sometimes a yellowish brown in color. He denies having any recent fevers, headaches, dizziness, lightheadedness, chest pain or palpitations, abdominal pain, nausea, changes in appetite, vomiting, or experiencing any numbness/swelling/weakness/tingling in his extremities. In the emergency department patient had additional blood work drawn in d-dimer resulted at 1.98 and patient was sent for VQ scan. CBC revealed mild normocytic normochromic anemia with hemoglobin of 12.0 and thrombocytopenia with platelet count of 130,000. BMP consistent with stage IV CKD with BUN of 61, creatinine 2.30, and GFR of 28. Hyperglycemia was present with glucose of 248. Troponin was normal findings at less than 0.012. ProBNP was elevated to 14,600. Respiratory panel consisting of Influenza A/B PCR, RSV, and Covid PCR negative. EKG revealing atrial flutter with a 4-1 AV conduction and T-wave inversion in aVL which has changed from previous EKG completed on 03/07/21 in which patient was in sinus rhythm with a first-degree AV block with VT interval of 238 and a right bundle branch block. Chest x-ray showing mild heart failure with pleural effusions and borderline cardiac enlargement. VQ scan reporting very low possibility for pulmonary emboli. Patient admitted under our services for CHF exacerbation with consultation to cardiology. 06/07/21: Patient was seen and fully evaluated at the bedside this morning. He reports continued fatigue and feeling slightly short of breath. Patient states he has had very little output over the past 24 hours despite IV Lasix being administered, no output documented. Disk And Tape Machine Tender at bedside increasing Lasix to 80 mg every 12 hours. Patient placed on strict I's and O's and RN updated on orders and need for close monitoring of output. Echocardiogram being completed. Patient denies having any chest pain, lightheadedness, dizziness, abdominal pain, nausea, vomiting, or experiencing any pain/weakness/numbness/increased swelling in extremities. Patient acute exacerbation of chronic systolic heart failure, updated admission to full admission as patient requires continued diuresis at this time. We will continue to monitor closely. Repeat BMP and magnesium with a.m. labs to continue to monitor electrolyte values and renal function. 06/08/21: Patient seen and fully evaluated this morning. He was sitting up in chair visiting with his . Patient reports significant abdominal distention over the past 24 hours. Abdominal ultrasound ordered by cardiology which was negative for ascites revealing bilateral pleural effusions and postcholecystectomy changes with a left renal cyst, no hydronephrosis or masses seen. Patient does report successful urination throughout the night and has had a total of 1650 mL's of urinary output over the past 24 hours. Patient's echocardiogram did reveal a moderately impaired EF between 35-40% with hypokinesis throughout left ventricle, mild to moderate mitral regurgitation and mild tricuspid regurgitation with moderate pulmonary hypertension. Patient continues to deny having any chest pain, palpitations, headache, lightheadedness, dizziness, or experiencing any numbness/tingling/weakness in his extremities. He reports last bowel movement yesterday. Physical exam: Vital signs reviewed and stable. General: Nontoxic, no distress and appears stated age. Derm: Skin warm and dry, normal coloration for ethnicity. Head: Atraumatic, normocephalic and symmetric. Eyes: EOMs intact, no lid lag, and anicteric sclera Mouth: no lip lesions, mucus membranes moist Cardiovascular: Regular rate and rhythm. Murmur present but no gallop or rub noted. Positive posterior tibial pulses bilaterally, and cap refill < 2 seconds. 1+ pitting bilateral lower extremity edema. Pacemaker left anterior chest. Lungs: Respirations even, regular, and unlabored on room air. Lungs CTA bilaterally, no rhonchi, no rales, no wheezing, and no accessory muscle usage. Abdominal: soft, nontender to palpation, no guarding, no appreciable organomegaly Ext: ROM intact. No gross muscle atrophy, no contractures Neuro: Speech clear, face symmetrical and CN II-XII grossly intact with no noted focal neuro deficits Psych: Alert and oriented to person, place, time, and situation. Appropriate and pleasant affect. Assessment and Plan of Care: Acute exacerbation of chronic systolic heart failure -Chest x-ray showing mild heart failure with pleural effusions and borderline cardiac enlargement. -Cardiology consulted and reported last known EF obtained from left computed tomography scan stress test which revealed a moderate to severely impaired EF of 34% -Echocardiogram showing a moderately impaired EF between 35-40% with hypokinesis throughout left ventricle, mild to moderate mitral regurgitation and mild tricuspid regurgitation with moderate pulmonary hypertension -Telemetry monitoring -Troponins < 0.012 x 3 -ProBNP 14,600 -Daily weights -Close monitoring of I's and O's -Cardiac diet -Lasix increased to 80 mg IVP every 12 hours -Continue daily Eliquis, Aspirin, atorvastatin, amiodarone, losartan and metoprolol -Lipid profile showing no significant abnormalities with the exception of low HDL of 34.0. -Hgb A1c 8.3% -Continued close monitoring of electrolytes and renal function while diuresing. Shortness of breath and fatigue -Likely secondary to acute exacerbation of chronic heart failure with proBNP of 14,600 and x-ray conclusive for mild CHF. -We will obtain echocardiogram. -Respiratory panel consisting of Influenza A/B PCR, RSV, and Covid PCR negative. -Chest x-ray showing mild heart failure with pleural effusions and borderline cardiac enlargement. -VQ scan reporting very low possibility for pulmonary emboli. -Treatment with Lasix IVP every 12 hours, please see treatment plan for acute exacerbation of chronic heart failure of unknown type CKD stage IV -BMP consistent with stage IV CKD with BUN 62.0, creatinine 2.4, and GFR 26.5. -We will monitor renal function closely through diuresis with repeat a.m. labs. [id number] diabetes mellitus type 2with hyperglycemia -Hold oral glycemic medication and placed patient on glycemic protocol with NovoLog sliding scale. -Persistent hyperglycemia with blood glucose levels 300. Patient placed on scheduled NovoLog 5 units before meals and at bedtime along with sliding scale. -Hemoglobin A1c 8.3%. Obstructive sleep apnea CPAP dependent nightly -Continue use of CPAP nightly. -Continue Singulair nightly. -Provide oxygen supplementation as needed to maintain SpO2 equal to or greater than 90%. -Encourage use of incentive spirometry 10-15 times hourly while awake. Hypertension Monitor vital signs and Continue daily medication regimen with losartan and metoprolol. Hyperlipidemia -Continue daily medication regimen with atorvastatin 80 mg nightly. -Lipid profile to be drawn with a.m. labs. Atrial fibrillation on anticoagulation with Eliquis and status post biventricular pacemaker placement in 2019 as well as recent ablation on 03/05/21 -Continue anticoagulation with Eliquis. History of CAD with previous VT and stent placement, CABG (quadruple bypass in 2000), pacemaker in 2019 -Continue daily Eliquis, Aspirin, atorvastatin, amiodarone, losartan and me toprolol. -Cardiology following for acute exacerbation of CHF. The patient is admitted with an anticipated greater than 2 midnight stay for evaluation of acute exacerbation of chronic heart failure of unknown type. CODE STATUS: Full code DVT prophylaxis: Eliquis Discussed with: Patient, patient's , and RN Anticipated discharge date: clinical course to determine Anticipated discharge place: home A total of 45 minutes was spent on the care of this complex patient more than 50% of the time was spent in counseling and care coordination. Objective - Vital Signs Vital signs: Vital Signs Temp 97.5 F L 06/08/21 08:31 Pulse 50 L 06/08/21 08:31 Resp 19 06/08/21 08:31 BP 121/71 06/08/21 08:31 Pulse Ox 97 06/08/21 08:31 Intake & Output 06/07/21 06/08/21 06/08/21 18:59 06:59 18:59 Intake Total 480 480 Output Total 350 950 350 Balance -350 -470 130 Weight 99.79 kg 104.6 kg Intake: Oral 480 480 Output: Urine 350 950 350 Other: Voiding Method Urinal Urinal # Voids 4 2 - Labs CBC & Chem 7: 06/07/21 03:34 06/08/21 06:07 Labs: Abnormal Lab Results - Last 24 Hours (Table) 06/07/21 06/07/21 06/07/21 Range/Units 11:29 17:37 20:19 Sodium (137-145) mmol/L BUN (9-20) mg/dL Creatinine (0.66-1.25) mg/dL Glucose (74-99) mg/dL POC Glucose (mg/dL) 317 H 207 H 147 H (75-99) mg/dL 06/08/21 06/08/21 Range/Units 06:07 07:39 Sodium 131 L (137-145) mmol/L BUN 67 H (9-20) mg/dL Creatinine 2.36 H (0.66-1.25) mg/dL Glucose 173 H (74-99) mg/dL POC Glucose (mg/dL) 169 H (75-99) mg/dL <Celia Grewal - Last Filed: 06/08/21 18:29> Subjective Lance Stock NP rendered care for this patient independently, reviewed the findings and plan as documented in the note above. I did not physically speak with or examine the patient on this date. Objective - Vital Signs Vital signs: Vital Signs Temp 97.6 F 06/08/21 14:54 Pulse 51 L 06/08/21 14:54 Resp 17 06/08/21 14:54 BP 125/80 06/08/21 14:54 Pulse Ox 99 06/08/21 14:54 Intake & Output 06/07/21 06/08/21 06/08/21 18:59 06:59 18:59 Intake Total 480 480 Output Total 775 538 7071 Balance -350 -470 -695 Weight 99.79 kg 104.6 kg Intake: Oral 480 480 Output: Urine 404 123 5007 Other: Voiding Method Urinal Urinal Urinal # Voids 4 2 - Labs CBC & Chem 7: 06/07/21 03:34 06/08/21 06:07 Labs: Abnormal Lab Results - Last 24 Hours (Table) 06/07/21 06/08/21 06/08/21 Range/Units 20:19 06:07 07:39 Sodium 131 L (137-145) mmol/L BUN 67 H (9-20) mg/dL Creatinine 2.36 H (0.66-1.25) mg/dL Glucose 173 H (74-99) mg/dL POC Glucose (mg/dL) 147 H 169 H (75-99) mg/dL 06/08/21 06/08/21 Range/Units 11:39 17:34 Sodium (137-145) mmol/L BUN (9-20) mg/dL Creatinine (0.66-1.25) mg/dL Glucose (74-99) mg/dL POC Glucose (mg/dL) 231 H 185 H (75-99) mg/dL
[2021-06-08 17:36] LABS: Glucose,Whole Blood 185 mg/dL (75-99)
[2021-06-08] MEDS: SODIUM CHLORIDE 0.9% 1,000 ML IV SCH (18:18)
--- NOTE | 2021-06-08 18:32 | PN ---
PROGRESS NOTE Patient is seen for followup for chronic kidney disease. He was admitted to the hospital with shortness of breath and fluid overload. Currently patient is being diuresed. His Lasix was increased yesterday. Urine output has improved. So far the patient has had about 1100 cc of urine output. PHYSICAL EXAMINATION: On examination today, blood pressure is 121/71, heart rate 50 per minute. He is afebrile. Examination of the heart S1, S2. Examination of the lungs, bilateral breath sounds are heard. Abdomen is soft, nontender. Examination of lower extremities shows edema 1+ bilaterally. MINE EXPLORATION ENGINEER exam grossly intact. LAB: Show sodium 131, potassium 4.1, BUN 67, serum creatinine 2.36. ASSESSMENT: 1. Chronic kidney disease secondary to diabetic nephropathy. Kidney biopsy showed diabetic glomerulosclerosis. Baseline creatinine around 2.0, stage 3B to 4. 2. Volume overload, currently being diuresed. The patient is being followed by Cardiology. Echocardiogram done yesterday shows ejection fraction of 35-40%. 3. Cardiomyopathy with mild to moderate mitral regurgitation, moderate pulmonary hypertension. 4. Chronic kidney disease mineral bone disorder, maintained on calcitriol. PLAN: Continue with IV Lasix. May continue with Cozaar. Repeat labs in a.m. Avoid nephrotoxic agents. MMODL / IJN: [id number] /
[2021-06-08 21:45] LABS: Glucose,Whole Blood 181 mg/dL (75-99)
[2021-06-08] MEDS: ATORVASTATIN 80 MG TAB PO SCH (21:56)
[2021-06-08] MEDS: MONTELUKAST 10 MG TAB PO SCH (21:56)
[2021-06-09 02:20] VITALS: RESP 16
[2021-06-09] MEDS: ACETAMINOPHEN TAB 325 MG TAB PO PRN (04:54)
[2021-06-09 07:03] LABS: African American GFR (CKD) 31 (>60 ml/min/1.73 sqM); Anion Gap 10 mmol/L; Blood Urea Nitrogen 72 mg/dL (9-20); Carbon Dioxide 23 mmol/L (22-30); Chloride 101 mmol/L (98-107); Glucose 147 mg/dL (74-99); Magnesium 1.7 mg/dL (1.6-2.3); Non-African American GFR(CKD) 27 (>60 ml/min/1.73 sqM); Potassium 4.3 mmol/L (3.5-5.1); Sodium 134 mmol/L (137-145)
[2021-06-09 07:42] LABS: Glucose,Whole Blood 148 mg/dL (75-99)
[2021-06-09] MEDS: ASPIRIN 81 MG PO SCH (08:27)
[2021-06-09] MEDS: APIXABAN 5 MG TAB PO SCH (08:27)
[2021-06-09] MEDS: AMIODARONE 200 MG TAB PO SCH (08:27)
[2021-06-09] MEDS: FUROSEMIDE 10 MG/ML 10 ML VIAL IV SCH (08:27)
[2021-06-09] MEDS: TAMSULOSIN 0.4 MG CAP.ER.24H PO SCH (08:27)
[2021-06-09] MEDS: PANTOPRAZOLE 40 MG TABLET PO SCH (08:28)
[2021-06-09] MEDS: LOSARTAN 25 MG TAB PO SCH (08:28)
[2021-06-09] MEDS: CHOLECALCIFEROL 25 MCG (1000 IU) TABLET PO SCH (08:28)
[2021-06-09] MEDS: LORATADINE 10 MG TAB PO SCH (08:28)
[2021-06-09] MEDS: METOPROLOL SUCCINATE (ER) 50 MG TAB.ER.24H PO SCH (08:28)
[2021-06-09] MEDS: INSULIN ASPART (NovoLOG) 100 UNIT/ML VIAL SQ SCH ×4 (08:28→13:15)
[2021-06-09 11:23] LABS: Glucose,Whole Blood 218 mg/dL (75-99)
[2021-06-09] MEDS: MAGNESIUM SULFATE-D5W PMX 1 GM in DEXTROSE/WATER 1 100ML.BAG IVPB SCH ×2 (13:14→14:24)
--- NOTE | 2021-06-09 13:27 | PN ---
PROGRESS NOTE The patient is seen for followup for acute kidney injury on top of chronic kidney disease, mostly cardiorenal. Patient has underlying diabetic kidney disease. He was admitted with shortness of breath, currently being diuresed, with overall improvement in respiratory status and oxygenation. PHYSICAL EXAMINATION: On examination today, blood pressure 122/73. The patient is afebrile. Heart rate 52 per minute. EXAMINATION OF THE HEART: S1 and S2. EXAMINATION OF LUNGS: Bilateral breath sounds are heard. Decreased breath sounds at the bases. ABDOMEN: Soft, nontender. LOWER EXTREMITIES: Examination of lower extremities shows edema 1+ bilaterally. DRY WALL INSTALLATIONS MECHANIC EXAM: Grossly intact. LABS: Sodium 134, potassium 4.3, BUN 72, creatinine 2.39. ASSESSMENT: 1. Chronic kidney disease secondary to diabetic kidney disease, biopsy-proven, NKF stage 3B to 4, baseline creatinine 2.0. 2. Volume overload, currently improving. 3. Cardiomyopathy, ejection fraction 35% to 40%. 4. Mild to moderate mitral regurgitation and moderate pulmonary hypertension. 5. Chronic kidney disease mineral bone disorder, maintained on calcitriol. PLAN: May continue with angiotensin receptor blockers and continue with Rocaltrol and oral Lasix. Patient can be discharged from nephrology standpoint and follow up as outpatient. MMODL / IJN: [id number] /
--- NOTE | 2021-06-09 13:32 | P.DS ---
<Lance Stock - Last Filed: 06/09/21 13:30> Providers Expected date of discharge: 06/09/21 Hospital Course: Discharge Diagnosis: Acute exacerbation of chronic systolic heart failure CKD stage IV Hypomagnesemia, replaced [id number] diabetes mellitus type II with hyperglycemia Obstructive sleep apnea CPAP dependent nightly Hypertension Hyperlipidemia Atrial fibrillation on anticoagulation with Eliquis History of biventricular pacemaker placement in 2019 History of cardiac ablation on 03/05/21 History of CAD with previous DE and stent placement, History of CABG (quadruple bypass in 2000) Hospital Course: Patient is a pleasant 70-year-old male with a past medical history of CAD with previous DE and stent placement, CABG (triple bypass in 2000), hypertension, hyperlipidemia, atrial fibrillation on anticoagulation with Eliquis and status post biventricular pacemaker placement in 2019 as well as recent ablation on 03/05/21, congestive heart failure unknown type, [id number] diabetes mellitus type 2, stage IV CKD, prostate cancer currently watching, and obstructive sleep apnea CPAP dependent nightly. Patient presented to the emergency department as directed by his PCP for reports of having an elevated d- dimer. Patient reports that 2-1/2 weeks ago he was taken off of his Eliquis for 3 days for a kidney biopsy in which he had completed on 05/22/21. Patient states since this time he has been having decreased exercise tolerance, significant fatigue, shortness of breath, and productive cough. Patient states that he was seen by his primary care doctor, Dr. Salgado for these complaints and had some blood work drawn last week. Patient states that he received a phone call today informing him that his d-dimer was elevated and he needed to go to the emergency department to rule out a pulmonary embolism. Patient states that his also called his senior pharmacy technician's office (Dr. Rivas) and notified them of the abnormal results as well. Patient reports that he has had continued fatigue and was significant decreased exercise tolerance stating it is difficult for him to do the things he typically does like cook morning or walk to the bathroom without needing to take a break secondary to feeling extremely short of breath and "just plain worn out". Patient states he has also been having a productive cough which is sometimes clear and sometimes a yellowish brown in color. He denies having any recent fevers, headaches, dizziness, lightheadedness, chest pain or palpitations, abdominal pain, nausea, changes in appetite, vomiting, or experiencing any numbness/swelling/weakness/tingling in his extremities. In the emergency department patient had additional blood work drawn in d-dimer resulted at 1.98 and patient was sent for VQ scan. CBC revealed mild normocytic normochromic anemia with hemoglobin of 12.0 and thrombocytopenia with platelet count of 130,000. BMP consistent with stage IV CKD with BUN of 61, creatinine 2.30, and GFR of 28. Hyperglycemia was present with glucose of 248. Troponin was normal findings at less than 0.012 x3. ProBNP was elevated to 14,600. Respiratory panel consisting of Influenza A/B PCR, RSV, and Covid PCR negative. EKG revealing atrial flutter with a 4-1 AV conduction and T-wave inversion in aVL which has changed from previous EKG completed on 03/07/21 in which patient was in sinus rhythm with a first-degree AV block with HI interval of 238 and a right bundle branch block. Chest x-ray showing mild heart failure with pleural effusions and borderline cardiac enlargement. VQ scan reporting very low possibility for pulmonary emboli. Patient admitted under our services for CHF exacerbation with consultation to cardiology. Echocardiogram showing a moderately impaired EF between 35-40% with hypokinesis throughout left ventricle, mild to moderate mitral regurgitation and mild tricuspid regurgitation with moderate pulmonary hypertension. Patient was diuresed with Lasix until adequate urinary output was obtained. Electrolytes and renal function were monitored closely and abnormal electrolyte values were replaced as needed. Patient reports resolution of fatigue and shortness of breath and states he is no longer coughing. Patient does report that he continues to be slightly tired with increased exertion, but has been building endurance daily. Patient ambulatory in room to and from bathroom without any difficulties. Cardiology increased patient's oral Lasix to 80 mg twice daily. Patient cleared from medical and cardiology perspective and is stable for discharged home at this time with prescription for Lasix as well as orders to have BMP and magnesium drawn in 3 days with results to be sent to Dr. Rivas and Dr. Cummings. Patient to follow-up with PCP in 1-2 days and cardiology in 1 week. Hemoglobin A1c was 8.3%, patient reports recent changes to his medication doses as well as new medications for his diabetes management. Patient currently on metformin, glipizide, Actos, and Januvia. Discussed with patient that it is important to follow a heart healthy and carb consistent diet and he may need to begin home insulin if no improvement in his hemoglobin A1c. Highly recommend repeat hemoglobin A1c by PCP and close monitoring for improvement. Physical exam: Patient was seen and fully evaluated at the bedside this morning. He had 3005 mL of urinary output over the past 24 hours. Patient reports feeling significantly better. He denies having any headache, lightheadedness, dizziness, changes in vision or hearing, chest pain or palpitations, shortness of breath, abdominal pain, nausea, vomiting, or experiencing any numbness/tingling/weakness in his extremities. Patient reports that he feels ready to go home and requesting discharge denying any further complaints or needs at this time. Vital signs reviewed and stable. General: Nontoxic, no distress and appears stated age. Derm: Skin warm and dry, normal coloration for ethnicity. Head: Atraumatic, normocephalic and symmetric. Eyes: EOMs intact, no lid lag, and anicteric sclera Mouth: no lip lesions, mucus membranes moist Cardiovascular: Regular rate and rhythm. Murmur present but no gallop or rub noted. Positive posterior tibial pulses bilaterally, and cap refill < 2 seconds. Scant lower extremity edema. Pacemaker left anterior chest. Lungs: Respirations even, regular, and unlabored on room air. Lungs CTA bilaterally, no rhonchi, no rales, no wheezing, and no accessory muscle usage. Abdominal: soft, nontender to palpation, no guarding, no appreciable organomegaly Ext: ROM intact. No gross muscle atrophy, no contractures Neuro: Speech clear, face symmetrical and CN II-XII grossly intact with no noted focal neuro deficits Psych: Alert and oriented to person, place, time, and situation. Appropriate and pleasant affect. A total of 45 minutes of time were spent preparing this complex discharge summary. Patient Condition at Discharge: Stable Plan - Discharge Summary Discharge Rx Participant: Yes New Discharge Prescriptions: New Furosemide [Lasix] 80 mg PO BID@0900,1600 30 Days #60 tab Losartan [Cozaar] 25 mg PO DAILY 30 Days #30 tab Continue Apixaban [Eliquis] 5 mg PO BID Atorvastatin Calcium [Lipitor] 80 mg PO HS Amiodarone HCl [Pacerone] 400 mg PO DAILY Cetirizine HCl [Zyrtec] 10 mg PO DAILY Tamsulosin [Flomax] 0.4 mg PO DAILY Discontinued Aspirin EC [Ecotrin Low Dose] 81 mg PO DAILY Losartan [Cozaar] 50 mg PO DAILY Metoprolol Succinate [Toprol XL] 50 mg PO DAILY Furosemide [Lasix] 20 mg PO DAILY No Action Cinnamon Bark [Cinnamon] 1,000 mg PO BID Cholecalciferol [Vitamin D3 (25 Mcg = 1000 Iu)] 50 mcg PO DAILY glipiZIDE XL [Glucotrol XL] 10 mg PO DAILY Pioglitazone [Actos] 15 mg PO DAILY calcitrioL [Calcitriol] 0.25 mcg PO LOONEY Omeprazole [PriLOSEC] 40 mg PO DAILY Montelukast Sodium [Singulair] 10 mg PO HS sitaGLIPtin [Januvia] 50 mg PO DAILY metFORMIN HCL [Glucophage] 1,000 mg PO BID Discharge Medication List Apixaban [Eliquis] 5 mg PO BID 04/25/19 [History] Cinnamon Bark [Cinnamon] 1,000 mg PO BID 04/25/19 [History] Atorvastatin Calcium [Lipitor] 80 mg PO HS 11/21/20 [History] Cholecalciferol [Vitamin D3 (25 Mcg = 1000 Iu)] 50 mcg PO DAILY 11/21/20 [History] glipiZIDE XL [Glucotrol XL] 10 mg PO DAILY 11/21/20 [History] Pioglitazone [Actos] 15 mg PO DAILY 03/01/21 [History] Amiodarone HCl [Pacerone] 400 mg PO DAILY 05/15/21 [History] Omeprazole [PriLOSEC] 40 mg PO DAILY 05/15/21 [History] calcitrioL [Calcitriol] 0.25 mcg PO LOONEY 05/15/21 [History] Cetirizine HCl [Zyrtec] 10 mg PO DAILY 06/06/21 [History] Montelukast Sodium [Singulair] 10 mg PO HS 06/06/21 [History] Tamsulosin [Flomax] 0.4 mg PO DAILY 06/06/21 [History] metFORMIN HCL [Glucophage] 1,000 mg PO BID 06/06/21 [History] sitaGLIPtin [Januvia] 50 mg PO DAILY 06/06/21 [History] Furosemide [Lasix] 80 mg PO BID@0900,1600 30 Days #60 tab 06/09/21 [Rx] Losartan [Cozaar] 25 mg PO DAILY 30 Days #30 tab 06/09/21 [Rx] Follow up Appointment(s)/Referral(s): Chris Rivas MD [Family Provider] - 06/23/21 4:00 pm (pt had appt set up already) Victor Manuel Cummings MD [Primary Care Provider] - 1-2 days Ambulatory/Diagnostic Orders: Basic Metabolic Panel [LAB.AMB] Time Frame: 3 Days, Location: None Selected Basic Metabolic Panel [LAB.AMB] Location: None Selected Magnesium [LAB.AMB] Time Frame: 3 Days, Location: None Selected Patient Instructions/Handouts: Heart Failure (DC) Activity/Diet/Wound Care/Special Instructions: Activity: As tolerated. Take breaks as needed. Diet: Heart healthy and carb consistent diet. Avoid salts, or foods with hidden salts such as canned or boxed foods and frozen dinners. Extra salt makes your heart work harder and traps the fluid in your body for longer. Special Instructions: Weigh yourself every morning after you urinate. If you gain 3 pounds overnight or more than 5 pounds in one week, call your primary physician and senior pharmacy technician for guidance on your medications or they may want to see you in their office. Keep a daily log of your weights and be sure to bring with you at follow up visits with your PCP and senior pharmacy technician. Take all of your medications as directed, especially your water pills. NEVER skip a dose. And remember to keep all of your doctor's appointments and follow- up as needed. Elevate your legs when you are not up moving around to help with circulation and prevent swelling. Compression stockings are also a great way to improve lower extremity circulation and prevent/improve lower extremity edema. Call your primary care provider and senior pharmacy technician if you notice any extra swelling in your legs, ankles, feet or abdomen, if you have a new dry cough, if your shortness of breath worsens with activity or at rest, or if you feel more fatigued. You will need to have your labs redrawn over the next week so we can monitor your kidney function and electrolytes closely. These results will be sent to Dr. Rivas and Dr. Cummings for follow up. Your hemoglobin A1c was 8.3%. I understand Dr. Cummings has made recent medication changes. I highly recommend Dr. Cummings repeating you hemoglobin A1c for continued close monitoring for improvement. It is also important for you to monitor your blood glucose levels daily. Please document your daily blood glucose level in a log or journal and be sure to bring with you to your next doctor's appointment. Thank you for allowing us to participate in your care, it was truly a pleasure having you for our patient!!! Discharge Disposition: HOME SELF-CARE <Celia Grewal - Last Filed: 06/09/21 19:17> Providers Date of admission: 06/07/21 15:42 Attending physician: Celia Grewal DO Consults: 06/06/21 17:02 Consult Physician Routine Consulting Provider: Chris Rivas Consult Reason/Comments: CHF Do you want consulting provider notified?: Yes Primary care physician: Victor Manuel Cumm[facility] Course: Lance Stock NP rendered care for this patient independently, reviewed the findings and plan as documented in the note above. I did not physically speak with or examine the patient on this date.
--- NOTE | 2021-06-09 13:33 | P.PN ---
Subjective This is a 70-year-old male with a past medical history significant for coronary artery disease with previous CABG x 3 in 2000, previous stent placement, persistent atrial fibrillation (on Eliquis), with previous ablation, most recent ablation on 03/06/21, sick sinus syndrome with dual-chamber pacemaker insertion 2018, hypertension, and hyperlipidemia, diabetes mellitus type 2, chronic kidney disease, obstructive sleep apnea with CPAP use. Patient follows in the office with Dr. Rivas. We have been asked to see the patient in consultation for CHF. Patient presented to the emergency department as directed by his PCP for reports of having an elevated d-dimer, and to rule out a pulmonary embolism. Patient states since April he has been having decreased exercise tolerance, significant fatigue, shortness of breath, and productive cough. Patient underwent a cardiac ablation in February 2021, unfortunately had a lot of bruising and bleeding with hematoma in the right groin with increased pain, states he had difficulty walking. He recovered from this. In April 2021 he felt short of breath and fatigued followed up with Dr. Rivas, an EKG was performed and his device was interrogated which revealed rapid atrial tachycardia. Patient was started on amiodarone 400mg daily. He states that since the medication adjustment he was feeling much better. However, patient reports that 2 weeks aqo he was taken off of his Eliquis for 3 days for a kidney biopsy in which he had completed on 05/22/21. 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 He also endorses increased abdominal bloating. DIAGNOSTICS Chest xray mild heart failure with pleural effusions. Heart enlargement increased from old exam VQ scan low probability for PE Echocardiogram in the office 12/12/20- EF 40-45%, moderately dilated left atrium, mild to moderate mitral regurgitation Most recent stress testLexiscan Cardiolite 02/2021 revealed left ventricular with moderate to severe LV dysfunction with an EF of 34%. There is a typical septal motion secondary to prior bypass surgery. Large size severe intensity fixed perfusion defect involving the inferior wall secondary to prior myocardial infarction. No reversible perfusion defects noted. Echocardiogram 06/07 revealed an EF of 35-40%, basal inferior LV wall is hypokinetic, basal inferior septal LV wall is hypokinetic, mid inferior LV wall is hypokinetic, mid inferior septal LV wall is hypokinetic, mild to moderate mitral regurgitation, mild tricuspid regurgitation, moderate pulmonary hypertension with an RVSP of 56 06/09/2021: Patient's seen and examined at bedside, no acute distress. Patient denies any chest pain, shortness of breath, lightheadedness, dizziness. US abdomen was negative Patient with 3L urine output over the past 24 hours. Laboratory data reviewed, sodium 134, potassium 4.3, BUN 72, serum creatinine 2.39 (2.36 yesterday), magnesium 1.7. Patient currently maintained on amiodarone 400 mg daily, Eliquis 5 mg twice day, aspirin 81 mg daily, atorvastatin 80 mg nightly, IV Lasix 80 mg twice a day, losartan 25 mg daily, Toprol succinate 50 mg daily. PHYSICAL EXAM: VITAL SIGNS: Blood pressure 122/73, heart rate 52, afebrile, maintaining oxygen saturation 96% on room air. GENERAL: Well-developed in no acute distress. HEENT: Head is normocephalic. Neck supple. no JVD LUNGS: Respirations even and unlabored. Lungs diminished with a few fine rales to bilateral bases. HEART: Irregular rate and rhythm. S1 and S2 heard. Systolic murmur noted at apex ABDOMEN: Soft. Nondistended. Nontender. EXTREMITIES: Normal range of motion. No clubbing or cyanosis. Peripheral pulses intact. 1+ bilateral ankle edema NEUROLOGIC: Awake and alert. Oriented x 3. ASSESSMENT: Elevated D-dimer Shortness of breath, Fatigue Acute on chronic systolic heart failure elevated BNP 45892, EF 30-35% History of persistant atrial fibrillation with ablation on 03/05/21, on long-term anticoagulation with Eliquis History of sick sinus syndrome, status post dual chamber permanent pacemaker insertion ([employer]-[place]) in 2019 History of coronary artery disease with previous CABG in 2000. Acute on chronic kidney disease Hypertension Hyperlipidemia Obstructive sleep apnea with CPAP use Diabetes mellitus, type II PLAN: Switch to Lasix 80mg PO BID Repeat BMP in 1 week Continue Eliquis 5 mg twice daily, amiodarone, statin, metoprolol succinate, losartan decreased to 25mg daily From a cardiology perspective, patient can be discharged home. Follow up with Dr. Rivas in 1-2 week. Nurse practitioner note has been reviewed by physician. Signing provider agrees with the documented findings, assessment, and plan of care. Objective - Vital Signs Vital signs: Vital Signs Temp 97.6 F 06/09/21 08:16 Pulse 52 L 06/09/21 08:16 Resp 16 06/09/21 08:16 BP 122/73 06/09/21 08:16 Pulse Ox 96 06/09/21 08:16 Intake & Output 06/08/21 06/09/21 06/09/21 18:59 06:59 18:59 Intake Total 480 540 Output Total 1175 1830 Balance -695 -1290 Weight 104.1 kg Intake: Oral 480 540 Output: Urine 1175 1830 Other: Voiding Method Urinal Urinal # Voids 3 - Labs CBC & Chem 7: 06/07/21 03:34 06/09/21 06:21 Labs: Abnormal Lab Results - Last 24 Hours (Table) 06/08/21 06/08/21 06/09/21 Range/Units 17:34 21:43 06:21 Sodium 134 L (137-145) mmol/L BUN 72 H (9-20) mg/dL Creatinine 2.39 H (0.66-1.25) mg/dL Glucose 147 H (74-99) mg/dL POC Glucose (mg/dL) 185 H 181 H (75-99) mg/dL 06/09/21 06/09/21 Range/Units 07:42 11:22 Sodium (137-145) mmol/L BUN (9-20) mg/dL Creatinine (0.66-1.25) mg/dL Glucose (74-99) mg/dL POC Glucose (mg/dL) 148 H 218 H (75-99) mg/dL
[2021-06-09] MEDS: SODIUM CHLORIDE 0.9% 1,000 ML IV SCH (14:12)
[2021-06-09 15:09] VITALS: BP 111/68; PULSE 50; TEMP 98.4
[2021-06-09] MEDS ORDERED: FUROSEMIDE 80 MG TAB PO SCH (16:00)
== END 2021-06-09 15:46 | disposition home or self-care (01) | DRG 291 ==
LOC: EC 11:23 → 6NMEDSUR 14:39 → OBSVTOIN 06-07 15:42
PROVIDERS: ADMIT Internal Medicine; ATTEND Internal Medicine
DX: I13.0 Hypertensive heart and chronic kidney disease with heart failure and stage 1 through stage 4 chronic kidney disease, or unspecified chronic kidney disease (principal); I50.23 Acute on chronic systolic (congestive) heart failure; I48.19 Other persistent atrial fibrillation; N17.9 Acute kidney failure, unspecified; N18.4 Chronic kidney disease, stage 4 (severe); I48.3 Typical atrial flutter; D64.9 Anemia, unspecified; D69.6 Thrombocytopenia, unspecified; E11.22 Type 2 diabetes mellitus with diabetic chronic kidney disease; E11.65 Type 2 diabetes mellitus with hyperglycemia; E11.42 Type 2 diabetes mellitus with diabetic polyneuropathy; E11.21 Type 2 diabetes mellitus with diabetic nephropathy; I27.20 Pulmonary hypertension, unspecified; I42.9 Cardiomyopathy, unspecified; Z20.822 Contact with and (suspected) exposure to COVID-19; I25.10 Atherosclerotic heart disease of native coronary artery without angina pectoris; E78.5 Hyperlipidemia, unspecified; I08.1 Rheumatic disorders of both mitral and tricuspid valves; E83.42 Hypomagnesemia; G47.33 Obstructive sleep apnea (adult) (pediatric); I45.10 Unspecified right bundle-branch block; M89.9 Disorder of bone, unspecified; I25.2 Old myocardial infarction; Z86.79 Personal history of other diseases of the circulatory system; Z79.01 Long term (current) use of anticoagulants; Z95.0 Presence of cardiac pacemaker; Z79.82 Long term (current) use of aspirin; Z79.84 Long term (current) use of oral hypoglycemic drugs; Z79.899 Other long term (current) drug therapy; Z85.46 Personal history of malignant neoplasm of prostate; Z95.1 Presence of aortocoronary bypass graft; Z95.5 Presence of coronary angioplasty implant and graft; Z87.440 Personal history of urinary (tract) infections
CPT/HCPCS: 36415; 71046; 76700; 78582; 80048; 80053; 80061; 81003; 83036; 83735; 83880; 84443; 84484; 85025; 85379; 86850; 86900; 86901; 87636; 93005; 93306; 99285

== ENCOUNTER 2021-09-05 06:58 | Day surgery (SDC) | payer MEDICARE ==
[2021-09-01 10:15] VITALS: BMI 25.8
[~2021-09-05 06:58] MED LIST changes: -LACTATED RINGERS 1,000 ML IV SCH
[2021-09-05] MEDS ORDERED: INSULIN ASPART (NovoLOG) 100 UNIT/ML VIAL SQ ONE (07:32)
[2021-09-05 07:36] LABS: Glucose,Whole Blood 249 mg/dL (75-99)
[2021-09-05] MEDS ORDERED: ceFAZolin 1,000 MG in SODIUM CHLORIDE 0.9% IRRIGATIO 250 ML IRRIGATION ONE (08:02)
--- NOTE | 2021-09-05 08:58 | P.HPCAR ---
History of Present Illness This is Dr. 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 Chronic kidney disease PLAN: Mapping of the cavo tricuspid isthmus to see if he has a In the flutter line Mapping of the left atrium and the pulmonary veins Left upper extremity venogram Consideration for an upgrade to a biventricular device future especially if his LV function is reduced and he has a high RV pacing percentage HPI Patient has been complaining for shortness of breath on exertion His BNP was elevated and his left ventricular systolic function was reduced at 35-40% He is also been experiencing atrial tachycardia with RVR and has been started on oral amiodarone, low-dose His last twelve-lead EKG had shown a flutter-like rhythm High RV pacing percentage ROS: No fever chills or rigors, no cough, phlegm or expectoration, no nausea, vomiting or diarrhea, no hematuria, dysuria, no musculoskeletal complaints, no strokes or seizures, no skin lesions. EXAMINATION: Afebrile 97.6F pulse rate in the 60s, respirations normal Blood pressure 142/76 mmHg Lungs are clear auscultation Rhythm appears regular Groins of healed well no hematoma Abdomen soft nontender No lower extremity edema REVIEW OF LABS, ECG & MEDICAL DATA Past history of coronary artery disease status post coronary artery bypass grafting Past history of atrial flutter status post ablation History of sick sinus syndrome status post dual-chamber pacemaker implant History of paroxysmal atrial fibrillation status post PVI, linear ablation the septum and linear ablation in the roof CHF class II Chronic kidney disease Physical Exam Vitals: Vital Signs Temp Pulse Resp BP Pulse Ox 09/05/21 07:30 97.6 F 67 16 142/76 99 Intake and Output 09/04/21 09/05/21 09/05/21 22:59 06:59 14:59 Other: Weight 94.6 kg Past Medical History Past Medical History: Atrial Fibrillation, Diabetes Mellitus, GERD/Reflux, Hyperlipidemia, Hypertension, Myocardial Infarction ([place]), Renal Disease, Sleep Apnea/CPAP/BIPAP Additional Past Medical History / Comment(s): neuropathy bilateral feet, chronic kidney disease stage III, hx "minor prostate ca"- dr monitoring , home CPAP , tachycardia, see Dr Rivas H & P Last Myocardial Infarction Date:: 01/2001 History of Any Multi-Drug Resistant Organisms: None Reported Past Surgical History: Cardiac Ablation, Coronary Bypass/CABG, Heart Catheterization With Stent, Pacemaker Additional Past Surgical History / Comment(s): 11/15/20 prostate biopsy, 2000 CABG 4 vessel, 3 cardiac stents, Cardioversion, loop recorder, colonoscopy . Past Anesthesia/Blood Transfusion Reactions: No Reported Reaction Date of Last Stent Placement:: 2006 Type of Cardiac Device: Biventricular Pacemaker Device Placement Date:: 08/25/19 Smoking Status: Never smoker - Past Family History Father Family Medical History: Cancer Additional Family Medical History / Comment(s): pancreatic cancer Mother Family Medical History: Cancer Additional Family Medical History / Comment(s): breast cancer Sister(s) Family Medical History: Diabetes Mellitus Physical Examination Vital Signs Temp Pulse Resp BP Pulse Ox 09/05/21 07:30 97.6 F 67 16 142/76 99 Intake and Output 09/04/21 09/05/21 09/05/21 22:59 06:59 14:59 Other: Weight 94.6 kg Results Current Medications Generic Name Dose Route Start Last Admin Trade Name Freq PRN Reason Stop Dose Admin Sodium Chloride 1,000 mls @ 50 mls/hr 09/05/21 06:02 09/05/21 07:23 Saline 0.9% IV 10/05/21 06:03 0 mls .Q20H DAREN Administration Intake and Output 09/04/21 09/05/21 09/05/21 22:59 06:59 14:59 Other: Weight 94.6 kg Patient Weight 09/06/21 06:59 Weight 94.6 kg
[2021-09-05] MEDS ORDERED: PROPOFOL 10 MG/ML 20 ML VIAL IV ONE (09:16)
[2021-09-05] MEDS ORDERED: NEOSTIGMINE 1 MG/ML 10 ML VIAL ONE (09:16)
[2021-09-05] MEDS ORDERED: ePHEDrine 50 MG/ML 1 ML AMP ONE (09:16)
[2021-09-05] MEDS ORDERED: PROTAMINE SULFATE 10 MG/ML 5 ML VIAL IV ONE (09:16)
[2021-09-05] MEDS ORDERED: PHENYLEPHRINE-0.9% NACL SYG 1,000 MCG/10 ML SYRINGE ONE (09:16)
[2021-09-05] MEDS ORDERED: FUROSEMIDE 10 MG/ML 2 ML VIAL ONE (09:16)
[2021-09-05] MEDS ORDERED: MIDAZOLAM 2 MG/2 ML VIAL ONE (09:16)
[2021-09-05] MEDS ORDERED: HEPARIN SODIUM,PORCINE 10,000 UNIT/ML 1 ML VIAL ONE (09:16)
[2021-09-05] MEDS ORDERED: fentaNYL (PF) 50 MCG/ML 2 ML AMP ONE (09:16)
[2021-09-05] MEDS ORDERED: ROCURONIUM 10 MG/ML (5 ML VIAL) IV ONE (09:16)
[2021-09-05] MEDS ORDERED: GLYCOPYRROLATE 0.2 MG/ML 2 ML VIAL ONE (09:16)
[2021-09-05] MEDS ORDERED: WATER FOR INJECTION, STERILE 10 ML VIAL IV ONE (09:16)
[2021-09-05] MEDS ORDERED: SUCCINYLCHOLINE CHLORIDE 100 MG/5 ML SYR IV ONE (09:16)
[2021-09-05] MEDS ORDERED: LIDOCAINE 1% INJ 10MG/ML (20 ML MDV) ONE (09:33)
[2021-09-05] MEDS ORDERED: IOPAMIDOL-370 50ML BTL INJ ONE (09:53)
[2021-09-05] MEDS ORDERED: LIDOCAINE 1% INJ 10MG/ML (20 ML MDV) SQ ONE (10:09)
[2021-09-05] MEDS ORDERED: HEPARIN SODIUM (1,000 UNIT/ML) 1,000 UNIT in SODIUM CHLORIDE 0.9% 1,000 ML IRRIGATION ONE (10:10)
[2021-09-05] MEDS ORDERED: HEPARIN SOD,PORK IN 0.45% NACL 25,000 UNIT in 0.45% NACL 1 250ML.BAG IV ONE (10:11)
[2021-09-05] MEDS ORDERED: ACETAMINOPHEN TAB 325 MG TAB PO PRN (13:48)
--- NOTE | 2021-09-05 14:02 | P.EPPROC ---
- EP Procedure Note Electrophysiology Procedure Note: Patient underwent an EP study and mapping of the right atrium and left atrium He presented with an atrial tachycardia with negative T waves in lead V1, cycle length of about 230 ms Coronary sinus activation was concentric Detailed activation mapping of the right atrium suggested #1 slow conduction in the previously performed atrial flutter line #2 a reentrant arrhythmia and the low lateral right atrium close to the lateral aspect of atrial flutter line He first underwent RF ablation of typical atrial flutter successfully. Heart the tachycardia continued Subsequently underwent repeat mapping and this is reconfirmed reentrant circuit in the low lateral right atrial free wall RF ablation was performed from the center of this pivot to the IVC/atrial flutter line Ho the tachycardia continued Activation mapping of the left atrium was performed Secondary circuit was noted in the left atrium 3-D mapping of the right atrium and the coronary sinus os was performed once again Broad septal activation was noted in the right and the left atrial septa, consistent with a deep septal focus with secondary activation of both atria No septal ablation was performed Electrical cardioversion was performed Venogram of the left upper extremity revealed an occluded subclavian vein Accessing the central portion the subclavian vein is fraught with risk of pneumothorax since this portion is quite deep in the chest The device was reprogrammed to [id number] with sensed AV delay starting at 260 ms His RV pacing percentage during atrial fibrillation is about 31% Intracardiac echo suggested reduced LV systolic function Plan Carvedilol 3.125 mg twice daily Amiodarone 200 mg by mouth daily which is an increase from 100 mg by mouth daily Medical treatment Diabetes management If an upgrade is considered to a biventricular device then epicardial LV lead placement will have to be considered
[2021-09-05] MEDS ORDERED: ACETAMINOPHEN IV (For NPO) 1,000 MG in EMPTY BAG 1 BAG IVPB ONE (14:30)
[2021-09-05 14:31] LABS: Glucose,Whole Blood 178 mg/dL (75-99)
--- NOTE | 2021-09-05 14:39 | P.PRLE ---
RE: Salvatore Marks Dear Dr. Emiliano whaley. Has a persistent atrial tachycardia that resembles typical atrial flutter. In [place] he had an atrial flutter ablation performed Since he had AV node disease his rates are fairly regularized and on clinical examination he appears to be quite regular During atrial tachycardia his RV pacing percentage is about 31% and he has developed a cardio myopathy with ejection fraction of about 40% He was brought in for an atrial tachycardia ablation and the results are as follows #1. There was a slow conduction/In the previously performed atrial flutter ablation and he underwent successful ablation for this #2. He had a reentrant circuit in the low lateral right atrium and he underwent successful ablation for this However he continued to have tachycardia and this was mapped to the intra-atrial septum He is a defocused in the atria atrial septum that activates the right and left atrium passively and is not accessible for radiofrequency ablation by catheter- based techniques or surgically I had previously performed in [place] fib ablation on him and his pulmonary veins have remained completely isolated I performed an electrical cardioversion and will increase the dose of amiodarone 200 mg by mouth daily Previously he was on dofetilide but this resulted in prolongation of the QT interval and there was discontinued and for the same reason I'm not using sotalol Hopefully in sinus rhythm, on 200 mg amiodarone his RV pacing percentage will be a lot lower than 30%. 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 His hemoglobin A1c in May, was 8.3 Thank you for entrusting me with the care of the patient Warm regards Sincerely Chris Rivas
--- NOTE | 2021-09-05 14:51 | P.EPPROC ---
- EP Procedure Note Electrophysiology Procedure Note: Diagnosis Atrial tachycardia consistent with typical atrial flutter Previous atrial flutter ablation in [place] Previous cryoablation by myself several months back Details Patient was brought to the EP lab in a fasting state Written informed consent was obtained prior to the procedure He was an atrial tachycardia with negative P waves in lead V1 His dual-chamber Medtronic pacemaker was interrogated and reprogrammed to VVI 45 beats a minute IV antibiotics given At the end of the procedure was reprogrammed to AAIR-DDDR, 50 to 130 bpm with a starting sensed AV delay of 260 ms Venous access obtained in the right and left femoral veins Mapping and ablation cath was replaced Intracardiac echo cath was placed LV function is mildly reduced on intracardiac echo No pericardial effusion is noted No left atrial appendage thrombus is noted A Pentaray catheter was first placed in the right atrium and a coronary sinus catheter was placed Placement the coronary sinus cath was difficult but we were able to achieve this successfully Activation mapping of the right atrium suggested that there was a slow leak/slow conduction across the isthmus in the previously performed atrial flutter ablation In addition there appeared to be a circuit in the low lateral right atrium lateral to this line First RF ablation was performed and the atrial flutter line was completed Now the tachycardia continued The repeat mapping of the right atrium was performed on multiple occasions The low lateral right atrial circuit was identified Entrainment mapping was also performed and non-capture was noted at these sites and we could not achieve entrainment RF ablation was applied from the center of this line to the IVC and the atrial flutter line Over the tachycardia continued and he mapping of the right atrium suggested a more septal activation this time Transseptal catheterization was performed RA pressure 15/7/11 LA pressure 25/7/15 Activation mapping of the left atrium once again suggested second reactivation of the left atrium with earliest activation in the left atrial septum Interrogation of both simultaneously along with the Matt sinus Pap revealed a broad area of activation on the right and left septum of the atria Electrical cardioversion was performed successfully sinus rhythm. ND interval 250 ms Sheaths were removed at this point Hemostasis was achieved using Vascade closure device The pacemaker was reprogrammed after interrogation AAIR-DDDR 50-130 bpm was programmed This was a long procedure on account of multiple the maps of the right atria in view of the multiple circuits this patient had Impression Typical atrial flutter ablation Ablation of a reentrant circuit in the low lateral right atrium Mapping of the left and right atria and identification of a septal focus inaccessible for ablation Plan Increase amiodarone to 200 mg by mouth daily Continue anticoagulation Start carvedilol 3.125 mg twice daily instead of metoprolol The plan is to minimize RV pacing and hopefully LV function improves during sinus rhythm Upgrade to a biventricular pacemaker will be deferred at this time since it will require an epicardial approach The subclavian vein is occluded Her Bi V pacing percentage during atrial tachycardia was about 31% Hopefully it is lower in sinus rhythm
[2021-09-05 17:23] LABS: Glucose,Whole Blood 174 mg/dL (75-99)
[2021-09-05 19:44] LABS: Glucose,Whole Blood 195 mg/dL (75-99)
[2021-09-05] MEDS ORDERED: ATORVASTATIN 40 MG TAB PO SCH (21:00)
[2021-09-05] MEDS: APIXABAN 2.5 MG TABLET PO SCH (22:08)
[2021-09-06 06:56] LABS: Glucose,Whole Blood 214 mg/dL (75-99)
[2021-09-06] MEDS ORDERED: PANTOPRAZOLE 40 MG TABLET PO SCH (07:30)
[2021-09-06 07:43] VITALS: BP 142/56; PULSE 64; RESP 19; TEMP 98.4
--- NOTE | 2021-09-06 08:27 | DS ---
DISCHARGE SUMMARY Mr. Marks an EKG that suggested atrial flutter. He had undergone an atrial flutter ablation in [place]. His RV pacing percentage was around 31%. He has a dual-chamber pacemaker for sick sinus syndrome. He also has chronic kidney disease and diabetes, type 2. He underwent an atrial flutter ablation yesterday. He also had reentrant arrhythmia in the low lateral right atrium and he underwent successful ablation for that. However, he had a third tachycardia which was interatrial septal tachycardia. The left and right atria were mapped, but both showed broad septal activation. Therefore electrical cardioversion was performed. He is doing well. His groins have healed well. They used Vascade to close his groin sites. Heart sounds are normal. Breath sounds are clear. He looks comfortable. Blood pressure is normal. IMPRESSION: 1. Typical atrial flutter, status post successful ablation. 2. Reentrant free wall right atrial tachycardia, status post ablation. 3. Septal tachycardia, not amenable to ablation. Electrical cardioversion performed. 4. Amiodarone increased to 200 mg p.o. daily. Patient has chronic kidney disease, diabetic in nature. He also has prolonged QT interval from dofetilide. 5. During atrial fibrillation, his RV pacing percentage was around 31%. 6. Cardiomyopathy, ejection fraction around 40%. SUGGEST: 1. Continue anticoagulation. 2. Increase amiodarone to 200 mg p.o. daily. 3. Restart carvedilol 3.125 mg twice daily. 4. Pacemaker interrogation in the office in a few weeks. 5. Follow-up 2D echo and Doppler study in about 4 to 6 weeks; limited study to assess LV function and sinus rhythm. 6. Watch RV pacing percentage. 7. Decision regarding biventricular pacing. Unfortunately, the patient has an occluded subclavian vein, and accessing the central subclavian vein from the left side is fraught with risk of pneumothorax since it is quite deep. Therefore, if biventricular pacing is considered in the future, then it would have to be from the right side and the lead would have to be tunnelled to the left side. Alternatively, thoracoscopic epicardial LV placement is a possibility. We will also have make a decision regarding an ICD implant at that point if his LV function does not improve, and that is a far more complicated decision. MMODL / IJN: [id number] /
[2021-09-06] MEDS: APIXABAN 2.5 MG TABLET PO SCH (08:46)
[2021-09-06] MEDS ORDERED: FUROSEMIDE 40 MG TAB PO SCH (09:00)
[2021-09-06] MEDS ORDERED: NON FORMULARY DRUG (Canagliflozin [Invokana] 100 MG Tablet) PO SCH (09:00)
[2021-09-06] MEDS ORDERED: CHOLECALCIFEROL 25 MCG (1000 IU) TABLET PO SCH (09:00)
[2021-09-06] MEDS ORDERED: glipiZIDE 5 MG TAB PO SCH (09:00)
[2021-09-06] MEDS ORDERED: TAMSULOSIN 0.4 MG CAP.ER.24H PO SCH (09:00)
[2021-09-06] MEDS ORDERED: AMIODARONE 200 MG TAB PO SCH (09:00)
[2021-09-10] MEDS ORDERED: NON FORMULARY DRUG (Semaglutide [Ozempic] 0.25 MG/0.2 ML Each) SQ SCH (09:00)
== END 2021-09-06 10:23 | disposition home or self-care (01) ==
LOC: CATHEP 06:58 → 6NMEDSUR 13:40 → CATHEP 09-06 10:23
PROVIDERS: ATTEND Internal Medicine Clinical Cardiac Electrophysiology
DX: I48.19 Other persistent atrial fibrillation (principal); I49.5 Sick sinus syndrome; I13.0 Hypertensive heart and chronic kidney disease with heart failure and stage 1 through stage 4 chronic kidney disease, or unspecified chronic kidney disease; I50.23 Acute on chronic systolic (congestive) heart failure; N18.9 Chronic kidney disease, unspecified; E11.22 Type 2 diabetes mellitus with diabetic chronic kidney disease; Z20.822 Contact with and (suspected) exposure to COVID-19; Z95.0 Presence of cardiac pacemaker; E78.5 Hyperlipidemia, unspecified; Z82.49 Family history of ischemic heart disease and other diseases of the circulatory system; I48.92 Unspecified atrial flutter; I47.1 Supraventricular tachycardia; I25.2 Old myocardial infarction; K21.9 Gastro-esophageal reflux disease without esophagitis; G47.30 Sleep apnea, unspecified; Z83.3 Family history of diabetes mellitus; Z95.1 Presence of aortocoronary bypass graft; Z80.3 Family history of malignant neoplasm of breast; Z79.01 Long term (current) use of anticoagulants; Z79.899 Other long term (current) drug therapy
CPT/HCPCS: 92960; 93662; 93613; 93656; 87635; C1759; C1769 ×4; C1894; C1766; C1730; C1731; C1732; J2250; J2720; J1644 ×3; J1940; J2710; J0690; J2001; J3010; J0131; J2370; J0330; J2704; Q9967

== ENCOUNTER → 2021-10-04 | Outpatient (CLI) | payer MEDICARE ==
--- NOTE | 2021-10-04 11:32 | CT ---
EXAMINATION TYPE: CT abdomen pelvis wo con DATE OF EXAM: 10/04/2021 COMPARISON: 11/21/2020 HISTORY: Lower abdominal pain CT DLP: 794.0 mGycm Automated exposure control for dose reduction was used. TECHNIQUE: Helical acquisition of images was performed from the lung bases through the pelvis. FINDINGS: LUNG BASES: Cardiac lead is seen. The heart is enlarged and there is a small hiatal hernia. LIVER/GB: No significant abnormality is appreciated. PANCREAS: No significant abnormality is seen. SPLEEN: No significant abnormality is seen. ADRENALS: Stable nodularity to the right adrenal gland measuring 1.9 cm likely related to adrenal cassie noma KIDNEYS: Again noted is a solid-appearing mass involving the lower pole extending exophytically off t he left kidney which is unchanged in size from the prior exam measuring 2.6 cm. Would not seen by rec ent ultrasound due to probable technique. No hydronephrosis or nephrolithiasis. Additional simple bay earing right exophytic cyst was seen by ultrasound. ADENOPATHY: None visualized. OSSEOUS STRUCTURES: Hypertrophic and degenerative changes of the spine. Multilevel foraminal encroac hment and canal stenosis suspected. BOWEL: Gas pattern nonspecific there is mild wall thickening involving the sigmoid colon. Correlate for mild colitis. OTHER: Atherosclerotic change aorta. Prostate enlargement. There is air within the bladder with a thi ckened bladder wall. Fat-containing inguinal hernias bilaterally. Extensive vascular calcifications a re seen. IMPRESSION: 1. Stable solid appearing 2.6 cm mass left kidney recommend MRI. Malignancy in the differential diagn osis. 2. Bladder wall thickening with air within the bladder. No definite Levy catheter correlate for rece nt Levy catheter placement otherwise consider infectious etiology. Correlate for cystitis. 3. Prostate enlargement correlate with PSA. 4. There is occasional diverticula within the colon but there appears to be mild diffuse wall thicken ing of the sigmoid colon correlate for mild colitis favored over diverticulitis.
== END | disposition home or self-care (01) ==
LOC: RADCTMAIN 10:07
PROVIDERS: ATTEND Family Medicine
DX: K57.30 Diverticulosis of large intestine without perforation or abscess without bleeding (principal); N28.89 Other specified disorders of kidney and ureter; N32.89 Other specified disorders of bladder; N40.0 Benign prostatic hyperplasia without lower urinary tract symptoms
CPT/HCPCS: 74176

== ENCOUNTER → 2021-10-05 | Outpatient (CLI) | payer MEDICARE ==
[2021-10-05 10:57] LABS: Basophils % (A) 0 %; Eosinophils # (A) 0.1 k/uL (0-0.7); Eosinophils % (A) 2 %; HCT 38.6 % (39.0-53.0); HGB 12.9 gm/dL (13.0-17.5); Lymphocytes # (A) 0.6 k/uL (1.0-4.8); Lymphocytes % (A) 9 %; MCH 31.4 pg (25.0-35.0); MCHC 33.3 g/dL (31.0-37.0); MCV 94.4 fL (80.0-100.0); Mean Platelet Volume 8.4; Monocytes # (A) 0.5 k/uL (0-1.0); Monocytes % (A) 8 %; Neutrophils % (A) 78 %; Platelet Count 160 k/uL (150-450); RBC 4.09 m/uL (4.30-5.90); RDW 13.7 % (11.5-15.5); WBC 6.4 k/uL (3.8-10.6)
[2021-10-05 11:24] LABS: ALT 17 U/L (4-49); AST 20 U/L (17-59); African American GFR (CKD) 31 (>60 ml/min/1.73 sqM); Albumin 3.6 g/dL (3.5-5.0); Albumin/Globulin Ratio 1.2; Alkaline Phosphatase 80 U/L (38-126); Anion Gap 9 mmol/L; Blood Urea Nitrogen 52 mg/dL (9-20); Carbon Dioxide 26 mmol/L (22-30); Chloride 100 mmol/L (98-107); Glucose 227 mg/dL (74-99); Non-African American GFR(CKD) 27 (>60 ml/min/1.73 sqM); Sodium 135 mmol/L (137-145); Total Bilirubin 0.5 mg/dL (0.2-1.3); Total Protein 6.6 g/dL (6.3-8.2)
== END | disposition home or self-care (01) ==
LOC: LABWHC1 10:31
PROVIDERS: ATTEND Physician Assistant Medical
DX: R10.30 Lower abdominal pain, unspecified (principal)
CPT/HCPCS: 36415; 80053; 85025

== ENCOUNTER 2022-01-26 16:06 | Inpatient (IN) | payer MEDICARE ==
--- NOTE | 2022-01-26 17:43 | ED ---
General Adult HPI - General Chief complaint: Recheck/Abnormal Lab/Rx Stated complaint: Covid+, SOB Time Seen by Provider: 01/26/22 17:25 Source: patient, RN notes reviewed, old records reviewed Mode of arrival: ambulatory Limitations: no limitations - History of Present Illness Initial comments: This is a 71-year-old male who comes in stating that he was tested positive for COVID on Saturday. Patient states his symptoms began Saturday afternoon. Jillian ent states he did get the COVID vaccine and the booster. Patient he's been extremely fatigued and a little short of breath when he walks around. Patient denies any chest pain or palpitations. Patient denies any lightheadedness or headache. Patient denies any abdominal pain patient denies nausea vomiting diarrhea. Patient denies any swelling to the legs or calf tenderness. - Related Data Home Medications Medication Instructions Recorded Confirmed Apixaban [Eliquis] 2.5 mg PO BID 04/25/19 01/26/22 Cinnamon Bark [Cinnamon] 1,000 mg PO BID 04/25/19 01/26/22 Cholecalciferol [Vitamin D3 (25 25 mcg PO DAILY 11/21/20 01/26/22 Mcg = 1000 Iu)] glipiZIDE XL [Glucotrol XL] 10 mg PO DAILY 11/21/20 01/26/22 calcitrioL [Calcitriol] 0.25 mcg PO DAILY 05/15/21 01/26/22 Tamsulosin [Flomax] 0.4 mg PO DAILY 06/06/21 01/26/22 Ferrous Sulfate [Feosol] 325 mg PO HS 09/01/21 01/26/22 Allopurinol [Zyloprim] 100 mg PO DAILY 01/26/22 01/26/22 Atorvastatin [Lipitor] 20 mg PO HS 01/26/22 01/26/22 Bimatoprost [Lumigan 0.01% Ophth 1 drop BOTH EYES HS 01/26/22 01/26/22 Soln] Cetirizine HCl [Zyrtec] 10 mg PO DAILY 01/26/22 01/26/22 Dapagliflozin Propanediol [Farxiga] 10 mg PO DAILY 01/26/22 01/26/22 Insulin Glargine,Hum.rec.anlog 15 unit SQ HS 01/26/22 01/26/22 [Lantus Solostar Pen] L.acidoph,Paracasei, B.lactis 1 cap PO DAILY 01/26/22 01/26/22 [Probiotic] Molnupiravir [Molnupiravir (Eua)] 800 mg PO Q12H 01/26/22 01/26/22 Multivit-Min/FA/Lycopen/Lutein 1 tab PO DAILY 01/26/22 01/26/22 [Centrum Silver Tablet] Previous Rx's Medication Instructions Recorded Amiodarone [Cordarone] 200 mg PO DAILY #90 tab 09/05/21 Carvedilol [Coreg] 3.125 mg PO BID #180 tablet 09/05/21 Allergies Allergy/AdvReac Type Severity Reaction Status Date / Time No Known Allergies Allergy Verified 01/26/22 18:00 Review of Systems ROS Statement: Those systems with pertinent positive or pertinent negative responses have been documented in the HPI. ROS Other: All systems not noted in ROS Statement are negative. Past Medical History Past Medical History: Atrial Fibrillation, Diabetes Mellitus, GERD/Reflux, Hyperlipidemia, Hypertension, Myocardial Infarction (ID), Renal Disease, Sleep Apnea/CPAP/BIPAP Additional Past Medical History / Comment(s): neuropathy bilateral feet, chronic kidney disease stage III, hx "minor prostate ca"- dr monitoring , home CPAP , tachycardia, see Dr Rivas H & P Last Myocardial Infarction Date:: 01/2001 History of Any Multi-Drug Resistant Organisms: None Reported Past Surgical History: Cardiac Ablation, Coronary Bypass/CABG, Heart Catheterization With Stent, Pacemaker Additional Past Surgical History / Comment(s): 11/15/20 prostate biopsy, 2000 CABG 4 vessel, 3 cardiac stents, Cardioversion, loop recorder, colonoscopy . Past Anesthesia/Blood Transfusion Reactions: No Reported Reaction Date of Last Stent Placement:: 2006 Type of Cardiac Device: Biventricular Pacemaker Device Placement Date:: 08/25/19 Past Psychological History: No Psychological Hx Reported Smoking Status: Never smoker Past Alcohol Use History: None Reported Past Drug Use History: None Reported - Past Family History Father Family Medical History: Cancer Additional Family Medical History / Comment(s): pancreatic cancer Mother Family Medical History: Cancer Additional Family Medical History / Comment(s): breast cancer Sister(s) Family Medical History: Diabetes Mellitus General Exam - General Exam Comments Initial Comments: GENERAL: Patient is well-developed and well-nourished. Patient is nontoxic and well- hydrated and is in no acute distress. ENT: Neck is soft and supple. No significant lymphadenopathy is noted. Oropharynx is clear. Moist mucous membranes. Neck has full range of motion without eliciting any pain. EYES: The sclera were anicteric and conjunctiva were pink and moist. Extraocular movements were intact and pupils were equal round and reactive to light. Eyelids were unremarkable. PULMONARY: Unlabored respirations. Good breath sounds bilaterally. No audible rales rhonchi or wheezing was noted. CARDIOVASCULAR: There is a regular rate and rhythm without any murmurs gallops or rubs. ABDOMEN: Soft and nontender with normal bowel sounds. SKIN: Skin is clear with no lesions or rashes and otherwise unremarkable. NEUROLOGIC: Patient is alert and oriented x3. Cranial nerves II through XII are grossly intact. Motor and sensory are also intact. Normal speech, volume and content. Symmetrical smile. MUSCULOSKELETAL: Normal extremities with adequate strength and full range of motion. No lower extremity swelling or edema. No calf tenderness. LYMPHATICS: No significant lymphadenopathy is noted PSYCHIATRIC: Normal psychiatric evaluation. [id number] Limitations: no limitations Course Vital Signs 01/26/22 01/26/22 01/26/22 16:37 17:25 17:39 Temperature 99.1 F Pulse Rate 63 Respiratory 24 Rate Blood Pressure 173/76 O2 Sat by Pulse 90 L 92 L 87 L Oximetry 01/26/22 01/26/22 17:40 18:19 Temperature Pulse Rate 61 Respiratory 18 Rate Blood Pressure 155/93 O2 Sat by Pulse 95 96 Oximetry Medical Decision Making - Medical Decision Making EKG shows atrial flutter at 63 bpm QRS 116 QT interval 48 QTC is 495. Patient's right bundle branch block. Chest x-ray is consistent with pulmonary edema. Patient states he does have a history of this. I gave the patient Lasix. When the patient got up to the bathroom patient decided into the 80s. I spoke with some physicians agreed to admit the patient admitted the patient wrote admitting orders. I consult to cardiology - Lab Data Result diagrams: 01/26/22 18:09 01/26/22 18:09 Lab Results 01/26/22 01/26/22 01/26/22 Range/Units 18:09 18:09 18:09 WBC 6.0 (3.8-10.6) k/uL RBC 4.06 L (4.30-5.90) m/uL Hgb 12.7 L (13.0-17.5) gm/dL Hct 38.5 L (39.0-53.0) % MCV 94.7 (80.0-100.0) fL MCH 31.2 (25.0-35.0) pg MCHC 32.9 (31.0-37.0) g/dL RDW 15.7 H (11.5-15.5) % Plt Count 130 L (150-450) k/uL MPV 8.2 Neutrophils % 80 % Lymphocytes % 10 % Monocytes % 6 % Eosinophils % 3 % Basophils % 1 % Neutrophils # 4.8 (1.3-7.7) k/uL Lymphocytes # 0.6 L (1.0-4.8) k/uL Monocytes # 0.4 (0-1.0) k/uL Eosinophils # 0.2 (0-0.7) k/uL Basophils # 0.0 (0-0.2) k/uL PT 11.5 (9.0-12.0) sec INR 1.1 (<1.2) APTT 26.3 (22.0-30.0) sec Sodium 137 (137-145) mmol/L Potassium 4.0 (3.5-5.1) mmol/L Chloride 103 (98-107) mmol/L Carbon Dioxide 25 (22-30) mmol/L Anion Gap 9 mmol/L BUN 30 H (9-20) mg/dL Creatinine 1.73 H (0.66-1.25) mg/dL Est GFR (CKD-EPI)AfAm 45 (>60 ml/min/1.73 sqM) Est GFR (CKD-EPI)NonAf 39 (>60 ml/min/1.73 sqM) Glucose 161 H (74-99) mg/dL Plasma Lactic Acid Mauricio (0.7-2.0) mmol/L Calcium 8.9 (8.4-10.2) mg/dL Total Bilirubin 1.5 H (0.2-1.3) mg/dL AST 24 (17-59) U/L ALT 18 (4-49) U/L Alkaline Phosphatase 77 (38-126) U/L Troponin I (0.000-0.034) ng/mL NT-Pro-B Natriuret Pep pg/mL Total Protein 6.8 (6.3-8.2) g/dL Albumin 3.9 (3.5-5.0) g/dL 01/26/22 01/26/22 01/26/22 Range/Units 18:09 18:09 18:09 WBC (3.8-10.6) k/uL RBC (4.30-5.90) m/uL Hgb (13.0-17.5) gm/dL Hct (39.0-53.0) % MCV (80.0-100.0) fL MCH (25.0-35.0) pg MCHC (31.0-37.0) g/dL RDW (11.5-15.5) % Plt Count (150-450) k/uL MPV Neutrophils % % Lymphocytes % % Monocytes % % Eosinophils % % Basophils % % Neutrophils # (1.3-7.7) k/uL Lymphocytes # (1.0-4.8) k/uL Monocytes # (0-1.0) k/uL Eosinophils # (0-0.7) k/uL Basophils # (0-0.2) k/uL PT (9.0-12.0) sec INR (<1.2) APTT (22.0-30.0) sec Sodium (137-145) mmol/L Potassium (3.5-5.1) mmol/L Chloride (98-107) mmol/L Carbon Dioxide (22-30) mmol/L Anion Gap mmol/L BUN (9-20) mg/dL Creatinine (0.66-1.25) mg/dL Est GFR (CKD-EPI)AfAm (>60 ml/min/1.73 sqM) Est GFR (CKD-EPI)NonAf (>60 ml/min/1.73 sqM) Glucose (74-99) mg/dL Plasma Lactic Acid Mauricio 1.0 (0.7-2.0) mmol/L Calcium (8.4-10.2) mg/dL Total Bilirubin (0.2-1.3) mg/dL AST (17-59) U/L ALT (4-49) U/L Alkaline Phosphatase (38-126) U/L Troponin I 0.018 (0.000-0.034) ng/mL NT-Pro-B Natriuret Pep 8960 pg/mL Total Protein (6.3-8.2) g/dL Albumin (3.5-5.0) g/dL Critical Care Time Critical Care Time: Yes Total Critical Care Time: 35 Disposition Clinical Impression: Acute pulmonary edema, COVID-19 Disposition: ADMITTED IP TO THIS HOSP Referrals: Victor Manuel Cummings MD [Primary Care Provider] - 1-2 days Time of Disposition: 18:40
[2022-01-26] MEDS ORDERED: dexAMETHasone 2 MG TAB PO STA (17:45)
[2022-01-26] MEDS ORDERED: FUROSEMIDE 10 MG/ML 2 ML VIAL IV ONE (17:59)
--- NOTE | 2022-01-26 18:14 | XR ---
EXAMINATION TYPE: XR chest 2V DATE OF EXAM: 01/26/2022 5:30 PM COMPARISON:Chest radiographs from 06/06/2021 TECHNIQUE: XR chest 2V Frontal and lateral views of the chest. CLINICAL INDICATION:Male, 71 years old with history of Difficulty breathing ; FINDINGS: Lungs/Pleura: There is no evidence of focal consolidation, or pneumothorax. Blunting of the costophre yamilka angles left greater than right. Pulmonary vascularity: Mild Pulmonary vascular congestion. Heart/mediastinum: Cardiomediastinal silhouette is prominent in size. A loop recorder projects over the left thorax over the heart. Two lead cardiac conduction device overlying the left hemithorax with lead tips projecting over the right ventricle and right atrium. Musculoskeletal: No acute osseous pathology. Midline sternotomy wires and surgical clips project over the mediastinum. IMPRESSION: Mild cardiomegaly with small bilateral pleural effusions left greater than right. Correlate with seru m BNP for congestive heart failure.
[2022-01-26 18:21] LABS: Basophils % (A) 1 %; Eosinophils # (A) 0.2 k/uL (0-0.7); Eosinophils % (A) 3 %; HCT 38.5 % (39.0-53.0); HGB 12.7 gm/dL (13.0-17.5); Lymphocytes # (A) 0.6 k/uL (1.0-4.8); Lymphocytes % (A) 10 %; MCH 31.2 pg (25.0-35.0); MCHC 32.9 g/dL (31.0-37.0); MCV 94.7 fL (80.0-100.0); Mean Platelet Volume 8.2; Monocytes # (A) 0.4 k/uL (0-1.0); Monocytes % (A) 6 %; Neutrophils # (A) 4.8 k/uL (1.3-7.7); Neutrophils % (A) 80 %; Platelet Count 130 k/uL (150-450); RBC 4.06 m/uL (4.30-5.90); RDW 15.7 % (11.5-15.5)
[2022-01-26 18:31] LABS: INR 1.1 (<1.2); Partial Thromboplastin Time 26.3 sec (22.0-30.0); Prothrombin Time 11.5 sec (9.0-12.0)
[2022-01-26 18:34] LABS: Albumin 3.9 g/dL (3.5-5.0); Calcium 8.9 mg/dL (8.4-10.2); Total Bilirubin 1.5 mg/dL (0.2-1.3); Total Protein 6.8 g/dL (6.3-8.2)
[2022-01-26] MEDS: NITROGLYCERIN OINT 1 INCH/GM PACKET TOPICAL SCH (21:06)
[2022-01-26] MEDS: FUROSEMIDE 10 MG/ML 4 ML VIAL IV SCH (21:07)
--- NOTE | 2022-01-26 23:03 | P.HPIM ---
History of Present Illness H&P Date: 01/26/22 The patient is a 71-year-old male with a PMH of A. fib on Eliquis coronary artery disease status post CABG and multiple stents, sick sinus syndrome status post pacemaker placement, type II DM, hypertension, hyperlipidemia, chronic kidney disease, systolic CHF EF 35-40% on Echo on 05/2021, and obstructive sleep apnea on CPAP who presents to the emergency room with complaints of shortness of breath. Reports symptoms of fatigue and mild shortness of breath since this past Saturday. Reports that he was diagnosed with COVID-19 this Saturday. Denies chest discomfort, nausea, vomiting, palpitations. Denied lower extremity swelling, orthopnea, PND, fever, chills, headaches, weakness, numbness, ting ling. Chest x-ray in the emergency room revealed mild cardiomegaly with small bilateral pleural effusions, with EKG showing A. fib at 63 bpm with a right bundle-branch block. Laboratory evaluation was remarkable for glucose of 130 (at baseline), and creatinine 1.7 (baseline 2.3) with proBNP 8960. The patient's SpO2 was 87% on room air. Review of systems: Pertinent positives and negatives as discussed in HPI, a complete review of systems was performed and all other systems are negative. Physical examination: General: non toxic, no distress, appears at stated age, overweight Derm: no unusual rashes/lesions no unusual ecchymoses, warm, dry Head: atraumatic, normocephalic, symmetric Eyes: EOMI, no lid lag, anicteric sclera, pupils equal round reactive to light ENT: Nose and ears atraumatic, no thrush, no pharyngeal erythema Neck: No thyromegaly, no cervical lymphadenopathy, trachea midline, supple Mouth: no lip lesion, mucus membranes moist Cardiovascular: S1S2 reg, no murmur, positive posterior tibial pulse bilateral, 1+ bilateral lower extremity edema, capillary refill less than 2 seconds Lungs: Scattered rhonchi and rales, no wheezing, no accessory muscle use Abdominal: soft, nontender to palpation, no guarding, no appreciable organomegaly, normal bowel sounds Ext: no gross muscle atrophy, muscle strength 5 out of 5 in all 4 extremities grossly, no contractures, Neuro: CN II-XI grossly intact, light touch intact all 4 extremities, finger to nose within normal limits, Psych: Alert, oriented, appropriate affect Assessment/plan Acute hypoxic respiratory failure, likely combined COVID pneumonia with mild CHF exacerbation -C/w dexamethasone oral -Cardiology consulted -IV Lasix -Monitor inflammatory markers -Vitamin C, vitamin D, zinc -Cardiac monitoring -Supplemental oxygen Chronic condition: Coronary artery disease, type II DM, hypertension, hyperlipidemia, chronic kidney disease, A. fib, obstructive sleep apnea -Insulin sliding scale and blood glucose monitoring -Check A1c -Continue home medications DVT prophylaxis -Eliquis The patient is admitted with an anticipated greater than 2 midnight stay for evaluation of acute hypoxic respiratory failure CODE STATUS:Full Code Discussed with: Patient Anticipated discharge date: 01/[address]: Home Past Medical History Past Medical History: Atrial Fibrillation, Diabetes Mellitus, GERD/Reflux, Hyperlipidemia, Hypertension, Myocardial Infarction ([place]), Renal Disease, Sleep Apnea/CPAP/BIPAP Additional Past Medical History / Comment(s): neuropathy bilateral feet, chronic kidney disease stage III, hx "minor prostate ca"- dr monitoring , home CPAP , tachycardia, see Dr Rivas H & P Last Myocardial Infarction Date:: 01/2001 History of Any Multi-Drug Resistant Organisms: None Reported Past Surgical History: Cardiac Ablation, Coronary Bypass/CABG, Heart Catheterization With Stent, Pacemaker Additional Past Surgical History / Comment(s): 11/15/20 prostate biopsy, 2000 CABG 4 vessel, 3 cardiac stents, Cardioversion, loop recorder, colonoscopy . Past Anesthesia/Blood Transfusion Reactions: No Reported Reaction Date of Last Stent Placement:: 2006 Type of Cardiac Device: Biventricular Pacemaker Device Placement Date:: 08/25/19 Past Psychological History: No Psychological Hx Reported Smoking Status: Never smoker Past Alcohol Use History: None Reported Past Drug Use History: None Reported - Past Family History Father Family Medical History: Cancer Additional Family Medical History / Comment(s): pancreatic cancer Mother Family Medical History: Cancer Additional Family Medical History / Comment(s): breast cancer Sister(s) Family Medical History: Diabetes Mellitus Medications and Allergies Home Medications Medication Instructions Recorded Confirmed Type Apixaban [Eliquis] 2.5 mg PO BID 04/25/19 01/26/22 History Cinnamon Bark [Cinnamon] 1,000 mg PO BID 04/25/19 01/26/22 History Cholecalciferol [Vitamin D3 (25 25 mcg PO DAILY 11/21/20 01/26/22 History Mcg = 1000 Iu)] glipiZIDE XL [Glucotrol XL] 10 mg PO DAILY 11/21/20 01/26/22 History calcitrioL [Calcitriol] 0.25 mcg PO DAILY 05/15/21 01/26/22 History Tamsulosin [Flomax] 0.4 mg PO DAILY 06/06/21 01/26/22 History Ferrous Sulfate [Feosol] 325 mg PO HS 09/01/21 01/26/22 History Amiodarone [Cordarone] 200 mg PO DAILY #90 tab 09/05/21 01/26/22 Rx Carvedilol [Coreg] 3.125 mg PO BID #180 tablet 09/05/21 01/26/22 Rx Allopurinol [Zyloprim] 100 mg PO DAILY 01/26/22 01/26/22 History Atorvastatin [Lipitor] 20 mg PO HS 01/26/22 01/26/22 History Bimatoprost [Lumigan 0.01% Ophth 1 drop BOTH EYES HS 01/26/22 01/26/22 History Soln] Cetirizine HCl [Zyrtec] 10 mg PO DAILY 01/26/22 01/26/22 History Dapagliflozin Propanediol [Farxiga] 10 mg PO DAILY 01/26/22 01/26/22 History Insulin Glargine,Hum.rec.anlog 15 unit SQ HS 01/26/22 01/26/22 History [Lantus Solostar Pen] L.acidoph,Paracasei, B.lactis 1 cap PO DAILY 01/26/22 01/26/22 History [Probiotic] Molnupiravir [Molnupiravir (Eua)] 800 mg PO Q12H 01/26/22 01/26/22 History Multivit-Min/FA/Lycopen/Lutein 1 tab PO DAILY 01/26/22 01/26/22 History [Centrum Silver Tablet] Allergies Allergy/AdvReac Type Severity Reaction Status Date / Time No Known Allergies Allergy Verified 01/26/22 18:00 Physical Exam Vitals: Vital Signs Temp Pulse Resp BP Pulse Ox 01/26/22 21:40 97.7 F 68 22 168/84 95 01/26/22 18:19 61 18 155/93 96 01/26/22 17:40 95 04/08/22 17:39 87 L 01/26/22 17:25 92 L 01/26/22 16:37 99.1 F 63 24 173/76 90 L Intake and Output 01/26/22 01/26/22 01/26/22 06:59 14:59 22:59 Other: Weight 104.326 kg Results CBC & Chem 7: 01/26/22 18:09 01/26/22 18:09 Labs: Abnormal Lab Results - Last 24 Hours (Table) 01/26/22 01/26/22 Range/Units 18:09 18:09 RBC 4.06 L (4.30-5.90) m/uL Hgb 12.7 L (13.0-17.5) gm/dL Hct 38.5 L (39.0-53.0) % RDW 15.7 H (11.5-15.5) % Plt Count 130 L (150-450) k/uL Lymphocytes # 0.6 L (1.0-4.8) k/uL BUN 30 H (9-20) mg/dL Creatinine 1.73 H (0.66-1.25) mg/dL Glucose 161 H (74-99) mg/dL Total Bilirubin 1.5 H (0.2-1.3) mg/dL
[2022-01-27 06:22] LABS: Glucose,Whole Blood 394 mg/dL (75-99)
[2022-01-27 06:34] LABS: Glucose,Whole Blood 406 mg/dL (75-99)
[2022-01-27] MEDS: FUROSEMIDE 10 MG/ML 4 ML VIAL IV SCH ×3 (06:49→21:05)
[2022-01-27] MEDS: INSULIN ASPART (NovoLOG) 100 UNIT/ML VIAL SQ SCH ×4 (06:49→21:05)
[2022-01-27] MEDS: ZINC SULFATE 220 MG CAP PO SCH (08:27)
[2022-01-27] MEDS: AMIODARONE 200 MG TAB PO SCH (08:27)
[2022-01-27] MEDS: ASCORBIC ACID 500 MG TAB PO SCH (08:27)
[2022-01-27] MEDS: allopurinoL 100 MG TAB PO SCH (08:27)
[2022-01-27] MEDS: TAMSULOSIN 0.4 MG CAP.ER.24H PO SCH (08:27)
[2022-01-27] MEDS: APIXABAN 2.5 MG TABLET PO SCH ×2 (08:27→21:04)
[2022-01-27] MEDS: NITROGLYCERIN OINT 1 INCH/GM PACKET TOPICAL SCH (08:28)
[2022-01-27] MEDS: CHOLECALCIFEROL 25 MCG (1000 IU) TABLET PO SCH (08:28)
[2022-01-27] MEDS ORDERED: dexAMETHasone 2 MG TAB PO SCH (09:00)
[2022-01-27] MEDS ORDERED: carvediloL 3.125 MG TAB PO SCH (09:00)
[2022-01-27 09:54] LABS: HCT 42.4 % (39.0-53.0); HGB 13.3 gm/dL (13.0-17.5); Hypochromasia Slight; MCH 30.4 pg (25.0-35.0); MCHC 31.5 g/dL (31.0-37.0); MCV 96.7 fL (80.0-100.0); Mean Platelet Volume 8.1; Platelet Count 175 k/uL (150-450); RBC 4.38 m/uL (4.30-5.90); RDW 15.6 % (11.5-15.5); WBC 5.9 k/uL (3.8-10.6)
[2022-01-27 10:08] LABS: Calcium 9.3 mg/dL (8.4-10.2)
[2022-01-27] MEDS ORDERED: ACETAMINOPHEN TAB 325 MG TAB PO PRN (10:39)
[2022-01-27 10:51] VITALS: BMI 28.0
[2022-01-27] MEDS ORDERED: carvediloL 3.125 MG TAB PO STA (10:51)
[2022-01-27] MEDS: hydrALAZINE HCL 25 MG TAB PO SCH ×2 (11:00→21:04)
[2022-01-27] MEDS: ISOSORBIDE MONONITRATE ER 30 MG TAB.ER.24H PO SCH (11:00)
[2022-01-27 11:40] LABS: Glucose,Whole Blood 335 mg/dL (75-99)
--- NOTE | 2022-01-27 14:00 | ECHOF ---
Referral Reason:LVF MEASUREMENTS -------- HEIGHT: 188.0 cm WEIGHT: 99.8 kg BP: RVIDd: 3.0 cm (< 3.3) IVSd: 1.3 cm (0.6 - 1.1) LVIDd: 4.8 cm (3.9 - 5.3) LVPWd: 1.3 cm (0.6 - 1.1) IVSs: 2.0 cm LVIDs: 3.0 cm LVPWs: 1.6 cm LA Diam: 4.5 cm (2.7 - 3.8) Ao Diam: 3.8 cm (2.0 - 3.7) AV Cusp: 2.0 cm (1.5 - 2.6) MV EXCURSION: 7.289 mm (> 18.000) MV EF SLOPE: 34 mm/s (70 - 150) EPSS: 1.1 cm FINDINGS -------- Paced rhythm. This was a technically adequate study. The left ventricular size is normal. There is mild concentric left ventricular hypertrophy. Overa ll left ventricular systolic function is mildly impaired with, an EF between 45 - 50 %. Basal infer ior LV wall motion is hypokinetic. Mid inferior LV wall motion is hypokinetic. Apical inferior LV wall motion is hypokinetic. Apical septum LV wall motion is akinetic. The right ventricle is normal in size. The left atrium is mildly dilated. The right atrium is normal in size. There is mild aortic valve sclerosis. Mild mitral annular calcification present. Mild mitral regurgitation is present. The tricuspid valve appears structurally normal. Unable to estimate RVSP due to inadequate TR jet s pectral doppler profile. Trace/mild (physiologic) pulmonic regurgitation. The aortic root is dilated measuring 3.8cm. There is no pericardial effusion. CONCLUSIONS -------- 1. Paced rhythm. 2. The left ventricular size is normal. 3. There is mild concentric left ventricular hypertrophy. 4. Overall left ventricular systolic function is mildly impaired with, an EF between 45 - 50 %. 5. Basal inferior LV wall motion is hypokinetic. 6. Mid inferior LV wall motion is hypokinetic. 7. Apical inferior LV wall motion is hypokinetic. 8. Apical septum LV wall motion is akinetic. 9. The left atrium is mildly dilated. 10. There is mild aortic valve sclerosis. 11. Mild mitral annular calcification present. 12. Mild mitral regurgitation is present. 13. Trace/mild (physiologic) pulmonic regurgitation. 14. The aortic root is dilated measuring 3.8cm. 15. There is no pericardial effusion. JUNIOR ACCOUNT MANAGER: Apryl Cabrera RDCS
--- NOTE | 2022-01-27 14:14 | P.CRDCN ---
History of Present Illness Consult date: 01/27/22 History of present illness: History of present illness: This is a 71-year-old male patient of Dr. Rivas with a past medical history significant for coronary artery disease with previous CABG x 3 in 2000, previous stent placement, persistent atrial fibrillation, atrial flutter (on Eliquis), with previous ablation in [place], ablation on 03/06/21 and 09/05/2021, sick sinus syndrome with dual-chamber pacemaker insertion 2018 ([employer]tr[employer]), hypertension, and hyperlipidemia, diabetes mellitus type 2, chronic kidney disease, obstructive sleep apnea with CPAP use. We have been asked to see the patient in consultation for acute pulmonary edema. Patient was diagnosed with Covid 19 on Saturday and started on Molnupiravir symptom onset of Saturday. Patient is status post Covid vaccine and booster. Patient presented to the emergency center due to fatigue and mild shortness of breath with ambulation. No chest pain, no lightheadedness or dizziness. No lower extremity edema. DIAGNOSTICS: EKG reveals underlying atrial flutter, V-paced rhythm CBC was unremarkable. Electrolytes normal. BUN 34 creatinine 1.8 which appears to be patient's baseline. Blood sugars 319. Chest xray revealed mild cardiomegaly with small bilateral pleural effusions left greater than right. Correlate with serum BNP for congestive heart failure Echocardiogram reveals EF of 45-50% with mild concentric left hypertrophy, LV wall motion akinetic/hypokinetic, mild aortic valve sclerosis, mild mitral regurgitation, aortic root is dilated measuring 3.8 cm. Echocardiogram from 06/07/2021 revealed EF of 35-40% LV hypokinetic, mild to moderate mitral regurgitation, mild tricuspid regurgitation, moderate pulmonary hypertension, RVSP 56.33 mmHg. Current home cardiac medications include losartan 50 mg daily, Toprol succinate 50 mg daily, amiodarone 400 mg daily, Eliquis 5 mg twice a day, aspirin 81 mg daily, atorvastatin 80 mg nightly, Lasix 20 mg daily, PHYSICAL EXAM: Deferred due to Covid 19 ASSESSMENT: Acute hypoxic respiratory failure with initial pulse ox of 87%, generalized most likely secondary to Covid 19 History of persistant atrial fibrillation/flutter with ablation on long-term anticoagulation with Eliquis History of sick sinus syndrome, status post dual chamber permanent pacemaker insertion ([employer]-Margot) in 2019 Mild Acute on chronic systolic heart failure, diuresing well History of coronary artery disease with previous CABG in 2000. Chronic kidney disease Hypertension Hyperlipidemia Obstructive sleep apnea with CPAP use Diabetes mellitus, type II PLAN: Continue IV Lasix 40 mg every 8 hours Daily weights Accurate I&O Monitor kidney function Continue home cardiac medications Further recommendations pending patient course Nurse practitioner note has been reviewed by physician. Signing provider agrees with the documented findings, assessment, and plan of care. Past Medical History Past Medical History: Atrial Fibrillation, Diabetes Mellitus, GERD/Reflux, Hyper lipidemia, Hypertension, Myocardial Infarction ([place]), Renal Disease, Sleep Apnea/CPAP/BIPAP Additional Past Medical History / Comment(s): neuropathy bilateral feet, chronic kidney disease stage III, hx "minor prostate ca"- dr monitoring , home CPAP , tachycardia, see Dr Rivas H & P Last Myocardial Infarction Date:: 01/2001 History of Any Multi-Drug Resistant Organisms: None Reported Past Surgical History: Cardiac Ablation, Coronary Bypass/CABG, Heart Catheterization With Stent, Pacemaker Additional Past Surgical History / Comment(s): 11/15/20 prostate biopsy, 2000 CABG 4 vessel, 3 cardiac stents, Cardioversion, loop recorder, colonoscopy . Past Anesthesia/Blood Transfusion Reactions: No Reported Reaction Date of Last Stent Placement:: 2006 Type of Cardiac Device: Biventricular Pacemaker Device Placement Date:: 08/25/19 Past Psychological History: No Psychological Hx Reported Smoking Status: Never smoker Past Alcohol Use History: None Reported Past Drug Use History: None Reported - Past Family History Father Family Medical History: Cancer Additional Family Medical History / Comment(s): pancreatic cancer Mother Family Medical History: Cancer Additional Family Medical History / Comment(s): breast cancer Sister(s) Family Medical History: Diabetes Mellitus Medications and Allergies Home Medications Medication Instructions Recorded Confirmed Type Apixaban [Eliquis] 2.5 mg PO BID 04/25/19 01/26/22 History Cinnamon Bark [Cinnamon] 1,000 mg PO BID 04/25/19 01/26/22 History Cholecalciferol [Vitamin D3 (25 25 mcg PO DAILY 11/21/20 01/26/22 History Mcg = 1000 Iu)] glipiZIDE XL [Glucotrol XL] 10 mg PO DAILY 11/21/20 01/26/22 History calcitrioL [Calcitriol] 0.25 mcg PO DAILY 05/15/21 01/26/22 History Tamsulosin [Flomax] 0.4 mg PO DAILY 06/06/21 01/26/22 History Ferrous Sulfate [Feosol] 325 mg PO HS 09/01/21 01/26/22 History Amiodarone [Cordarone] 200 mg PO DAILY #90 tab 09/05/21 01/26/22 Rx Carvedilol [Coreg] 3.125 mg PO BID #180 tablet 09/05/21 01/26/22 Rx Allopurinol [Zyloprim] 100 mg PO DAILY 01/26/22 01/26/22 History Atorvastatin [Lipitor] 20 mg PO HS 01/26/22 01/26/22 History Bimatoprost [Lumigan 0.01% Ophth 1 drop BOTH EYES HS 01/26/22 01/26/22 History Soln] Cetirizine HCl [Zyrtec] 10 mg PO DAILY 01/26/22 01/26/22 History Dapagliflozin Propanediol [Farxiga] 10 mg PO DAILY 01/26/22 01/26/22 History Insulin Glargine,Hum.rec.anlog 15 unit SQ HS 01/26/22 01/26/22 History [Lantus Solostar Pen] L.acidoph,Paracasei, B.lactis 1 cap PO DAILY 01/26/22 01/26/22 History [Probiotic] Molnupiravir [Molnupiravir (Eua)] 800 mg PO Q12H 01/26/22 01/26/22 History Multivit-Min/FA/Lycopen/Lutein 1 tab PO DAILY 01/26/22 01/26/22 History [Centrum Silver Tablet] Allergies Allergy/AdvReac Type Severity Reaction Status Date / Time No Known Allergies Allergy Verified 01/26/22 18:00 Physical Exam Vitals: Vital Signs Temp Pulse Pulse Resp BP BP Pulse Ox 01/27/22 04:00 97.9 F 60 18 163/81 94 L 01/27/22 01:53 18 01/27/22 00:00 97.6 F 61 18 168/82 91 L 01/26/22 23:00 18 01/26/22 22:15 97.9 F 70 18 185/85 95 01/26/22 21:40 97.7 F 68 22 168/84 95 01/26/22 18:19 61 18 155/93 96 04/08/22 17:40 95 01/26/22 17:39 87 L 01/26/22 17:25 92 L 01/26/22 16:37 99.1 F 63 24 173/76 90 L Intake and Output 01/26/22 01/27/22 01/27/22 22:59 06:59 14:59 Output Total 1700 600 Balance -1700 -600 Output: Urine 1700 600 Other: Voiding Method Urinal Weight 101.2 kg 99.1 kg Results 01/27/22 09:22 01/27/22 09:22 Cardiac Enzymes 01/26/22 01/26/22 Range/Units 18:09 18:09 AST 24 (17-59) U/L Troponin I 0.018 (0.000-0.034) ng/mL Coagulation 01/26/22 Range/Units 18:09 PT 11.5 (9.0-12.0) sec APTT 26.3 (22.0-30.0) sec CBC 01/26/22 01/27/22 Range/Units 18: 09:22 WBC 6.0 5.9 (3.8-10.6) k/uL RBC 4.06 L 4.38 (4.30-5.90) m/uL Hgb 12.7 L 13.3 (13.0-17.5) gm/dL Hct 38.5 L 42.4 (39.0-53.0) % Plt Count 130 L 175 (150-450) k/uL Comprehensive Metabolic Panel 01/26/22 01/27/22 Range/Units 18:09 09:22 Sodium 137 138 (137-145) mmol/L Potassium 4.0 4.0 (3.5-5.1) mmol/L Chloride 103 100 (98-107) mmol/L Carbon Dioxide 25 28 (22-30) mmol/L BUN 30 H 34 H (9-20) mg/dL Creatinine 1.73 H 1.80 H (0.66-1.25) mg/dL Glucose 161 H 319 H (74-99) mg/dL Calcium 8.9 9.3 (8.4-10.2) mg/dL AST 24 (17-59) U/L ALT 18 (4-49) U/L Alkaline Phosphatase 77 (38-126) U/L Total Protein 6.8 (6.3-8.2) g/dL Albumin 3.9 (3.5-5.0) g/dL Current Medications Generic Name Dose Route Start Last Admin Trade Name [place] PRN Reason Stop Dose Admin Allopurinol 100 mg 01/27/22 09:00 01/27/22 08:27 Allopurinol 100 Mg Tab PO 100 mg DAILY DAREN Administration Amiodarone HCl 200 mg 01/27/22 09:00 01/27/22 08:27 Amiodarone 200 Mg Tab PO 200 mg DAILY DAREN Administration Apixaban 2.5 mg 01/27/22 09:00 01/27/22 08:27 Apixaban 2.5 Mg Tablet PO 2.5 mg BID DAREN Administration Protocol Ascorbic Acid 1,000 mg 01/27/22 09:00 01/27/22 08:27 Ascorbic Acid 500 Mg Tab PO 1,000 mg DAILY DAREN Administration Atorvastatin Calcium 20 mg 01/27/22 21:00 Atorvastatin 20 Mg Tab PO HS DAREN Calcitriol 0.25 mcg 01/27/22 09:00 01/27/22 08:27 Calcitriol 0.25 Mcg Cap PO 0.25 mcg DAILY DAREN Administration Carvedilol 3.125 mg 01/27/22 09:00 01/27/22 08:27 Carvedilol 3.125 Mg Tab PO 3.125 mg BID DAREN Administration Cholecalciferol 125 mcg 01/27/22 09:00 01/27/22 08:28 Cholecalciferol 25 Mcg (1000 Iu) Tablet PO 125 mcg DAILY DAREN Administration Dexamethasone 6 mg 01/27/22 09:00 01/27/22 08:27 Dexamethasone 2 Mg Tab PO 6 mg DAILY DAREN Administration Furosemide 40 mg 01/26/22 22:00 01/27/22 06:49 Furosemide 10 Mg/Ml 4 Ml Vial IV 40 mg Q8H DAREN Administration Insulin Aspart 0 unit 01/27/22 07:30 01/27/22 06:49 Insulin Aspart (Novolog) 100 Unit/Ml Vial SQ 8 unit ACHS [facility] Administration Protocol Latanoprost 1 drops 01/27/22 21:00 Latanoprost 0.005% Ophth Drops 2.5 Ml Btl BOTH EYES HS DAREN Nitroglycerin 1 inch 01/26/22 22:00 01/27/22 08:28 Nitroglycerin Oint 1 Inch/Gm Packet TOPICAL 1 inch QID DAREN Administration Tamsulosin HCl 0.4 mg 01/27/22 09:00 01/27/22 08:27 Tamsulosin 0.4 Mg Cap.Er.24h PO 0.4 mg DAILY DAREN Administration Zinc Sulfate 220 mg 01/27/22 09:00 01/27/22 08:27 Zinc Sulfate 220 Mg Cap PO 220 mg DAILY DAREN Administration Intake and Output 01/26/22 01/27/22 01/27/22 22:59 06:59 14:59 Output Total 1700 600 Balance -1700 -600 Output: Urine 1700 600 Other: Voiding Method Urinal Weight 101.2 kg 99.1 kg 01/27/22 09:22 01/27/22 09:22
--- NOTE | 2022-01-27 16:36 | P.PN ---
Subjective Progress Note Date: 01/27/22 Principal diagnosis: Shortness of breath Patient was seen and examined. No acute events overnight. He is currently not on any supplemental oxygen. However, at home patient reported O2 saturation in the low to mid 80s. He reports slight improvement in his breathing. He denies any chest pain or palpitations. No nausea or vomiting. No fever or chills. Objective - Vital Signs Vital signs: Vital Signs Temp 97.4 F L 01/27/22 15:44 Pulse 61 01/27/22 15:44 Resp 18 01/27/22 15:44 BP 155/76 01/27/22 15:44 Pulse Ox 94 L 01/27/22 15:44 Intake & Output 01/26/22 01/27/22 01/27/22 18:59 06:59 18:59 Output Total 2300 1650 Balance -2300 -1650 Weight 104.326 kg 99.1 kg 99.1 kg Output: Urine 2300 1650 Other: Voiding Method Urinal - Exam General: [non toxic], [no distress], [appears at stated age] Derm: [warm], [dry] Head: [atraumatic], [normocephalic], [symmetric] Eyes: [EOMI], [no lid lag], [anicteric sclera] Mouth: [no lip lesion], [mucus membranes moist] Cardiovascular: [S1S2 reg], [no murmur], [positive DP pulse bilateral], Lungs: [Decreased breath sounds bilateral], [no rhonchi, no rales] , [no accessory muscle use] Abdominal: [soft], [ nontender to palpation], [no guarding], [no appreciable organomegaly] Ext: [no gross muscle atrophy], [no edema], [no contractures] Neuro: [no focal neuro deficits] Psych: [Alert], [oriented], [appropriate affect] - Labs CBC & Chem 7: 01/27/22 09:22 01/27/22 09:22 Labs: Abnormal Lab Results - Last 24 Hours (Table) 01/26/22 01/26/22 01/27/22 Range/Units 18:09 18:09 06:20 RBC 4.06 L (4.30-5.90) m/uL Hgb 12.7 L (13.0-17.5) gm/dL Hct 38.5 L (39.0-53.0) % RDW 15.7 H (11.5-15.5) % Plt Count 130 L (150-450) k/uL Lymphocytes # 0.6 L (1.0-4.8) k/uL BUN 30 H (9-20) mg/dL Creatinine 1.73 H (0.66-1.25) mg/dL Glucose 161 H (74-99) mg/dL POC Glucose (mg/dL) 394 H (75-99) mg/dL Total Bilirubin 1.5 H (0.2-1.3) mg/dL 01/27/22 01/27/22 01/27/22 Range/Units 06:27 09:22 09:22 RBC (4.30-5.90) m/uL Hgb (13.0-17.5) gm/dL Hct (39.0-53.0) % RDW 15.6 H (11.5-15.5) % Plt Count (150-450) k/uL Lymphocytes # (1.0-4.8) k/uL BUN 34 H (9-20) mg/dL Creatinine 1.80 H (0.66-1.25) mg/dL Glucose 319 H (74-99) mg/dL POC Glucose (mg/dL) 406 H (75-99) mg/dL Total Bilirubin (0.2-1.3) mg/dL 01/27/22 Range/Units 11:37 RBC (4.30-5.90) m/uL Hgb (13.0-17.5) gm/dL Hct (39.0-53.0) % RDW (11.5-15.5) % Plt Count (150-450) k/uL Lymphocytes # (1.0-4.8) k/uL BUN (9-20) mg/dL Creatinine (0.66-1.25) mg/dL Glucose (74-99) mg/dL POC Glucose (mg/dL) 335 H (75-99) mg/dL Total Bilirubin (0.2-1.3) mg/dL Assessment and Plan Assessment: Echocardiogram showed EF 45-50%, mild concentric LVH, hypokinetic basal inferior/mid inferior/apical inferior/apical septum, aortic root of 3.8cm. #Acute hypoxic respiratory failure #COVID pneumonia #Mild CHF exacerbation -Continue Decadron 6 progress by mouth daily -Cardiology consulted -Lasix 40 mg IV every 8 hours -Strict intake and uptake along with daily weights -Monitor inflammatory markers -Vitamin C, vitamin D, zinc -Cardiac monitoring -Supplemental oxygen #Diabetes mellitus with hyperglycemia -Likely due to steroid use -A1c pending -Restart Levemir 15 units at bedtime -Insulin sliding scale along with Accu-Cheks 4 times a day and hypoglycemic precautions Chronic condition: Coronary artery disease, hypertension, hyperlipidemia, chronic kidney disease, A. fib, obstructive sleep apnea -Continue home medications DVT prophylaxis -Eliquis The patient is admitted with an anticipated greater than 2 midnight stay for evaluation of acute hypoxic respiratory failure CODE STATUS:Full Code Discussed with: Patient Anticipated discharge date: 01/[address]: Home
[2022-01-27 16:50] LABS: Glucose,Whole Blood 495 mg/dL (75-99)
[2022-01-27] MEDS: carvediloL 6.25 MG TAB PO SCH (17:03)
[2022-01-27] MEDS ORDERED: INSULIN ASPART (NovoLOG) 100 UNIT/ML VIAL SQ ONE ×3 (17:03→20:53)
[2022-01-27 18:39] LABS: Glucose,Whole Blood 524 mg/dL (75-99)
[2022-01-27 18:39] LABS: Glucose,Whole Blood 505 mg/dL (75-99)
[2022-01-27] MEDS ORDERED: LATANOPROST 0.005% OPHTH DROPS 2.5 ML BTL BOTH EYES SCH (21:00)
[2022-01-27] MEDS ORDERED: INSULIN DETEMIR (LEVEMIR) 100 UNIT/ML SYR SQ SCH (21:00)
[2022-01-27] MEDS ORDERED: ATORVASTATIN 20 MG TAB PO SCH (21:00)
[2022-01-27 21:01] LABS: Glucose,Whole Blood 447 mg/dL (75-99)
[2022-01-28 06:30] LABS: Glucose,Whole Blood 86 mg/dL (75-99)
[2022-01-28] MEDS: INSULIN ASPART (NovoLOG) 100 UNIT/ML VIAL SQ SCH (06:32)
[2022-01-28] MEDS: carvediloL 6.25 MG TAB PO SCH (06:56)
[2022-01-28] MEDS: FUROSEMIDE 10 MG/ML 4 ML VIAL IV SCH (06:56)
[2022-01-28] MEDS ORDERED: dexAMETHasone 2 MG TAB PO SCH (09:00)
[2022-01-28] MEDS: ISOSORBIDE MONONITRATE ER 30 MG TAB.ER.24H PO SCH (09:29)
[2022-01-28] MEDS: TAMSULOSIN 0.4 MG CAP.ER.24H PO SCH (09:29)
[2022-01-28] MEDS: CHOLECALCIFEROL 25 MCG (1000 IU) TABLET PO SCH (09:29)
[2022-01-28] MEDS: ASCORBIC ACID 500 MG TAB PO SCH (09:30)
[2022-01-28] MEDS: AMIODARONE 200 MG TAB PO SCH (09:30)
[2022-01-28] MEDS: hydrALAZINE HCL 25 MG TAB PO SCH (09:30)
[2022-01-28] MEDS: allopurinoL 100 MG TAB PO SCH (09:30)
[2022-01-28] MEDS: ZINC SULFATE 220 MG CAP PO SCH (09:30)
[2022-01-28] MEDS: APIXABAN 2.5 MG TABLET PO SCH (09:30)
[2022-01-28 10:43] LABS: Calcium 9.1 mg/dL (8.4-10.2); Magnesium 1.8 mg/dL (1.6-2.3); Potassium 3.9 mmol/L (3.5-5.1)
[2022-01-28 11:45] LABS: Glucose,Whole Blood 291 mg/dL (75-99)
--- NOTE | 2022-01-28 11:47 | P.PN ---
Subjective Progress Note Date: 01/28/22 History of present illness: This is a 71-year-old male patient of Dr. Rivas with a past medical history significant for coronary artery disease with previous CABG x 3 in 2000, previous stent placement, persistent atrial fibrillation, atrial flutter (on Eliquis), with previous ablation in [place], ablation on 03/06/21 and 09/05/2021, sick sinus syndrome with dual-chamber pacemaker insertion 2018 ([employer]tronic), hypertension, and hyperlipidemia, diabetes mellitus type 2, chronic kidney disease, obstructive sleep apnea with CPAP use. We have been asked to see the patient in consultation for acute pulmonary edema. Patient was diagnosed with Covid 19 on Saturday and started on Molnupiravir symptom onset of Saturday. Patient is status post Covid vaccine and booster. Patient presented to the emergency center due to fatigue and mild shortness of breath with ambulation. No chest pain, no lightheadedness or dizziness. No lower extremity edema. DIAGNOSTICS: EKG reveals underlying atrial flutter, V-paced rhythm CBC was unremarkable. Electrolytes normal. BUN 34 creatinine 1.8 which appears to be patient's baseline. Blood sugars 319. Chest xray revealed mild cardiomegaly with small bilateral pleural effusions left greater than right. Correlate with serum BNP for congestive heart failure Echocardiogram reveals EF of 45-50% with mild concentric left hypertrophy, LV w all motion akinetic/hypokinetic, mild aortic valve sclerosis, mild mitral regurgitation, aortic root is dilated measuring 3.8 cm. Echocardiogram from 06/07/2021 revealed EF of 35-40% LV hypokinetic, mild to moderate mitral regurgitation, mild tricuspid regurgitation, moderate pulmonary hypertension, RVSP 56.33 mmHg. Current home cardiac medications include losartan 50 mg daily, Toprol succinate 50 mg daily, amiodarone 400 mg daily, Eliquis 5 mg twice a day, aspirin 81 mg daily, atorvastatin 80 mg nightly, Lasix 20 mg daily, 01/28/2022 Patient states his breathing is much improved and stable, he has been urinating adequately. Echocardiogram as above. Updated patient regarding results and will transition patient to oral Lasix. Sodium is 135, potassium 3.9, BUN 41 and creatinine 2.03. Patient is requesting to go home which will be determined by his attending. Chest x-ray ordered for tomorrow patient remains in the hospital. PHYSICAL EXAM: Deferred due to Covid 19 ASSESSMENT: Acute hypoxic respiratory failure with initial pulse ox of 87%, most likely secondary to Covid 19 History of persistant atrial fibrillation/flutter with ablation on long-term anticoagulation with Eliquis History of sick sinus syndrome, status post dual chamber permanent pacemaker insertion ([employer]tr[employer]-[place]) in 2019 Mild Acute on chronic systolic heart failure, diuresing well History of coronary artery disease with previous CABG in 2000. Chronic kidney disease Hypertension Hyperlipidemia Obstructive sleep apnea with CPAP use Diabetes mellitus, type II PLAN: Transition IV Lasix to oral 40 mg twice daily Daily weights Accurate I&O Monitor kidney function Continue home cardiac medications Further recommendations pending patient course Nurse practitioner note has been reviewed by physician. Signing provider agrees with the documented findings, assessment, and plan of care. Objective - Vital Signs Vital signs: Vital Signs Temp 98 F 01/28/22 04:00 Pulse 54 L 01/28/22 04:00 Resp 16 01/28/22 04:00 BP 118/68 01/28/22 04:00 Pulse Ox 94 L 01/28/22 04:00 Intake & Output 01/27/22 01/28/22 01/28/22 18:59 06:59 18:59 Intake Total 120 Output Total 1650 1850 Balance -1650 -1850 120 Weight 99.1 kg Intake: Oral 120 Output: Urine 1650 1850 Other: Voiding Method Urinal # Voids 2 - Labs CBC & Chem 7: 01/27/22 09:22 01/28/22 10:00 Labs: Abnormal Lab Results - Last 24 Hours (Table) 01/27/22 01/27/22 01/27/22 Range/Units 09:22 11:37 16:49 BUN 34 H (9-20) mg/dL Creatinine 1.80 H (0.66-1.25) mg/dL Glucose 319 H (74-99) mg/dL POC Glucose (mg/dL) 335 H 495 H (75-99) mg/dL 01/27/22 01/27/22 01/27/22 Range/Units 18:33 18:35 20:34 BUN (9-20) mg/dL Creatinine (0.66-1.25) mg/dL Glucose (74-99) mg/dL POC Glucose (mg/dL) 505 H 524 H 447 H (75-99) mg/dL
[2022-01-28 12:19] VITALS: BP 158/83; PULSE 61; RESP 14; TEMP 97.7
--- NOTE | 2022-01-28 14:43 | P.DS ---
Providers Date of admission: 01/26/22 19:43 Expected date of discharge: 01/28/22 Attending physician: Jarrett Delaney MD Consults: 01/26/22 19:43 Consult Physician Routine Consulting Provider: [facility] Consult Reason/Comments: Acute pulmonary edema Do you want consulting provider notified?: Yes Primary care physician: Victor Manuel [facility] Course: The patient is a 71-year-old male with a PMH of A. fib on Eliquis coronary artery disease status post CABG and multiple stents, sick sinus syndrome status post pacemaker placement, type II DM, hypertension, hyperlipidemia, chronic kidney disease, systolic CHF EF 35-40% on Echo on 05/2021, and obstructive sleep apnea on CPAP who presents to the emergency room with complaints of shortness of breath. Reports symptoms of fatigue and mild shortness of breath since this past Saturday. Reports that he was diagnosed with COVID-19 this Saturday. Denies chest discomfort, nausea, vomiting, palpitations. Denied lower extremity swelling, orthopnea, PND, fever, chills, headaches, weakness, numbness, tingling. Chest x-ray in the emergency room revealed mild cardiomegaly with small bilateral pleural effusions, with EKG showing A. fib at 63 bpm with a right bundle-branch block. Laboratory evaluation was remarkable for glucose of 130 (at baseline), and creatinine 1.7 (baseline 2.3) with proBNP 8960. The patient's SpO2 was 87% on room air. Patient was started on Decadron and given supplemental O2 to maintain O2 saturation greater than 92%. He was started on Lasix 40 mg IV 3 times a day for treatment of CHF. Strict intake and output was ordered along with daily weights. Cardiology was consulted and recommended echocardiogram. Echocardiogram showed EF of 45-50% with basal inferior/mid inferior/apical inferior hypokinetic wall motion, apical septal akinesis. His EF was improved from echocardiogram that was done in May 2021. Cardiology also added hydralazine, increased Coreg and Imdur to his antihypert ensive medication. He had hyperglycemia which was controlled with insulin sliding scale and increased insulin dose likely related to steroid use. Patient was seen and examined on 01/28/2022. He was 96% on room air. He reported considerable improvement in his breathing and was requesting discharge. Case was discussed with cardiology [employer] Evangelist who cleared the patient for discharge. Decadron was not continued on discharge due to the fact he had hyperglycemia and was no longer hypoxic. Patient was advised to follow-up with his PCP within 3 days of discharge. Follow-up cardiology within 1 week of discharge. Patient verbalized understanding of the plan. General: [non toxic], [no distress], [appears at stated age] Derm: [warm], [dry] Head: [atraumatic], [normocephalic], [symmetric] Eyes: [EOMI], [no lid lag], [anicteric sclera] Mouth: [no lip lesion], [mucus membranes moist] Cardiovascular: [S1S2 reg], [no murmur] Lungs: [CTA bilateral], [no rhonchi, no rales] , [no accessory muscle use] Ext: [no gross muscle atrophy], [no edema], [no contractures] Neuro: [no focal neuro deficits] Psych: [Alert], [oriented], [appropriate affect] Discharge diagnosis: #Acute hypoxic respiratory failure #COVID pneumonia #Mild CHF exacerbation #Diabetes mellitus with hyperglycemia Chronic condition: Coronary artery disease, hypertension, hyperlipidemia, chronic kidney disease, A. fib, obstructive sleep apnea Pertinent Studies: Echocardiogram, chest x-ray Patient Condition at Discharge: Good Plan - Discharge Summary Discharge Rx Participant: No New Discharge Prescriptions: New hydrALAZINE HCL [Apresoline] 25 mg PO BID #60 tab carvediloL [Coreg] 6.25 mg PO BID-W/MEALS #60 tab Isosorbide Mononitrate ER [Imdur] 30 mg PO DAILY #30 tablet Furosemide [Lasix] 40 mg PO BID@0900,1600 #60 tab Continue Apixaban [Eliquis] 2.5 mg PO BID Cinnamon Bark [Cinnamon] 1,000 mg PO BID Cholecalciferol [Vitamin D3 (25 Mcg = 1000 Iu)] 25 mcg PO DAILY glipiZIDE XL [Glucotrol XL] 10 mg PO DAILY calcitrioL [Calcitriol] 0.25 mcg PO DAILY Amiodarone [Cordarone] 200 mg PO DAILY #90 tab Allopurinol [Zyloprim] 100 mg PO DAILY Atorvastatin [Lipitor] 20 mg PO HS Bimatoprost [Lumigan 0.01% Ophth Soln] 1 drop BOTH EYES HS Cetirizine HCl [Zyrtec] 10 mg PO DAILY Dapagliflozin Propanediol [Farxiga] 10 mg PO DAILY Insulin Glargine,Hum.rec.anlog [Lantus Solostar Pen] 15 unit SQ HS L.acidoph,Paracasei, B.lactis [Probiotic] 1 cap PO DAILY Multivit-Min/FA/Lycopen/Lutein [Centrum Silver Tablet] 1 tab PO DAILY Tamsulosin [Flomax] 0.4 mg PO DAILY Ferrous Sulfate [Feosol] 325 mg PO HS Discontinued Carvedilol [Coreg] 3.125 mg PO BID #180 tablet Molnupiravir [Molnupiravir (Eua)] 800 mg PO Q12H Discharge Medication List Apixaban [Eliquis] 2.5 mg PO BID 04/25/19 [History] Cinnamon Bark [Cinnamon] 1,000 mg PO BID 04/25/19 [History] Cholecalciferol [Vitamin D3 (25 Mcg = 1000 Iu)] 25 mcg PO DAILY 11/21/20 [History] glipiZIDE XL [Glucotrol XL] 10 mg PO DAILY 11/21/20 [History] calcitrioL [Calcitriol] 0.25 mcg PO DAILY 05/15/21 [History] Tamsulosin [Flomax] 0.4 mg PO DAILY 06/06/21 [History] Ferrous Sulfate [Feosol] 325 mg PO HS 09/01/21 [History] Amiodarone [Cordarone] 200 mg PO DAILY #90 tab 09/05/21 [Rx] Allopurinol [Zyloprim] 100 mg PO DAILY 01/26/22 [History] Atorvastatin [Lipitor] 20 mg PO HS 01/26/22 [History] Bimatoprost [Lumigan 0.01% Oph Soln] 1 drop BOTH EYES HS 01/26/22 [History] Cetirizine HCl [Zyrtec] 10 mg PO DAILY 01/26/22 [History] Dapagliflozin Propanediol [Farxiga] 10 mg PO DAILY 01/26/22 [History] Insulin Glargine,Hum.rec.anlog [Lantus Solostar Pen] 15 unit SQ HS 01/26/22 [History] L.acidoph,Paracasei, B.lactis [Probiotic] 1 cap PO DAILY 01/26/22 [History] Multivit-Min/FA/Lycopen/Lutein [Centrum Silver Tablet] 1 tab PO DAILY 01/26/22 [History] Furosemide [Lasix] 40 mg PO BID@0900,1600 #60 tab 01/28/22 [Rx] Isosorbide Mononitrate ER [Imdur] 30 mg PO DAILY #30 tablet 01/28/22 [Rx] carvediloL [Coreg] 6.25 mg PO BID-W/MEALS #60 tab 01/28/22 [Rx] hydrALAZINE HCL [Apresoline] 25 mg PO BID #60 tab 01/28/22 [Rx] Follow up Appointment(s)/Referral(s): Victor Manuel Cummings MD [Primary Care Provider] - 1-2 days Chris Rivas MD [STAFF PHYSICIAN] - 1 Week Activity/Diet/Wound Care/Special Instructions: Diet: Cardiac Follow-up with your PCP within 2 days of discharge. Follow-up with cardiology within 1 week of discharge. Please follow-up low-salt diet. Come back to the ED for worsening chest pain, shortness of breath or lightheadedness. Please come back for O2 saturation less than 88% at rest. Discharge Disposition: HOME SELF-CARE
[2022-01-28] MEDS ORDERED: FUROSEMIDE 40 MG TAB PO SCH (16:00)
== END 2022-01-28 15:56 | disposition home or self-care (01) | DRG 177 ==
LOC: EC 16:06 → 3SCARD 19:43
PROVIDERS: ADMIT Internal Medicine; ATTEND Internal Medicine
PROC: 3E0F7SF Introduction of Other Gas into Respiratory Tract, Via Natural or Artificial Opening (ICD-10-PCS; principal; 2022-01-26)
DX: U07.1 COVID-19 (principal); J12.82 Pneumonia due to coronavirus disease 2019; J96.01 Acute respiratory failure with hypoxia; I13.0 Hypertensive heart and chronic kidney disease with heart failure and stage 1 through stage 4 chronic kidney disease, or unspecified chronic kidney disease; I48.19 Other persistent atrial fibrillation; I48.92 Unspecified atrial flutter; I50.22 Chronic systolic (congestive) heart failure; E11.22 Type 2 diabetes mellitus with diabetic chronic kidney disease; E11.65 Type 2 diabetes mellitus with hyperglycemia; E11.42 Type 2 diabetes mellitus with diabetic polyneuropathy; X58.XXXA Exposure to other specified factors, initial encounter; T38.0X5A Adverse effect of glucocorticoids and synthetic analogues, initial encounter; E78.5 Hyperlipidemia, unspecified; N18.30 Chronic kidney disease, stage 3 unspecified; I77.810 Thoracic aortic ectasia; G47.33 Obstructive sleep apnea (adult) (pediatric); I25.10 Atherosclerotic heart disease of native coronary artery without angina pectoris; I08.0 Rheumatic disorders of both mitral and aortic valves; I37.1 Nonrheumatic pulmonary valve insufficiency; I25.2 Old myocardial infarction; I27.20 Pulmonary hypertension, unspecified; I45.10 Unspecified right bundle-branch block; Z79.01 Long term (current) use of anticoagulants; Z79.4 Long term (current) use of insulin; Z79.82 Long term (current) use of aspirin; Z79.899 Other long term (current) drug therapy; Z80.0 Family history of malignant neoplasm of digestive organs; Z80.3 Family history of malignant neoplasm of breast; Z83.3 Family history of diabetes mellitus; Z95.0 Presence of cardiac pacemaker; Z95.1 Presence of aortocoronary bypass graft; Z95.5 Presence of coronary angioplasty implant and graft; Z95.818 Presence of other cardiac implants and grafts
CPT/HCPCS: 36415; 71046; 80048; 80053; 83605; 83735; 83880; 84484; 85025; 85027; 85610; 85730; 93005; 93306; 96374; 99291

== ENCOUNTER → 2022-03-10 | Outpatient (CLI) | payer MEDICARE ==
[2022-03-10 12:31] LABS: HCT 37.5 % (39.6-50.0); HGB 11.9 g/dL (13.0-17.0); MCH 29.8 pg (27.0-32.0); MCHC 31.7 g/dL (32.0-37.0); MCV 93.8 fL (80.0-97.0); Mean Platelet Volume 10.4 fL (9.5-12.2); NRBC Per 100 WBC 0 /100 WBCS (0.0-0.0); Platelet Count 148 X 10*3/uL (140-440); RDW 14.9 % (11.5-14.5); WBC 6.81 X 10*3/uL (4.50-10.00)
[2022-03-10 12:46] LABS: African American GFR (CKD) 33.9 (60.0-200.0); Anion Gap 13.2 mmol/L (10.00-18.00); Blood Urea Nitrogen 42.1 mg/dL (9.0-27.0); Carbon Dioxide 20.8 mmol/L (20.0-27.5); Non-African American GFR(CKD) 29.3 (60.0-200.0); Potassium 4.4 mmol/L (3.5-5.5)
== END | disposition home or self-care (01) ==
LOC: LABPAT 07:49
PROVIDERS: ATTEND Internal Medicine Clinical Cardiac Electrophysiology
DX: Z01.812 Encounter for preprocedural laboratory examination (principal); I42.9 Cardiomyopathy, unspecified
CPT/HCPCS: 80051; 82565; 84520; 85027

== ENCOUNTER 2022-03-13 11:30 | Day surgery (SDC) | payer MEDICARE ==
[~2022-03-13 11:30] MED LIST changes: -SODIUM CHLORIDE 0.9% 1,000 ML IV SCH; +ceFAZolin 1 GM in SODIUM CHLORIDE 0.9% IRRIG BTL 250 ML IRRIGATION PRN
[2022-03-13] MEDS: INSULIN ASPART (NovoLOG) 100 UNIT/ML VIAL SQ SCH ×3 (12:04→20:26)
[2022-03-13] MEDS: SODIUM CHLORIDE 0.9% 1,000 ML IV SCH ×2 (12:08→19:42)
[2022-03-13 12:13] LABS: Glucose,Whole Blood 252 mg/dL (75-99)
[2022-03-13] MEDS ORDERED: fentaNYL (PF) 50 MCG/ML 2 ML AMP ONE (14:00)
[2022-03-13] MEDS ORDERED: PROPOFOL 10 MG/ML 20 ML VIAL IV ONE (14:00)
[2022-03-13] MEDS ORDERED: MIDAZOLAM 2 MG/2 ML VIAL ONE (14:00)
[2022-03-13] MEDS ORDERED: HYDROmorphone (PF) 1 MG/ML ONE (14:00)
[2022-03-13] MEDS ORDERED: IOPAMIDOL-370 50ML BTL INJ ONE (14:32)
[2022-03-13] MEDS ORDERED: LIDOCAINE 1% INJ 10MG/ML (30 ML VIAL-PF) SQ ONE (14:59)
[2022-03-13] MEDS: VANCOMYCIN 1,500 MG in SODIUM CHLORIDE 0.9% 250 ML IVPB STA ×2 (15:54→16:01)
[2022-03-13] MEDS ORDERED: ACETAMINOPHEN TAB 325 MG TAB PO PRN (17:43)
[2022-03-13] MEDS ORDERED: ACETAMINOPHEN IV (For NPO) 1,000 MG in EMPTY BAG 1 BAG IVPB ONE (17:43)
[2022-03-13 18:15] LABS: Glucose,Whole Blood 118 mg/dL (75-99)
--- NOTE | 2022-03-13 18:25 | P.EPPROC ---
- EP Procedure Note Electrophysiology Procedure Note: Diagnosis Persistent atrial fibrillation Bradycardia, dual-chamber pacemaker in situ RV pacing percentage greater than 75% Worsening heart failure and left ventricular ejection fraction Recommended conduction system pacing versus LV pacing/biventricular pacemaker Procedure Left bundle/ biventricular pacemaker implantation Details Patient was brought to the EP lab in a fasting state. Written informed consent was obtained prior to the procedure. Conscious sedation provided by anesthesia team The left upper extremity venogram performed previously had shown a stenosis in the subclavian area Venogram was performed once again and a clear subclavian stenosis was noted but would allow passage of an angioplasty by IV antibiotics administered including back mice. Local anesthesia administered. A 4 cm incision made in the pectoral area. Subfascial pocket made. Venous access obtained at the second rib With some difficulty the micropuncture interpersonal by was passed across the subclavian stenosis Venoplasty of the left subclavian innominate junction performed Serial dilation starting from a 4-Norwegian micropuncture sheath up to a 9-1/2-Norwegian sheath was performed None half Norwegian sheath was placed in the subclavian/innominate vein over an advantage wire A Metronic His bundle sheath was placed in the right atrium over guidewire Metronic screw-in model #3830-lead was positioned First the His bundle was mapped and marked on fluoroscopy Subsequently mapping of the left bundle was performed Multiple attempts to be made. The initial attempts was successful in placing the lead only in the deep septum Finally the third attempt with multiple clockwise turns of the lead resulted in immediate capture of the left bundle Left bundle signal was noted Left bundle to ventricular signal duration was 56 ms This corresponded to the stem to first peak of the paced QRS in lead V6 @High outputs a left bundle branch block pattern predominantly with a QRS pattern was noted Selective capture of the left posterior fascicle occurred below 5 V at 0.5 ms Excellent threshold down to 0.5 V at 0.5 ms Stim to QRS for selective left posterior fascicle capture was given 56 ms After initial increase in the impedance to mid 900s, there is a drop in impedance down to around 750-800 ohms with left bundle capture Atrial lead chronic position the right atrial appendage. Model #5076, 52 cm in length Patient's atrial fibrillation. December 10 waves 2.3 mV pacing impedance 475 ohms RV lead chronic position in the RV apex. Model #5076, 58 cm in length, Meteo-Logictronic lead R waves 19 9 mV pacing impedance 418 ohms and pacing threshold 1.5 V at 0.4 ms Oral dual-chamber pacemaker generator explanted. New biventricular pacemaker generator implanted Biventricular pacemaker device connected to the leads and placed in the subfascial pocket Metronic precepta CRTP Programmed LV to RV offset of 80 ms pacing mode DDDR with mode switch on LV programmed at 3.5 V at 0.4 ms Tyrx Pouch placed Patient tolerance the procedure well without acute complications Long procedure on account of multiple attempts at His bundle and left bundle until, selective left bundle capture noted
[2022-03-13 20:25] LABS: Glucose,Whole Blood 121 mg/dL (75-99)
[2022-03-13] MEDS: carvediloL 3.125 MG TAB PO SCH (20:27)
[2022-03-13] MEDS: FUROSEMIDE 20 MG TAB PO SCH (20:27)
[2022-03-13] MEDS ORDERED: INSULIN DETEMIR (LEVEMIR) 100 UNIT/ML SYR SQ SCH (21:00)
[2022-03-14 07:33] LABS: Glucose,Whole Blood 252 mg/dL (75-99)
[2022-03-14] MEDS: carvediloL 3.125 MG TAB PO SCH (07:51)
[2022-03-14] MEDS: INSULIN ASPART (NovoLOG) 100 UNIT/ML VIAL SQ SCH (07:52)
[2022-03-14] MEDS: FUROSEMIDE 20 MG TAB PO SCH (07:52)
[2022-03-14 08:06] VITALS: BP 145/71; PULSE 54; RESP 16; TEMP 98.2
--- NOTE | 2022-03-14 08:18 | XR ---
EXAMINATION TYPE: XR chest 1V portable DATE OF EXAM: 03/14/2022 COMPARISON: Chest x-ray 01/26/2022 HISTORY: Lead placement check. TECHNIQUE: Single frontal view of the chest is obtained. FINDINGS: Patient is post median sternotomy. There is a generator in the left pectoral region. Leads are present in the right atrium and right ventricle, interval placement of a right atrial lead shows a somewhat transverse orientation. There are overlying artifacts. Loop recorder is present over the left chest. No evident pneumothorax or pleural effusion. Cardiac mediastinal silhouette is stable. Ao rta is dense. There is some improvement in aeration at the lung bases. IMPRESSION: Interval lead placement as described.
--- NOTE | 2022-03-14 08:53 | DS ---
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 He has a high RV pacing percentage. He has a dual-chamber pacemaker in situ and underlying persistent atrial fibrillation. Yesterday he was brought in for an upgrade to a biventricular pacemaker. He underwent conduction system pacing with left bundle pacing successfully. Today his QRS shows intermittent left bundle pacing alternating with conduction proceeding down both the right and left bundles with narrowing and normalization of the QRS, which is an excellent result. He is doing well. He has no hematoma, no swelling. Heart sounds are normal. Breath sounds are clear. Blood pressure is at the upper limits of normal. PLAN: Discharge home today. He has completed his antibiotics. He will get his device checked today. He will see us in the device clinic in a week. Hopefully this results in improvement in his LV function as well as his renal function. In addition, I will stop amiodarone completely. MMODL / IJN: [id number] /
[2022-03-14] MEDS ORDERED: NON FORMULARY DRUG (Dapagliflozin Propanediol [Farxiga] 10 MG Tablet) PO SCH (09:00)
[2022-03-14] MEDS ORDERED: TAMSULOSIN 0.4 MG CAP.ER.24H PO SCH (09:00)
[2022-03-14] MEDS ORDERED: allopurinoL 100 MG TAB PO SCH (09:00)
[2022-03-14] MEDS ORDERED: APIXABAN 2.5 MG TABLET PO SCH (09:00)
--- NOTE | 2022-03-14 11:23 | P.NPCON ---
History of Present Illness - Reason for Consult chronic renal failure - History of Present Illness Reason for consultation: Chronic kidney disease History of present illness: Patient is a 71-year-old male seen in consultation for chronic kidney disease. Patient has chronic kidney disease stage IIIB with baseline creatinine in the range of 1.8-2. 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 Patient presented to the hospital for biventricular pacemaker implantation which was done yesterday. Patient has history of A. fib. He denies any chest pain or shortness breath. No edema. Good urine output. No hematuria or dysuria. No fever or chills. No cough. Oral intake is good. Hemodynamically stable. He scheduled to go home today. Vital signs are stable. General: The patient appeared well nourished and normally developed. HEENT: Head exam is unremarkable. Neck is without jugular venous distension. LUNGS: Lungs are clear to auscultation and percussion. Breath sounds decreased. HEART: Rate and Rhythm are regular. ABDOMEN: Soft, no distention. EXTREMITITES: No edema. Past Medical History Past Medical History: Atrial Fibrillation, Diabetes Mellitus, GERD/Reflux, Hyperlipidemia, Hypertension, Myocardial Infarction (AR), Renal Disease, Sleep Apnea/CPAP/BIPAP Additional Past Medical History / Comment(s): CARDIAC HISTORY PER DR. RIVAS. COVID, JANUARY 2022. Neuropathy bilateral feet, chronic kidney disease stage III, hx "minor prostate ca"- dr monitoring , home CPAP , tachycardia, see Dr Rivas H & P Last Myocardial Infarction Date:: 01/2001 History of Any Multi-Drug Resistant Organisms: None Reported Past Surgical History: Cardiac Ablation, Coronary Bypass/CABG, Heart Catheterization With Stent, Pacemaker Additional Past Surgical History / Comment(s): 11/15/20 prostate biopsy, 2000 CABG 4 vessel, 3 cardiac stents, Cardioversion, loop recorder, colonoscopy . Past Anesthesia/Blood Transfusion Reactions: No Reported Reaction Date of Last Stent Placement:: 2006 Type of Cardiac Device: Biventricular Pacemaker Device Placement Date:: 08/25/19 Past Psychological History: No Psychological Hx Reported Additional Psychological History / Comment(s): . Smoking Status: Never smoker Past Alcohol Use History: None Reported Past Drug Use History: None Reported - Past Family History Father Family Medical History: Cancer Additional Family Medical History / Comment(s): pancreatic cancer Mother Family Medical History: Cancer Additional Family Medical History / Comment(s): breast cancer Sister(s) Family Medical History: Diabetes Mellitus Medications and Allergies Home Medications Medication Instructions Recorded Confirmed Type Apixaban [Eliquis] 2.5 mg PO BID 04/25/19 03/13/22 History Cinnamon Bark [Cinnamon] 1,000 mg PO BID 04/25/19 03/13/22 History Cholecalciferol [Vitamin D3 (25 25 mcg PO DAILY 11/21/20 03/13/22 History Mcg = 1000 Iu)] calcitrioL [Calcitriol] 0.25 mcg PO DAILY 05/15/21 03/13/22 History Tamsulosin [Flomax] 0.4 mg PO DAILY 06/06/21 03/13/22 History Ferrous Sulfate [Feosol] 325 mg PO HS 09/01/21 03/13/22 History Allopurinol [Zyloprim] 100 mg PO QAM 01/26/22 03/13/22 History Bimatoprost [Lumigan 0.01% Ophth 1 drop BOTH EYES HS 01/26/22 03/13/22 History Soln] Cetirizine HCl [Zyrtec] 10 mg PO DAILY 01/26/22 03/13/22 History Dapagliflozin Propanediol [Farxiga] 10 mg PO QAM 01/26/22 03/13/22 History Insulin Glargine,Hum.rec.anlog 20 unit SQ HS 01/26/22 03/13/22 History [Lantus Solostar Pen] Multivit-Min/FA/Lycopen/Lutein 1 tab PO DAILY 01/26/22 03/13/22 History [Centrum Silver Tablet] Carvedilol [Coreg] 3.125 mg PO BID 03/12/22 03/13/22 History Furosemide [Lasix] 20 mg PO BID 03/12/22 03/13/22 History Allergies Allergy/AdvReac Type Severity Reaction Status Date / Time No Known Allergies Allergy Verified 03/13/22 11:54 Physical Exam Vitals: Vital Signs Temp Pulse Pulse Resp BP BP Pulse Ox 03/14/22 08:00 54 L 03/14/22 07:35 98.2 F 54 L 16 145/71 93 L 03/14/22 02:12 97.5 F L 62 18 146/69 92 L 03/13/22 22:06 50 L 142/68 03/13/22 21:05 50 L 169/74 92 L 03/13/22 20:05 50 L 180/81 90 L 03/13/22 20:00 50 L 03/13/22 19:52 49 L 178/89 93 L 03/13/22 19:06 162/77 94 L 03/13/22 19:04 97.4 F L 53 L 14 175/79 95 03/13/22 18:50 51 L 176/79 94 L 03/13/22 18:35 54 L 167/85 95 03/13/22 18:20 56 L 173/72 94 L 03/13/22 18:05 97.7 F 52 L 16 160/79 94 L 03/13/22 12:01 97.5 F L 75 18 188/81 94 L Intake and Output 03/13/22 03/14/22 03/14/22 22:59 06:59 14:59 Intake Total 1200 500 180 Output Total 225 250 Balance 975 250 180 Intake: IV 250 Intake, IV Titration 450 Amount ACETAMINOPHEN IV (For NPO 400 ) 1,000 mg In Empty Bag 1 bag @ 400 mls/hr IVPB ONCE ONE Rx#:[id number] ceFAZolin 2 gm In Sodium 50 Chloride 0.9% 50 ml @ 100 mls/hr IVPB Q6H [facility] Rx#: [id number] Oral 500 500 180 Output: Urine 225 250 Other: Weight 96.1 kg Assessment and Plan Plan: Assessment: 1. Chronic kidney disease stage IIIB secondary to diabetic kidney disease with baseline creatinine in the range of 1.82. 2. History of A. fib status post biventricular pacemaker implantation 03/13/2022. 3. Diabetes mellitus. 4. Hypertension with chronic kidney disease. Plan: Maintain oral Lasix at home dose of 20 mg once daily. Advised to follow low salt diet. Patient advised to monitor his weight closely at home and to call if edema worsens or gains more than 3 pounds in one week duration. Follow up outpatient as scheduled. Thank you for the consultation. I will continue to follow the patient with you during his hospital stay.
[2022-03-14 11:49] LABS: African American GFR (CKD) 46 (>60 ml/min/1.73 sqM); Anion Gap 9 mmol/L; Blood Urea Nitrogen 41 mg/dL (9-20); Calcium 8.4 mg/dL (8.4-10.2); Carbon Dioxide 21 mmol/L (22-30); Chloride 105 mmol/L (98-107); Glucose 250 mg/dL (74-99); Magnesium 1.9 mg/dL (1.6-2.3); Non-African American GFR(CKD) 39 (>60 ml/min/1.73 sqM); Potassium 3.6 mmol/L (3.5-5.1); Sodium 135 mmol/L (137-145)
== END 2022-03-14 11:13 | disposition home or self-care (01) ==
LOC: CATHEP 11:30 → 6NMEDSUR 17:36 → CATHEP 03-14 11:13
PROVIDERS: ATTEND Internal Medicine Clinical Cardiac Electrophysiology
DX: I48.19 Other persistent atrial fibrillation (principal); E11.22 Type 2 diabetes mellitus with diabetic chronic kidney disease; E78.5 Hyperlipidemia, unspecified; G47.30 Sleep apnea, unspecified; I12.9 Hypertensive chronic kidney disease with stage 1 through stage 4 chronic kidney disease, or unspecified chronic kidney disease; I25.2 Old myocardial infarction; I48.91 Unspecified atrial fibrillation; K21.9 Gastro-esophageal reflux disease without esophagitis; N18.32 Chronic kidney disease, stage 3b; Z79.01 Long term (current) use of anticoagulants; Z79.84 Long term (current) use of oral hypoglycemic drugs; Z80.3 Family history of malignant neoplasm of breast; Z83.3 Family history of diabetes mellitus; Z86.16 Personal history of COVID-19; Z95.0 Presence of cardiac pacemaker; Z95.1 Presence of aortocoronary bypass graft; Z95.5 Presence of coronary angioplasty implant and graft; Z20.822 Contact with and (suspected) exposure to COVID-19
CPT/HCPCS: 33225; 33229; 80048; 83735; 87635; 71045; C1769 ×4; C2621; C1892 ×2; C1887; J2250; J3370; J0690; J2001; J3010; J1170; J0131; J2704; Q9967

== ENCOUNTER → 2023-06-20 | Outpatient (CLI) | payer MEDICARE ==
--- NOTE | 2023-06-20 14:09 | CT ---
EXAMINATION TYPE: CT lumbar spine wo con CT DLP: 1647.40 mGycm, Automated exposure control for dose reduction was used. DATE OF EXAM: 06/20/2023 1:53 PM COMPARISON: CT abdomen and pelvis 10/04/2021. CLINICAL INDICATION:Male, 72 years old with history of M43.16 SPONDYLOLISTHESIS, LUMBAR REGION; PHH, low back pain no injury. TECHNIQUE: Multiple axial images were obtained from the midportion of T11 through the sacroiliac addison nts. Soft tissue and bone windows in coronal and sagittal planes were obtained and reviewed. 3-D ref ormats of the bones were created on a separate workstation and submitted for review. FINDINGS: Alignment: There are 5 lumbar type vertebral bodies with grade 1 anterolisthesis of L4 on L5 without evidence of pars defects. Bone: No evidence of acute fracture is identified. Discs: Multilevel disc space narrowing with endplate sclerosis and anterior osteophytosis . Vacuum di sc disease at L5-S1. T12-L1: No spinal canal or neural foraminal stenosis is identified. L1-L2: No spinal canal or neural foraminal stenosis is identified. L2-L3: Broad-based disc bulge with bilateral facet arthropathy resulting in mild central canal stenos is. The neural foramina are patent bilaterally. L3-L4: Broad-based disc bulge with bilateral facet arthropathy resulting in moderate central canal st enosis. Mild bilateral neuroforaminal stenosis. L4-L5: Grade 1 anterolisthesis with uncovering the disc. Mild broad-based disc bulge and bilateral f acet arthropathy contribute a mild to moderate central canal stenosis. Mild bilateral neuroforaminal stenosis. L5-S1: Broad-based disc bulge with bilateral facet throughout the period mild central canal stenosis. Mild to moderate right and moderate left neural foraminal stenosis. Other: Atherosclerotic calcification of the aorta and its branches. IMPRESSION: 1. No evidence of fracture of the lumbar spine. 2. Grade 1 anterolisthesis of L4 on L5. 3. Mild to moderate multilevel degenerative disc disease and facet arthropathy as described above. Th is is most prominent at L3-L4 and L4-L5.
== END | disposition home or self-care (01) ==
LOC: RADCTMAIN 10:03
PROVIDERS: ATTEND Physical Medicine & Rehabilitation
DX: M43.16 Spondylolisthesis, lumbar region (principal); M43.17 Spondylolisthesis, lumbosacral region; M41.25 Other idiopathic scoliosis, thoracolumbar region; M48.062 Spinal stenosis, lumbar region with neurogenic claudication; M51.16 Intervertebral disc disorders with radiculopathy, lumbar region; M47.26 Other spondylosis with radiculopathy, lumbar region
CPT/HCPCS: 72131

== ENCOUNTER 2023-09-05 07:54 | Day surgery (SDC) | payer MEDICARE ==
[2023-09-05 09:10] VITALS: RESP 18; TEMP 97.5
[2023-09-05 11:46] VITALS: BP 145/69; PULSE 70
--- NOTE | 2023-09-10 21:57 | CT ---
EXAMINATION TYPE: CT cervical spine w con CT DLP: 915.30 mGycm, Automated exposure control for dose reduction was used. DATE OF EXAM: 09/05/2023 9:59 AM COMPARISON: None. CLINICAL INDICATION:Male, 73 years old with history of M50.30 OTHER CERVICAL DISC DEGENERATION, UNSP CERV; PHH, Cervical Disc Degeneration, Unspecified cerv TECHNIQUE: Axial CT images from the skull base to the inferior aspect of T2 we obtained without intra venous contrast. Coronal and sagittal reformatted images were also reviewed. Contrast used:13 ml mL of Isovue M300 with IV Contrast, (if blank None) Oral contrast used: (if blank None) FINDINGS: Fracture: None. Osseous structures: Multilevel degenerative disc disease changes with endplate spurring and disc oste ophyte complex's. Vertebral alignment: Alignment within normal limits. Spinal canal/Neural Foramina: Multilevel degeneration changes with spinal canal stenosis at C4-C5 wit h mild and severe at C5-C6 extending from the lower C5 vertebrae to the mid lower C6 vertebrae. Neck soft tissues: Prevertebral soft tissues are within normal limits. Other: The airway is patent. The lung apices are clear. There is atherosclerosis of the arterial vasc ulature. Including the coronary arteries. IMPRESSION: 1. Severe spinal canal stenosis extending from the mid C5 vertebrae to the mid C6 vertebrae. 2. Multilevel degeneration changes throughout the spine with multilevel neural foraminal stenosis wi th moderate to severe bilateral C5-C6 stenosis.
--- NOTE | 2023-09-13 08:45 | FL ---
EXAMINATION TYPE: FL myelogram cervical DATE OF EXAM: 09/05/2023 9:50 AM HISTORY: Upper extremity pain and numbness Informed consent was obtained and all the patient's questions were answered. The L3-L4 level was loc alized under fluoroscopy. Standard sterile technique was utilized as well as appropriate local anest hesia 1% Lidocaine and sodium bicarbonate. cervical myelogram 1min 18sec fl time, 13 ml isovue 300M injected intrathecally The patient tolerated the procedure well and left the department in stable condition. CT myelography is to follow. IMPRESSION: Successful myelography
== END 2023-09-05 11:55 | disposition home or self-care (01) ==
LOC: RADPROMAIN 07:54
PROVIDERS: ATTEND Orthopaedic Surgery
DX: M50.30 Other cervical disc degeneration, unspecified cervical region (principal); M19.011 Primary osteoarthritis, right shoulder
CPT/HCPCS: 62302; 72126; Q9967

== ENCOUNTER → 2025-01-01 | Outpatient (CLI) | payer MEDICARE | END | disposition home or self-care (01) | LOC: LABWHC1 10:30 | PROVIDERS: ATTEND Internal Medicine | DX: N25.81 Secondary hyperparathyroidism of renal origin (principal) | CPT/HCPCS: 36415; 82164; 82652; 83883; 83970; 84166; 84443; 86334 ==

== ENCOUNTER → 2025-01-13 | Outpatient (CLI) | payer MEDICARE ==
[2025-01-13 15:22] LABS: ALT 21 U/L (10-49); AST 22 U/L (14-35); Albumin 4.1 g/dL (3.8-4.9); Albumin/Globulin Ratio 1.64 Ratio (1.60-3.17); Alkaline Phosphatase 63 U/L (41-126); BUN/Creat Ratio 17.89 Ratio (12.00-20.00); Blood Urea Nitrogen 50.1 mg/dL (9.0-27.0); Carbon Dioxide 22.4 mmol/L (21.6-31.8); Chloride 103 mmol/L (96-109); Globulin 2.5 g/dL (1.6-3.3); Glucose 149 mg/dL (70-110); Potassium 4.7 mmol/L (3.5-5.5); Sodium 140 mmol/L (135-145); Total Bilirubin 0.5 mg/dL (0.3-1.2); Total Protein 6.6 g/dL (6.2-8.2)
[2025-01-14 13:52] LABS: Free Kappa Lt Chain Qnt, Serum 4.74 mg/dL (0.33-1.94); Free Lambda Lt Chain Qnt, Seru 4.06 mg/dL (0.57-2.63)
== END | disposition home or self-care (01) ==
LOC: LABWHC1 10:52
PROVIDERS: ATTEND Internal Medicine
DX: N18.4 Chronic kidney disease, stage 4 (severe) (principal)
CPT/HCPCS: 36415; 80053; 82652; 83883; 83970; 86334

== ENCOUNTER → 2025-02-04 | Outpatient (CLI) | payer MEDICARE ==
[2025-02-04 15:41] LABS: Albumin 4.3 g/dL (3.8-4.9); BUN/Creat Ratio 17.33 Ratio (12.00-20.00); Calcium 10.9 mg/dL (8.7-10.3); Carbon Dioxide 22.4 mmol/L (21.6-31.8); Chloride 103 mmol/L (96-109); Glucose 199 mg/dL (70-110); Phosphorus 4.5 mg/dL (2.4-5.1); Potassium 4.4 mmol/L (3.5-5.5); Sodium 138 mmol/L (135-145)
== END | disposition home or self-care (01) ==
LOC: LABWHC1 08:32
PROVIDERS: ATTEND Internal Medicine
DX: N25.81 Secondary hyperparathyroidism of renal origin (principal); N18.4 Chronic kidney disease, stage 4 (severe)
CPT/HCPCS: 36415; 80069

== ENCOUNTER → 2025-02-11 | Outpatient (CLI) | payer MEDICARE ==
--- NOTE | 2025-02-12 22:07 | NM ---
EXAMINATION TYPE: NM parathyroid w/spect DATE OF EXAM: 02/11/2025 COMPARISON: NONE CLINICAL INDICATION: Male, 74 years old with history of N25.81 hyperparathyroisism; TECHNIQUE: Following administration of 24.0 mCi Tc99m Sestamibi. Anterior projection images of the neck and ches t were obtained 10 minutes and 3 hours post injection. SPECT images of the neck and chest were obtai denae and reconstructed in three axes. FINDINGS: Thyroid tracer washout: Delayed images demonstrate near-complete tracer washout from the thyroid. Parathyroid uptake: None. The delayed images do not demonstrate any focal abnormal persistent uptake in the region of the parathyroid glands to suggest parathyroid adenoma. Normal uptake: There is physiological tracer uptake in the myocardium, liver, salivary glands, and th yroid gland. IMPRESSION: No suspicious uptake to suggest parathyroid adenoma [facility] Jamil Horn, , 02/12/2025 10:05 PM
== END | disposition home or self-care (01) ==
LOC: RADNMMAIN 10:59
PROVIDERS: ATTEND Internal Medicine Nephrology
DX: N25.81 Secondary hyperparathyroidism of renal origin (principal)
CPT/HCPCS: 78071; A9500